=== PATIENT | female | born 1940 | race Caucasian/White ===

== ENCOUNTER 2016-11-28 17:24 | Inpatient (IN) | payer OTHER ==
[2016-11-28 17:29] VITALS: BMI 25.7
--- NOTE | 2016-11-28 20:17 | PDOC ---
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 HISTORY OF PRESENT ILLNESS: The patient denies f/c, n/v/d, back pain, hematuria , dysuria, LE edema. She states for the past 6 months she's had orthopnea and she's had fluid in her lungs in the past which had to be drained. PCP is Dr. Hunter Cardiology is Dr. Gage GI is Dr. Huerta Vital signs on arrival are within normal limits. REVIEW OF SYSTEMS: GENERAL/CONSTITUTIONAL: No fever/chills. No weakness. No weight change. HEAD, EYES, EARS, NOSE AND THROAT: No change in vision. No ear pain or discharge. No sore throat. CARDIOVASCULAR: +right sided chest pain, increased SOB. RESPIRATORY: No cough, wheezing, or hemoptysis. GASTROINTESTINAL: +right upper abdominal pain with swollen liver. No vomiting, diarrhea, constipation. GENITOURINARY: No dysuria, frequency, or change in urination. MUSCULOSKELETAL: No joint or muscle swelling or pain. No neck or back pain. SKIN: No rash or easy bruising. NEUROLOGIC: No headache, vertigo, loss of consciousness, or loss of sensation. PSYCHIATRIC: No depression or anxiety. ENDOCRINE: No increased thirst. No abnormal weight change. HEMATOLOGIC/LYMPHATIC: No anemia, easy bleeding, or history of blood clots. ALLERGIC/IMMUNOLOGIC: No hives or skin allergy. No latex allergy. PHYSICAL EXAM: GENERAL: The patient is awake, alert, and fully oriented, walking slowly secondary to SOB. THe patient speaks 3-4 words per breath. Pt's complexion is sorensen. HEAD: Normal with no signs of trauma. ENT: Pupils equal, round and reactive to light, extraocular movements intact, sclera anicteric, conjunctiva clear. Neck supple. LUNGS: Clear to auscultation bilaterally. Normal excursion. No respiratory distress or use of accessory muscles. CV: RRR, S1/S2, no MRG. Cap refill < 2 sec. ABDOMEN: Soft, right upper quadrant TTP with distention in that area. Liver 2 fingerbreaths below rib margin. Passive guarding. EXTREMITIES: Normal range of motion, no edema. NEUROLOGICAL: Normal speech, normal gait. CN II-XII grossly intact. PSYCH: Normal mood, normal affect. SKIN: Warm, dry, normal turgor, no rashes or lesions noted. No jaundice Past History - Past Medical History Allergies/Adverse Reactions: Allergies Allergy/AdvReac Type Severity Reaction Status Date / Time No Known Drug Allergies Allergy Verified 11/28/16 17:29 Home Medications: Ambulatory Orders Ca Cmb No.1/Vit D3/B-6/FA/B12 [Vitamin D3 1,000 Unit Tablet] 1 tab PO DAILY 10/15 Lisinopril [Prinivil] 20 mg PO BID 08/12/14 Metoprolol Tartrate [Lopressor -] 1 tab PO DAILY 08/12/14 Naproxen Sodium [Aleve] 220 mg PO PRN 08/13/14 Omeprazole [Prilosec (RX)] 20 mg PO DAILY 08/13/14 Anemia: No Asthma: No Cancer: No Cardiac Disorders: Yes CVA: No COPD: No CHF: No Dementia: No Diabetes: No GI Disorders: Yes (POLYPS) Disorders: No HTN: Yes Hypercholesterolemia: No HIV: Yes Liver Disease: Yes (LIVER CIRRHOSIS) Seizures: No Thyroid Disease: No Other medical history: CIRRHOSIS - Surgical History Abdominal Surgery: No Appendectomy: No Cardiac Surgery: Yes (VALVE REPLACEMENT) Cholecystectomy: No Lung Surgery: No Neurologic Surgery: No Orthopedic Surgery: No - Psycho/Social/Smoking Cessation Hx Suicidal Ideation: No Smoking History: Never smoked Hx Alcohol Use: No Drug/Substance Use Hx: No Substance Use Type: None Hx Substance Use Treatment: No Cardiac Specific PMH - Complaint Specific PMHX Pacemaker: No *Physical Exam - Vital Signs Last Vital Signs Temp Pulse Resp BP Pulse Ox 98.4 F 84 20 146/90 100 11/28/16 17:25 11/28/16 17:25 11/28/16 17:25 11/28/16 17:25 11/28/16 17:25 Heart Score/ECG Review - ECG Intrepretation Comment:: Twelve-lead EKG was performed and reviewed by Dr. Lambert. There is normal sinus rhythm with a normal rate. Left axis deviation. The intervals are normal. Inverted T waves V1 and V2. Impression: Abnormal twelve-lead EKG ED Treatment Course - LABORATORY CBC & Chemistry Diagram: 11/28/16 21:00 11/28/16 21:00 - ADDITIONAL ORDERS Additional order review: Laboratory Results 11/28/16 11/28/16 11/28/16 21:00 21:00 21:00 INR Sodium 135 L Potassium 4.2 Chloride 103 Carbon Dioxide 27 Anion Gap 5 L BUN 14 Creatinine 0.6 D Creat Clearance w eGFR > 60 Random Glucose 99 Calcium 8.3 L Total Bilirubin 2.0 H AST 59 H D ALT 34 D Alkaline Phosphatase 335 H D Ammonia 23.55 Creatine Kinase 68 Troponin I 0.10 H B-Natriuretic Peptide 266.37 H Total Protein 8.1 Albumin 2.4 L 11/28/16 21:00 INR 1.14 Sodium Potassium Chloride Carbon Dioxide Anion Gap BUN Creatinine Creat Clearance w eGFR Random Glucose Calcium Total Bilirubin AST ALT Alkaline Phosphatase Ammonia Creatine Kinase Troponin I B-Natriuretic Peptide Total Protein Albumin 11/28/16 21:00 RBC 3.78 MCV 77.9 L MCHC 31.5 L RDW 18.9 H D MPV 8.0 Neutrophils % 57.3 Lymphocytes % 30.8 Monocytes % 8.7 Eosinophils % 1.9 Basophils % 1.3 - RADIOLOGY Radiology Studies Ordered: Category Date Time Status CHEST X-RAY PORTABLE* [RAD] Stat Radiology 11/28/16 20:18 Taken ABDOMEN US -LIMITED [US] Stat Ultrasound 11/28/16 20:18 Completed Medical Decision Making - Medical Decision Making A/P: 76 y/o female with increased SOB, right sided chest pain and right upper abdominal pain with swollen liver x 2 days. Plan is as follows: 1. EKG 2. CXR 3. Ultrasound liver 4. Labs Laboratory Tests 11/28/16 11/28/16 11/28/16 21:00 21:00 21:00 Sodium 135 L Potassium 4.2 Anion Gap 5 L BUN 14 Creatinine 0.6 D Calcium 8.3 L Total Bilirubin 2.0 H AST 59 H D ALT 34 D Alkaline Phosphatase 335 H D Ammonia 23.55 Creatine Kinase 68 Troponin I 0.10 H B-Natriuretic Peptide 266.37 H Total Protein 8.1 Albumin 2.4 L abd limited ultrasound IMPRESSION: Hepatic cirrhosis is identified. No obvious hepatic mass lesion is seen. In comparison to ultrasound study of 06/08/16 there has been interval resolution of ascites within the right upper quadrant. Cholelithiasis is again noted. As on the prior study there is mild diffuse gallbladder wall thickening which is probably noninflammatory in nature. No definite biliary tract dilatation. Elevated troponin of 0.1 Elevated BNP 266 (no prior) Spoke with Dr. Nugent who would like her admitted to tele. SPoke with Dr. Victoria, neon glass blower for Dr. Gage, who agrees with plan. Informed the patient of the plan for admission and she is amenable. *DC/Admit/Observation/Transfer Diagnosis at time of Disposition: SOB (shortness of breath), Chest pain, Elevated troponin - Discharge Dispostion Admit: Yes Decision to Admit order Date/Time: Decision to Admit Order Category Date Time Status Decision to Admit to Hospital Routine Phy Order 11/28/16 22:53 Ordered - Referrals Referrals: Ector Hunter MD [Primary Care Provider] -
--- NOTE | 2016-11-28 21:08 | PDOC ---
[id number] 100 11/28/16 17:25 11/28/16 17:25 11/28/16 17:25 11/28/16 17:25 11/28/16 17:25 ED Treatment Course - LABORATORY CBC & Chemistry Diagram: 11/28/16 21:00 11/28/16 21:00 Medical Decision Making - Medical Decision Making 11/28/16 21:08 agree with care from RODGER Rice *DC/Admit/Observation/Transfer Diagnosis at time of Disposition: SOB (shortness of breath), Chest pain, Elevated troponin
[2016-11-28 21:13] LABS: BASOPHIL 1.3 % (0-2.0); EOSINOPHIL 1.9 % (0-4.5); MCH 24.5 pg (25.7-33.7); MCHC 31.5 g/dl (32.0-36.0); MEAN CELL VOLUME 77.9 fl (80-96); NEUTROPHILS 57.3 % (42.8-82.8); PLATELET COUNT 131 K/MM3 (134-434); RDW 18.9 % (11.6-15.6); WHITE BLOOD COUNT 3.7 K/mm3 (4.0-10.0)
[2016-11-28 21:23] LABS: INR 1.14 (0.82-1.09); PROTHROMBIN TIME (PATIENT) 12.6 SEC (9.98-11.88)
[2016-11-28 21:46] LABS: ALBUMIN 2.4 g/dl (3.4-5.0); ANION GAP 5 (8-16); CALCIUM 8.3 mg/dL (8.5-10.1); CO2 27 mmol/L (21-32); GLUCOSE,RANDOM 99 mg/dL (74-106)
[2016-11-28 21:52] LABS: ALK PHOS 335 U/L (45-117); CREATININE 0.6 mg/dL (0.55-1.02); SGOT/AST 59 U/L (15-37); SGPT/ALT 34 U/L (12-78); TOT PROT 8.1 g/dl (6.4-8.2)
[2016-11-29 08:02] LABS: TROPONIN I 0.1 ng/ml (0.00-0.05)
[2016-11-29 09:34] LABS: THYROID STIMULATING HORMONE 4.07 uIU/ml (0.358-3.74)
[2016-11-29] MEDS ORDERED: PANTOPRAZOLE SODIUM 100 ML IVPB ONE ×2 (11:24→12:33)
[2016-11-29] MEDS ORDERED: METOPROLOL TARTRATE 25 MG TABLET (FP) ONE (12:32)
[2016-11-29] MEDS ORDERED: SPIRONOLACTONE 25 MG TABLET (FP) ONE (12:33)
[2016-11-29] MEDS: METOPROLOL SUCCINATE 25 MG TAB.SR.24H (FP) PO SCH ×2 (12:41→21:10)
[2016-11-29] MEDS: SPIRONOLACTONE 25 MG TABLET (FP) PO SCH (12:41)
--- NOTE | 2016-11-29 15:15 | PN ---
Progress Note (short form) - Note Progress Note: consult dictated
--- NOTE | 2016-11-29 15:41 | EKG ---
Test Reason : Blood Pressure : / mmHG Vent. Rate : 080 BPM Atrial Rate : 080 BPM P-R Int : 180 ms QRS Dur : 080 ms QT Int : 402 ms P-R-T Axes : 005 -30 167 degrees QTc Int : 463 ms NORMAL SINUS RHYTHM LEFT AXIS DEVIATION LOW VOLTAGE QRS CANNOT RULE OUT ANTERIOR INFARCT , AGE UNDETERMINED ST ABNORMAL ECG WHEN COMPARED WITH ECG OF 16-NOV-2010 14:42, T WAVE INVERSION NOW EVIDENT IN ANTEROLATERAL LEADS Confirmed by XANDER MALONEY MD ([id number]) on 11/29/2016 3:40:48 PM Referred By: Overread By: XANDER MALONEY MD
--- NOTE | 2016-11-29 15:44 | CONSULT ---
Consult Consult Specialty:: cardiology Reason for Consultation:: abdominal and chest discomfort; shortness of breath - History of Present Illness Chief Complaint: Pt A&Ox3; ambulatory to bathroom; no chest pain. Pt's daughter and son are at bedside. 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 HISTORY OF PRESENT ILLNESS: The patient denies f/c, n/v/d, back pain, hematuria , dysuria, LE edema. She states for the past 6 months she's had orthopnea and fluid in her lungs in the past which had to be drained. PCP is Dr. Hunetr Cardiology is Dr. Gage GI is Dr. Huerta - History Source History Provided By: Patient, Family Member, Medical Record Limitations to Obtaining History: No Limitations - Past Medical History Cardio/Vascular: Yes: Aortic Stenosis (led to bioprosthetic AoVR), CHF, HTN Hepatobiliary: Yes: Cirrhosis Renal/: No: Renal Failure Reproductive: Yes: Postmenopausal ...: No Heme/Onc: Yes: Anemia - Past Surgical History Past Surgical History: Yes: Valve Replacement (aortic valve) - Alcohol/Substance Use Hx Alcohol Use: No - Smoking History Smoking history: Never smoked Have you smoked in the past 12 months: No Home Medications - Allergies Allergies/Adverse Reactions: Allergies Allergy/AdvReac Type Severity Reaction Status Date / Time No Known Drug Allergies Allergy Verified 11/28/16 17:29 - Home Medications Home Medications: Ambulatory Orders Aspirin [ASA -] 81 mg PO DAILY 11/29/16 Calcium Carb/Vitamin D3/Vit K1 [Viactiv Soft Chew Tablet] 1 each PO DAILY Cholecalciferol (Vitamin D3) [Vitamin D3 -] 1,000 unit PO DAILY 11/29/16 Cyanocobalamin [Vitamin B12 -] 1,000 mcg PO DAILY 11/29/16 Hydrochlorothiazide [Hctz -] 12.5 mg PO DAILY 11/29/16 Metoprolol Succinate [Toprol Xl -] 25 mg PO BID 11/29/16 Spironolactone [Aldactone] 25 mg PO DAILY 11/29/16 Ursodiol [Actigall] 300 mg PO TID 11/29/16 Family Disease History - Family Disease History Family History: Denies Review of Systems - Review of Systems Constitutional: reports: No Symptoms Eyes: reports: No Symptoms HENT: reports: No Symptoms Neck: reports: No Symptoms Cardiovascular: reports: Chest Pain Respiratory: reports: No Symptoms Gastrointestinal: reports: No Symptoms Genitourinary: reports: No Symptoms Breasts: reports: No Symptoms Reported Musculoskeletal: reports: No Symptoms Integumentary: reports: No Symptoms Neurological: reports: No Symptoms Endocrine: reports: No Symptoms Hematology/Lymphatic: reports: No Symptoms Psychiatric: reports: No Symptoms - Risk Factors Known Risk Factors: Yes: Age, Hypercholesterolemia, Hypertension, Physical Inactivity, Other (s/p bioprosthetic aortic valve) Vital Signs: Vital Signs Temperature 97.7 F 11/29/16 14:00 Pulse Rate 65 11/29/16 14:00 Respiratory Rate 18 11/29/16 14:00 Blood Pressure 105/69 11/29/16 14:00 O2 Sat by Pulse Oximetry (%) 99 11/29/16 14:00 Constitutional: Yes: Well Nourished Eyes: Yes: WNL HENT: Yes: WNL Neck: Yes: WNL Respiratory: Yes: Regular Gastrointestinal: Yes: Soft Renal/: No: Anuria Cardiovascular: Yes: Regular Rate and Rhythm, Other (chest pain is reproduced whtn stethoscope is pressed on left) JVD: No Carotid Bruit: No PMI: Non-Displaced Heart Sounds: Yes: S1, S2 Murmur: Yes: Systolic Murmur, Grade 1 Musculoskeletal: Yes: WNL Extremities: Yes: WNL Edema: No Peripheral Pulses WNL: Yes Integumentary: Yes: WNL Neurological: Yes: Alert, Oriented Psychiatric: Yes: WNL - Other Data Labs, Other Data: INR, PTT INR 1.14 (0.82-1.09) 11/28/16 21:00 Troponin, BNP 11/29/16 07:25 Troponin I 0.10 H Troponin, BNP 11/29/16 07:25 Troponin I 0.10 H Imaging - Results Chest X-ray: Image Reviewed (no acute pathology) EKG: Image Reviewed (NSR; APCs; old anterior infarct (no significant changes)) Problem List - Problems (1) Chest pain Code(s): R07.9 - CHEST PAIN, UNSPECIFIED (2) Elevated troponin Assessment/Plan: mild elevation (0.1 x 2 ), with normal and unchanging CK. Multiple reasons may explain this elevation, including myocardial ischemia ( doubt this presently: patent coronary arteries by angiogram 10/2014; no acute ST -T changes; atypical chest discomfort); liver disease, CHF; sepsis, pancytopenia. F/u ECHO for LVEF, valve status. Code(s): R79.89 - OTHER SPECIFIED ABNORMAL FINDINGS OF BLOOD CHEMISTRY (3) SOB (shortness of breath) Assessment/Plan: Pt has been doing very little exercise since cardiac surgery in 2013; the importance of starting a regular aerobic program was emphasized. Code(s): R06.02 - SHORTNESS OF BREATH (4) Liver cirrhosis Assessment/Plan: GI workup in progress; CT abdomen pending. Code(s): K74.60 - UNSPECIFIED CIRRHOSIS OF LIVER (5) Anemia Assessment/Plan: f/u pancytopenia. Code(s): D64.9 - ANEMIA, UNSPECIFIED
--- NOTE | 2016-11-29 15:45 | EKG ---
Test Reason : Blood Pressure : / mmHG Vent. Rate : 075 BPM Atrial Rate : 075 BPM P-R Int : 176 ms QRS Dur : 084 ms QT Int : 414 ms P-R-T Axes : 006 -38 031 degrees QTc Int : 462 ms SINUS RHYTHM WITH PREMATURE SUPRAVENTRICULAR COMPLEXES LEFT AXIS DEVIATION ANTERIOR INFARCT (CITED ON OR BEFORE 28-NOV-2016) WHEN COMPARED WITH ECG OF 28-NOV-2016 17:38, PREMATURE SUPRAVENTRICULAR COMPLEXES ARE NOW PRESENT T WAVE INVERSION NO LONGER EVIDENT IN LATERAL LEADS Confirmed by XANDER MALONEY MD ([id number]) on 11/29/2016 3:45:16 PM Referred By: Overread By: XANDER MALONEY MD
--- NOTE | 2016-11-29 17:35 | CONS ---
DATE OF CONSULTATION: 11/29/2016 REQUESTING PHYSICIAN: Ector Hunter MD The patient is a 76-year-old female admitted to [facility] for evaluation of chest pain. Also, she described right upper quadrant pain which she attributes to her liver. She has a history of primary sclerosing cholangitis, and she follows with Priyanka Huerta MD, for this. She was last seen July 26, 2016, by Dr. Huerta in the office. He had also mentioned that she was status post Clostridium difficile colitis. He advised continue with lactulose 1 tablespoon p.o. b.i.d., Aldactone 25 mg daily, Actigall 300 mg t.i.d. AFP tumor marker testing was performed; that was unrevealing as well. She also apparently had blood work in August 2016 revealing an AST of 64, ALT of 33, alkaline phosphatase of 302, and total bilirubin of 1.9. Her hemoglobin was 8.5 at that time with a white blood count of 3.5, MCV of 82.7, and platelet count of 131. Currently, the patient describes pain in the right upper quadrant pain has improved. She did have an abdominal ultrasound performed yesterday evening that revealed hepatic cirrhosis; no obvious hepatic masses; interval resolution of ascites; cholelithiasis; mild diffuse gallbladder wall thickening, probably noninflammatory in nature, and this was noted on previous study. 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 PAST SURGICAL HISTORY: Includes laparoscopic assisted transvaginal total abdominal hysterectomy with bilateral salpingo-oophorectomy for fibroids and endometriosis with postop kidney failure, bunionectomy, bilateral iridectomies, flap and metal prosthesis inserted in August 2015. ALLERGIES: No known drug allergies. SOCIAL HISTORY: No EtOH, tobacco, intravenous drug abuse, or illicit drugs. FAMILY HISTORY: Noncontributory. MEDICATIONS PRIOR TO ADMISSION: Include , vitamin B12, lactulose, Aldactone, aspirin, multivitamin, metoprolol, Actigall, vitamin D, Aleve, and hydrochlorothiazide. REVIEW OF SYSTEMS: She does complain still of some chest discomfort. Her right upper quadrant pain has improved. She denies any nausea or vomiting, rectal bleeding, change in bowel habits. She denies any hematemesis or melena. PHYSICAL EXAMINATION: GENERAL: Patient is found lying comfortably in her bed. She appeared to be in no apparent distress. VITAL SIGNS: She is afebrile with a pulse of 65, blood pressure 105/69. HEENT: Her sclerae are anicteric. NECK: Supple. HEART: Regular rate and rhythm. She did have a holosystolic murmur heard best at the right sternal border. LUNGS: Examination of the lungs revealed clear lung tavarez bilaterally. ABDOMEN: The abdomen was nondistended. She had normoactive bowel sounds. She did have prominent border of the liver. Abdomen was otherwise nondistended. No splenomegaly was appreciated. EXTREMITIES: Examination of the extremities revealed trace lower extremity edema. RECTAL: Digital rectal exam: No external lesions. No masses. She had very pale stool in the rectal, vault which was guaiac negative. NEUROLOGICAL: The patient was awake, alert, and oriented. There was no asterixis. LABORATORY EVALUATION: White blood count of 3.7, hemoglobin of 9.3, hematocrit 29.4, platelets of 131. Sodium 135, potassium 4.2, chloride of 103, bicarbonate of 27, BUN of 14, creatinine 0.6, AST of 59, ALT of 34, alkaline phosphatase of 335, total bilirubin 2.0 with an albumin of 2.4. Also, troponins were elevated up to 0.10 x2 sets. RADIOLOGY REPORTS: As noted in the history of present illness. IMPRESSION: A 76-year-old woman with right upper quadrant pain. She does have a history of cirrhosis. I have ordered a triple-phase CT scan of the abdomen and pelvis with and without IV contrast to evaluate the liver further, to evaluate for portal vein thrombosis, and to further assess the gallbladder given that she does have gallstones as well. Her LFTs, however, do appear to be at her baseline. I would continue to monitor them, monitor her CBC. Other recommendations will be made pending the patient's clinical course and from her CAT scan findings. She does have a followup this coming December with Priyanka Huerta MD, and I advise her and her daughter that she keep that appointment. Other recommendations pending above. I thank you for this consultative opportunity. NGUYEN ALEGRIA DO [id number]
[2016-11-29 17:36] LABS: BASOPHIL 1.1 % (0-2.0); EOSINOPHIL 1.9 % (0-4.5); MCH 24.2 pg (25.7-33.7); MCHC 31.1 g/dl (32.0-36.0); MEAN PLT VOLUME 8.3 fl (7.5-11.1); NEUTROPHILS 54.5 % (42.8-82.8); PLATELET COUNT 128 K/MM3 (134-434); WHITE BLOOD COUNT 3.3 K/mm3 (4.0-10.0)
[2016-11-29 18:08] LABS: ALBUMIN 2.2 g/dl (3.4-5.0); BILIRUBIN,DIRECT 1.4 mg/dL (0.0-0.2); BILIRUBIN,TOTAL 1.8 mg/dL (0.2-1.0); CREATININE 0.7 mg/dL (0.55-1.02); TOT PROT 7.5 g/dl (6.4-8.2)
--- NOTE | 2016-11-29 19:51 | HP ---
[id number] Chief Complaint: Abdominal pain. Chest pain with SOB History of Present Illness: She claims that over the last few days developed right sided chest pain off and on and on the day of admission became very severe and came to ED. She had aortic valve replacement 2 years ago and post op was found to have non healing of the sternum and had to undergo placement of a plate to approximate the sternal edges but continued to have sternal pain but not as severe.She has also noted generalized weakness associated with SOB over the last few weeks. Abdominal pain has been mostly right sided , without any N/V, or any fever.There is no melena. She is known to have liver cirrhosis due to sclerosing cholangitis and the liver function had improved after the aortic valve replacement and it was felt that there was no urgency for a liver transplant. History Source: Patient Limitations to Obtaining History: No Limitations - Past Medical History Cardiovascular: Yes: HTN Gastrointestinal: Yes: Ascites Hepatobiliary: Yes: Cirrhosis, Cholelithiasis ...: No - Past Surgical History Past Surgical History: Yes: Cataract Removal, Hysterectomy, Valve Replacement - Advance Directives Advance Directives: Yes: Health Care Proxy - Smoking History Smoking history: Never smoked Have you smoked in the past 12 months: No - Alcohol/Substance Use Hx Alcohol Use: No - Social History Usual Living Arrangement: Yes: Other (lives with daughter) ADL: Independent History of Recent Travel: No Home Medications - Allergies Allergies/Adverse Reactions: Allergies Allergy/AdvReac Type Severity Reaction Status Date / Time No Known Drug Allergies Allergy Verified 12/24/16 21:01 - Home Medications Home Medications: Ambulatory Orders Calcium Carb/Vitamin D3/Vit K1 [Viactiv Soft Chew] 1 each PO DAILY 11/29/16 Cholecalciferol (Vitamin D3) [Vitamin D3 -] 1,000 unit PO DAILY 11/29/16 Cyanocobalamin [Vitamin B12 -] 1,000 mcg PO DAILY 11/29/16 Ascorbic Acid [Vitamin C -] 500 mg PO DAILY #30 tablet 12/02/16 Ferrous Sulfate [Feosol] 325 mg PO DAILY@0800 ud 12/02/16 Metoprolol Succinate [Toprol XL -] 12.5 mg PO BID #0 12/02/16 Pantoprazole Sodium [Protonix -] 40 mg PO DAILY #30 tablet.ec 12/02/16 Spironolactone [Aldactone -] 25 mg PO DAILY tablet 12/02/16 Ursodiol [Actigal -] 300 mg PO BID capsule 12/02/16 Review of Systems - Review of Systems Constitutional: reports: Weakness Eyes: reports: No Symptoms HENT: reports: No Symptoms Neck: reports: No Symptoms Cardiovascular: reports: Shortness of Breath Respiratory: reports: SOB on Exertion Gastrointestinal: reports: Abdominal Pain Genitourinary: reports: No Symptoms Breasts: reports: No Symptoms Reported Musculoskeletal: reports: No Symptoms Integumentary: reports: No Symptoms Neurological: reports: No Symptoms Endocrine: reports: No Symptoms Psychiatric: reports: No Symptoms Physical Examination Vital Signs: Vital Signs Temperature 98.0 F 11/29/16 17:00 Pulse Rate 60 11/29/16 17:00 Respiratory Rate 18 11/29/16 17:00 Blood Pressure 106/62 11/29/16 17:00 O2 Sat by Pulse Oximetry (%) 99 11/29/16 14:00 Constitutional: Yes: Well Nourished, Calm Eyes: Yes: Conjunctiva Clear, Sclera Icterus HENT: Yes: Atraumatic, Normocephalic Neck: Yes: Supple Cardiovascular: Yes: Regular Rate and Rhythm, S1, S2 Respiratory: Yes: Regular, CTA Bilaterally Gastrointestinal: Yes: Distention, Tenderness, Other (right upper quadrant tenderness which extends to lower level) Renal/: Yes: WNL Breast(s): Yes: WNL Musculoskeletal: Yes: WNL Extremities: Yes: WNL Edema: No Peripheral Pulses WNL: Yes Integumentary: Yes: WNL Neurological: Yes: Alert, Oriented, Cran Nerves II-XII Intact ...Motor Strength: WNL Psychiatric: Yes: Alert, Oriented Labs: CBC, BMP 11/29/16 16:30 11/29/16 16:30 Imaging - Results EKG: Report Reviewed Problem List - Problems (1) Anemia Assessment/Plan: Micrcytic indices sugges chronic blood loss anemia. She had colonoscopy 2yrs ago and was negative.Anemia is most likely due to chronic gastritis. Code(s): D64.9 - ANEMIA, UNSPECIFIED Qualifiers: Iron deficiency anemia type: chronic blood loss (2) HTN (hypertension) Assessment/Plan: BP under good control Code(s): I10 - ESSENTIAL (PRIMARY) HYPERTENSION (3) Liver cirrhosis Code(s): K74.60 - UNSPECIFIED CIRRHOSIS OF LIVER Assessment/Plan Severe anemia to be followed closely and if any drop will have to be transfused. Abdominal pain has improved markedly with IV Protonix suggesting pain from gastritis.
[2016-11-29 20:40] LABS: CHOLESTEROL 127 mg/dL (50-200); LDL CHOLESTEROL (ONLY SJRH) 87 mg/dL (5-100)
[2016-11-30 08:29] LABS: MCH 24.8 pg (25.7-33.7); MCHC 31.9 g/dl (32.0-36.0); MEAN CELL VOLUME 77.9 fl (80-96); PLATELET COUNT 84 K/MM3 (134-434); RDW 19.2 % (11.6-15.6); WHITE BLOOD COUNT 2.6 K/mm3 (4.0-10.0)
[2016-11-30] MEDS ORDERED: PT OWN MED DRAWER 7, Y5N ONE ×3 (09:08→21:22)
[2016-11-30] MEDS: SPIRONOLACTONE 25 MG TABLET (FP) PO SCH (09:40)
[2016-11-30] MEDS: METOPROLOL SUCCINATE 25 MG TAB.SR.24H (FP) PO SCH ×2 (09:40→22:57)
[2016-11-30] MEDS ORDERED: PANTOPRAZOLE SODIUM 40 MG in SODIUM CHLORIDE 100 ML IVPB SCH (10:00)
[2016-11-30] MEDS ORDERED: URSODIOL 300 MG CAPSULE PO SCH (10:00)
[2016-11-30] MEDS ORDERED: PANTOPRAZOLE SODIUM 40 MG/100 ML PRE-DOCKED IVPB SCH (10:00)
--- NOTE | 2016-11-30 15:58 | PN ---
Progress Note, Physician Chief Complaint: Pt denies chest pain presently. History of Present Illness: 76 y/o white female (juan Lux) with PMH HTN, [id number] aortic valve replacement (10/2014 at [facility]--Dr. Adan); patent coronary arteries on coronary angiogram (10/2014 at [facility]--Dr. 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 HISTORY OF PRESENT ILLNESS: The patient denies f/c, n/v/d, back pain, hematuria , dysuria, LE edema. She states for the past 6 months she's had orthopnea and fluid in her lungs in the past which had to be drained. PCP is Dr. Hunter Cardiology is Dr. Gage GI is Dr. Huerta - Current Medication List Current Medications: Active Medications Metoprolol Succinate (Toprol Xl -) 25 mg PO BID [facility] Last Admin: 11/30/16 09:40 Dose: 25 mg Pantoprazole Sodium (Protonix 40mg Ivpb (Pre-Docked)) 40 mg IVPB DAILY [facility] Last Admin: 11/30/16 09:40 Dose: 40 mg Spironolactone (Aldactone -) 25 mg PO DAILY [facility] Last Admin: 11/30/16 09:40 Dose: 25 mg Ursodiol (Actigal -) 300 mg PO DAILY [facility] Last Admin: 11/30/16 12:06 Dose: 300 mg - Objective Vital Signs: Vital Signs Temperature 98.0 F 11/30/16 14:00 Pulse Rate 68 11/30/16 14:00 Respiratory Rate 20 11/30/16 14:00 Blood Pressure 100/65 11/30/16 14:00 O2 Sat by Pulse Oximetry (%) 98 11/30/16 09:00 Constitutional: Yes: Calm Eyes: Yes: WNL HENT: Yes: WNL Neck: Yes: WNL Cardiovascular: Yes: Regular Rate and Rhythm Respiratory: Yes: Regular Gastrointestinal: Yes: Soft ...Rectal Exam: Yes: Deferred Genitourinary: No: Anuria Musculoskeletal: Yes: Muscle Weakness Edema: No Peripheral Pulses WNL: Yes Integumentary: Yes: Incision Neurological: Yes: Alert, Oriented, Weakness Psychiatric: Yes: Alert, Oriented Labs: CBC, BMP 11/30/16 07:10 11/29/16 16:30 INR, PTT INR 1.14 (0.82-1.09) 11/28/16 21:00 Abnormal Lab Results 11/30/16 11/30/16 07:10 11:19 WBC 2.6 L RBC 3.17 L Hgb 7.9 L Hct 24.7 L MCV 77.9 L MCHC 31.9 L RDW 19.2 H Plt Count 84 L D Monocytes % 11.0 H Crossmatch See Detail - ....Imaging Ultrasound: Image Reviewed (ECHO: normal LVEF and RVEF; bioprosthetic aortic valve intact, with no significant or AR; moderate TR.) Problem List - Problems (1) Chest pain Code(s): R07.9 - CHEST PAIN, UNSPECIFIED (2) Elevated troponin Assessment/Plan: mild elevation (0.1 x 2 ), with normal and unchanging CK. Multiple reasons may explain this elevation, including myocardial ischemia ( doubt this presently: patent coronary arteries by angiogram 10/2014; no acute ST -T changes; atypical chest discomfort); liver disease, CHF; sepsis, pancytopenia. ECHO: normal LVEF and RVEF; intact AoVR; moderate TR. Receiving PRBCs and FeSO4; f/u with Gi and hematology. Code(s): R79.89 - OTHER SPECIFIED ABNORMAL FINDINGS OF BLOOD CHEMISTRY (3) SOB (shortness of breath) Assessment/Plan: Pt has been doing very little exercise since cardiac surgery in 2013; the importance of starting a regular aerobic program was emphasized. Code(s): R06.02 - SHORTNESS OF BREATH (4) Liver cirrhosis Assessment/Plan: GI workup in progress. Code(s): K74.60 - UNSPECIFIED CIRRHOSIS OF LIVER (5) Anemia Assessment/Plan: f/u pancytopenia. Code(s): D64.9 - ANEMIA, UNSPECIFIED Qualifiers: Iron deficiency anemia type: chronic blood loss (7) Pancytopenia Assessment/Plan: Receiving PRBCs and ferrous sulfate. F/u with hematology and GI. Code(s): D61.818 - OTHER PANCYTOPENIA
[2016-11-30] MEDS ORDERED: LACTULOSE 20 GM/30 ML UDC (FOR ORAL USE ONLY) PO ONE (17:41)
--- NOTE | 2016-11-30 17:50 | PN ---
GI Progress Note Subjective: GI Note: CT scan and sonogram reveal no ascites or major liver problems. Echocardiogram similarly reveals no major dysfunction. Ferritin is very low. Karie is pain free and very hungry. I believe that her pain was musculoskeletal and related to [place] meal preparation. Her liver condition is actually primary biliary cholangitis ( formerly called primary biliary cirrhosis) and not primary sclerosing cholangitis. - Objective Vital Signs: Vital Signs Temperature 98.0 F 11/30/16 14:00 Pulse Rate 68 11/30/16 14:00 Respiratory Rate 20 11/30/16 14:00 Blood Pressure 100/65 11/30/16 14:00 O2 Sat by Pulse Oximetry (%) 98 11/30/16 09:00 CBC, BMP 11/30/16 07:10 11/29/16 16:30 Constitutional: Calm Eyes: Yes: Conjunctiva Clear ...Auscultate: Yes: Normoactive Bowel Sounds ...Palpate: Yes: Soft, Other (nontender) Labs: CBC, BMP 11/30/16 07:10 11/29/16 16:30 INR, PTT INR 1.14 (0.82-1.09) 11/28/16 21:00 Assessment/Plan Resolved musculoskeletal pain. Iron deficiency anemia without overt bleeding. Agree with checking multiple stools for occult blood. Have advanced to solid diet and given iron and Vitamin C replacement therapy with Karie and her son. If diet is tolerated I have no GI objections to discharge. She will followup in my office on 12/19/15. If anemia progresses despite iron replacement a capsule endoscopy will need to be considered. Reports of 2014 EGD and colonoscopy have been placed into the chart.
--- NOTE | 2016-11-30 20:19 | PN ---
Progress Note, Physician History of Present Illness: Abdominal pain subsided as well as chest pain. Denies SOB, denies any palpitations. Appetite improving. No rectal bleeding, no melena. - Current Medication List Current Medications: Active Medications Ferrous Sulfate (Feosol -) 325 mg PO DAILY@0800 [facility] Metoprolol Succinate (Toprol Xl -) 25 mg PO BID [facility] Last Admin: 11/30/16 09:40 Dose: 25 mg Pantoprazole Sodium (Protonix -) 40 mg PO DAILY [facility] Spironolactone (Aldactone -) 25 mg PO DAILY [facility] Last Admin: 11/30/16 09:40 Dose: 25 mg Ursodiol (Actigal -) 300 mg PO BID [facility] - Objective Vital Signs: Vital Signs Temperature 98.5 F 11/30/16 16:00 Pulse Rate 67 11/30/16 16:00 Respiratory Rate 20 11/30/16 16:00 Blood Pressure 108/40 11/30/16 16:00 O2 Sat by Pulse Oximetry (%) 98 11/30/16 09:00 Constitutional: Yes: No Distress, Calm Eyes: Yes: Sclera Icterus HENT: Yes: WNL Neck: Yes: Supple Cardiovascular: Yes: Regular Rate and Rhythm, S1, S2 Respiratory: Yes: Regular, CTA Bilaterally Gastrointestinal: Yes: Normal Bowel Sounds, Soft Genitourinary: Yes: WNL Musculoskeletal: Yes: WNL Edema: No Peripheral Pulses WNL: Yes Integumentary: Yes: WNL Neurological: Yes: Alert, Oriented, Cran Nerves II-XII Intact ...Motor Strength: WNL Psychiatric: Yes: Alert, Oriented Labs: CBC, BMP 11/30/16 07:10 11/29/16 16:30 INR, PTT INR 1.14 (0.82-1.09) 11/28/16 21:00 - ....Imaging Chest X-ray: Report Reviewed Cat Scan: Report Reviewed Ultrasound: Report Reviewed Problem List - Problems (1) Anemia Assessment/Plan: Since admission Hb dropped to 7.8 and she was transfused one unit of packed cell. Will continue to monitor. Stool guaic was negative. Microcytic indices and ferritin is down to 7.5 Code(s): D64.9 - ANEMIA, UNSPECIFIED Qualifiers: Iron deficiency anemia type: chronic blood loss (2) Chest pain Assessment/Plan: chest pain is due to non fusion of the sternum with tenderness to touch Code(s): R07.9 - CHEST PAIN, UNSPECIFIED (3) Elevated troponin Code(s): R79.89 - OTHER SPECIFIED ABNORMAL FINDINGS OF BLOOD CHEMISTRY (4) Liver cirrhosis Assessment/Plan: No mass on ultrasound or by CT scan Code(s): K74.60 - UNSPECIFIED CIRRHOSIS OF LIVER (5) SOB (shortness of breath) Code(s): R06.02 - SHORTNESS OF BREATH Assessment/Plan Transfused one unit of RBC today. If HB less than 10 will give another unit in AM. CBC to be monitored over the weekend.
[2016-11-30] MEDS: URSODIOL 300 MG CAPSULE PO SCH (22:01)
[2016-12-01 08:00] LABS: BASOPHIL 1.2 % (0-2.0); EOSINOPHIL 2.5 % (0-4.5); MCH 25.3 pg (25.7-33.7); MCHC 32.2 g/dl (32.0-36.0); MEAN CELL VOLUME 78.4 fl (80-96); MEAN PLT VOLUME 8.1 fl (7.5-11.1); PLATELET COUNT 87 K/MM3 (134-434); RDW 18.1 % (11.6-15.6); WHITE BLOOD COUNT 2.7 K/mm3 (4.0-10.0)
[2016-12-01 08:13] LABS: CALCIUM 8.1 mg/dL (8.5-10.1); CREATININE 0.6 mg/dL (0.55-1.02)
[2016-12-01] MEDS ORDERED: PT OWN MED DRAWER 7, Y5N ONE (08:15)
[2016-12-01] MEDS: PANTOPRAZOLE 40 MG TABLET (FP) PO SCH (09:15)
[2016-12-01] MEDS: SPIRONOLACTONE 25 MG TABLET (FP) PO SCH (09:15)
[2016-12-01] MEDS: FERROUS SO4 325 MG TABLET (FP) PO SCH (09:15)
[2016-12-01] MEDS: URSODIOL 300 MG CAPSULE PO SCH ×2 (09:16→21:33)
[2016-12-01] MEDS: METOPROLOL SUCCINATE 25 MG TAB.SR.24H (FP) PO SCH ×2 (09:16→21:32)
[2016-12-01] MEDS ORDERED: ASCORBIC ACID 500 MG TABLET (FP) PO SCH (10:00)
--- NOTE | 2016-12-01 10:31 | PN ---
Progress Note, Physician History of Present Illness: seen and examined today in [facility]. no overnight events. no new complaints. - Current Medication List Current Medications: Active Medications Ferrous Sulfate (Feosol -) 325 mg PO DAILY@0800 [facility] Last Admin: 12/01/16 09:15 Dose: 325 mg Metoprolol Succinate (Toprol Xl -) 25 mg PO BID [facility] Last Admin: 12/01/16 09:16 Dose: Not Given Pantoprazole Sodium (Protonix -) 40 mg PO DAILY [facility] Last Admin: 12/01/16 09:15 Dose: 40 mg Spironolactone (Aldactone -) 25 mg PO DAILY [facility] Last Admin: 12/01/16 09:15 Dose: 25 mg Ursodiol (Actigal -) 300 mg PO BID [facility] Last Admin: 12/01/16 09:16 Dose: 300 mg - Objective Vital Signs: Vital Signs Temperature 98.2 F 12/01/16 07:12 Pulse Rate 69 12/01/16 07:12 Respiratory Rate 20 12/01/16 07:12 Blood Pressure 91/56 12/01/16 07:12 O2 Sat by Pulse Oximetry (%) 98 11/30/16 21:00 Constitutional: Yes: Well Nourished, No Distress, Calm Eyes: Yes: WNL, Conjunctiva Clear, EOM Intact, PERRL HENT: Yes: WNL, Atraumatic, Normocephalic Neck: Yes: WNL, Supple, Trachea Midline Cardiovascular: Yes: Regular Rate and Rhythm, Murmur, S1, S2. No: Bradycardia, Tachycardia, Pulse Irregular, Bruit, JVD, Gallop, Rub, S3, S4, Varicosities Respiratory: Yes: Regular, Diminished, Rales (bases). No: Rhonchi, SOB, Wheezes Gastrointestinal: Yes: WNL, Normal Bowel Sounds, Soft. No: Distention, Tenderness Musculoskeletal: Yes: WNL Extremities: Yes: WNL Edema: No Peripheral Pulses WNL: Yes Peripheral Pulses: Left Doralis Pedis: 2+, Right Dorsalis Pedis: 2+ Integumentary: Yes: WNL Neurological: Yes: WNL, Alert, Oriented, Cran Nerves II-XII Intact ...Motor Strength: WNL Psychiatric: Yes: WNL, Alert, Oriented Labs: CBC, BMP 12/01/16 06:00 12/01/16 06:00 INR, PTT INR 1.14 (0.82-1.09) 11/28/16 21:00 - ....Imaging Chest X-ray: Report Reviewed, Image Reviewed EKG: Report Reviewed, Image Reviewed Other: Report Reviewed, Image Reviewed (tele-nsr, 5 beats nsvt, apcs) Assessment/Plan Chest pain-atypical with very mild troponin elevation and stable CK -patent coronary arteries on cath 10/2014 -echo showed normal LV systolic function, normal functioning AVR -no additional ischemic work up planned at this time -cont toprol SOB--improved -cont aldactone and toprol Pancytopenia -receiving prbc transfusions
--- NOTE | 2016-12-01 17:58 | PN ---
[id number] BP was low - Current Medication List Current Medications: Active Medications Ferrous Sulfate (Feosol -) 325 mg PO DAILY@0800 [facility] Last Admin: 12/01/16 09:15 Dose: 325 mg Metoprolol Succinate (Toprol Xl -) 12.5 mg PO BID [facility] Pantoprazole Sodium (Protonix -) 40 mg PO DAILY [facility] Last Admin: 12/01/16 09:15 Dose: 40 mg Spironolactone (Aldactone -) 25 mg PO DAILY [facility] Last Admin: 12/01/16 09:15 Dose: 25 mg Ursodiol (Actigal -) 300 mg PO BID [facility] Last Admin: 12/01/16 09:16 Dose: 300 mg - Objective Vital Signs: Vital Signs Temperature 98.3 F 12/01/16 14:46 Pulse Rate 69 12/01/16 10:00 Respiratory Rate 20 12/01/16 14:46 Blood Pressure 113/70 12/01/16 14:46 O2 Sat by Pulse Oximetry (%) 98 12/01/16 10:00 Constitutional: Yes: No Distress, Calm Eyes: Yes: EOM Intact, Sclera Icterus HENT: Yes: WNL Neck: Yes: WNL, Supple Cardiovascular: Yes: Regular Rate and Rhythm, S1, S2 Respiratory: Yes: CTA Bilaterally Gastrointestinal: Yes: Normal Bowel Sounds, Soft Genitourinary: Yes: WNL Musculoskeletal: Yes: WNL Extremities: Yes: WNL Edema: No Peripheral Pulses WNL: Yes Integumentary: Yes: WNL Neurological: Yes: Alert, Oriented ...Motor Strength: WNL Psychiatric: Yes: Alert, Oriented Labs: CBC, BMP 12/01/16 06:00 12/01/16 06:00 INR, PTT INR 1.14 (0.82-1.09) 11/28/16 21:00 Problem List - Problems (1) Anemia Assessment/Plan: Anemia due to gi bleed from gastritis Code(s): D64.9 - ANEMIA, UNSPECIFIED Qualifiers: Iron deficiency anemia type: chronic blood loss (2) Chest pain Code(s): R07.9 - CHEST PAIN, UNSPECIFIED (3) Elevated troponin Code(s): R79.89 - OTHER SPECIFIED ABNORMAL FINDINGS OF BLOOD CHEMISTRY (4) Liver cirrhosis Code(s): K74.60 - UNSPECIFIED CIRRHOSIS OF LIVER (5) SOB (shortness of breath) Code(s): R06.02 - SHORTNESS OF BREATH Assessment/Plan Continue to observe. May need blood transfusion if Hemoglobin drops further
[2016-12-02 06:41] LABS: SERUM IRON 173 ug/dL (27-139); TOTAL IRON BINDING CAPACITY 295 ug/dL (250-450); UIBC 122 ug/dL (118-369)
[2016-12-02 08:06] LABS: BASOPHIL 1.2 % (0-2.0); MCH 25.5 pg (25.7-33.7); MCHC 32.5 g/dl (32.0-36.0); MEAN CELL VOLUME 78.4 fl (80-96); NEUTROPHILS 59.1 % (42.8-82.8); PLATELET COUNT 80 K/MM3 (134-434); RDW 18.6 % (11.6-15.6); WHITE BLOOD COUNT 3.2 K/mm3 (4.0-10.0)
[2016-12-02] MEDS ORDERED: PT OWN MED DRAWER 7, Y5N ONE (08:28)
[2016-12-02] MEDS: FERROUS SO4 325 MG TABLET (FP) PO SCH (09:09)
[2016-12-02] MEDS: PANTOPRAZOLE 40 MG TABLET (FP) PO SCH (09:09)
[2016-12-02] MEDS: SPIRONOLACTONE 25 MG TABLET (FP) PO SCH (09:09)
[2016-12-02] MEDS: METOPROLOL SUCCINATE 25 MG TAB.SR.24H (FP) PO SCH (09:10)
[2016-12-02] MEDS: URSODIOL 300 MG CAPSULE PO SCH (09:10)
--- NOTE | 2016-12-02 11:08 | PN ---
Progress Note, Physician History of Present Illness: seen and examined today in nad. feeling better. no overnight events. no new complaints. - Current Medication List Current Medications: Active Medications Ferrous Sulfate (Feosol -) 325 mg PO DAILY@0800 [facility] Last Admin: 12/02/16 09:09 Dose: 325 mg Metoprolol Succinate (Toprol Xl -) 12.5 mg PO BID [facility] Last Admin: 12/02/16 09:10 Dose: Not Given Pantoprazole Sodium (Protonix -) 40 mg PO DAILY [facility] Last Admin: 12/02/16 09:09 Dose: 40 mg Spironolactone (Aldactone -) 25 mg PO DAILY [facility] Last Admin: 12/02/16 09:09 Dose: 25 mg Ursodiol (Actigal -) 300 mg PO BID [facility] Last Admin: 12/02/16 09:10 Dose: 300 mg - Objective Vital Signs: Vital Signs Temperature 97.9 F 12/02/16 06:00 Pulse Rate 77 12/02/16 06:00 Respiratory Rate 18 12/02/16 08:51 Blood Pressure 99/67 12/02/16 06:00 O2 Sat by Pulse Oximetry (%) 98 12/02/16 08:51 Constitutional: Yes: Well Nourished, No Distress, Calm Eyes: Yes: WNL, Conjunctiva Clear, EOM Intact, PERRL HENT: Yes: WNL, Atraumatic, Normocephalic Neck: Yes: WNL, Supple, Trachea Midline Cardiovascular: Yes: Regular Rate and Rhythm, S1, S2. No: Bradycardia, Tachycardia, Pulse Irregular, Bruit, JVD, Gallop, Murmur, Rub, S3, S4, Varicosities Respiratory: Yes: WNL, Regular, CTA Bilaterally. No: Rales, Rhonchi, Wheezes Gastrointestinal: Yes: WNL, Normal Bowel Sounds, Soft. No: Distention, Tenderness Musculoskeletal: Yes: WNL Extremities: Yes: WNL Edema: No Peripheral Pulses WNL: Yes Peripheral Pulses: Left Doralis Pedis: 2+, Right Dorsalis Pedis: 2+ Integumentary: Yes: WNL Neurological: Yes: WNL, Alert, Oriented, Cran Nerves II-XII Intact ...Motor Strength: WNL Psychiatric: Yes: WNL, Alert, Oriented Labs: CBC, BMP 12/02/16 07:00 12/01/16 06:00 INR, PTT INR 1.14 (0.82-1.09) 11/28/16 21:00 - ....Imaging Chest X-ray: Report Reviewed, Image Reviewed EKG: Report Reviewed, Image Reviewed Other: Report Reviewed, Image Reviewed (tele-nsr, apcs, pcvs, no sig arrhythmia) Assessment/Plan Chest pain-atypical with very mild troponin elevation and stable CK -patent coronary arteries on cath 10/2014 -echo showed normal LV systolic function, normal functioning AVR -no additional ischemic work up planned at this time -cont toprol SOB-improved -cont aldactone and toprol
[2016-12-02 14:33] VITALS: BP 104/63; PULSE 72; TEMP 98
[2016-12-05 00:06] LABS: A/G RATIO 0.5 (0.7-1.7); ALBUMIN 2.1 g/dL (2.9-4.4); GLOBULIN, TOTAL 4.2 g/dL (2.2-3.9); M-SPIKE Not Observed g/dL (Not Observed); TOTAL PROTEIN 6.3 g/dL (6.0-8.5)
== END 2016-12-02 15:58 | disposition home or self-care (01) | DRG 313 ==
LOC: JER 17:24 → JERBED 11-29 01:16 → UNDOADMIN 11-29 01:16 → J4S 11-29 13:52 → JERBED 11-29 13:52 → J4S 11-29 15:51
PROVIDERS: ADMIT Internal Medicine Hematology & Oncology; ATTEND Internal Medicine Hematology & Oncology
PROC: 30233N1 Transfusion of Nonautologous Red Blood Cells into Peripheral Vein, Percutaneous Approach (ICD-10-PCS; principal; 2016-11-30)
DX: R07.9 Chest pain, unspecified (principal); D61.818 Other pancytopenia; K83.0 Cholangitis; Z95.2 Presence of prosthetic heart valve; I10 Essential (primary) hypertension; R06.02 Shortness of breath; R79.89 Other specified abnormal findings of blood chemistry; D50.0 Iron deficiency anemia secondary to blood loss (chronic)
CPT/HCPCS: 36415; 36430; 71010-TC; 74178-TC; 76705-TC; 80048; 80053; 80061; 80076; 82105; 82140; 82550; 82607; 82728; 83516; 83540; 83550; 83721; 83880; 84155; 84165; 84439; 84443; 84481; 84484; 85025; 85044; 85610; 86140; 86301; 86850; 86900; 86901; 86922; 93005; 93010; 93306-TC; 99285-25; P9058; Q9967

== ENCOUNTER 2016-12-24 20:50 | Inpatient (IN) | payer OTHER ==
--- NOTE | 2016-12-24 21:51 | PDOC ---
History of Present Illness <Mechelle Navarro - Last Filed: 12/25/16 00:59> - General History Source: Patient, Family Exam Limitations: No Limitations - History of Present Illness Initial Comments: 12/24/16 23:31 76 Y F HTN, HIV, LIVER CIRRHOSIS, CHF; pte c/o cough, fever, sob since 3 days. weak. feels unsafe to ambulate. staying w/ family where one member has the flu. seen at urgent care w/ flu - and cxr showing pvc but no infiltrates or effusions. in ed, in nad. actively coughing. O2 sat 95 % r/a. <Ector Joshi - Last Filed: 12/25/16 01:00> - General Chief Complaint: Respiratory Stated Complaint: CHEST CONGESTION Time Seen by Provider: 12/24/16 21:35 Past History <Mechelle Navarro - Last Filed: 12/25/16 00:59> - Past Medical History Anemia: No Asthma: No Cancer: No Cardiac Disorders: Yes CVA: No COPD: No CHF: No Dementia: No Diabetes: No GI Disorders: Yes (POLYPS) Disorders: No HTN: Yes Hypercholesterolemia: No HIV: Yes Liver Disease: Yes (LIVER CIRRHOSIS) Seizures: No Thyroid Disease: No - Surgical History Abdominal Surgery: No Appendectomy: No Cardiac Surgery: Yes (aortic valve replacement 2013) Cholecystectomy: No Lung Surgery: No Neurologic Surgery: No Orthopedic Surgery: No - Psycho/Social/Smoking Cessation Hx Anxiety: No Suicidal Ideation: No Smoking History: Never smoked Have you smoked in the past 12 months: No Number of Cigarettes Smoked Daily: 0 Cigars Per Day: 0 Information on smoking cessation initiated: No Hx Alcohol Use: No Drug/Substance Use Hx: No Substance Use Type: None Hx Substance Use Treatment: No <Ector Joshi - Last Filed: 12/25/16 01:00> - Past Medical History Allergies/Adverse Reactions: Allergies Allergy/AdvReac Type Severity Reaction Status Date / Time No Known Drug Allergies Allergy Verified 12/24/16 21:01 Home Medications: Ambulatory Orders Calcium Carb/Vitamin D3/Vit K1 [Viactiv Soft Chew] 1 each PO DAILY 11/29/16 Cholecalciferol (Vitamin D3) [Vitamin D3 -] 1,000 unit PO DAILY 11/29/16 Cyanocobalamin [Vitamin B12 -] 1,000 mcg PO DAILY 11/29/16 Spironolactone [Aldactone -] 25 mg PO DAILY 11/29/16 Ursodiol [Actigall] 300 mg PO TID 11/29/16 Ascorbic Acid [Vitamin C -] 500 mg PO DAILY #30 tablet 12/02/16 Ferrous Sulfate [Feosol] 325 mg PO DAILY@0800 ud 12/02/16 Metoprolol Succinate [Toprol XL -] 12.5 mg PO BID tab.sr.24h 12/02/16 Metoprolol Succinate [Toprol XL -] 12.5 mg PO BID #0 12/02/16 Pantoprazole Sodium [Protonix -] 40 mg PO DAILY #30 tablet.ec 12/02/16 Spironolactone [Aldactone -] 25 mg PO DAILY tablet 12/02/16 Ursodiol [Actigal -] 300 mg PO BID capsule 12/02/16 Review of Systems - Review of Systems Able to Perform ROS?: Yes Is the patient limited Kiswahili proficient: No Constitutional: Yes: Symptoms Reported, See HPI, Malaise, Weakness HEENTM: No: Symptoms Reported Respiratory: Yes: Symptoms reported, See HPI, Cough, Shortness of Breath Cardiac (ROS): No: Symptoms Reported ABD/GI: No: Symptoms Reported Integumentary: No: Symptoms Reported Neurological: No: Symptoms reported All Other Systems: Reviewed and Negative <Ector Joshi - Last Filed: 12/25/16 01:00> *Physical Exam - Vital Signs Last Vital Signs Temp Pulse Resp BP Pulse Ox 99.3 F 93 H 16 146/90 95 12/24/16 21:01 12/24/16 21:01 12/24/16 21:01 12/24/16 21:01 12/24/16 21:01 <Mechelle Navarro - Last Filed: 12/25/16 00:59> - Vital Signs Last Vital Signs Temp Pulse Resp BP Pulse Ox 99.3 F 93 H 16 146/90 95 12/24/16 21:01 12/24/16 21:01 12/24/16 21:01 12/24/16 21:01 12/24/16 21:01 - Physical Exam General Appearance: Yes: Nourished, Appropriately Dressed. No: Apparent Distress HEENT: positive: Normal ENT Inspection Neck: positive: Supple. negative: Tender Respiratory/Chest: positive: Crackles, Rhonchi. negative: Chest Tender, Respiratory Distress Cardiovascular: positive: Regular Rhythm, Regular Rate, Tachycardia Gastrointestinal/Abdominal: positive: Soft. negative: Tender Lymphatic: negative: Adenopathy Musculoskeletal: positive: Normal Inspection Extremity: positive: Normal Capillary Refill Integumentary: positive: Normal Color Neurologic: positive: Fully Oriented, Alert, Normal Mood/Affect, Normal Response , Motor Strength 5/5 <Ector Joshi - Last Filed: 12/25/16 01:00> ED Treatment Course - LABORATORY CBC & Chemistry Diagram: 12/24/16 23:33 12/24/16 23:33 <Mechelle Navarro - Last Filed: 12/25/16 00:59> - LABORATORY CBC & Chemistry Diagram: 12/24/16 23:33 12/24/16 23:33 <Ector Joshi - Last Filed: 12/25/16 01:00> Progress Note - Progress Note Progress Note: likely bronchitis (viral) CHING but no resp distress d/w pmd will keep in observation tonight and cont nebs <Ector Joshi - Last Filed: 12/25/16 01:00> Medical Decision Making - Medical Decision Making 12/24/16 23:[address] Ector Hunter (via cell phone) at 23:23 and patient's case was discussed. Dr. Hunter requested for patient to be admitted to hospitalist service. <Mechelle Navarro - Last Filed: 12/25/16 00:59> *DC/Admit/Observation/Transfer <Mechelle Navarro - Last Filed: 12/25/16 00:59> - Discharge Dispostion Admit: Yes <Ector Joshi - Last Filed: 12/25/16 01:00> Diagnosis at time of Disposition: Bronchitis, Failure to thrive in adult - Discharge Dispostion Condition at time of disposition: Stable
[2016-12-25 00:01] LABS: BASOPHIL 1.2 % (0-2.0); MCH 26.5 pg (25.7-33.7); MEAN CELL VOLUME 80.5 fl (80-96); MEAN PLT VOLUME 8.2 fl (7.5-11.1); RDW 22.4 % (11.6-15.6); WHITE BLOOD COUNT 8.2 K/mm3 (4.0-10.0)
[2016-12-25 00:21] LABS: CREATININE 0.9 mg/dL (0.55-1.02)
[2016-12-25] MEDS: SODIUM CHLORIDE 1,000 ML IV SCH ×2 (00:30→16:21)
[2016-12-25] MEDS ORDERED: POTASSIUM CHLORIDE TABS 20 MEQ TABLET.ER (FP) PO ONE ×2 (01:01→02:11)
--- NOTE | 2016-12-25 01:01 | PN ---
<Andres Ureñavivian - Last Filed: 12/25/16 01:01> Teaching Attending Note Name of Resident: Sharmin Linares ATTENDING PHYSICIAN STATEMENT I saw and evaluated the patient. I reviewed the resident's note and discussed the case with the resident. I agree with the resident's findings and plan as documented. SUBJECTIVE: OBJECTIVE: ASSESSMENT AND PLAN: <HadleyMike - Last Filed: 12/25/16 03:31> Teaching Attending Note ATTENDING PHYSICIAN STATEMENT I saw and evaluated the patient. I reviewed the resident's note and discussed the case with the resident. I agree with the resident's findings and plan as documented. SUBJECTIVE: The patient is a 76 year old female with past medical history of HTN, HIV, ANDRES cirrhosis, CHF, AV valve replacement, hysterectomy, CAD, and iron deficiency anemia presented with cough,unable to tolerate PO intake. The patient lives alone but notes sick contact with her grandson (flu). The patient notes associated chills, sweats, and SOB on exertion. The patient denies receiving the flu shot. OBJECTIVE: Vital Signs: Last Vital Signs Temp Pulse Resp BP Pulse Ox 99.3 F 93 H 16 146/90 95 12/24/16 21:01 12/24/16 21:30 12/24/16 21:01 12/24/16 21:01 12/24/16 21:30 PE: GEN: NAD HEENT:NCAT, PERRL CARD: RRR, S1 S2, 2/4 systolic ejection murmur RESP: Bilateral basilar crackles ABD: Hepatomegaly, BWS x4 EXT: CCE Labs: Last Vital Signs Temp Pulse Resp BP Pulse Ox 99.3 F 93 H 16 146/90 95 12/24/16 21:01 12/24/16 21:30 12/24/16 21:01 12/24/16 21:01 12/24/16 21:30 Imaging: ASSESSMENT AND PLAN: The patient is a 76 year old female with past medical history of HTN, HIV, ANDRES cirrhosis, CHF, AV valve replacement, hysterectomy, presented with cough, unable to tolerate PO intake. 1.Bronchitis-most likely viral etiology -Continue supportive care 2 Unable to take PO intake -Colin IVF 3. Hypokalemia -Repeat potassium and check magnesium 4. Hyperbilirubinemia -Trend bilirubin -Monitor 5. Tranzeminitis -Trend LFT 6. DVT PPX -Low risk -Ambulate Admit to observation. Documentation prepared by Mike Butcher, acting as medical office assistant instructor for Dr. Adelita MD.
[2016-12-25] MEDS ORDERED: SODIUM CHLORIDE 2,000 ML IV ONE (01:15)
[2016-12-25 01:52] LABS: ALBUMIN 2.4 g/dl (3.4-5.0); BILIRUBIN,DIRECT 2.2 mg/dL (0.0-0.2); BILIRUBIN,TOTAL 2.7 mg/dL (0.2-1.0); MAGNESIUM 1.5 mg/dL (1.8-2.4)
[2016-12-25] MEDS ORDERED: ALBUTEROL SO4 0.083% IH SOL 2.5 MG/3 ML VIAL.NEB. NEB ONE (01:54)
[2016-12-25] MEDS ORDERED: MAGNESIUM SULF 50% (8.12 MEQ/2 ML-1 GM VIAL) IVPB ONE (01:55)
--- NOTE | 2016-12-25 01:59 | HP ---
CHIEF COMPLAINT: SOB, Cough, fever x [address] Elsa Gage Cardiology Dr. Huerta GI HISTORY OF PRESENT ILLNESS: 76 year old female presented to the ED via EMS with the chief complaints of cough, fever and SOB x 3 days. A/c to the patient, she was feeling well until 3 days ago, when she developed SOB, mostly on exertion associated with dry cough. Patient reports, cough is so severe that her chest hurts every time she coughs. Cough can be described as hacking cough. Recorded temp of 102/103 at home associated with chills, rigors and sweating. Also mentions she has dizziness, feeling weak, not able to walk properly and is worried she may fall down. Patient's grandson recently was influenza positive checked at urgent care. Since then she has been feeling unwell. Patient said she was checked at the urgent care and flu was negative but doesn't have the report. Patient hasn't taken the flu shot or the pneumonia vaccine and says she would like to get both. Also reports to have headache in the frontal area, on/off. Patient is HIV positive and on medications, doesn't remember the last CD4 count. Denies loc, ringing sensation in ears, chest pain, palpitations, abdominal pain , nausea or vomiting. Bowel/Bladder habit normal. Appetite decreased. Sleep disturbed. Lives alone as per the patient. 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 MAY NEED TO CALL PHARMACY TOMORROW WHEN IT OPENS. Medication Instructions Recorded Calcium Carb/Vitamin D3/Vit K1 1 each PO DAILY 11/29/16 [Viactiv Soft Chew] Cholecalciferol (Vitamin D3) 1,000 unit PO DAILY 11/29/16 [Vitamin D3 -] Cyanocobalamin [Vitamin B12 -] 1,000 mcg PO DAILY 11/29/16 Spironolactone [Aldactone -] 25 mg PO DAILY 11/29/16 Ursodiol [Actigall] 300 mg PO TID 11/29/16 Ascorbic Acid [Vitamin C -] 500 mg PO DAILY #30 tablet 12/02/16 Ferrous Sulfate [Feosol] 325 mg PO DAILY@0800 ud 12/02/16 Metoprolol Succinate [Toprol XL -] 12.5 mg PO BID tab.sr.24h 12/02/16 Metoprolol Succinate [Toprol XL -] 12.5 mg PO BID #0 12/02/16 Pantoprazole Sodium [Protonix -] 40 mg PO DAILY #30 tablet.ec 12/02/16 Spironolactone [Aldactone -] 25 mg PO DAILY tablet 12/02/16 Ursodiol [Actigal -] 300 mg PO BID capsule 12/02/16 REVIEW OF SYSTEMS CONSTITUTIONAL: Present: fever, chills, diaphoresis, generalized weakness, malaise, loss of appetite Absent: weight change HEENT: Absent: rhinorrhea, nasal congestion, throat pain, throat swelling, difficulty swallowing, mouth swelling, ear pain, eye pain, visual changes CARDIOVASCULAR: Absent: chest pain, syncope, palpitations, irregular heart rate, lightheadedness , peripheral edema RESPIRATORY: Present: cough, shortness of breath, dyspnea with exertion Absent: orthopnea, wheezing, stridor, hemoptysis GASTROINTESTINAL: Absent: abdominal pain, abdominal distension, nausea, vomiting, diarrhea, constipation, melena, hematochezia GENITOURINARY: Absent: dysuria, frequency, urgency, hesitancy, hematuria, flank pain, genital pain MUSCULOSKELETAL: Absent: myalgia, arthralgia, joint swelling, back pain, neck pain SKIN: Absent: rash, itching, pallor HEMATOLOGIC/IMMUNOLOGIC: Absent: easy bleeding, easy bruising, lymphadenopathy, frequent infections ENDOCRINE: Absent: unexplained weight gain, unexplained weight loss, heat intolerance, cold intolerance NEUROLOGIC: Present: Headache Absent:focal weakness or paresthesias, dizziness, unsteady gait, seizure, mental status changes, bladder or bowel incontinence PSYCHIATRIC: Absent: anxiety, depression, suicidal or homicidal ideation, hallucinations. PHYSICAL EXAMINATION Vital Signs - 24 hr 12/24/16 12/24/16 21:01 21:30 Temperature 99.3 F Pulse Rate 93 H 93 H Respiratory 16 Rate Blood Pressure 146/90 O2 Sat by Pulse 95 95 Oximetry (%) GENERAL: Elderly female lying in bed in supine position, Awake, alert, and fully oriented, in no acute distress. HEAD: Normal with no signs of trauma. EYES: EOM intact, icterus +, no pallor EARS, NOSE, THROAT: Ears normal. Moist mucous membranes. NECK:Supple LUNGS: B/L equal air entry, coarse breath sounds, bibasilar crackles+, no wheeze. HEART: Regular rate and rhythm, normal S1 and S2 Systolic murmur. ABDOMEN: Soft, nontender, not distended, normoactive bowel sounds, no guarding, no rebound, no masses. Hepatomegaly appreciated. No splenomegaly. MUSCULOSKELETAL: Normal range of motion at all joints. No bony deformities or tenderness. No CVA tenderness. UPPER EXTREMITIES: 2+ pulses, warm, well-perfused. No cyanosis. No clubbing. No peripheral edema. LOWER EXTREMITIES: 2+ pulses, warm, well-perfused. No calf tenderness. No peripheral edema. NEUROLOGICAL: Cranial nerves II-XII intact. Normal speech. Gait not observed. PSYCHIATRIC: Cooperative. Good eye contact. Appropriate mood and affect. SKIN: Warm, dry, normal turgor, no rashes or lesions noted. Laboratory Results - last 24 hr 12/24/16 12/24/16 12/24/16 23:33 23:33 23:33 WBC 8.2 D RBC 4.30 Hgb 11.4 D Hct 34.6 MCV 80.5 MCHC 33.0 RDW 22.4 H MPV 8.2 Neutrophils % 81.0 D Lymphocytes % 12.5 D Monocytes % 5.3 Eosinophils % 0.0 D Basophils % 1.2 Sodium 136 Potassium 3.3 L D Chloride 98 Carbon Dioxide 28 Anion Gap 10 BUN 16 Creatinine 0.9 D Random Glucose 126 H D Calcium 8.0 L Magnesium 1.5 L Total Bilirubin 2.7 H D Direct Bilirubin 2.2 H D AST 90 H D ALT 41 D Alkaline Phosphatase 523 H D Total Protein 8.0 Albumin 2.4 L ASSESSMENT/PLAN: 76 year old female with significant past medical hx of Hypertension, Ascites, Cirrhosis, Cholelithiasis, HIV, cirrhosis of liver secondary to primary sclerosing cholangitis , CHF, Iron Deficiency anemia, Cataract Removal, Hysterectomy, Valve Replacement presented to the ED via EMS with the chief complaints of cough, fever and SOB x 3 days. # Cough most likely due to Viral Bronchitis On arrival, patient was afebrile, no leukocytosis, with persisting hacking cough + Placed on observation Nasopharyngeal swab for Influenza pending CXR report pending Albuterol neb given with symptomatic relief Not on antibiotics as it may be viral bronchitis. If temp rises with leukocytosis, consider antibiotics Consider giving her Flu vaccine and pneumonia vaccine after confirming with the primary doctor. # Hypokalemia K-3.3 repleted with K-Dur Repeat CMP ordered for tomorrow # HIV Don't know which meds she is on Patient doesn't remember last CD4 count, would consider calling the primary doctor to find more about HIV status # Hyperbilirubinemia/ Transaminitis Most likely due to Cirrhosis of liver secondary to primary scleroing cholangitis Avoid hepatotoxic drugs # Hypertension Continue home meds after the medication confirmation # FEN Not on IVF Electrolytes to be repeated tomorrow Sodium controlled diet # Prophylaxis For DVT- On SCDs, ambulatory For GI- not indicated # Code status: Full code # Dispo: Placed on observation. Illness, Investigation and plan of care explained to the patient. She verbalized understanding. Case seen and discussed with Dr. Ureña. Visit type - Emergency Visit Emergency Visit: Yes ED Registration Date: 12/25/16 Care time: The patient presented to the Emergency Department on the above date and was hospitalized for further evaluation of their emergent condition. - New Patient This patient is new to me today: No - Critical Care Critical Care patient: No
[2016-12-25 02:53] LABS: PLATELET COUNT 93 K/MM3 (134-434)
[2016-12-25 02:54] LABS: PLATELET COMMENT3 FEW LARGE PLTS
[2016-12-25 02:55] LABS: PLATELET COMMENT2 NO CLUMPING NOTED; PLATELET ESTIMATE MOD DECREASED (NORMAL)
[2016-12-25 02:56] LABS: ANISOCYTOSIS 2+
[2016-12-25 08:22] LABS: BASOPHIL 0.1 % (0-2.0); MCH 27.3 pg (25.7-33.7); MCHC 33.2 g/dl (32.0-36.0); MEAN CELL VOLUME 82.1 fl (80-96); MEAN PLT VOLUME 8.3 fl (7.5-11.1); NEUTROPHILS 76.2 % (42.8-82.8); PLATELET COUNT 72 K/MM3 (134-434); RDW 23.3 % (11.6-15.6); WHITE BLOOD COUNT 7.4 K/mm3 (4.0-10.0)
[2016-12-25 08:48] LABS: ALK PHOS 463 U/L (45-117); ANION GAP 8 (8-16); BILIRUBIN,TOTAL 2.3 mg/dL (0.2-1.0); CO2 25 mmol/L (21-32); CREATININE 0.8 mg/dL (0.55-1.02); GLUCOSE,RANDOM 115 mg/dL (74-106); MAGNESIUM 2.3 mg/dL (1.8-2.4); SGOT/AST 77 U/L (15-37); SGPT/ALT 38 U/L (12-78); TOT PROT 6.9 g/dl (6.4-8.2)
[2016-12-25 09:06] LABS: CALCIUM 6.8 mg/dL (8.5-10.1)
[2016-12-25] MEDS ORDERED: METOPROLOL SUCCINATE 25 MG TAB.SR.24H (FP) PO SCH (10:00)
[2016-12-25] MEDS ORDERED: guaiFENesin 200 MG/10 ML 10 ML UNIT-DOSE CUPS ONE (10:08)
[2016-12-25] MEDS ORDERED: ACETAMINOPHEN 325 MG TABLET (FP) ONE (10:08)
[2016-12-25] MEDS: guaiFENesin 200 MG/10 ML 10 ML UNIT-DOSE CUPS PO PRN ×2 (10:14→16:13)
[2016-12-25] MEDS: SPIRONOLACTONE 25 MG TABLET (FP) PO SCH (10:15)
[2016-12-25] MEDS: PANTOPRAZOLE 40 MG TABLET (FP) PO SCH (10:15)
[2016-12-25] MEDS: METOPROLOL SUCCINATE 25 MG TAB.SR.24H (FP) PO SCH ×2 (10:15→22:34)
[2016-12-25] MEDS: FERROUS SO4 325 MG TABLET (FP) PO SCH (10:15)
[2016-12-25] MEDS: URSODIOL 300 MG CAPSULE PO SCH ×2 (10:15→22:33)
[2016-12-25 11:01] VITALS: BMI 28.0
[2016-12-25] MEDS ORDERED: ALBUTEROL SO4 2.5/IPRATROPIUM 0.5 INH SOL 3 ML VIAL.NEB. NEB PRN (13:22)
--- NOTE | 2016-12-25 15:28 | HOSP ---
Subjective - Review of Symptoms Subjective: c/o dyspnea but states improved since admission. continues to have productive sputum with green sputum. +chills and fever. denies CP, N/V/C/D, CHAVIS or blurred vision Lungs coarse rhonchi. mild wheezing A/P 1. Acute bronchitis- afebrile. no leukocytosis. +flu exposure in the house. noted by RN to desaturate to 88% on RA and now at 96% on 3L NC. will start Solumedrol 60mg BID. nebs prn, robitussin prn. instructed pt bedrest today. supplemental oxygen to maintain spO2 >90% 2. hypokalemia- Kcl 3. Hypomagnesemia- repleted Physical Examination Vital Signs: Vital Signs Temperature 98.4 F 12/25/16 14:30 Pulse Rate 69 12/25/16 14:30 Respiratory Rate 20 12/25/16 14:30 Blood Pressure 90/57 12/25/16 14:30 O2 Sat by Pulse Oximetry (%) 92 L 12/25/16 10:54 Labs: CBC, BMP 12/25/16 08:00 12/25/16 08:00
[2016-12-25] MEDS ORDERED: ALBUTEROL SO4 2.5/IPRATROPIUM 0.5 INH SOL 3 ML VIAL.NEB. NEB ONE (15:45)
--- NOTE | 2016-12-25 15:58 | PN ---
Physical Exam: SUBJECTIVE: Patient seen and examined at bedside. Pt states she feels somewhat better now. Still has cough with thck yellow sputum. Denies CP, abd pain, N/V/F /C. Also feels light headed when she sits up. Danya has flu and pt did not get flu vaccine this year. OBJECTIVE: Vital Signs Temperature 98.4 F 12/25/16 14:30 Pulse Rate 69 12/25/16 14:30 Respiratory Rate 20 12/25/16 14:30 Blood Pressure 90/57 12/25/16 14:30 O2 Sat by Pulse Oximetry (%) 92 L 12/25/16 10:54 GENERAL: The patient is awake, alert, and fully oriented, in no acute distress. HEAD: Normal with no signs of trauma. EYES: EOM intact, scleral icterus, no pallor EARS, NOSE, THROAT: Ears normal. Moist mucous membranes. LUNGS: B/L crackles HEART: Regular rate and rhythm, normal S1 and S2 Systolic murmur. ABDOMEN: Soft, nontender, not distended, normoactive bowel sounds, no guarding, no rebound, no masses. Hepatomegaly appreciated. No splenomegaly. MUSCULOSKELETAL: Normal range of motion at all joints. No bony deformities or tenderness. No CVA tenderness. UPPER EXTREMITIES: 2+ pulses, warm, well-perfused. No cyanosis. No clubbing. No peripheral edema. LOWER EXTREMITIES: 2+ pulses, warm, well-perfused. No calf tenderness. No peripheral edema. NEUROLOGICAL: Normal speech. Gait not observed. PSYCHIATRIC: Cooperative. Good eye contact. Appropriate mood and affect. SKIN: Warm, dry, normal turgor, no rashes or lesions noted. Laboratory Results - last 24 hr 12/25/16 12/25/16 08:00 08:00 WBC 7.4 RBC 3.72 Hgb 10.2 L D Hct 30.6 L MCV 82.1 MCHC 33.2 RDW 23.3 H Plt Count 72 L D MPV 8.3 Neutrophils % 76.2 Lymphocytes % 15.9 D Monocytes % 7.8 Eosinophils % 0.0 Basophils % 0.1 Sodium 136 Potassium 3.6 Chloride 103 Carbon Dioxide 25 Anion Gap 8 BUN 16 Creatinine 0.8 Creat Clearance w eGFR > 60 Random Glucose 115 H Calcium 6.8 L* Magnesium 2.3 D Total Bilirubin 2.3 H AST 77 H ALT 38 Alkaline Phosphatase 463 H Total Protein 6.9 Albumin 2.0 L Microbiology 12/25/16 08:27 Nasopharyngeal Swab Respiratory Virus Panel - Preliminary 12/25/16 08:27 Nasopharyngeal Swab Influenza Types A,B Antigen ([facility]) - Final 12/25/16 08:27 Nasopharyngeal Swab - Final Active Medications Generic Name Dose Route Start Last Admin Trade Name Freq PRN Reason Stop Dose Admin Albuterol/Ipratropium 1 amp 12/25/16 13:22 Duoneb - NEB 12/25/16 13:23 ONCE ONE Albuterol/Ipratropium 1 amp 12/25/16 13:22 Duoneb - NEB Q6H PRN SHORTNESS OF BREATH Ascorbic Acid 500 mg 12/25/16 10:00 Vitamin C - PO DAILY [facility] Cholecalciferol 1,000 unit 12/25/16 10:00 Vitamin D3 - PO DAILY [facility] Cyanocobalamin 1,000 mcg 12/25/16 10:00 Vitamin B12 - PO DAILY [facility] Ferrous Sulfate 325 mg 12/25/16 08:00 12/25/16 10:15 Feosol - PO 325 mg DAILY@0800 [facility] Administration Guaifenesin 10 ml 12/25/16 01:54 12/25/16 10:14 Robitussin - PO 10 ml Q4H PRN Administration COUGH Sodium Chloride 1,000 mls @ 75 mls/hr 12/24/16 23:30 12/25/16 00:30 Normal Saline - IV 75 mls/hr ASDIR LINA Administration Methylprednisolone Sodium Succinate 40 mg 12/25/16 13:30 Solu-Medrol - IVPB Q12H [facility] Metoprolol Succinate 12.5 mg 12/25/16 10:00 12/25/16 10:15 Toprol Xl - PO 12.5 mg BID [facility] Administration Pantoprazole Sodium 40 mg 12/25/16 10:00 12/25/16 10:15 Protonix - PO 40 mg DAILY [facility] Administration Spironolactone 25 mg 12/25/16 10:00 12/25/16 10:15 Aldactone - PO 25 mg DAILY [facility] Administration Ursodiol 300 mg 12/25/16 10:00 12/25/16 10:15 Actigal - PO 300 mg BID [facility] Administration ASSESSMENT/PLAN: 76 y/o F with PMH of HTN, HIV, cirrhosis secondary to primary sclerosing cholangitis, cholelithiasis, CHF, iron deficiency anemia, hysterectomy, valve replacement, presented to the ER with c/o cough, fever, and SOB for 3 days. -Cough most likely secondary to Viral Bronchitis -CXR 12/25: no signs of pna or chf. no acute pathology. -Rapid flu negative -Duoneb QID PRN -solumedrol 40 IV q12h -afebrile -guaifenesin 10 ml PO q4h prn for cough -HIV -Dose not know her meds or her CD4 count. -Attempted to call Dr. Hunter, her PCP, at [phone] but call went to message and there was no answer. -Last CD4 count? Meds she is on? -Called her [facility] where I was told she only gets HCTZ 12.5 mg qd , Toprol XL 25 mg bid, and Protonix 40 mg PO qd. She has some other meds from the past that she did not fill, none of which were HIV meds. -Transaminitis and Hyperbilirubinemia -secondary to primary sclerosing cholangitis, trending down -HTN -will hold her home metoprolol &HCTZ as her BP is currently in 90s/100s -will restart if her BP rises -DVT ppx -SCDs -FEN -NS@75 ml/hr -Hypokalemia, 3.6 after repletion, monitor as it is on low end of normal -Corrected Ca: 8.4 -Sodium controlled diet -Code status: Full code - Dispo: Monitor in observation. Problem List - Problems (1) Bronchitis Code(s): J40 - BRONCHITIS, NOT SPECIFIED ACUTE OR CHRONIC (2) Anemia Code(s): D64.9 - ANEMIA, UNSPECIFIED Qualifiers: Iron deficiency anemia type: chronic blood loss (3) Liver cirrhosis Code(s): K74.60 - UNSPECIFIED CIRRHOSIS OF LIVER (4) SOB (shortness of breath) Code(s): R06.02 - SHORTNESS OF BREATH (5) HIV (human immunodeficiency virus infection) Code(s): Z21 - ASYMPTOMATIC HUMAN IMMUNODEFICIENCY VIRUS INFECTION STATUS (6) HTN (hypertension) Code(s): I10 - ESSENTIAL (PRIMARY) HYPERTENSION (7) Primary sclerosing cholangitis Code(s): K83.0 - CHOLANGITIS Visit type - Emergency Visit Emergency Visit: Yes ED Registration Date: 12/25/16 Care time: The patient presented to the Emergency Department on the above date and was hospitalized for further evaluation of their emergent condition. - New Patient This patient is new to me today: Yes Date on this admission: 12/25/16 - Critical Care Critical Care patient: No
[2016-12-25] MEDS: methylPREDNISolone NA SUCC 40 MG/1 ML VIAL IVPB SCH ×2 (16:12→23:08)
[2016-12-25] MEDS: CHOLECALCIFEROL (VITAMIN D3) 1,000 UNIT TABLET (FP) PO SCH (16:13)
[2016-12-25] MEDS: CYANOCOBALAMIN 1,000 MCG TABLET (FP) PO SCH (16:13)
[2016-12-25] MEDS: ASCORBIC ACID 500 MG TABLET (FP) PO SCH (16:13)
[2016-12-25] MEDS ORDERED: AZITHROMYCIN IVPB 500 MG in DEXTROSE 5%-WATER - 250 ML IVPB SCH (21:15)
--- NOTE | 2016-12-25 21:21 | PN ---
Progress Note, Physician History of Present Illness: 76 y/o white female whom I have followed for many years is admitted with cough productive of greenish sputum, fever 102, generalized weakness and had a O2 sat of 88. Was treated with bronchodilators and IV steroids. Chest Xray showed pulmonary congestion and normal CBC. She is a known case of cirrhosis of the liver, aortic valve replacement and borderline hypertensive. - Current Medication List Current Medications: Active Medications Albuterol/Ipratropium (Duoneb -) 1 amp NEB Q6H [facility] Ascorbic Acid (Vitamin C -) 500 mg PO DAILY [facility] Last Admin: 12/25/16 16:13 Dose: 500 mg Cholecalciferol (Vitamin D3 -) 1,000 unit PO DAILY [facility] Last Admin: 12/25/16 16:13 Dose: 1,000 unit Cyanocobalamin (Vitamin B12 -) 1,000 mcg PO DAILY [facility] Last Admin: 12/25/16 16:13 Dose: 1,000 mcg Ferrous Sulfate (Feosol -) 325 mg PO DAILY@0800 [facility] Last Admin: 12/25/16 10:15 Dose: 325 mg Guaifenesin (Robitussin -) 10 ml PO Q4H PRN PRN Reason: COUGH Last Admin: 12/25/16 16:13 Dose: 10 ml Piperacillin Sod/Tazobactam (Sod 3.375 gm/ Dextrose) 50 mls @ 100 mls/hr IVPB Q8H-IV [facility] Azithromycin 500 mg/ Dextrose 250 mls @ 250 mls/hr IVPB DAILY [facility] Dextrose/Sodium Chloride (D5-1/3ns -) 500 mls @ 75 mls/hr IV ASDIR [facility] Methylprednisolone Sodium Succinate (Solu-Medrol -) 40 mg IVPB BID [facility] Last Admin: 12/25/16 16:12 Dose: 40 mg Metoprolol Succinate (Toprol Xl -) 12.5 mg PO BID [facility] Last Admin: 12/25/16 10:15 Dose: 12.5 mg Pantoprazole Sodium (Protonix -) 40 mg PO DAILY [facility] Last Admin: 12/25/16 10:15 Dose: 40 mg Spironolactone (Aldactone -) 25 mg PO DAILY [facility] Last Admin: 12/25/16 10:15 Dose: 25 mg Ursodiol (Actigal -) 300 mg PO BID [facility] Last Admin: 12/25/16 10:15 Dose: 300 mg - Objective Vital Signs: Vital Signs Temperature 97.8 F 12/25/16 18:30 Pulse Rate 71 12/25/16 18:30 Respiratory Rate 20 12/25/16 18:30 Blood Pressure 102/62 12/25/16 18:30 O2 Sat by Pulse Oximetry (%) 96 12/25/16 12:10 Constitutional: Yes: Calm, Anxious, Moderate Distress Eyes: Yes: Conjunctiva Clear, EOM Intact HENT: Yes: WNL Neck: Yes: Supple Cardiovascular: Yes: Regular Rate and Rhythm, S1, S2 Respiratory: Yes: Wheezes, Other (bilateral wheezing all over the lung with rales at bases) Gastrointestinal: Yes: Normal Bowel Sounds, Soft Genitourinary: Yes: WNL Musculoskeletal: Yes: WNL Extremities: Yes: WNL Edema: No Peripheral Pulses WNL: Yes Integumentary: Yes: WNL Neurological: Yes: Alert, Oriented, Cran Nerves II-XII Intact ...Motor Strength: WNL Psychiatric: Yes: Alert, Oriented Labs: CBC, BMP 12/25/16 08:00 12/25/16 08:00 - ....Imaging Chest X-ray: Report Reviewed, Image Reviewed Problem List - Problems (1) Bronchitis Assessment/Plan: Bilateral wheezing and rales.Also c/o SOB Code(s): J40 - BRONCHITIS, NOT SPECIFIED ACUTE OR CHRONIC (2) HTN (hypertension) Assessment/Plan: Controlled with Toprolxl Code(s): I10 - ESSENTIAL (PRIMARY) HYPERTENSION (3) Anemia Code(s): D64.9 - ANEMIA, UNSPECIFIED Qualifiers: Iron deficiency anemia type: chronic blood loss (4) Chest pain Code(s): R07.9 - CHEST PAIN, UNSPECIFIED Assessment/Plan Acute bronchitis which could be secondary to Mycoplasma, legienella or viral in etiology. Will start patient on IV Zithromax and Zosyn pending results of tests. Continue bronchodilators and IV steroids and O2.
[2016-12-25] MEDS: ALBUTEROL SO4 2.5/IPRATROPIUM 0.5 INH SOL 3 ML VIAL.NEB. NEB SCH (21:25)
[2016-12-25] MEDS: DEXTROSE 5%-1/3 NS - 500 ML IV SCH (22:29)
[2016-12-25] MEDS: PIPERACILLIN/TAZOB 3.375 GM/50 ML PRE-DOCKED IVPB SCH (22:31)
[2016-12-25] MEDS: AZITHROMYCIN IVPB 500 MG/250 ML D5W PRE-DOCKED IVPB SCH (23:31)
[2016-12-26] MEDS: ALBUTEROL SO4 2.5/IPRATROPIUM 0.5 INH SOL 3 ML VIAL.NEB. NEB SCH ×5 (00:10→23:50)
[2016-12-26] MEDS: PIPERACILLIN/TAZOB 3.375 GM/50 ML PRE-DOCKED IVPB SCH (05:58)
[2016-12-26] MEDS: guaiFENesin 200 MG/10 ML 10 ML UNIT-DOSE CUPS PO PRN (06:05)
[2016-12-26 07:41] LABS: MCH 27.1 pg (25.7-33.7); MCHC 32.6 g/dl (32.0-36.0); MEAN CELL VOLUME 83.1 fl (80-96); MEAN PLT VOLUME 8.5 fl (7.5-11.1); PLATELET COUNT 52 K/MM3 (134-434); RDW 23.2 % (11.6-15.6); WHITE BLOOD COUNT 3.2 K/mm3 (4.0-10.0)
[2016-12-26 08:19] LABS: ALBUMIN 1.7 g/dl (3.4-5.0); ALK PHOS 394 U/L (45-117); ANION GAP 9 (8-16); BILIRUBIN,TOTAL 1.7 mg/dL (0.2-1.0); CALCIUM 7.1 mg/dL (8.5-10.1); CO2 24 mmol/L (21-32); CREATININE 0.7 mg/dL (0.55-1.02); GLUCOSE,RANDOM 162 mg/dL (74-106); SGOT/AST 56 U/L (15-37); SGPT/ALT 32 U/L (12-78); TOT PROT 6.4 g/dl (6.4-8.2)
[2016-12-26] MEDS: FERROUS SO4 325 MG TABLET (FP) PO SCH (09:59)
[2016-12-26] MEDS: methylPREDNISolone NA SUCC 40 MG/1 ML VIAL IVPB SCH ×2 (10:00→23:18)
[2016-12-26] MEDS: URSODIOL 300 MG CAPSULE PO SCH ×2 (10:00→23:19)
[2016-12-26] MEDS: PANTOPRAZOLE 40 MG TABLET (FP) PO SCH (10:00)
[2016-12-26] MEDS: CYANOCOBALAMIN 1,000 MCG TABLET (FP) PO SCH (10:01)
[2016-12-26] MEDS: METOPROLOL SUCCINATE 25 MG TAB.SR.24H (FP) PO SCH ×3 (10:01→23:25)
[2016-12-26] MEDS: ASCORBIC ACID 500 MG TABLET (FP) PO SCH (10:01)
[2016-12-26] MEDS: CHOLECALCIFEROL (VITAMIN D3) 1,000 UNIT TABLET (FP) PO SCH (10:01)
[2016-12-26] MEDS: AZITHROMYCIN IVPB 500 MG/250 ML D5W PRE-DOCKED IVPB SCH (10:02)
[2016-12-26] MEDS: SPIRONOLACTONE 25 MG TABLET (FP) PO SCH (10:05)
[2016-12-26] MEDS ORDERED: DOXYCYCLINE HYCLATE 100 MG CAPSULE PO SCH (12:45)
--- NOTE | 2016-12-26 15:52 | CONSULT ---
Consult Consult Specialty:: infectious diseases Referred by:: Reason for Consultation:: pneumonia - History of Present Illness Chief Complaint: cough,weakness History of Present Illness: 76 Y F HTN, HIV, LIVER CIRRHOSIS, CHF; pte c/o cough, fever, sob since 3 days. weak. feels unsafe to ambulate. staying w/ family where one member has the flu. seen at urgent care w/ flu - and cxr showing pvc but no infiltrates or effusions. in ed, in nad. actively coughing. O2 sat 95 % r/a. according to the patient she was in the [facility] helping her son Her grandson got flu about 1 week back and then the patient became weak and came back to [facility] where she initially felt better then worsened and started feeling weak and breathing difficulty with sputum production which was yellow in color. patient currently feels very weak She also mentions that she spiked fevers to 102 to 103 now she is still coughing and producing yellowish sputum denies nausea.vomiting - History Source History Provided By: Patient Limitations to Obtaining History: No Limitations - Past Medical History Cardio/Vascular: Yes: Aortic Stenosis (led to bioprosthetic AoVR), CHF, HTN Gastrointestinal: Yes: Ascites Hepatobiliary: Yes: Cirrhosis - Past Surgical History Past Surgical History: Yes: Valve Replacement (aortic valve) - Alcohol/Substance Use Hx Alcohol Use: No - Smoking History Smoking history: Never smoked Have you smoked in the past 12 months: No Aproximately how many cigarettes per day: 0 - Social History ADL: Independent History of Recent Travel: No Home Medications - Allergies Allergies/Adverse Reactions: Allergies Allergy/AdvReac Type Severity Reaction Status Date / Time No Known Drug Allergies Allergy Verified 12/24/16 21:01 - Home Medications Home Medications: Ambulatory Orders Calcium Carb/Vitamin D3/Vit K1 [Viactiv Soft Chew] 1 each PO DAILY 11/29/16 Cholecalciferol (Vitamin D3) [Vitamin D3 -] 1,000 unit PO DAILY 11/29/16 Cyanocobalamin [Vitamin B12 -] 1,000 mcg PO DAILY 11/29/16 Ascorbic Acid [Vitamin C -] 500 mg PO DAILY #30 tablet 12/02/16 Ferrous Sulfate [Feosol] 325 mg PO DAILY@0800 ud 12/02/16 Metoprolol Succinate [Toprol XL -] 12.5 mg PO BID #0 12/02/16 Pantoprazole Sodium [Protonix -] 40 mg PO DAILY #30 tablet.ec 12/02/16 Spironolactone [Aldactone -] 25 mg PO DAILY tablet 12/02/16 Ursodiol [Actigal -] 300 mg PO BID capsule 12/02/16 Review of Systems - Review of Systems Constitutional: reports: Fever, Weakness Eyes: reports: No Symptoms HENT: reports: No Symptoms Neck: reports: No Symptoms Cardiovascular: reports: No Symptoms Respiratory: reports: Cough, SOB on Exertion, Other (sputum production) Gastrointestinal: reports: No Symptoms Genitourinary: reports: No Symptoms Breasts: reports: No Symptoms Reported Musculoskeletal: reports: No Symptoms Integumentary: reports: No Symptoms Neurological: reports: No Symptoms Endocrine: reports: No Symptoms Hematology/Lymphatic: reports: No Symptoms Psychiatric: reports: No Symptoms Physical Exam Vital Signs: Vital Signs Temperature 98.3 F 12/26/16 13:46 Pulse Rate 73 12/26/16 13:46 Respiratory Rate 18 12/26/16 13:46 Blood Pressure 98/55 12/26/16 10:00 O2 Sat by Pulse Oximetry (%) 96 12/26/16 10:55 Constitutional: Yes: Calm, Mild Distress Eyes: Yes: Conjunctiva Clear HENT: Yes: Atraumatic Neck: Yes: Supple, Trachea Midline Cardiovascular: Yes: Regular Rate and Rhythm Respiratory: Yes: Poor Air Entry, Rales (bilaterally), Rhonchi (bilateral crackles bilaterally) Gastrointestinal: Yes: Normal Bowel Sounds, Soft Musculoskeletal: Yes: WNL Extremities: Yes: WNL Neurological: Yes: Alert, Oriented Psychiatric: Yes: Alert Labs: CBC, BMP 12/26/16 06:00 12/26/16 06:00 Imaging - Results Chest X-ray: Report Reviewed, Image Reviewed Assessment/Plan after evaluating the patient and going to history and examining the patient i ahve no doubt has pneumonia patient has been started on abx goiung to closely watch the patient if patient does not improve will order a ct scan i think we should also do an echo and see if there is any element of failure as patient has rales pneumonia fever cough resp distress plan zosyn and zithro to continue incentive eitan might need a touch of lasix rest await for all other labs
[2016-12-26] MEDS ORDERED: AMPICILLIN NA/SULBACTAM NA 3 GM in SODIUM CHLORIDE 100 ML IVPB SCH (16:00)
[2016-12-26] MEDS: DEXTROSE 5%-1/3 NS - 500 ML IV SCH ×3 (16:15→23:28)
[2016-12-26] MEDS: PIPERACILLIN/TAZOB 3.375 GM 50 ML IVPB SCH (17:49)
--- NOTE | 2016-12-26 21:32 | PN ---
Progress Note, Physician History of Present Illness: Continues to have persistent cough but the sputum now has become white. Also has some SOB. Denies chest pain. - Current Medication List Current Medications: Active Medications Albuterol/Ipratropium (Duoneb -) 1 amp NEB QIDR [facility] Last Admin: 12/26/16 17:27 Dose: 1 amp Ascorbic Acid (Vitamin C -) 500 mg PO DAILY [facility] Last Admin: 12/26/16 10:01 Dose: 500 mg Azithromycin (Zithromax 500mg Ivpb (Pre-Docked)) 500 mg IVPB DAILY [facility] Last Admin: 12/26/16 10:02 Dose: 500 mg Cholecalciferol (Vitamin D3 -) 1,000 unit PO DAILY [facility] Last Admin: 12/26/16 10:01 Dose: 1,000 unit Cyanocobalamin (Vitamin B12 -) 1,000 mcg PO DAILY [facility] Last Admin: 12/26/16 10:01 Dose: 1,000 mcg Ferrous Sulfate (Feosol -) 325 mg PO DAILY@0800 [facility] Last Admin: 12/26/16 09:59 Dose: 325 mg Guaifenesin (Robitussin -) 10 ml PO Q4H PRN PRN Reason: COUGH Last Admin: 12/26/16 06:05 Dose: 10 ml Dextrose/Sodium Chloride (D5-1/3ns -) 500 mls @ 75 mls/hr IV ASDIR [facility] Last Admin: 12/26/16 16:15 Dose: 75 mls/hr Piperacillin Sod/Tazobactam Sod (Zosyn 3.375gm Ivpb (Pre-Docked)) 50 mls @ 100 mls/hr IVPB Q8H-IV [facility] Last Admin: 12/26/16 17:49 Dose: 100 mls/hr Methylprednisolone Sodium Succinate (Solu-Medrol -) 40 mg IVPB BID [facility] Last Admin: 12/26/16 10:00 Dose: 40 mg Metoprolol Succinate (Toprol Xl -) 12.5 mg PO BID [facility] Last Admin: 12/26/16 10:01 Dose: Not Given Pantoprazole Sodium (Protonix -) 40 mg PO DAILY [facility] Last Admin: 12/26/16 10:00 Dose: 40 mg Spironolactone (Aldactone -) 25 mg PO DAILY [facility] Last Admin: 12/26/16 10:05 Dose: Not Given Ursodiol (Actigal -) 300 mg PO BID [facility] Last Admin: 12/26/16 10:00 Dose: 300 mg - Objective Vital Signs: Vital Signs Temperature 97.5 F L 12/26/16 18:30 Pulse Rate 68 12/26/16 18:30 Respiratory Rate 18 12/26/16 18:30 Blood Pressure 97/62 12/26/16 18:30 O2 Sat by Pulse Oximetry (%) 96 12/26/16 17:00 Constitutional: Yes: Calm, Mild Distress Eyes: Yes: WNL HENT: Yes: WNL Neck: Yes: Supple Cardiovascular: Yes: Regular Rate and Rhythm, S1, S2 Respiratory: Yes: Rales, Wheezes Gastrointestinal: Yes: Normal Bowel Sounds, Soft Genitourinary: Yes: WNL Musculoskeletal: Yes: WNL Extremities: Yes: WNL Edema: No Peripheral Pulses WNL: Yes Integumentary: Yes: WNL Neurological: Yes: Alert, Oriented, Cran Nerves II-XII Intact ...Motor Strength: WNL Psychiatric: Yes: Alert, Oriented Labs: CBC, BMP 12/26/16 06:00 12/26/16 06:00 Problem List - Problems (1) Bronchitis Assessment/Plan: Continues to wheeze all over both lungs Code(s): J40 - BRONCHITIS, NOT SPECIFIED ACUTE OR CHRONIC (2) HTN (hypertension) Assessment/Plan: BP has gena low around 95 syst Code(s): I10 - ESSENTIAL (PRIMARY) HYPERTENSION (3) Anemia Assessment/Plan: Hb has been stable Code(s): D64.9 - ANEMIA, UNSPECIFIED Qualifiers: Iron deficiency anemia type: chronic blood loss (4) Chest pain Code(s): R07.9 - CHEST PAIN, UNSPECIFIED Assessment/Plan White count has dropped to 3.2 and platelets are down to 52. Will continue Zosyn and Zithromax. questions possibility of pneumonia.
[2016-12-27] MEDS: PIPERACILLIN/TAZOB 3.375 GM 50 ML IVPB SCH ×3 (02:28→17:54)
[2016-12-27] MEDS: ALBUTEROL SO4 2.5/IPRATROPIUM 0.5 INH SOL 3 ML VIAL.NEB. NEB SCH ×4 (06:19→23:26)
[2016-12-27 07:14] LABS: BASOPHIL 0.1 % (0-2.0); MCH 27.5 pg (25.7-33.7); MCHC 32.7 g/dl (32.0-36.0); MEAN CELL VOLUME 84.1 fl (80-96); MEAN PLT VOLUME 8.6 fl (7.5-11.1); NEUTROPHILS 83.9 % (42.8-82.8); PLATELET COUNT 61 K/MM3 (134-434); RDW 23.3 % (11.6-15.6); WHITE BLOOD COUNT 4.2 K/mm3 (4.0-10.0)
[2016-12-27] MEDS ORDERED: INFLUENZA VACCINE 45 MCG/0.5 ML (MDV 16-17) IM ONE (09:00)
[2016-12-27] MEDS: FERROUS SO4 325 MG TABLET (FP) PO SCH (10:13)
[2016-12-27] MEDS: URSODIOL 300 MG CAPSULE PO SCH ×2 (10:14→21:20)
[2016-12-27] MEDS: CHOLECALCIFEROL (VITAMIN D3) 1,000 UNIT TABLET (FP) PO SCH (10:14)
[2016-12-27] MEDS: CYANOCOBALAMIN 1,000 MCG TABLET (FP) PO SCH (10:14)
[2016-12-27] MEDS: SPIRONOLACTONE 25 MG TABLET (FP) PO SCH (10:14)
[2016-12-27] MEDS: ASCORBIC ACID 500 MG TABLET (FP) PO SCH (10:14)
[2016-12-27] MEDS: PANTOPRAZOLE 40 MG TABLET (FP) PO SCH (10:14)
[2016-12-27] MEDS: METOPROLOL SUCCINATE 25 MG TAB.SR.24H (FP) PO SCH ×2 (10:15→21:20)
[2016-12-27] MEDS: guaiFENesin 200 MG/10 ML 10 ML UNIT-DOSE CUPS PO PRN (10:17)
[2016-12-27] MEDS: PIPERACILLIN/TAZOB 3.375 GM 3.375 GM in DEXTROSE 5%-WATER - 50 ML IVPB SCH ×2 (10:20→10:21)
[2016-12-27] MEDS: methylPREDNISolone NA SUCC 40 MG/1 ML VIAL IVPB SCH ×2 (10:59→21:20)
[2016-12-27] MEDS: AZITHROMYCIN IVPB 500 MG/250 ML D5W PRE-DOCKED IVPB SCH (11:47)
--- NOTE | 2016-12-27 13:49 | PN ---
Progress Note, Physician History of Present Illness: patient feeling better cough still present sputum much less breathing much better - Current Medication List Current Medications: Active Medications Albuterol/Ipratropium (Duoneb -) 1 amp NEB QIDR [facility] Last Admin: 12/27/16 11:10 Dose: 1 amp Ascorbic Acid (Vitamin C -) 500 mg PO DAILY [facility] Last Admin: 12/27/16 10:14 Dose: 500 mg Azithromycin (Zithromax 500mg Ivpb (Pre-Docked)) 500 mg IVPB DAILY [facility] Last Admin: 12/27/16 11:47 Dose: 500 mg Cholecalciferol (Vitamin D3 -) 1,000 unit PO DAILY [facility] Last Admin: 12/27/16 10:14 Dose: 1,000 unit Cyanocobalamin (Vitamin B12 -) 1,000 mcg PO DAILY [facility] Last Admin: 12/27/16 10:14 Dose: 1,000 mcg Ferrous Sulfate (Feosol -) 325 mg PO DAILY@0800 [facility] Last Admin: 12/27/16 10:13 Dose: 325 mg Guaifenesin (Robitussin -) 10 ml PO Q4H PRN PRN Reason: COUGH Last Admin: 12/27/16 10:17 Dose: 10 ml Dextrose/Sodium Chloride (D5-1/3ns -) 500 mls @ 75 mls/hr IV ASDIR [facility] Last Admin: 12/26/16 23:28 Dose: 75 mls/hr Piperacillin Sod/Tazobactam Sod (Zosyn 3.375gm Ivpb (Pre-Docked)) 50 mls @ 100 mls/hr IVPB Q8H-IV [facility] Last Admin: 12/27/16 10:15 Dose: 100 mls/hr Methylprednisolone Sodium Succinate (Solu-Medrol -) 40 mg IVPB BID [facility] Last Admin: 12/27/16 10:59 Dose: 40 mg Metoprolol Succinate (Toprol Xl -) 12.5 mg PO BID [facility] Last Admin: 12/27/16 10:15 Dose: Not Given Pantoprazole Sodium (Protonix -) 40 mg PO DAILY [facility] Last Admin: 12/27/16 10:14 Dose: 40 mg Spironolactone (Aldactone -) 25 mg PO DAILY [facility] Last Admin: 12/27/16 10:14 Dose: 25 mg Ursodiol (Actigal -) 300 mg PO BID [facility] Last Admin: 12/27/16 10:14 Dose: 300 mg - Objective Vital Signs: Vital Signs Temperature 97.4 F L 12/27/16 10:00 Pulse Rate 73 12/27/16 10:00 Respiratory Rate 18 12/27/16 10:00 Blood Pressure 107/62 12/27/16 10:00 O2 Sat by Pulse Oximetry (%) 100 12/27/16 09:00 Constitutional: Yes: No Distress, Calm Cardiovascular: Yes: Regular Rate and Rhythm Respiratory: Yes: Regular, Rhonchi Gastrointestinal: Yes: Normal Bowel Sounds, Soft Musculoskeletal: Yes: WNL Extremities: Yes: WNL Neurological: Yes: Alert, Oriented Psychiatric: Yes: Alert Labs: CBC, BMP 12/27/16 06:00 12/26/16 06:00 Assessment/Plan pneumonia fever cough resp distress - Problems (1) Bronchitis Assessment/Plan: Continues to wheeze all over both lungs Code(s): J40 - BRONCHITIS, NOT SPECIFIED ACUTE OR CHRONIC (2) HTN (hypertension) Assessment/Plan: BP has gena low around 95 syst Code(s): I10 - ESSENTIAL (PRIMARY) HYPERTENSION (3) Anemia Assessment/Plan: Hb has been stable Code(s): D64.9 - ANEMIA, UNSPECIFIED Qualifiers: Iron deficiency anemia type: chronic blood loss (4) Chest pain Code(s): R07.9 - CHEST PAIN, UNSPECIFIED plan continue current abx monitor closely ordered echo await for results
[2016-12-27] MEDS ORDERED: DOXYCYCLINE HYCLATE 100 MG CAPSULE PO SCH (18:00)
--- NOTE | 2016-12-27 20:44 | CON.CARD ---
Consult Consult Specialty:: cardiology - History of Present Illness Chief Complaint: Pt feels much better; sh breathes easier, though still coughs excessively History of Present Illness: The patient is a 76 year old white female(juan Lux), with past medical history of HTN, HIV, ANDRES cirrhosis, diastolic CHF, bioprosthetic AV valve replacement, hysterectomy, CAD, and iron deficiency anemia, who presents with a productive cough and severe shortness of breath. She is unable to tolerate PO intake. The patient lives alone but notes sick contact with her grandson (flu). The patient notes associated chills, sweats, and SOB on exertion. The patient denies receiving the flu shot. - History Source History Provided By: Patient, Medical Record Limitations to Obtaining History: No Limitations - Past Medical History Cardio/Vascular: Yes: Aortic Stenosis (led to bioprosthetic AoVR), CHF, HTN, Murmur Gastrointestinal: Yes: Ascites Hepatobiliary: Yes: Cirrhosis Renal/: No: Renal Failure Reproductive: Yes: Postmenopausal ...: No - Past Surgical History Past Surgical History: Yes: Valve Replacement (aortic valve) - Alcohol/Substance Use Hx Alcohol Use: No - Smoking History Smoking history: Never smoked Have you smoked in the past 12 months: No Aproximately how many cigarettes per day: 0 - Social History ADL: Independent History of Recent Travel: No Home Medications - Allergies Allergies/Adverse Reactions: Allergies Allergy/AdvReac Type Severity Reaction Status Date / Time No Known Drug Allergies Allergy Verified 12/24/16 21:01 - Home Medications Home Medications: Ambulatory Orders Calcium Carb/Vitamin D3/Vit K1 [Viactiv Soft Chew] 1 each PO DAILY 11/29/16 Cholecalciferol (Vitamin D3) [Vitamin D3 -] 1,000 unit PO DAILY 11/29/16 Cyanocobalamin [Vitamin B12 -] 1,000 mcg PO DAILY 11/29/16 Ascorbic Acid [Vitamin C -] 500 mg PO DAILY #30 tablet 12/02/16 Ferrous Sulfate [Feosol] 325 mg PO DAILY@0800 ud 12/02/16 Metoprolol Succinate [Toprol XL -] 12.5 mg PO BID #0 12/02/16 Pantoprazole Sodium [Protonix -] 40 mg PO DAILY #30 tablet.ec 12/02/16 Spironolactone [Aldactone -] 25 mg PO DAILY tablet 12/02/16 Ursodiol [Actigal -] 300 mg PO BID capsule 12/02/16 Family Disease History - Family Disease History Family History: Denies Review of Systems - Review of Systems Constitutional: reports: Chills, Fever, Loss of Appetite, Weakness Eyes: reports: No Symptoms HENT: reports: No Symptoms Neck: reports: No Symptoms Cardiovascular: reports: Shortness of Breath Respiratory: reports: SOB Gastrointestinal: reports: No Symptoms Genitourinary: reports: No Symptoms Breasts: reports: No Symptoms Reported Musculoskeletal: reports: Muscle Weakness Integumentary: reports: No Symptoms Neurological: reports: Weakness Endocrine: reports: No Symptoms Hematology/Lymphatic: reports: No Symptoms Psychiatric: reports: Anxiety - Risk Factors Known Risk Factors: Yes: Age, Hypertension, Other (diastolic CHF; bioprothetic AoVR) Vital Signs: Vital Signs Temperature 97.2 F L 12/27/16 17:31 Pulse Rate 61 12/27/16 17:31 Respiratory Rate 18 12/27/16 17:31 Blood Pressure 104/66 12/27/16 17:31 O2 Sat by Pulse Oximetry (%) 100 12/27/16 09:00 Constitutional: Yes: Calm (feels much better compared to the marked shortness of breath she had on admission) Eyes: Yes: WNL HENT: Yes: WNL Neck: Yes: WNL Respiratory: Yes: Diminished, Rhonchi, Wheezes Gastrointestinal: Yes: Soft Renal/: No: Anuria Cardiovascular: Yes: Pulse Irregular, Varicosities Carotid Bruit: No PMI: Non-Displaced Heart Sounds: Yes: S1, S2 Murmur: Yes: Systolic Murmur, Grade 1 Musculoskeletal: Yes: Muscle Weakness Extremities: Yes: Cool Edema: No Peripheral Pulses WNL: Yes Integumentary: Yes: WNL Neurological: Yes: Alert, Oriented, Weakness Psychiatric: Yes: Alert, Oriented - Other Data Labs, Other Data: CBC, BMP 12/27/16 06:00 12/26/16 06:00 Troponin, BNP 12/27/16 06:00 B-Natriuretic Peptide 1095.40 H Troponin, BNP 12/27/16 06:00 B-Natriuretic Peptide 1095.40 H Abnormal Lab Results 12/27/16 06:00 B-Natriuretic Peptide 1095.40 H Echo: Report Reviewed (11/30/2016: normal LVEF; prosthetic Aortic vavle well- seated; not well visualized; moderate TR; mild bilatefral atrial enlargement) Ejection Fraction %: LVEF > or = 40 % Imaging - Results Chest X-ray: Image Reviewed (no) EKG: Image Reviewed (11/29/16: NSR; APCs; ? old anterior DC) Problem List - Problems (1) Anemia Assessment/Plan: f/u decrease in Hb. On ferrous sulfate. Code(s): D64.9 - ANEMIA, UNSPECIFIED Qualifiers: Iron deficiency anemia type: chronic blood loss (2) Bronchitis Assessment/Plan: was on antibiotics; f/u with ID. Code(s): J40 - BRONCHITIS, NOT SPECIFIED ACUTE OR CHRONIC (3) Diastolic CHF Assessment/Plan: On spironolactone and metoprolol ER. F/u electrolytes (repleted earlier), BUN/Cr, Is and Os, daily weight. Code(s): I50.30 - UNSPECIFIED DIASTOLIC (CONGESTIVE) HEART FAILURE (4) H/O prosthetic aortic valve replacement Assessment/Plan: Pt for ECHO in am. Code(s): Z95.2 - PRESENCE OF PROSTHETIC HEART VALVE (5) HTN (hypertension) Assessment/Plan: On aldactone and metoprolol ER. Code(s): I10 - ESSENTIAL (PRIMARY) HYPERTENSION (6) Liver cirrhosis Code(s): K74.60 - UNSPECIFIED CIRRHOSIS OF LIVER (7) SOB (shortness of breath) Code(s): R06.02 - SHORTNESS OF BREATH
[2016-12-27] MEDS: DEXTROSE 5%-1/3 NS - 500 ML IV SCH (21:18)
--- NOTE | 2016-12-27 21:45 | PN ---
Progress Note, Physician History of Present Illness: Feels slightly better. Continues to have coughing spells with small amount of sputum. Continues to have SOB but not as much. - Current Medication List Current Medications: Active Medications Albuterol/Ipratropium (Duoneb -) 1 amp NEB QIDR [facility] Last Admin: 12/27/16 19:03 Dose: 1 amp Ascorbic Acid (Vitamin C -) 500 mg PO DAILY [facility] Last Admin: 12/27/16 10:14 Dose: 500 mg Cholecalciferol (Vitamin D3 -) 1,000 unit PO DAILY [facility] Last Admin: 12/27/16 10:14 Dose: 1,000 unit Cyanocobalamin (Vitamin B12 -) 1,000 mcg PO DAILY [facility] Last Admin: 12/27/16 10:14 Dose: 1,000 mcg Ferrous Sulfate (Feosol -) 325 mg PO DAILY@0800 [facility] Last Admin: 12/27/16 10:13 Dose: 325 mg Guaifenesin (Robitussin -) 10 ml PO Q4H PRN PRN Reason: COUGH Last Admin: 12/27/16 10:17 Dose: 10 ml Dextrose/Sodium Chloride (D5-1/3ns -) 500 mls @ 75 mls/hr IV ASDIR [facility] Last Admin: 12/27/16 21:18 Dose: 75 mls/hr Piperacillin Sod/Tazobactam Sod (Zosyn 3.375gm Ivpb (Pre-Docked)) 50 mls @ 100 mls/hr IVPB Q8H-IV [facility] Last Admin: 12/27/16 17:54 Dose: 100 mls/hr Methylprednisolone Sodium Succinate (Solu-Medrol -) 40 mg IVPB BID [facility] Last Admin: 12/27/16 21:20 Dose: 40 mg Metoprolol Succinate (Toprol Xl -) 12.5 mg PO BID [facility] Last Admin: 12/27/16 21:20 Dose: 12.5 mg Pantoprazole Sodium (Protonix -) 40 mg PO DAILY [facility] Last Admin: 12/27/16 10:14 Dose: 40 mg Spironolactone (Aldactone -) 25 mg PO DAILY [facility] Last Admin: 12/27/16 10:14 Dose: 25 mg Ursodiol (Actigal -) 300 mg PO BID [facility] Last Admin: 12/27/16 21:20 Dose: 300 mg - Objective Vital Signs: Vital Signs Temperature 97.2 F L 12/27/16 17:31 Pulse Rate 61 12/27/16 17:31 Respiratory Rate 18 12/27/16 17:31 Blood Pressure 104/66 12/27/16 17:31 O2 Sat by Pulse Oximetry (%) 100 12/27/16 09:00 Constitutional: Yes: No Distress, Calm Eyes: Yes: WNL HENT: Yes: WNL Neck: Yes: Supple Cardiovascular: Yes: Regular Rate and Rhythm, S1, S2 Respiratory: Yes: On Nasal O2, Rales, Wheezes Gastrointestinal: Yes: Normal Bowel Sounds, Soft Genitourinary: Yes: WNL Musculoskeletal: Yes: WNL Extremities: Yes: WNL Edema: No Peripheral Pulses WNL: Yes Integumentary: Yes: WNL Neurological: Yes: Alert, Oriented, Cran Nerves II-XII Intact ...Motor Strength: WNL Psychiatric: Yes: Alert, Oriented Labs: CBC, BMP 12/27/16 06:00 12/26/16 06:00 Problem List - Problems (1) Bronchitis Assessment/Plan: Still with severe bilateral wheezing, continuing with inhalation and IV antibiotics Code(s): J40 - BRONCHITIS, NOT SPECIFIED ACUTE OR CHRONIC (2) HTN (hypertension) Assessment/Plan: BP under good control Code(s): I10 - ESSENTIAL (PRIMARY) HYPERTENSION (3) Anemia Code(s): D64.9 - ANEMIA, UNSPECIFIED Qualifiers: Qualified Code(s): D50.0 - Iron deficiency anemia secondary to blood loss (chronic) (4) Chest pain Code(s): R07.9 - CHEST PAIN, UNSPECIFIED Assessment/Plan Continue IV antibiotic with Zosyn. Continue IV steroids. Continue inhalation treatment.
[2016-12-28] MEDS: PIPERACILLIN/TAZOB 3.375 GM 50 ML IVPB SCH ×3 (01:01→17:39)
[2016-12-28] MEDS: ALBUTEROL SO4 2.5/IPRATROPIUM 0.5 INH SOL 3 ML VIAL.NEB. NEB SCH ×3 (06:30→17:15)
[2016-12-28] MEDS: FERROUS SO4 325 MG TABLET (FP) PO SCH (07:50)
[2016-12-28 08:00] LABS: BASOPHIL 0.1 % (0-2.0); MCH 26.8 pg (25.7-33.7); MCHC 32.1 g/dl (32.0-36.0); MEAN CELL VOLUME 83.4 fl (80-96); MEAN PLT VOLUME 8.8 fl (7.5-11.1); NEUTROPHILS 86.2 % (42.8-82.8); PLATELET COUNT 69 K/MM3 (134-434); RDW 23.4 % (11.6-15.6)
[2016-12-28 09:25] LABS: ALBUMIN 1.8 g/dl (3.4-5.0); ALK PHOS 337 U/L (45-117); ANION GAP 10 (8-16); BILIRUBIN,TOTAL 1.2 mg/dL (0.2-1.0); CO2 22 mmol/L (21-32); CREATININE 0.6 mg/dL (0.55-1.02); GLUCOSE,RANDOM 146 mg/dL (74-106); SGOT/AST 56 U/L (15-37); SGPT/ALT 34 U/L (12-78); TOT PROT 6.2 g/dl (6.4-8.2)
--- NOTE | 2016-12-28 09:57 | EKG ---
Test Reason : Blood Pressure : / mmHG Vent. Rate : 074 BPM Atrial Rate : 074 BPM P-R Int : 150 ms QRS Dur : 088 ms QT Int : 422 ms P-R-T Axes : 030 -28 040 degrees QTc Int : 468 ms NORMAL SINUS RHYTHM WHEN COMPARED WITH ECG OF 29-NOV-2016 08:27, PREMATURE SUPRAVENTRICULAR COMPLEXES ARE NO LONGER PRESENT Confirmed by STEVE LOERA MD ([id number]) on 12/28/2016 9:56:55 AM Referred By: PNATERA GENAO Confirmed By:STEVE LOERA MD
[2016-12-28] MEDS: methylPREDNISolone NA SUCC 40 MG/1 ML VIAL IVPB SCH ×2 (10:12→22:06)
[2016-12-28] MEDS: URSODIOL 300 MG CAPSULE PO SCH ×2 (10:16→22:06)
[2016-12-28] MEDS: METOPROLOL SUCCINATE 25 MG TAB.SR.24H (FP) PO SCH ×2 (10:16→22:05)
[2016-12-28] MEDS: PANTOPRAZOLE 40 MG TABLET (FP) PO SCH (10:17)
[2016-12-28] MEDS: ASCORBIC ACID 500 MG TABLET (FP) PO SCH (10:17)
[2016-12-28] MEDS: CHOLECALCIFEROL (VITAMIN D3) 1,000 UNIT TABLET (FP) PO SCH (10:17)
[2016-12-28] MEDS: CYANOCOBALAMIN 1,000 MCG TABLET (FP) PO SCH (10:17)
[2016-12-28] MEDS: SPIRONOLACTONE 25 MG TABLET (FP) PO SCH (10:17)
--- NOTE | 2016-12-28 12:27 | PN ---
Progress Note, Physician History of Present Illness: The patient is a 76 year old white female(juan Maci), with past medical history of HTN, HIV, ANDRES cirrhosis, diastolic CHF, bioprosthetic AV valve replacement, hysterectomy, CAD, and iron deficiency anemia, who presents with a productive cough and severe shortness of breath. She is unable to tolerate PO intake. The patient lives alone but notes sick contact with her grandson (flu). The patient notes associated chills, sweats, and SOB on exertion. The patient denies receiving the flu shot. - Current Medication List Current Medications: Active Medications Albuterol/Ipratropium (Duoneb -) 1 amp NEB QIDR [facility] Last Admin: 12/28/16 10:45 Dose: 1 amp Ascorbic Acid (Vitamin C -) 500 mg PO DAILY [facility] Last Admin: 12/28/16 10:17 Dose: 500 mg Cholecalciferol (Vitamin D3 -) 1,000 unit PO DAILY [facility] Last Admin: 12/28/16 10:17 Dose: 1,000 unit Cyanocobalamin (Vitamin B12 -) 1,000 mcg PO DAILY [facility] Last Admin: 12/28/16 10:17 Dose: 1,000 mcg Ferrous Sulfate (Feosol -) 325 mg PO DAILY@0800 [facility] Last Admin: 12/28/16 07:50 Dose: 325 mg Guaifenesin (Robitussin -) 10 ml PO Q4H PRN PRN Reason: COUGH Last Admin: 12/27/16 10:17 Dose: 10 ml Dextrose/Sodium Chloride (D5-1/3ns -) 500 mls @ 75 mls/hr IV ASDIR [facility] Last Admin: 12/27/16 21:18 Dose: 75 mls/hr Piperacillin Sod/Tazobactam Sod (Zosyn 3.375gm Ivpb (Pre-Docked)) 50 mls @ 100 mls/hr IVPB Q8H-IV [facility] Last Admin: 12/28/16 10:15 Dose: 100 mls/hr Methylprednisolone Sodium Succinate (Solu-Medrol -) 40 mg IVPB BID [facility] Last Admin: 12/28/16 10:12 Dose: 40 mg Metoprolol Succinate (Toprol Xl -) 12.5 mg PO BID [facility] Last Admin: 12/28/16 10:16 Dose: 12.5 mg Pantoprazole Sodium (Protonix -) 40 mg PO DAILY [facility] Last Admin: 12/28/16 10:17 Dose: 40 mg Spironolactone (Aldactone -) 25 mg PO DAILY [facility] Last Admin: 12/28/16 10:17 Dose: 25 mg Ursodiol (Actigal -) 300 mg PO BID [facility] Last Admin: 12/28/16 10:16 Dose: 300 mg - Objective Vital Signs: Vital Signs Temperature 97.6 F 12/28/16 06:00 Pulse Rate 68 12/28/16 11:59 Respiratory Rate 18 12/28/16 06:00 Blood Pressure 103/61 12/28/16 06:00 O2 Sat by Pulse Oximetry (%) 96 12/28/16 11:59 Eyes: Yes: WNL, Conjunctiva Clear, EOM Intact HENT: Yes: WNL, Atraumatic, Normocephalic Neck: Yes: WNL, Supple, Trachea Midline Cardiovascular: Yes: WNL, Regular Rate and Rhythm, Murmur, S1, S2 Respiratory: Yes: WNL, Regular, CTA Bilaterally Gastrointestinal: Yes: WNL, Normal Bowel Sounds Genitourinary: Yes: WNL Musculoskeletal: Yes: WNL Extremities: Yes: WNL Edema: No Integumentary: Yes: WNL Neurological: Yes: WNL, Alert, Oriented ...Motor Strength: WNL Psychiatric: Yes: WNL Labs: CBC, BMP 12/28/16 06:00 12/28/16 06:00 Assessment/Plan 1) Anemia Assessment/Plan: f/u decrease in Hb. On ferrous sulfate. Code(s): D64.9 - ANEMIA, UNSPECIFIED Qualifiers: Iron deficiency anemia type: chronic blood loss (2) Bronchitis Assessment/Plan: was on antibiotics; f/u with ID. Code(s): J40 - BRONCHITIS, NOT SPECIFIED ACUTE OR CHRONIC (3) Diastolic CHF Assessment/Plan: On spironolactone and metoprolol ER. F/u electrolytes (repleted earlier), BUN/Cr, Is and Os, daily weight. Code(s): I50.30 - UNSPECIFIED DIASTOLIC (CONGESTIVE) HEART FAILURE (4) H/O prosthetic aortic valve replacement Assessment/Plan: echo no changes, bio AV wnl, , small mobile mass on calcified MV ?ruptured chorde vs small veg?old, no changes from prior echos. Code(s): Z95.2 - PRESENCE OF PROSTHETIC HEART VALVE (5) HTN (hypertension) Assessment/Plan: On aldactone and metoprolol ER. Code(s): I10 - ESSENTIAL (PRIMARY) HYPERTENSION (6) Liver cirrhosis Code(s): K74.60 - UNSPECIFIED CIRRHOSIS OF LIVER (7) SOB (shortness of breath) Code(s): R06.02 - SHORTNESS OF BREATH
--- NOTE | 2016-12-28 13:52 | PN ---
Progress Note, Physician History of Present Illness: [id number] much better no new events cough better still sputum production - Current Medication List Current Medications: Active Medications Albuterol/Ipratropium (Duoneb -) 1 amp NEB QIDR [facility] Last Admin: 12/28/16 10:45 Dose: 1 amp Ascorbic Acid (Vitamin C -) 500 mg PO DAILY [facility] Last Admin: 12/28/16 10:17 Dose: 500 mg Cholecalciferol (Vitamin D3 -) 1,000 unit PO DAILY [facility] Last Admin: 12/28/16 10:17 Dose: 1,000 unit Cyanocobalamin (Vitamin B12 -) 1,000 mcg PO DAILY [facility] Last Admin: 12/28/16 10:17 Dose: 1,000 mcg Ferrous Sulfate (Feosol -) 325 mg PO DAILY@0800 [facility] Last Admin: 12/28/16 07:50 Dose: 325 mg Guaifenesin (Robitussin -) 10 ml PO Q4H PRN PRN Reason: COUGH Last Admin: 12/27/16 10:17 Dose: 10 ml Dextrose/Sodium Chloride (D5-1/3ns -) 500 mls @ 75 mls/hr IV ASDIR [facility] Last Admin: 12/27/16 21:18 Dose: 75 mls/hr Piperacillin Sod/Tazobactam Sod (Zosyn 3.375gm Ivpb (Pre-Docked)) 50 mls @ 100 mls/hr IVPB Q8H-IV [facility] Last Admin: 12/28/16 10:15 Dose: 100 mls/hr Methylprednisolone Sodium Succinate (Solu-Medrol -) 40 mg IVPB BID [facility] Last Admin: 12/28/16 10:12 Dose: 40 mg Metoprolol Succinate (Toprol Xl -) 12.5 mg PO BID [facility] Last Admin: 12/28/16 10:16 Dose: 12.5 mg Pantoprazole Sodium (Protonix -) 40 mg PO DAILY [facility] Last Admin: 12/28/16 10:17 Dose: 40 mg Spironolactone (Aldactone -) 25 mg PO DAILY [facility] Last Admin: 12/28/16 10:17 Dose: 25 mg Ursodiol (Actigal -) 300 mg PO BID [facility] Last Admin: 12/28/16 10:16 Dose: 300 mg - Objective Vital Signs: Vital Signs Temperature 97.6 F 12/28/16 06:00 Pulse Rate 68 12/28/16 11:59 Respiratory Rate 18 12/28/16 06:00 Blood Pressure 103/61 12/28/16 06:00 O2 Sat by Pulse Oximetry (%) 96 12/28/16 11:59 Constitutional: Yes: No Distress, Calm Cardiovascular: Yes: Regular Rate and Rhythm Respiratory: Yes: Regular, On Nasal O2, Rhonchi, SOB, SOB on Exertion Gastrointestinal: Yes: Normal Bowel Sounds, Soft Musculoskeletal: Yes: WNL Extremities: Yes: WNL Neurological: Yes: Alert, Oriented Psychiatric: Yes: Alert Labs: CBC, BMP 12/28/16 06:00 12/28/16 06:00 Assessment/Plan p - Problems (1) Bronchitis Assessment/Plan: Continues to wheeze all over both lungs Code(s): J40 - BRONCHITIS, NOT SPECIFIED ACUTE OR CHRONIC (2) HTN (hypertension) Assessment/Plan: BP has gena low around 95 syst Code(s): I10 - ESSENTIAL (PRIMARY) HYPERTENSION (3) Anemia Assessment/Plan: Hb has been stable Code(s): D64.9 - ANEMIA, UNSPECIFIED Qualifiers: Iron deficiency anemia type: chronic blood loss (4) Chest pain Code(s): R07.9 - CHEST PAIN, UNSPECIFIED pnumococcal pneumonia patient is positive for pneumoccal antigen plan stopped all abx except zosyn incentive eitan
--- NOTE | 2016-12-28 23:55 | PN ---
Progress Note, Physician History of Present Illness: feels better with less SOB and less cough. Sputum has diminished markedly. - Current Medication List Current Medications: Active Medications Albuterol/Ipratropium (Duoneb -) 1 amp NEB QIDR [facility] Last Admin: 12/28/16 17:15 Dose: 1 amp Ascorbic Acid (Vitamin C -) 500 mg PO DAILY [facility] Last Admin: 12/28/16 10:17 Dose: 500 mg Cholecalciferol (Vitamin D3 -) 1,000 unit PO DAILY [facility] Last Admin: 12/28/16 10:17 Dose: 1,000 unit Cyanocobalamin (Vitamin B12 -) 1,000 mcg PO DAILY [facility] Last Admin: 12/28/16 10:17 Dose: 1,000 mcg Ferrous Sulfate (Feosol -) 325 mg PO DAILY@0800 [facility] Last Admin: 12/28/16 07:50 Dose: 325 mg Guaifenesin (Robitussin -) 10 ml PO Q4H PRN PRN Reason: COUGH Last Admin: 12/27/16 10:17 Dose: 10 ml Piperacillin Sod/Tazobactam Sod (Zosyn 3.375gm Ivpb (Pre-Docked)) 50 mls @ 100 mls/hr IVPB Q8H-IV [facility] Last Admin: 12/28/16 17:39 Dose: 100 mls/hr Methylprednisolone Sodium Succinate (Solu-Medrol -) 40 mg IVPB BID [facility] Last Admin: 12/28/16 22:06 Dose: 40 mg Metoprolol Succinate (Toprol Xl -) 12.5 mg PO BID [facility] Last Admin: 12/28/16 22:05 Dose: 12.5 mg Pantoprazole Sodium (Protonix -) 40 mg PO DAILY [facility] Last Admin: 12/28/16 10:17 Dose: 40 mg Spironolactone (Aldactone -) 25 mg PO DAILY [facility] Last Admin: 12/28/16 10:17 Dose: 25 mg Ursodiol (Actigal -) 300 mg PO BID [facility] Last Admin: 12/28/16 22:06 Dose: 300 mg - Objective Vital Signs: Vital Signs Temperature 97.8 F 12/28/16 22:00 Pulse Rate 69 12/28/16 22:00 Respiratory Rate 20 12/28/16 22:00 Blood Pressure 109/68 12/28/16 22:00 O2 Sat by Pulse Oximetry (%) 96 01/27/17 20:58 Constitutional: Yes: No Distress, Calm Eyes: Yes: WNL, Other Neck: Yes: WNL, Supple Cardiovascular: Yes: Regular Rate and Rhythm, S1, S2 Respiratory: Yes: On Nasal O2, Rales, Wheezes Gastrointestinal: Yes: Normal Bowel Sounds, Soft Genitourinary: Yes: Anuria Musculoskeletal: Yes: WNL Extremities: Yes: Deformity Edema: No Peripheral Pulses WNL: Yes Integumentary: Yes: WNL Neurological: Yes: Alert, Oriented, Cran Nerves II-XII Intact Psychiatric: Yes: Alert, Oriented Labs: CBC, BMP 12/28/16 06:00 12/28/16 06:00 Problem List - Problems (1) Bronchitis Assessment/Plan: continues to heve biloateral wheezing Code(s): J40 - BRONCHITIS, NOT SPECIFIED ACUTE OR CHRONIC (2) HTN (hypertension) Assessment/Plan: BP in normal range Code(s): I10 - ESSENTIAL (PRIMARY) HYPERTENSION (3) Anemia Assessment/Plan: Hb is stable at 8.9 Code(s): D64.9 - ANEMIA, UNSPECIFIED Qualifiers: Iron deficiency anemia type: chronic blood loss (4) Chest pain Code(s): R07.9 - CHEST PAIN, UNSPECIFIED Assessment/Plan Continue IV Zosyn and IV steroids and bronchodilators.
[2016-12-29] MEDS: ALBUTEROL SO4 2.5/IPRATROPIUM 0.5 INH SOL 3 ML VIAL.NEB. NEB SCH ×4 (00:05→18:30)
[2016-12-29] MEDS: PIPERACILLIN/TAZOB 3.375 GM 50 ML IVPB SCH ×3 (01:06→18:42)
[2016-12-29] MEDS: FERROUS SO4 325 MG TABLET (FP) PO SCH (12:05)
[2016-12-29] MEDS: METOPROLOL SUCCINATE 25 MG TAB.SR.24H (FP) PO SCH ×2 (12:05→21:12)
[2016-12-29] MEDS: PANTOPRAZOLE 40 MG TABLET (FP) PO SCH (12:05)
[2016-12-29] MEDS: methylPREDNISolone NA SUCC 40 MG/1 ML VIAL IVPB SCH ×2 (12:06→21:12)
[2016-12-29] MEDS: CYANOCOBALAMIN 1,000 MCG TABLET (FP) PO SCH (12:06)
[2016-12-29] MEDS: SPIRONOLACTONE 25 MG TABLET (FP) PO SCH (12:06)
[2016-12-29] MEDS: ASCORBIC ACID 500 MG TABLET (FP) PO SCH (12:06)
[2016-12-29] MEDS: CHOLECALCIFEROL (VITAMIN D3) 1,000 UNIT TABLET (FP) PO SCH (12:06)
[2016-12-29] MEDS: guaiFENesin 200 MG/10 ML 10 ML UNIT-DOSE CUPS PO PRN (14:54)
[2016-12-29] MEDS: URSODIOL 300 MG CAPSULE PO SCH ×2 (14:54→21:11)
--- NOTE | 2016-12-29 15:33 | PN ---
Progress Note, Physician History of Present Illness: feeling better no new issues patients influenza cx is reported as positive as of one report reported here was negative for influena - Current Medication List Current Medications: Active Medications Albuterol/Ipratropium (Duoneb -) 1 amp NEB QIDR [facility] Last Admin: 12/29/16 11:15 Dose: Not Given Ascorbic Acid (Vitamin C -) 500 mg PO DAILY [facility] Last Admin: 12/29/16 12:06 Dose: 500 mg Cholecalciferol (Vitamin D3 -) 1,000 unit PO DAILY [facility] Last Admin: 12/29/16 12:06 Dose: 1,000 unit Cyanocobalamin (Vitamin B12 -) 1,000 mcg PO DAILY [facility] Last Admin: 12/29/16 12:06 Dose: 1,000 mcg Ferrous Sulfate (Feosol -) 325 mg PO DAILY@0800 [facility] Last Admin: 12/29/16 12:05 Dose: 325 mg Guaifenesin (Robitussin -) 10 ml PO Q4H PRN PRN Reason: COUGH Last Admin: 12/29/16 14:54 Dose: 10 ml Piperacillin Sod/Tazobactam Sod (Zosyn 3.375gm Ivpb (Pre-Docked)) 50 mls @ 100 mls/hr IVPB Q8H-IV [facility] Last Admin: 12/29/16 12:06 Dose: 100 mls/hr Methylprednisolone Sodium Succinate (Solu-Medrol -) 40 mg IVPB BID [facility] Last Admin: 12/29/16 12:06 Dose: 40 mg Metoprolol Succinate (Toprol Xl -) 12.5 mg PO BID [facility] Last Admin: 12/29/16 12:05 Dose: 12.5 mg Pantoprazole Sodium (Protonix -) 40 mg PO DAILY [facility] Last Admin: 12/29/16 12:05 Dose: 40 mg Spironolactone (Aldactone -) 25 mg PO DAILY [facility] Last Admin: 12/29/16 12:06 Dose: 25 mg Ursodiol (Actigal -) 300 mg PO BID [facility] Last Admin: 12/29/16 14:54 Dose: 300 mg - Objective Vital Signs: Vital Signs Temperature 97.3 F L 12/29/16 14:32 Pulse Rate 60 12/29/16 14:32 Respiratory Rate 20 12/29/16 14:32 Blood Pressure 116/69 12/29/16 14:32 O2 Sat by Pulse Oximetry (%) 96 12/28/16 20:58 Constitutional: Yes: No Distress, Calm Neck: Yes: Supple Cardiovascular: Yes: Regular Rate and Rhythm Respiratory: Yes: Regular, Poor Air Entry, Rhonchi Gastrointestinal: Yes: Normal Bowel Sounds, Soft Musculoskeletal: Yes: WNL Extremities: Yes: WNL Neurological: Yes: Alert, Oriented Psychiatric: Yes: Alert Labs: CBC, BMP 12/28/16 06:00 12/28/16 06:00 Assessment/Plan p - Problems (1) Bronchitis Assessment/Plan: Continues to wheeze all over both lungs Code(s): J40 - BRONCHITIS, NOT SPECIFIED ACUTE OR CHRONIC (2) HTN (hypertension) Assessment/Plan: BP has gena low around 95 syst Code(s): I10 - ESSENTIAL (PRIMARY) HYPERTENSION (3) Anemia Assessment/Plan: Hb has been stable Code(s): D64.9 - ANEMIA, UNSPECIFIED Qualifiers: Iron deficiency anemia type: chronic blood loss (4) Chest pain Code(s): R07.9 - CHEST PAIN, UNSPECIFIED pnumococcal pneumonia patient is positive for pneumoccal antigen influenza plan continue zosyn no need for tamiflu as patient is well out since diagnosis of influenza
--- NOTE | 2016-12-29 23:57 | PN ---
Progress Note, Physician History of Present Illness: feels better,less couigh and less SOB - Current Medication List Current Medications: Active Medications Albuterol/Ipratropium (Duoneb -) 1 amp NEB QIDR [facility] Last Admin: 12/29/16 18:30 Dose: 1 amp Ascorbic Acid (Vitamin C -) 500 mg PO DAILY [facility] Last Admin: 12/29/16 12:06 Dose: 500 mg Cholecalciferol (Vitamin D3 -) 1,000 unit PO DAILY [facility] Last Admin: 12/29/16 12:06 Dose: 1,000 unit Cyanocobalamin (Vitamin B12 -) 1,000 mcg PO DAILY [facility] Last Admin: 12/29/16 12:06 Dose: 1,000 mcg Ferrous Sulfate (Feosol -) 325 mg PO DAILY@0800 [facility] Last Admin: 12/29/16 12:05 Dose: 325 mg Guaifenesin (Robitussin -) 10 ml PO Q4H PRN PRN Reason: COUGH Last Admin: 12/29/16 14:54 Dose: 10 ml Piperacillin Sod/Tazobactam Sod (Zosyn 3.375gm Ivpb (Pre-Docked)) 50 mls @ 100 mls/hr IVPB Q8H-IV [facility] Last Admin: 12/29/16 18:42 Dose: 100 mls/hr Methylprednisolone Sodium Succinate (Solu-Medrol -) 40 mg IVPB BID [facility] Last Admin: 12/29/16 21:12 Dose: 40 mg Metoprolol Succinate (Toprol Xl -) 12.5 mg PO BID [facility] Last Admin: 12/29/16 21:12 Dose: Not Given Pantoprazole Sodium (Protonix -) 40 mg PO DAILY [facility] Last Admin: 12/29/16 12:05 Dose: 40 mg Spironolactone (Aldactone -) 25 mg PO DAILY [facility] Last Admin: 12/29/16 12:06 Dose: 25 mg Ursodiol (Actigal -) 300 mg PO BID [facility] Last Admin: 12/29/16 21:11 Dose: 300 mg - Objective Vital Signs: Vital Signs Temperature 97.5 F L 12/29/16 22:00 Pulse Rate 56 L 12/29/16 22:00 Respiratory Rate 20 12/29/16 22:00 Blood Pressure 104/51 12/29/16 22:00 O2 Sat by Pulse Oximetry (%) 96 12/29/16 10:00 Labs: CBC, BMP 12/28/16 06:00 12/28/16 06:00 Problem List - Problems (1) Bronchitis Assessment/Plan: Acute bronchitis improving with bronchodilators and IV steroids. 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 Isaac
[2016-12-30] MEDS: ALBUTEROL SO4 2.5/IPRATROPIUM 0.5 INH SOL 3 ML VIAL.NEB. NEB SCH ×4 (00:07→17:52)
[2016-12-30] MEDS: PIPERACILLIN/TAZOB 3.375 GM 50 ML IVPB SCH ×3 (02:03→17:45)
[2016-12-30] MEDS: FERROUS SO4 325 MG TABLET (FP) PO SCH (09:00)
[2016-12-30] MEDS: ASCORBIC ACID 500 MG TABLET (FP) PO SCH (10:59)
[2016-12-30] MEDS: METOPROLOL SUCCINATE 25 MG TAB.SR.24H (FP) PO SCH ×2 (10:59→21:50)
[2016-12-30] MEDS: CHOLECALCIFEROL (VITAMIN D3) 1,000 UNIT TABLET (FP) PO SCH (10:59)
[2016-12-30] MEDS: URSODIOL 300 MG CAPSULE PO SCH ×2 (10:59→21:51)
[2016-12-30] MEDS: methylPREDNISolone NA SUCC 40 MG/1 ML VIAL IVPB SCH ×2 (10:59→21:50)
[2016-12-30] MEDS: SPIRONOLACTONE 25 MG TABLET (FP) PO SCH (10:59)
[2016-12-30] MEDS: PANTOPRAZOLE 40 MG TABLET (FP) PO SCH (10:59)
[2016-12-30] MEDS: CYANOCOBALAMIN 1,000 MCG TABLET (FP) PO SCH (10:59)
--- NOTE | 2016-12-30 15:16 | PN ---
Progress Note, Physician History of Present Illness: Continues to have cough and wheezing and some SOB - Current Medication List Current Medications: Active Medications Albuterol/Ipratropium (Duoneb -) 1 amp NEB QIDR [facility] Last Admin: 12/30/16 12:06 Dose: 1 amp Ascorbic Acid (Vitamin C -) 500 mg PO DAILY [facility] Last Admin: 12/30/16 10:59 Dose: 500 mg Cholecalciferol (Vitamin D3 -) 1,000 unit PO DAILY [facility] Last Admin: 12/30/16 10:59 Dose: 1,000 unit Cyanocobalamin (Vitamin B12 -) 1,000 mcg PO DAILY [facility] Last Admin: 12/30/16 10:59 Dose: 1,000 mcg Ferrous Sulfate (Feosol -) 325 mg PO DAILY@0800 [facility] Last Admin: 12/30/16 09:00 Dose: 325 mg Guaifenesin (Robitussin -) 10 ml PO Q4H PRN PRN Reason: COUGH Last Admin: 12/29/16 14:54 Dose: 10 ml Piperacillin Sod/Tazobactam Sod (Zosyn 3.375gm Ivpb (Pre-Docked)) 50 mls @ 100 mls/hr IVPB Q8H-IV [facility] Last Admin: 12/30/16 11:00 Dose: 100 mls/hr Lactobacillus Acidophilus (Bacid -) 1 tab PO DAILY [facility] Methylprednisolone Sodium Succinate (Solu-Medrol -) 40 mg IVPB BID [facility] Last Admin: 12/30/16 10:59 Dose: 40 mg Metoprolol Succinate (Toprol Xl -) 12.5 mg PO BID [facility] Last Admin: 12/30/16 10:59 Dose: 12.5 mg Pantoprazole Sodium (Protonix -) 40 mg PO DAILY [facility] Last Admin: 12/30/16 10:59 Dose: 40 mg Spironolactone (Aldactone -) 25 mg PO DAILY [facility] Last Admin: 12/30/16 10:59 Dose: 25 mg Ursodiol (Actigal -) 300 mg PO BID [facility] Last Admin: 12/30/16 10:59 Dose: 300 mg - Objective Vital Signs: Vital Signs Temperature 97.4 F L 12/30/16 14:11 Pulse Rate 74 12/30/16 14:11 Respiratory Rate 20 12/30/16 14:11 Blood Pressure 101/63 12/30/16 14:11 O2 Sat by Pulse Oximetry (%) 98 12/29/16 21:00 Constitutional: Yes: Anxious, Mild Distress Eyes: Yes: WNL HENT: Yes: WNL Neck: Yes: WNL, Supple Cardiovascular: Yes: Regular Rate and Rhythm, S1, S2 Respiratory: Yes: On Nasal O2, Wheezes Gastrointestinal: Yes: Normal Bowel Sounds, Soft Genitourinary: Yes: WNL Musculoskeletal: Yes: WNL Extremities: Yes: WNL Edema: No Peripheral Pulses WNL: Yes Integumentary: Yes: WNL Neurological: Yes: Alert, Oriented, Cran Nerves II-XII Intact ...Motor Strength: WNL Psychiatric: Yes: Alert, Oriented Labs: CBC, BMP 12/28/16 06:00 12/28/16 06:00 - ....Imaging Chest X-ray: Report Reviewed, Image Reviewed Problem List - Problems (1) Bronchitis Assessment/Plan: Continues to have bilateral wheezing Code(s): J40 - BRONCHITIS, NOT SPECIFIED ACUTE OR CHRONIC (2) HTN (hypertension) Code(s): I10 - ESSENTIAL (PRIMARY) HYPERTENSION (3) Anemia Code(s): D64.9 - ANEMIA, UNSPECIFIED Qualifiers: Iron deficiency anemia type: chronic blood loss (4) Chest pain Code(s): R07.9 - CHEST PAIN, UNSPECIFIED Assessment/Plan Continue IV steroids and IV antibiotics Influenza A antigen positive
[2016-12-30] MEDS: LACTOBACILLUS ACIDOPHILUS 1 EACH TAB (FP) PO SCH (15:26)
--- NOTE | 2016-12-30 16:51 | PN ---
Progress Note, Physician History of Present Illness: feeling better still sob but improvement happening - Current Medication List Current Medications: Active Medications Albuterol/Ipratropium (Duoneb -) 1 amp NEB QIDR [facility] Last Admin: 12/30/16 12:06 Dose: 1 amp Ascorbic Acid (Vitamin C -) 500 mg PO DAILY [facility] Last Admin: 12/30/16 10:59 Dose: 500 mg Cholecalciferol (Vitamin D3 -) 1,000 unit PO DAILY [facility] Last Admin: 12/30/16 10:59 Dose: 1,000 unit Cyanocobalamin (Vitamin B12 -) 1,000 mcg PO DAILY [facility] Last Admin: 12/30/16 10:59 Dose: 1,000 mcg Ferrous Sulfate (Feosol -) 325 mg PO DAILY@0800 [facility] Last Admin: 12/30/16 09:00 Dose: 325 mg Guaifenesin (Robitussin -) 10 ml PO Q4H PRN PRN Reason: COUGH Last Admin: 12/29/16 14:54 Dose: 10 ml Piperacillin Sod/Tazobactam Sod (Zosyn 3.375gm Ivpb (Pre-Docked)) 50 mls @ 100 mls/hr IVPB Q8H-IV [facility] Last Admin: 12/30/16 11:00 Dose: 100 mls/hr Lactobacillus Acidophilus (Bacid -) 1 tab PO DAILY [facility] Last Admin: 12/30/16 15:26 Dose: 1 tab Methylprednisolone Sodium Succinate (Solu-Medrol -) 40 mg IVPB BID [facility] Last Admin: 12/30/16 10:59 Dose: 40 mg Metoprolol Succinate (Toprol Xl -) 12.5 mg PO BID [facility] Last Admin: 12/30/16 10:59 Dose: 12.5 mg Pantoprazole Sodium (Protonix -) 40 mg PO DAILY [facility] Last Admin: 12/30/16 10:59 Dose: 40 mg Spironolactone (Aldactone -) 25 mg PO DAILY [facility] Last Admin: 12/30/16 10:59 Dose: 25 mg Ursodiol (Actigal -) 300 mg PO BID [facility] Last Admin: 12/30/16 10:59 Dose: 300 mg - Objective Vital Signs: Vital Signs Temperature 97.4 F L 12/30/16 14:11 Pulse Rate 74 12/30/16 14:11 Respiratory Rate 20 12/30/16 14:11 Blood Pressure 101/63 12/30/16 14:11 O2 Sat by Pulse Oximetry (%) 98 12/29/16 21:00 Constitutional: Yes: No Distress, Calm Cardiovascular: Yes: Regular Rate and Rhythm Respiratory: Yes: Regular, On Nasal O2, Poor Air Entry, Rhonchi, SOB Gastrointestinal: Yes: Normal Bowel Sounds, Soft Musculoskeletal: Yes: WNL Extremities: Yes: WNL Neurological: Yes: Alert, Oriented Psychiatric: Yes: Alert Labs: CBC, BMP 12/28/16 06:00 12/28/16 06:00 Assessment/Plan p - Problems (1) Bronchitis Assessment/Plan: Continues to wheeze all over both lungs Code(s): J40 - BRONCHITIS, NOT SPECIFIED ACUTE OR CHRONIC (2) HTN (hypertension) Assessment/Plan: BP has gena low around 95 syst Code(s): I10 - ESSENTIAL (PRIMARY) HYPERTENSION (3) Anemia Assessment/Plan: Hb has been stable Code(s): D64.9 - ANEMIA, UNSPECIFIED Qualifiers: Iron deficiency anemia type: chronic blood loss (4) Chest pain Code(s): R07.9 - CHEST PAIN, UNSPECIFIED pnumococcal pneumonia patient is positive for pneumoccal antigen influenza A plan continue abx supportive treatment
[2016-12-30] MEDS: guaiFENesin 200 MG/10 ML 10 ML UNIT-DOSE CUPS PO PRN (17:45)
[2016-12-31] MEDS: PIPERACILLIN/TAZOB 3.375 GM 50 ML IVPB SCH ×3 (02:04→17:23)
[2016-12-31] MEDS: METOPROLOL SUCCINATE 25 MG TAB.SR.24H (FP) PO SCH ×2 (10:10→21:37)
[2016-12-31] MEDS: SPIRONOLACTONE 25 MG TABLET (FP) PO SCH (10:11)
[2016-12-31] MEDS: PANTOPRAZOLE 40 MG TABLET (FP) PO SCH (10:11)
[2016-12-31] MEDS: FERROUS SO4 325 MG TABLET (FP) PO SCH (10:11)
[2016-12-31] MEDS: LACTOBACILLUS ACIDOPHILUS 1 EACH TAB (FP) PO SCH (10:12)
[2016-12-31] MEDS: ASCORBIC ACID 500 MG TABLET (FP) PO SCH (10:12)
[2016-12-31] MEDS: URSODIOL 300 MG CAPSULE PO SCH ×2 (10:13→21:36)
[2016-12-31] MEDS: CHOLECALCIFEROL (VITAMIN D3) 1,000 UNIT TABLET (FP) PO SCH (10:14)
[2016-12-31] MEDS: CYANOCOBALAMIN 1,000 MCG TABLET (FP) PO SCH (10:15)
[2016-12-31] MEDS ORDERED: ALBUTEROL SO4 2.5/IPRATROPIUM 0.5 INH SOL 3 ML VIAL.NEB. NEB ONE (10:26)
[2016-12-31] MEDS: methylPREDNISolone NA SUCC 40 MG/1 ML VIAL IVPB SCH ×2 (12:20→21:36)
--- NOTE | 2016-12-31 13:26 | PN ---
Progress Note, Physician History of Present Illness: The patient is a 76 year old white female(juan Maci), with past medical history of HTN, HIV, ANDRES cirrhosis, diastolic CHF, bioprosthetic AV valve replacement, hysterectomy, CAD, and iron deficiency anemia, who presents with a productive cough and severe shortness of breath. She is unable to tolerate PO intake. The patient lives alone but notes sick contact with her grandson (flu). The patient notes associated chills, sweats, and SOB on exertion. The patient denies receiving the flu shot. - Current Medication List Current Medications: Active Medications Ascorbic Acid (Vitamin C -) 500 mg PO DAILY [facility] Last Admin: 12/31/16 10:12 Dose: 500 mg Cholecalciferol (Vitamin D3 -) 1,000 unit PO DAILY [facility] Last Admin: 12/30/16 10:59 Dose: 1,000 unit Cyanocobalamin (Vitamin B12 -) 1,000 mcg PO DAILY [facility] Last Admin: 12/31/16 10:15 Dose: 1,000 mcg Ferrous Sulfate (Feosol -) 325 mg PO DAILY@0800 [facility] Last Admin: 12/31/16 10:11 Dose: 325 mg Guaifenesin (Robitussin -) 10 ml PO Q4H PRN PRN Reason: COUGH Last Admin: 12/30/16 17:45 Dose: 10 ml Piperacillin Sod/Tazobactam Sod (Zosyn 3.375gm Ivpb (Pre-Docked)) 50 mls @ 100 mls/hr IVPB Q8H-IV [facility] Last Admin: 12/31/16 10:14 Dose: 100 mls/hr Lactobacillus Acidophilus (Bacid -) 1 tab PO DAILY [facility] Last Admin: 12/31/16 10:12 Dose: 1 tab Methylprednisolone Sodium Succinate (Solu-Medrol -) 40 mg IVPB BID [facility] Last Admin: 12/31/16 12:20 Dose: 40 mg Metoprolol Succinate (Toprol Xl -) 12.5 mg PO BID [facility] Last Admin: 12/31/16 10:10 Dose: 12.5 mg Pantoprazole Sodium (Protonix -) 40 mg PO DAILY [facility] Last Admin: 12/31/16 10:11 Dose: 40 mg Spironolactone (Aldactone -) 25 mg PO DAILY [facility] Last Admin: 12/31/16 10:11 Dose: 25 mg Ursodiol (Actigal -) 300 mg PO BID [facility] Last Admin: 12/31/16 10:13 Dose: 300 mg - Objective Vital Signs: Vital Signs Temperature 97.6 F 12/31/16 09:00 Pulse Rate 87 12/31/16 11:46 Respiratory Rate 20 12/31/16 09:00 Blood Pressure 119/65 12/31/16 09:00 O2 Sat by Pulse Oximetry (%) 98 12/31/16 11:46 Eyes: Yes: WNL, Conjunctiva Clear, EOM Intact HENT: Yes: WNL, Atraumatic, Normocephalic Neck: Yes: WNL, Supple, Trachea Midline Cardiovascular: Yes: WNL, Regular Rate and Rhythm Respiratory: Yes: Poor Air Entry, Wheezes Gastrointestinal: Yes: WNL, Normal Bowel Sounds Genitourinary: Yes: WNL Musculoskeletal: Yes: WNL Extremities: Yes: WNL Edema: No Integumentary: Yes: WNL Neurological: Yes: WNL, Alert, Oriented ...Motor Strength: WNL Psychiatric: Yes: WNL Labs: CBC, BMP 12/28/16 06:00 12/28/16 06:00 Assessment/Plan 1) Anemia Assessment/Plan: f/u decrease in Hb. On ferrous sulfate. Code(s): D64.9 - ANEMIA, UNSPECIFIED Qualifiers: Iron deficiency anemia type: chronic blood loss (2) Bronchitis Assessment/Plan: was on antibiotics; f/u with ID. Code(s): J40 - BRONCHITIS, NOT SPECIFIED ACUTE OR CHRONIC (3) Diastolic CHF Assessment/Plan: On spironolactone and metoprolol ER. F/u electrolytes (repleted earlier), BUN/Cr, Is and Os, daily weight. Code(s): I50.30 - UNSPECIFIED DIASTOLIC (CONGESTIVE) HEART FAILURE (4) H/O prosthetic aortic valve replacement Assessment/Plan: echo no changes, bio AV wnl, , small mobile mass on calcified MV ?ruptured chorde vs small veg?old, no changes from prior echos. Code(s): Z95.2 - PRESENCE OF PROSTHETIC HEART VALVE (5) HTN (hypertension) Assessment/Plan: On aldactone and metoprolol ER. Code(s): I10 - ESSENTIAL (PRIMARY) HYPERTENSION (6) Liver cirrhosis Code(s): K74.60 - UNSPECIFIED CIRRHOSIS OF LIVER (7) SOB (shortness of breath) Code(s): R06.02 - SHORTNESS OF BREATH
--- NOTE | 2016-12-31 14:15 | PN ---
Progress Note, Physician History of Present Illness: feeling better coughing less minimal sputum production - Current Medication List Current Medications: Active Medications Ascorbic Acid (Vitamin C -) 500 mg PO DAILY [facility] Last Admin: 12/31/16 10:12 Dose: 500 mg Cholecalciferol (Vitamin D3 -) 1,000 unit PO DAILY [facility] Last Admin: 12/30/16 10:59 Dose: 1,000 unit Cyanocobalamin (Vitamin B12 -) 1,000 mcg PO DAILY [facility] Last Admin: 12/31/16 10:15 Dose: 1,000 mcg Ferrous Sulfate (Feosol -) 325 mg PO DAILY@0800 [facility] Last Admin: 12/31/16 10:11 Dose: 325 mg Guaifenesin (Robitussin -) 10 ml PO Q4H PRN PRN Reason: COUGH Last Admin: 12/30/16 17:45 Dose: 10 ml Piperacillin Sod/Tazobactam Sod (Zosyn 3.375gm Ivpb (Pre-Docked)) 50 mls @ 100 mls/hr IVPB Q8H-IV [facility] Last Admin: 12/31/16 10:14 Dose: 100 mls/hr Lactobacillus Acidophilus (Bacid -) 1 tab PO DAILY [facility] Last Admin: 12/31/16 10:12 Dose: 1 tab Methylprednisolone Sodium Succinate (Solu-Medrol -) 40 mg IVPB BID [facility] Last Admin: 12/31/16 12:20 Dose: 40 mg Metoprolol Succinate (Toprol Xl -) 12.5 mg PO BID [facility] Last Admin: 12/31/16 10:10 Dose: 12.5 mg Pantoprazole Sodium (Protonix -) 40 mg PO DAILY [facility] Last Admin: 12/31/16 10:11 Dose: 40 mg Spironolactone (Aldactone -) 25 mg PO DAILY [facility] Last Admin: 12/31/16 10:11 Dose: 25 mg Ursodiol (Actigal -) 300 mg PO BID [facility] Last Admin: 12/31/16 10:13 Dose: 300 mg - Objective Vital Signs: Vital Signs Temperature 97.6 F 12/31/16 09:00 Pulse Rate 87 12/31/16 11:46 Respiratory Rate 20 12/31/16 09:00 Blood Pressure 119/65 12/31/16 09:00 O2 Sat by Pulse Oximetry (%) 98 12/31/16 11:46 Constitutional: Yes: No Distress, Calm Cardiovascular: Yes: Regular Rate and Rhythm Respiratory: Yes: Regular, Rhonchi, Other (poor entry at the bases) Gastrointestinal: Yes: Normal Bowel Sounds, Soft Musculoskeletal: Yes: WNL Extremities: Yes: WNL Neurological: Yes: Alert, Oriented Psychiatric: Yes: Alert Labs: CBC, BMP 12/28/16 06:00 12/28/16 06:00 Assessment/Plan p - Problems (1) Bronchitis Assessment/Plan: Continues to wheeze all over both lungs Code(s): J40 - BRONCHITIS, NOT SPECIFIED ACUTE OR CHRONIC (2) HTN (hypertension) Assessment/Plan: BP has gena low around 95 syst Code(s): I10 - ESSENTIAL (PRIMARY) HYPERTENSION (3) Anemia Assessment/Plan: Hb has been stable Code(s): D64.9 - ANEMIA, UNSPECIFIED Qualifiers: Iron deficiency anemia type: chronic blood loss (4) Chest pain Code(s): R07.9 - CHEST PAIN, UNSPECIFIED pnumococcal pneumonia patient is positive for pneumoccal antigen influenza A plan continue abx supportive treatment incentive eitan
--- NOTE | 2016-12-31 20:19 | PN ---
Progress Note, Physician History of Present Illness: Continues to have wheezing but less.Cough is less. - Current Medication List Current Medications: Active Medications Ascorbic Acid (Vitamin C -) 500 mg PO DAILY [facility] Last Admin: 12/31/16 10:12 Dose: 500 mg Cholecalciferol (Vitamin D3 -) 1,000 unit PO DAILY [facility] Last Admin: 12/31/16 10:14 Dose: 1,000 unit Cyanocobalamin (Vitamin B12 -) 1,000 mcg PO DAILY [facility] Last Admin: 12/31/16 10:15 Dose: 1,000 mcg Ferrous Sulfate (Feosol -) 325 mg PO DAILY@0800 [facility] Last Admin: 12/31/16 10:11 Dose: 325 mg Guaifenesin (Robitussin -) 10 ml PO Q4H PRN PRN Reason: COUGH Last Admin: 12/30/16 17:45 Dose: 10 ml Piperacillin Sod/Tazobactam Sod (Zosyn 3.375gm Ivpb (Pre-Docked)) 50 mls @ 100 mls/hr IVPB Q8H-IV [facility] Last Admin: 12/31/16 17:23 Dose: 100 mls/hr Lactobacillus Acidophilus (Bacid -) 1 tab PO DAILY [facility] Last Admin: 12/31/16 10:12 Dose: 1 tab Methylprednisolone Sodium Succinate (Solu-Medrol -) 40 mg IVPB BID [facility] Last Admin: 12/31/16 12:20 Dose: 40 mg Metoprolol Succinate (Toprol Xl -) 12.5 mg PO BID [facility] Last Admin: 12/31/16 10:10 Dose: 12.5 mg Pantoprazole Sodium (Protonix -) 40 mg PO DAILY [facility] Last Admin: 12/31/16 10:11 Dose: 40 mg Spironolactone (Aldactone -) 25 mg PO DAILY [facility] Last Admin: 12/31/16 10:11 Dose: 25 mg Ursodiol (Actigal -) 300 mg PO BID [facility] Last Admin: 12/31/16 10:13 Dose: 300 mg - Objective Vital Signs: Vital Signs Temperature 97.6 F 12/31/16 17:49 Pulse Rate 66 12/31/16 17:49 Respiratory Rate 18 12/31/16 17:49 Blood Pressure 112/70 12/31/16 17:49 O2 Sat by Pulse Oximetry (%) 98 12/31/16 11:46 Constitutional: Yes: Calm, Mild Distress Eyes: Yes: WNL HENT: Yes: WNL Neck: Yes: WNL, Supple Cardiovascular: Yes: Regular Rate and Rhythm, S1, S2 Respiratory: Yes: On Nasal O2, Rales, Wheezes Gastrointestinal: Yes: Normal Bowel Sounds, Soft Genitourinary: Yes: WNL Breast(s): Yes: WNL Musculoskeletal: Yes: WNL Extremities: Yes: WNL Edema: No Peripheral Pulses WNL: Yes Integumentary: Yes: WNL Neurological: Yes: Alert, Oriented, Cran Nerves II-XII Intact ...Motor Strength: WNL Psychiatric: Yes: Alert, Oriented Labs: CBC, BMP 12/28/16 06:00 12/28/16 06:00 - ....Imaging Chest X-ray: Report Reviewed, Image Reviewed Problem List - Problems (1) Bronchitis Assessment/Plan: Continues to have bilateral wheezing but less.Continue steroids and bronchodilators Code(s): J40 - BRONCHITIS, NOT SPECIFIED ACUTE OR CHRONIC (2) HTN (hypertension) Code(s): I10 - ESSENTIAL (PRIMARY) HYPERTENSION (3) Anemia Assessment/Plan: hb is stable Code(s): D64.9 - ANEMIA, UNSPECIFIED Qualifiers: Iron deficiency anemia type: chronic blood loss (4) Chest pain Code(s): R07.9 - CHEST PAIN, UNSPECIFIED Assessment/Plan Continues to have bilateral wheezing but very small amt. of sputum. Continue bronchodilators and antibiotics.
[2017-01-01] MEDS: PIPERACILLIN/TAZOB 3.375 GM 50 ML IVPB SCH ×3 (03:02→18:25)
[2017-01-01 07:36] LABS: MCH 27.4 pg (25.7-33.7); MEAN CELL VOLUME 83.1 fl (80-96); MEAN PLT VOLUME 7.9 fl (7.5-11.1); PLATELET COUNT 92 K/MM3 (134-434); RDW 23.7 % (11.6-15.6); WHITE BLOOD COUNT 2.9 K/mm3 (4.0-10.0)
[2017-01-01 08:07] LABS: ALBUMIN 1.8 g/dl (3.4-5.0); ALK PHOS 258 U/L (45-117); ANION GAP 8 (8-16); BILIRUBIN,TOTAL 1.2 mg/dL (0.2-1.0); CO2 26 mmol/L (21-32); CREATININE 0.6 mg/dL (0.55-1.02); GLUCOSE,RANDOM 141 mg/dL (74-106); SGOT/AST 64 U/L (15-37); SGPT/ALT 68 U/L (12-78); TOT PROT 5.8 g/dl (6.4-8.2)
[2017-01-01] MEDS: FERROUS SO4 325 MG TABLET (FP) PO SCH (09:58)
[2017-01-01] MEDS: CYANOCOBALAMIN 1,000 MCG TABLET (FP) PO SCH (09:58)
[2017-01-01] MEDS: CHOLECALCIFEROL (VITAMIN D3) 1,000 UNIT TABLET (FP) PO SCH (09:58)
[2017-01-01] MEDS: ASCORBIC ACID 500 MG TABLET (FP) PO SCH (09:58)
[2017-01-01] MEDS: PANTOPRAZOLE 40 MG TABLET (FP) PO SCH (09:58)
[2017-01-01] MEDS: METOPROLOL SUCCINATE 25 MG TAB.SR.24H (FP) PO SCH ×2 (09:58→21:10)
[2017-01-01] MEDS: LACTOBACILLUS ACIDOPHILUS 1 EACH TAB (FP) PO SCH (09:58)
[2017-01-01] MEDS: URSODIOL 300 MG CAPSULE PO SCH ×2 (09:58→21:09)
[2017-01-01] MEDS: SPIRONOLACTONE 25 MG TABLET (FP) PO SCH (09:59)
[2017-01-01] MEDS: methylPREDNISolone NA SUCC 40 MG/1 ML VIAL IVPB SCH ×2 (09:59→21:08)
[2017-01-01 11:35] LABS: METAMYELOCYTE 1 % (0-2)
--- NOTE | 2017-01-01 13:07 | PN ---
Progress Note, Physician Chief Complaint: Pt A&Ox3; OOB in chair; feels better (much less shortness of breath and coughing ). History of Present Illness: The patient is a 76 year old white female(juan Lux), with past medical history of HTN, HIV, ANDRES cirrhosis, diastolic CHF, bioprosthetic AV valve replacement, hysterectomy, CAD, and iron deficiency anemia, who presents with a productive cough and severe shortness of breath. She is unable to tolerate PO intake. The patient lives alone but notes sick contact with her grandson (flu). The patient notes associated chills, sweats, and SOB on exertion. The patient denies receiving the flu shot. - Current Medication List Current Medications: Active Medications Ascorbic Acid (Vitamin C -) 500 mg PO DAILY [facility] Last Admin: 01/01/17 09:58 Dose: 500 mg Cholecalciferol (Vitamin D3 -) 1,000 unit PO DAILY [facility] Last Admin: 01/01/17 09:58 Dose: 1,000 unit Cyanocobalamin (Vitamin B12 -) 1,000 mcg PO DAILY [facility] Last Admin: 01/01/17 09:58 Dose: 1,000 mcg Ferrous Sulfate (Feosol -) 325 mg PO DAILY@0800 [facility] Last Admin: 01/01/17 09:58 Dose: 325 mg Guaifenesin (Robitussin -) 10 ml PO Q4H PRN PRN Reason: COUGH Last Admin: 12/30/16 17:45 Dose: 10 ml Piperacillin Sod/Tazobactam Sod (Zosyn 3.375gm Ivpb (Pre-Docked)) 50 mls @ 100 mls/hr IVPB Q8H-IV [facility] Last Admin: 01/01/17 09:59 Dose: 100 mls/hr Lactobacillus Acidophilus (Bacid -) 1 tab PO DAILY [facility] Last Admin: 01/01/17 09:58 Dose: 1 tab Methylprednisolone Sodium Succinate (Solu-Medrol -) 40 mg IVPB BID [facility] Last Admin: 01/01/17 09:59 Dose: 40 mg Metoprolol Succinate (Toprol Xl -) 12.5 mg PO BID [facility] Last Admin: 01/01/17 09:58 Dose: 12.5 mg Pantoprazole Sodium (Protonix -) 40 mg PO DAILY [facility] Last Admin: 01/01/17 09:58 Dose: 40 mg Spironolactone (Aldactone -) 25 mg PO DAILY [facility] Last Admin: 01/01/17 09:59 Dose: 25 mg Ursodiol (Actigal -) 300 mg PO BID [facility] Last Admin: 01/01/17 09:58 Dose: 300 mg - Objective Vital Signs: Vital Signs Temperature 97.5 F L 01/01/17 05:45 Pulse Rate 58 L 01/01/17 05:45 Respiratory Rate 18 01/01/17 05:45 Blood Pressure 130/88 01/01/17 05:45 O2 Sat by Pulse Oximetry (%) 97 12/31/16 21:00 Constitutional: Yes: Calm Eyes: Yes: WNL HENT: Yes: WNL Neck: Yes: WNL Cardiovascular: Yes: Regular Rate and Rhythm Respiratory: Yes: Cough, Diminished, Rhonchi Gastrointestinal: Yes: Soft ...Rectal Exam: Yes: Deferred Genitourinary: No: Anuria Breast(s): Yes: WNL Musculoskeletal: Yes: Muscle Weakness Extremities: Yes: Cool Edema: Yes Edema: LLE: Trace, RLE: Trace Peripheral Pulses WNL: No Peripheral Pulses: Left Doralis Pedis: 1+, Right Dorsalis Pedis: 1+ Integumentary: Yes: WNL Neurological: Yes: Alert, Oriented, Weakness Psychiatric: Yes: WNL Labs: CBC, BMP 01/01/17 06:00 01/01/17 06:00 Abnormal Lab Results 01/01/17 01/01/17 06:00 06:00 WBC 2.9 L RBC 3.57 L Hgb 9.8 L D Hct 29.7 L RDW 23.7 H Plt Count 92 L D Monocytes % 3.0 L BUN 22 H D Random Glucose 141 H Calcium 8.0 L Total Bilirubin 1.2 H AST 64 H Alkaline Phosphatase 258 H D Total Protein 5.8 L Albumin 1.8 L Problem List - Problems (1) Anemia Assessment/Plan: f/u decrease in Hb and WBCs. On ferrous sulfate. Code(s): D64.9 - ANEMIA, UNSPECIFIED Qualifiers: Iron deficiency anemia type: chronic blood loss (2) Bronchitis Assessment/Plan: On IV antibiotics; f/u with ID. Code(s): J40 - BRONCHITIS, NOT SPECIFIED ACUTE OR CHRONIC (3) Diastolic CHF Assessment/Plan: Will discontinue spironolactone (rising potassium); continue metoprolol ER, and use chlorthalidone if a diuretic is needed (though caution in view of rising BUN ). BUN/Cr, Is and Os, daily weight. Code(s): I50.30 - UNSPECIFIED DIASTOLIC (CONGESTIVE) HEART FAILURE (4) H/O prosthetic aortic valve replacement Assessment/Plan: ECHO: normal LVEF; no significant valvular changes from 2013. Code(s): Z95.2 - PRESENCE OF PROSTHETIC HEART VALVE (5) HTN (hypertension) Assessment/Plan: On aldactone and metoprolol ER. Code(s): I10 - ESSENTIAL (PRIMARY) HYPERTENSION (6) Liver cirrhosis Code(s): K74.60 - UNSPECIFIED CIRRHOSIS OF LIVER (7) SOB (shortness of breath) Assessment/Plan: Diagnosed by ID with flu and superimposed bacterial pneumonia; on IV antibiotics. Code(s): R06.02 - SHORTNESS OF BREATH (8) Pancytopenia Assessment/Plan: F/u carefully with ID, hematology as treatment for sepsis continues. Code(s): D61.818 - OTHER PANCYTOPENIA
--- NOTE | 2017-01-01 13:12 | PN ---
Progress Note, Physician History of Present Illness: feeling better coughing less still with sputum production but improving - Current Medication List Current Medications: Active Medications Ascorbic Acid (Vitamin C -) 500 mg PO DAILY [facility] Last Admin: 01/01/17 09:58 Dose: 500 mg Cholecalciferol (Vitamin D3 -) 1,000 unit PO DAILY [facility] Last Admin: 01/01/17 09:58 Dose: 1,000 unit Cyanocobalamin (Vitamin B12 -) 1,000 mcg PO DAILY [facility] Last Admin: 01/01/17 09:58 Dose: 1,000 mcg Ferrous Sulfate (Feosol -) 325 mg PO DAILY@0800 [facility] Last Admin: 01/01/17 09:58 Dose: 325 mg Guaifenesin (Robitussin -) 10 ml PO Q4H PRN PRN Reason: COUGH Last Admin: 12/30/16 17:45 Dose: 10 ml Piperacillin Sod/Tazobactam Sod (Zosyn 3.375gm Ivpb (Pre-Docked)) 50 mls @ 100 mls/hr IVPB Q8H-IV [facility] Last Admin: 01/01/17 09:59 Dose: 100 mls/hr Lactobacillus Acidophilus (Bacid -) 1 tab PO DAILY [facility] Last Admin: 01/01/17 09:58 Dose: 1 tab Methylprednisolone Sodium Succinate (Solu-Medrol -) 40 mg IVPB BID [facility] Last Admin: 01/01/17 09:59 Dose: 40 mg Metoprolol Succinate (Toprol Xl -) 12.5 mg PO BID [facility] Last Admin: 01/01/17 09:58 Dose: 12.5 mg Pantoprazole Sodium (Protonix -) 40 mg PO DAILY [facility] Last Admin: 01/01/17 09:58 Dose: 40 mg Spironolactone (Aldactone -) 25 mg PO DAILY [facility] Last Admin: 01/01/17 09:59 Dose: 25 mg Ursodiol (Actigal -) 300 mg PO BID [facility] Last Admin: 01/01/17 09:58 Dose: 300 mg - Objective Vital Signs: Vital Signs Temperature 97.5 F L 01/01/17 05:45 Pulse Rate 58 L 01/01/17 05:45 Respiratory Rate 18 01/01/17 05:45 Blood Pressure 130/88 01/01/17 05:45 O2 Sat by Pulse Oximetry (%) 97 12/31/16 21:00 Constitutional: Yes: No Distress, Calm Eyes: Yes: Conjunctiva Clear Cardiovascular: Yes: Regular Rate and Rhythm Respiratory: Yes: Regular, Rhonchi Gastrointestinal: Yes: Normal Bowel Sounds, Soft Musculoskeletal: Yes: WNL Extremities: Yes: WNL Neurological: Yes: Alert, Oriented Psychiatric: Yes: Alert Labs: CBC, BMP 01/01/17 06:00 01/01/17 06:00 Assessment/Plan p - Problems (1) Bronchitis Assessment/Plan: Continues to wheeze all over both lungs Code(s): J40 - BRONCHITIS, NOT SPECIFIED ACUTE OR CHRONIC (2) HTN (hypertension) Assessment/Plan: BP has gena low around 95 syst Code(s): I10 - ESSENTIAL (PRIMARY) HYPERTENSION (3) Anemia Assessment/Plan: Hb has been stable Code(s): D64.9 - ANEMIA, UNSPECIFIED Qualifiers: Iron deficiency anemia type: chronic blood loss (4) Chest pain Code(s): R07.9 - CHEST PAIN, UNSPECIFIED pnumococcal pneumonia patient is positive for pneumoccal antigen influenza A plan continue abx supportive treatment incentive eitan will switch to oral from will need oral abx for another couple of days
[2017-01-01] MEDS: OSELTAMIVIR PHOSPHATE 75 MG CAPSULE PO SCH ×3 (16:47→21:09)
[2017-01-01] MEDS ORDERED: PT OWN MED DRAWER 7, Y5N ONE (18:38)
--- NOTE | 2017-01-01 20:54 | PN ---
Progress Note, Physician History of Present Illness: Continues to cough but less. Wheezing persists - Current Medication List Current Medications: Active Medications Ascorbic Acid (Vitamin C -) 500 mg PO DAILY [facility] Last Admin: 01/01/17 09:58 Dose: 500 mg Budesonide/Formoterol Fumarate (Symbicort 80/4.5mcg -) 2 puff IH BID [facility] Cholecalciferol (Vitamin D3 -) 1,000 unit PO DAILY [facility] Last Admin: 01/01/17 09:58 Dose: 1,000 unit Cyanocobalamin (Vitamin B12 -) 1,000 mcg PO DAILY [facility] Last Admin: 01/01/17 09:58 Dose: 1,000 mcg Ferrous Sulfate (Feosol -) 325 mg PO DAILY@0800 [facility] Last Admin: 01/01/17 09:58 Dose: 325 mg Guaifenesin (Robitussin -) 10 ml PO Q4H PRN PRN Reason: COUGH Last Admin: 12/30/16 17:45 Dose: 10 ml Piperacillin Sod/Tazobactam Sod (Zosyn 3.375gm Ivpb (Pre-Docked)) 50 mls @ 100 mls/hr IVPB Q8H-IV [facility] Last Admin: 01/01/17 18:25 Dose: 100 mls/hr Lactobacillus Acidophilus (Bacid -) 1 tab PO DAILY [facility] Last Admin: 01/01/17 09:58 Dose: 1 tab Methylprednisolone Sodium Succinate (Solu-Medrol -) 40 mg IVPB BID [facility] Last Admin: 01/01/17 09:59 Dose: 40 mg Metoprolol Succinate (Toprol Xl -) 12.5 mg PO BID [facility] Last Admin: 01/01/17 09:58 Dose: 12.5 mg Oseltamivir Phosphate (Tamiflu -) 75 mg PO BID [facility] Stop: 01/06/17 14:59 Last Admin: 01/01/17 18:24 Dose: 75 mg Pantoprazole Sodium (Protonix -) 40 mg PO DAILY [facility] Last Admin: 01/01/17 09:58 Dose: 40 mg Ursodiol (Actigal -) 300 mg PO BID [facility] Last Admin: 01/01/17 09:58 Dose: 300 mg - Objective Vital Signs: Vital Signs Temperature 97.4 F L 01/01/17 18:14 Pulse Rate 55 L 01/01/17 18:14 Respiratory Rate 20 01/01/17 20:39 Blood Pressure 115/71 01/01/17 18:14 O2 Sat by Pulse Oximetry (%) 97 01/01/17 20:39 Constitutional: Yes: Calm, Mild Distress Eyes: Yes: WNL HENT: Yes: WNL Neck: Yes: WNL Cardiovascular: Yes: Regular Rate and Rhythm, S1, S2 Respiratory: Yes: Wheezes, Other (bilateral wheezing all over both lungs) Gastrointestinal: Yes: Normal Bowel Sounds, Soft Genitourinary: Yes: WNL Musculoskeletal: Yes: WNL Extremities: Yes: WNL Edema: No Peripheral Pulses WNL: Yes Integumentary: Yes: WNL Neurological: Yes: Alert, Oriented ...Motor Strength: WNL Psychiatric: Yes: Alert, Oriented Labs: CBC, BMP 01/01/17 06:00 01/01/17 06:00 Problem List - Problems (1) Bronchitis Assessment/Plan: Cough and sputum production is less but has bilateral wheezing Code(s): J40 - BRONCHITIS, NOT SPECIFIED ACUTE OR CHRONIC (2) HTN (hypertension) Code(s): I10 - ESSENTIAL (PRIMARY) HYPERTENSION (3) Anemia Assessment/Plan: Hb is stable Code(s): D64.9 - ANEMIA, UNSPECIFIED Qualifiers: Iron deficiency anemia type: chronic blood loss (4) Chest pain Code(s): R07.9 - CHEST PAIN, UNSPECIFIED Assessment/Plan Continue IV antibiotics, steroids and bronchodia=lators. Leucopenia of 2.9, will give Tamiflu and inhaled steroids.
[2017-01-01] MEDS: BUDESONIDE/FORMETEROL FUMARATE 80/4.5 mcg INHALER IH SCH (21:09)
[2017-01-02] MEDS: PIPERACILLIN/TAZOB 3.375 GM 50 ML IVPB SCH ×3 (02:11→18:32)
[2017-01-02] MEDS ORDERED: PT OWN MED DRAWER 7, Y5N ONE ×2 (10:56→21:20)
[2017-01-02] MEDS: CYANOCOBALAMIN 1,000 MCG TABLET (FP) PO SCH (10:59)
[2017-01-02] MEDS: BUDESONIDE/FORMETEROL FUMARATE 80/4.5 mcg INHALER IH SCH ×2 (10:59→21:59)
[2017-01-02] MEDS: FERROUS SO4 325 MG TABLET (FP) PO SCH (10:59)
[2017-01-02] MEDS: LACTOBACILLUS ACIDOPHILUS 1 EACH TAB (FP) PO SCH (10:59)
[2017-01-02] MEDS: OSELTAMIVIR PHOSPHATE 75 MG CAPSULE PO SCH ×2 (10:59→22:01)
[2017-01-02] MEDS: PANTOPRAZOLE 40 MG TABLET (FP) PO SCH (11:00)
[2017-01-02] MEDS: methylPREDNISolone NA SUCC 40 MG/1 ML VIAL IVPB SCH ×2 (11:00→22:01)
[2017-01-02] MEDS: ASCORBIC ACID 500 MG TABLET (FP) PO SCH (11:00)
[2017-01-02] MEDS: guaiFENesin 200 MG/10 ML 10 ML UNIT-DOSE CUPS PO PRN ×2 (11:00→22:02)
[2017-01-02] MEDS: METOPROLOL SUCCINATE 25 MG TAB.SR.24H (FP) PO SCH ×2 (11:00→22:01)
[2017-01-02] MEDS: CHOLECALCIFEROL (VITAMIN D3) 1,000 UNIT TABLET (FP) PO SCH (11:00)
[2017-01-02] MEDS: URSODIOL 300 MG CAPSULE PO SCH ×2 (11:01→22:01)
--- NOTE | 2017-01-02 11:57 | PN ---
Progress Note, Physician History of Present Illness: The patient is a 76 year old white female(juan Maci), with past medical history of HTN, HIV, ANDRES cirrhosis, diastolic CHF, bioprosthetic AV valve replacement, hysterectomy, CAD, and iron deficiency anemia, who presents with a productive cough and severe shortness of breath. She is unable to tolerate PO intake. The patient lives alone but notes sick contact with her grandson (flu). The patient notes associated chills, sweats, and SOB on exertion. The patient denies receiving the flu shot. - Current Medication List Current Medications: Active Medications Ascorbic Acid (Vitamin C -) 500 mg PO DAILY [facility] Last Admin: 01/02/17 11:00 Dose: 500 mg Budesonide/Formoterol Fumarate (Symbicort 80/4.5mcg -) 2 puff IH BID [facility] Last Admin: 01/02/17 10:59 Dose: 2 inh Cholecalciferol (Vitamin D3 -) 1,000 unit PO DAILY [facility] Last Admin: 01/02/17 11:00 Dose: 1,000 unit Cyanocobalamin (Vitamin B12 -) 1,000 mcg PO DAILY [facility] Last Admin: 01/02/17 10:59 Dose: 1,000 mcg Ferrous Sulfate (Feosol -) 325 mg PO DAILY@0800 [facility] Last Admin: 01/02/17 10:59 Dose: 325 mg Guaifenesin (Robitussin -) 10 ml PO Q4H PRN PRN Reason: COUGH Last Admin: 01/02/17 11:00 Dose: 10 ml Piperacillin Sod/Tazobactam Sod (Zosyn 3.375gm Ivpb (Pre-Docked)) 50 mls @ 100 mls/hr IVPB Q8H-IV [facility] Last Admin: 01/02/17 10:59 Dose: 100 mls/hr Lactobacillus Acidophilus (Bacid -) 1 tab PO DAILY [facility] Last Admin: 01/02/17 10:59 Dose: 1 tab Methylprednisolone Sodium Succinate (Solu-Medrol -) 40 mg IVPB BID [facility] Last Admin: 01/02/17 11:00 Dose: 40 mg Metoprolol Succinate (Toprol Xl -) 12.5 mg PO BID [facility] Last Admin: 01/02/17 11:00 Dose: 12.5 mg Oseltamivir Phosphate (Tamiflu -) 75 mg PO BID [facility] Stop: 01/06/17 14:59 Last Admin: 01/02/17 10:59 Dose: 75 mg Pantoprazole Sodium (Protonix -) 40 mg PO DAILY [facility] Last Admin: 01/02/17 11:00 Dose: 40 mg Ursodiol (Actigal -) 300 mg PO BID [facility] Last Admin: 01/02/17 11:01 Dose: 300 mg - Objective Vital Signs: Vital Signs Temperature 97.9 F 01/02/17 06:00 Pulse Rate 71 01/02/17 06:00 Respiratory Rate 20 01/02/17 06:00 Blood Pressure 106/68 01/02/17 06:00 O2 Sat by Pulse Oximetry (%) 97 01/01/17 20:39 Eyes: Yes: WNL, Conjunctiva Clear, EOM Intact HENT: Yes: WNL, Atraumatic, Normocephalic Neck: Yes: WNL, Supple, Trachea Midline Cardiovascular: Yes: WNL, Regular Rate and Rhythm Respiratory: Yes: WNL, Regular, Rhonchi Gastrointestinal: Yes: WNL, Normal Bowel Sounds Genitourinary: Yes: WNL Musculoskeletal: Yes: WNL Extremities: Yes: WNL Edema: No Integumentary: Yes: WNL Neurological: Yes: WNL, Alert, Oriented ...Motor Strength: WNL Psychiatric: Yes: WNL Labs: CBC, BMP 01/01/17 06:00 01/01/17 06:00 Assessment/Plan - Problems (1) Anemia Assessment/Plan: f/u decrease in Hb and WBCs. On ferrous sulfate. Code(s): D64.9 - ANEMIA, UNSPECIFIED Qualifiers: Iron deficiency anemia type: chronic blood loss (2) Bronchitis Assessment/Plan: On IV antibiotics; f/u with ID. Code(s): J40 - BRONCHITIS, NOT SPECIFIED ACUTE OR CHRONIC (3) Diastolic CHF Assessment/Plan: Will discontinue spironolactone (rising potassium); continue metoprolol ER, and use chlorthalidone if a diuretic is needed (though caution in view of rising BUN ). BUN/Cr, Is and Os, daily weight. Code(s): I50.30 - UNSPECIFIED DIASTOLIC (CONGESTIVE) HEART FAILURE (4) H/O prosthetic aortic valve replacement Assessment/Plan: ECHO: normal LVEF; no significant valvular changes from 2013. Code(s): Z95.2 - PRESENCE OF PROSTHETIC HEART VALVE (5) HTN (hypertension) Assessment/Plan: On aldactone and metoprolol ER. Code(s): I10 - ESSENTIAL (PRIMARY) HYPERTENSION (6) Liver cirrhosis Code(s): K74.60 - UNSPECIFIED CIRRHOSIS OF LIVER (7) SOB (shortness of breath) Assessment/Plan: Diagnosed by ID with flu and superimposed bacterial pneumonia; on IV antibiotics. Code(s): R06.02 - SHORTNESS OF BREATH (8) Pancytopenia Assessment/Plan: F/u carefully with ID, hematology as treatment for sepsis continues. Code(s): D61.818 - OTHER PANCYTOPENIA
--- NOTE | 2017-01-02 16:01 | PN ---
Progress Note, Physician History of Present Illness: doing well feeling much better - Current Medication List Current Medications: Active Medications Ascorbic Acid (Vitamin C -) 500 mg PO DAILY [facility] Last Admin: 01/02/17 11:00 Dose: 500 mg Budesonide/Formoterol Fumarate (Symbicort 80/4.5mcg -) 2 puff IH BID [facility] Last Admin: 01/02/17 10:59 Dose: 2 inh Cholecalciferol (Vitamin D3 -) 1,000 unit PO DAILY [facility] Last Admin: 01/02/17 11:00 Dose: 1,000 unit Cyanocobalamin (Vitamin B12 -) 1,000 mcg PO DAILY [facility] Last Admin: 01/02/17 10:59 Dose: 1,000 mcg Ferrous Sulfate (Feosol -) 325 mg PO DAILY@0800 [facility] Last Admin: 01/02/17 10:59 Dose: 325 mg Guaifenesin (Robitussin -) 10 ml PO Q4H PRN PRN Reason: COUGH Last Admin: 01/02/17 11:00 Dose: 10 ml Piperacillin Sod/Tazobactam Sod (Zosyn 3.375gm Ivpb (Pre-Docked)) 50 mls @ 100 mls/hr IVPB Q8H-IV [facility] Last Admin: 01/02/17 10:59 Dose: 100 mls/hr Lactobacillus Acidophilus (Bacid -) 1 tab PO DAILY [facility] Last Admin: 01/02/17 10:59 Dose: 1 tab Methylprednisolone Sodium Succinate (Solu-Medrol -) 40 mg IVPB BID [facility] Last Admin: 01/02/17 11:00 Dose: 40 mg Metoprolol Succinate (Toprol Xl -) 12.5 mg PO BID [facility] Last Admin: 01/02/17 11:00 Dose: 12.5 mg Oseltamivir Phosphate (Tamiflu -) 75 mg PO BID [facility] Stop: 01/06/17 14:59 Last Admin: 01/02/17 10:59 Dose: 75 mg Pantoprazole Sodium (Protonix -) 40 mg PO DAILY [facility] Last Admin: 01/02/17 11:00 Dose: 40 mg Ursodiol (Actigal -) 300 mg PO BID [facility] Last Admin: 01/02/17 11:01 Dose: 300 mg - Objective Vital Signs: Vital Signs Temperature 97.8 F 01/02/17 13:52 Pulse Rate 54 L 01/02/17 13:52 Respiratory Rate 20 01/02/17 13:52 Blood Pressure 120/66 01/02/17 13:52 O2 Sat by Pulse Oximetry (%) 97 01/02/17 09:00 Constitutional: Yes: No Distress, Calm Cardiovascular: Yes: Regular Rate and Rhythm Respiratory: Yes: Regular, Rhonchi Gastrointestinal: Yes: Normal Bowel Sounds, Soft Musculoskeletal: Yes: WNL Extremities: Yes: WNL Neurological: Yes: Alert, Oriented Psychiatric: Yes: Alert Labs: CBC, BMP 01/01/17 06:00 01/01/17 06:00 Assessment/Plan p - Problems (1) Bronchitis Assessment/Plan: Continues to wheeze all over both lungs Code(s): J40 - BRONCHITIS, NOT SPECIFIED ACUTE OR CHRONIC (2) HTN (hypertension) Assessment/Plan: BP has gena low around 95 syst Code(s): I10 - ESSENTIAL (PRIMARY) HYPERTENSION (3) Anemia Assessment/Plan: Hb has been stable Code(s): D64.9 - ANEMIA, UNSPECIFIED Qualifiers: Iron deficiency anemia type: chronic blood loss (4) Chest pain Code(s): R07.9 - CHEST PAIN, UNSPECIFIED pnumococcal pneumonia patient is positive for pneumoccal antigen influenza A plan continue abx supportive treatment incentive eitan will switch to oral from will need oral abx for another couple of days
--- NOTE | 2017-01-02 20:09 | PN ---
Progress Note, Physician History of Present Illness: Continues to have cough and wheezing - Current Medication List Current Medications: Active Medications Ascorbic Acid (Vitamin C -) 500 mg PO DAILY [facility] Last Admin: 01/02/17 11:00 Dose: 500 mg Budesonide/Formoterol Fumarate (Symbicort 80/4.5mcg -) 2 puff IH BID [facility] Last Admin: 01/02/17 10:59 Dose: 2 inh Cholecalciferol (Vitamin D3 -) 1,000 unit PO DAILY [facility] Last Admin: 01/02/17 11:00 Dose: 1,000 unit Cyanocobalamin (Vitamin B12 -) 1,000 mcg PO DAILY [facility] Last Admin: 01/02/17 10:59 Dose: 1,000 mcg Ferrous Sulfate (Feosol -) 325 mg PO DAILY@0800 [facility] Last Admin: 01/02/17 10:59 Dose: 325 mg Guaifenesin (Robitussin -) 10 ml PO Q4H PRN PRN Reason: COUGH Last Admin: 01/02/17 11:00 Dose: 10 ml Piperacillin Sod/Tazobactam Sod (Zosyn 3.375gm Ivpb (Pre-Docked)) 50 mls @ 100 mls/hr IVPB Q8H-IV [facility] Last Admin: 01/02/17 18:32 Dose: 100 mls/hr Lactobacillus Acidophilus (Bacid -) 1 tab PO DAILY [facility] Last Admin: 01/02/17 10:59 Dose: 1 tab Methylprednisolone Sodium Succinate (Solu-Medrol -) 40 mg IVPB BID [facility] Last Admin: 01/02/17 11:00 Dose: 40 mg Metoprolol Succinate (Toprol Xl -) 12.5 mg PO BID [facility] Last Admin: 01/02/17 11:00 Dose: 12.5 mg Oseltamivir Phosphate (Tamiflu -) 75 mg PO BID [facility] Stop: 01/06/17 14:59 Last Admin: 01/02/17 10:59 Dose: 75 mg Pantoprazole Sodium (Protonix -) 40 mg PO DAILY [facility] Last Admin: 01/02/17 11:00 Dose: 40 mg Ursodiol (Actigal -) 300 mg PO BID [facility] Last Admin: 01/02/17 11:01 Dose: 300 mg - Objective Vital Signs: Vital Signs Temperature 97.5 F L 01/02/17 17:15 Pulse Rate 61 01/02/17 17:15 Respiratory Rate 18 01/02/17 17:15 Blood Pressure 113/65 01/02/17 17:15 O2 Sat by Pulse Oximetry (%) 97 01/02/17 09:00 Constitutional: Yes: Calm, Mild Distress Eyes: Yes: WNL, Conjunctiva Clear, EOM Intact HENT: Yes: WNL Neck: Yes: WNL, Supple Cardiovascular: Yes: Regular Rate and Rhythm, S1, S2 Respiratory: Yes: Cough, On Nasal O2, Wheezes Gastrointestinal: Yes: Normal Bowel Sounds, Soft Genitourinary: Yes: WNL Musculoskeletal: Yes: WNL Extremities: Yes: WNL Edema: No Peripheral Pulses WNL: Yes Integumentary: Yes: WNL Neurological: Yes: Alert, Oriented ...Motor Strength: WNL Psychiatric: Yes: Alert, Oriented Labs: CBC, BMP 01/01/17 06:00 01/01/17 06:00 Problem List - Problems (1) Bronchitis Assessment/Plan: Continues to have bilateral wheezing Code(s): J40 - BRONCHITIS, NOT SPECIFIED ACUTE OR CHRONIC (2) HTN (hypertension) Code(s): I10 - ESSENTIAL (PRIMARY) HYPERTENSION (3) Anemia Assessment/Plan: anemia is stable Code(s): D64.9 - ANEMIA, UNSPECIFIED Qualifiers: Iron deficiency anemia type: chronic blood loss (4) Chest pain Code(s): R07.9 - CHEST PAIN, UNSPECIFIED Assessment/Plan Continues to have bilateral wheezing. Remains afebrile. Continue IV steroids and bronchodilators. Will consult pulmonary.
[2017-01-03] MEDS: PIPERACILLIN/TAZOB 3.375 GM 50 ML IVPB SCH ×2 (03:35→11:56)
[2017-01-03 07:09] LABS: MCH 27.3 pg (25.7-33.7); MCHC 32.8 g/dl (32.0-36.0); MEAN CELL VOLUME 83.3 fl (80-96); MEAN PLT VOLUME 7.5 fl (7.5-11.1); PLATELET COUNT 88 K/MM3 (134-434); RDW 23.7 % (11.6-15.6); WHITE BLOOD COUNT 2.9 K/mm3 (4.0-10.0)
[2017-01-03 09:27] LABS: ANISOCYTOSIS 1+; HYPOCHROMIA 2+; MICROCYTOSIS 1+; POIKILOCYTOSIS 1+; TEAR DROP CELLS 2+
--- NOTE | 2017-01-03 10:01 | CON.PULM ---
Consult Consult Specialty:: PULM/CCM Referred by:: RAYMOND Reason for Consultation:: Wheezing / SOB - History of Present Illness Chief Complaint: SOB History of Present Illness: 76 F, life long non-smoker. No previous history of bronchospastic disease. Previous history of prolonged cough after her Aortic valve surgery that lasted for almost 2 months. Listed additional medical/surgical history. Admitted via the ER due to 3 to 4 days of cough, fever and SOB. No hemoptysis. Found to have (+) Influenza A and (+) pneumococcal antigen. Has been on appropriate antiviral and ABX since admission. Has been on Medrol BID since admission. Subjectively she has made a significant improvement. Still with residual dry cough and "raspy" voice. CT chest 06/20/2015 : mild COPD changes / no nodules / minimally enlarged LN / prior surgical changes - History Source History Provided By: Patient Limitations to Obtaining History: No Limitations - Past Medical History Cardio/Vascular: Yes: Aortic Stenosis (led to bioprosthetic AoVR), CHF, HTN, Murmur Gastrointestinal: Yes: Ascites Hepatobiliary: Yes: Cirrhosis Renal/: No: Renal Failure ...: No - Past Surgical History Past Surgical History: Yes: Valve Replacement (aortic valve) - Alcohol/Substance Use Hx Alcohol Use: No - Smoking History Smoking history: Never smoked Have you smoked in the past 12 months: No Aproximately how many cigarettes per day: 0 - Social History ADL: Independent History of Recent Travel: No Home Medications - Allergies Allergies/Adverse Reactions: Allergies Allergy/AdvReac Type Severity Reaction Status Date / Time No Known Drug Allergies Allergy Verified 12/24/16 21:01 - Home Medications Home Medications: Ambulatory Orders Calcium Carb/Vitamin D3/Vit K1 [Viactiv Soft Chew] 1 each PO DAILY 11/29/16 Cholecalciferol (Vitamin D3) [Vitamin D3 -] 1,000 unit PO DAILY 11/29/16 Cyanocobalamin [Vitamin B12 -] 1,000 mcg PO DAILY 11/29/16 Ascorbic Acid [Vitamin C -] 500 mg PO DAILY #30 tablet 12/02/16 Ferrous Sulfate [Feosol] 325 mg PO DAILY@0800 ud 12/02/16 Metoprolol Succinate [Toprol XL -] 12.5 mg PO BID #0 12/02/16 Pantoprazole Sodium [Protonix -] 40 mg PO DAILY #30 tablet.ec 12/02/16 Spironolactone [Aldactone -] 25 mg PO DAILY tablet 12/02/16 Ursodiol [Actigal -] 300 mg PO BID capsule 12/02/16 Review of Systems - Review of Systems Constitutional: reports: Fever, Loss of Appetite, Malaise, Weakness. denies: Night Sweats, Unintentional Wgt. Loss Eyes: reports: No Symptoms HENT: reports: Epistaxis, Nasal Congestion. denies: Ear Pain, Gingival Bleeding , Mouth Swelling, Throat Pain, Toothache, Ringing in Ears Neck: reports: No Symptoms. denies: Other Cardiovascular: reports: Shortness of Breath. denies: Chest Pain, Edema Respiratory: reports: Cough, SOB, SOB on Exertion, Wheezing. denies: Hemoptysis Gastrointestinal: reports: No Symptoms Genitourinary: reports: No Symptoms Breasts: reports: No Symptoms Reported Musculoskeletal: reports: No Symptoms Integumentary: reports: No Symptoms Neurological: reports: No Symptoms Endocrine: reports: No Symptoms Hematology/Lymphatic: reports: No Symptoms Psychiatric: reports: No Symptoms Physical Exam Vital Sings: Vital Signs Temperature 97.6 F 01/03/17 05:37 Pulse Rate 57 L 01/03/17 05:37 Respiratory Rate 20 01/03/17 05:37 Blood Pressure 131/70 01/03/17 05:37 O2 Sat by Pulse Oximetry (%) 97 01/02/17 21:00 Constitutional: Yes: No Distress, Calm Eyes: Yes: Conjunctiva Clear, EOM Intact HENT: Yes: Atraumatic, Normocephalic Neck: Yes: Supple, Thyromegaly Cardiovascular: Yes: Regular Rate and Rhythm Respiratory: Yes: Cough, Diminished, On Nasal O2, Rhonchi, Other (Transmitted upper airway sounds ). No: Accessory Muscle Use, Rales, Stridor, Tachypnea, Wheezes ...Inspection: Yes: Other (Previous median sternotomy and revision ) ...Clubbing: No Gastrointestinal: Yes: WNL, Normal Bowel Sounds, Soft, Abdomen, Obese Renal/: Yes: WNL Musculoskeletal: Yes: WNL Extremities: Yes: WNL Edema: No Peripheral Pulses WNL: Yes Integumentary: Yes: WNL Neurological: Yes: WNL, Alert, Oriented ...Motor Strength: WNL Psychiatric: Yes: WNL, Alert, Oriented Labs: CBC, BMP 01/03/17 06:00 01/01/17 06:00 Imaging - Results Chest X-ray: Report Reviewed, Image Reviewed Problem List - Problems (1) Anemia Code(s): D64.9 - ANEMIA, UNSPECIFIED Qualifiers: Iron deficiency anemia type: chronic blood loss (2) Bronchitis Code(s): J40 - BRONCHITIS, NOT SPECIFIED ACUTE OR CHRONIC (3) H/O prosthetic aortic valve replacement Code(s): Z95.2 - PRESENCE OF PROSTHETIC HEART VALVE (4) HIV (human immunodeficiency virus infection) Code(s): Z21 - ASYMPTOMATIC HUMAN IMMUNODEFICIENCY VIRUS INFECTION STATUS (5) HTN (hypertension) Code(s): I10 - ESSENTIAL (PRIMARY) HYPERTENSION (6) Liver cirrhosis Code(s): K74.60 - UNSPECIFIED CIRRHOSIS OF LIVER (7) Primary sclerosing cholangitis Code(s): K83.0 - CHOLANGITIS (8) SOB (shortness of breath) Code(s): R06.02 - SHORTNESS OF BREATH Assessment/Plan PLAN: Overall the patient feels a significant clinical improvement. She does have some residual dry cough. I suspect that most of the auscultation chest findings are transmitted upper airway sounds and not true bronchospasm at this point. Appears that she certainly had significant acute bronchospastic disease on admission. At this point would change to a trial of Prednisone taper OK to continue Symbicort for now/on discharge (doubt she will chronically need this as there is no previous history of need) Can get PFTs once she is stable as an outpatient I encouraged the patient and her son who is at the bedside to ambulate as much as possible Supplemental O2 only as needed BD TX PRN Robitussin PRN Do not feel additional imaging is needed at this time: She had a CT 06/2015 and CXR reveals plate like atelectasis at the bases If stable -> no Pulmonary contraindication for D/C Will follow Thank you. Dr Ozuna
[2017-01-03] MEDS: BUDESONIDE/FORMETEROL FUMARATE 80/4.5 mcg INHALER IH SCH ×2 (11:54→21:35)
[2017-01-03] MEDS: OSELTAMIVIR PHOSPHATE 75 MG CAPSULE PO SCH ×2 (11:55→21:36)
[2017-01-03] MEDS: METOPROLOL SUCCINATE 25 MG TAB.SR.24H (FP) PO SCH ×2 (11:56→21:36)
[2017-01-03] MEDS: CHOLECALCIFEROL (VITAMIN D3) 1,000 UNIT TABLET (FP) PO SCH (11:57)
[2017-01-03] MEDS: ASCORBIC ACID 500 MG TABLET (FP) PO SCH (11:57)
[2017-01-03] MEDS: FERROUS SO4 325 MG TABLET (FP) PO SCH (11:57)
[2017-01-03] MEDS: predniSONE 20 MG TABLET (UD) PO SCH (11:57)
[2017-01-03] MEDS: LACTOBACILLUS ACIDOPHILUS 1 EACH TAB (FP) PO SCH (11:57)
[2017-01-03] MEDS: CYANOCOBALAMIN 1,000 MCG TABLET (FP) PO SCH (11:57)
[2017-01-03] MEDS: PANTOPRAZOLE 40 MG TABLET (FP) PO SCH (11:57)
[2017-01-03] MEDS: URSODIOL 300 MG CAPSULE PO SCH ×2 (11:58→21:35)
[2017-01-03] MEDS ORDERED: PT OWN MED DRAWER 7, Y5N ONE (15:37)
--- NOTE | 2017-01-03 16:01 | PN ---
Progress Note, Physician History of Present Illness: patient doing well no new issues breathing much better - Current Medication List Current Medications: Active Medications Amoxicillin/Clavulanate Potassium (Augmentin - 500mg Tablet) 1 tab PO BID@0800, 1730 [facility] Ascorbic Acid (Vitamin C -) 500 mg PO DAILY [facility] Last Admin: 01/03/17 11:57 Dose: 500 mg Budesonide/Formoterol Fumarate (Symbicort 80/4.5mcg -) 2 puff IH BID [facility] Last Admin: 01/03/17 11:54 Dose: 2 inh Cholecalciferol (Vitamin D3 -) 1,000 unit PO DAILY [facility] Last Admin: 01/03/17 11:57 Dose: 1,000 unit Cyanocobalamin (Vitamin B12 -) 1,000 mcg PO DAILY [facility] Last Admin: 01/03/17 11:57 Dose: 1,000 mcg Ferrous Sulfate (Feosol -) 325 mg PO DAILY@0800 [facility] Last Admin: 01/03/17 11:57 Dose: 325 mg Guaifenesin (Robitussin -) 10 ml PO Q4H PRN PRN Reason: COUGH Last Admin: 01/02/17 22:02 Dose: 10 ml Lactobacillus Acidophilus (Bacid -) 1 tab PO DAILY [facility] Last Admin: 01/03/17 11:57 Dose: 1 tab Metoprolol Succinate (Toprol Xl -) 12.5 mg PO BID [facility] Last Admin: 01/03/17 11:56 Dose: 12.5 mg Oseltamivir Phosphate (Tamiflu -) 75 mg PO BID [facility] Stop: 01/06/17 14:59 Last Admin: 01/03/17 11:55 Dose: 75 mg Pantoprazole Sodium (Protonix -) 40 mg PO DAILY [facility] Last Admin: 01/03/17 11:57 Dose: 40 mg Prednisone (Deltasone -) 40 mg PO DAILY [facility] Last Admin: 01/03/17 11:57 Dose: 40 mg Ursodiol (Actigal -) 300 mg PO BID [facility] Last Admin: 01/03/17 11:58 Dose: 300 mg - Objective Vital Signs: Vital Signs Temperature 97.9 F 01/03/17 13:39 Pulse Rate 61 01/03/17 13:39 Respiratory Rate 18 01/03/17 13:39 Blood Pressure 101/59 01/03/17 13:39 O2 Sat by Pulse Oximetry (%) 97 01/03/17 09:00 Constitutional: Yes: No Distress, Calm Eyes: Yes: Conjunctiva Clear Respiratory: Yes: Regular, Poor Air Entry, Rhonchi Gastrointestinal: Yes: Normal Bowel Sounds, Soft Musculoskeletal: Yes: WNL Extremities: Yes: WNL Neurological: Yes: Alert, Oriented Psychiatric: Yes: Alert Labs: CBC, BMP 01/03/17 06:00 01/01/17 06:00 Assessment/Plan p - Problems (1) Bronchitis Assessment/Plan: Continues to wheeze all over both lungs Code(s): J40 - BRONCHITIS, NOT SPECIFIED ACUTE OR CHRONIC (2) HTN (hypertension) Assessment/Plan: BP has gena low around 95 syst Code(s): I10 - ESSENTIAL (PRIMARY) HYPERTENSION (3) Anemia Assessment/Plan: Hb has been stable Code(s): D64.9 - ANEMIA, UNSPECIFIED Qualifiers: Iron deficiency anemia type: chronic blood loss (4) Chest pain Code(s): R07.9 - CHEST PAIN, UNSPECIFIED pnumococcal pneumonia patient is positive for pneumoccal antigen influenza A plan continue abx supportive treatment incentive eitan switched to augmentin continue it for another 5 days changes in the lung will take some time to return to baseline i ahve explaind that to the patient
[2017-01-03] MEDS: AMOX TR/POT CLAV 500MG/125MG TABLETS (FP) PO SCH (17:17)
--- NOTE | 2017-01-03 17:45 | PN ---
Progress Note, Physician History of Present Illness: cough is less, feels better and denies SOB. Was able to walk in the [place] - Current Medication List Current Medications: Active Medications Amoxicillin/Clavulanate Potassium (Augmentin - 500mg Tablet) 1 tab PO BID@0800, 1730 [facility] Last Admin: 01/03/17 17:17 Dose: 1 tab Ascorbic Acid (Vitamin C -) [address] [facility] Last Admin: 01/03/17 11:57 Dose: 500 mg Budesonide/Formoterol Fumarate (Symbicort 80/4.5mcg -) [address] [facility] Last Admin: 01/03/17 11:54 Dose: 2 inh Cholecalciferol (Vitamin D3 -) 1,[address] [facility] Last Admin: 01/03/17 11:57 Dose: 1,000 unit Cyanocobalamin (Vitamin B12 -) 1,[address] [facility] Last Admin: 01/03/17 11:57 Dose: 1,000 mcg Ferrous Sulfate (Feosol -) 325 mg PO DAILY@0800 [facility] Last Admin: 01/03/17 11:57 Dose: 325 mg Guaifenesin (Robitussin -) 10 ml PO Q4H PRN PRN Reason: COUGH Last Admin: 01/02/17 22:02 Dose: 10 ml Lactobacillus Acidophilus (Bacid -) [address] [facility] Last Admin: 01/03/17 11:57 Dose: 1 tab Metoprolol Succinate (Toprol Xl -) 12.[address] [facility] Last Admin: 01/03/17 11:56 Dose: 12.5 mg Oseltamivir Phosphate (Tamiflu -) [address] [facility] Stop: 01/06/17 14:59 Last Admin: 01/03/17 11:55 Dose: 75 mg Pantoprazole Sodium (Protonix -) [address] [facility] Last Admin: 01/03/17 11:57 Dose: 40 mg Prednisone (Deltasone -) [address] [facility] Last Admin: 01/03/17 11:57 Dose: 40 mg Ursodiol (Actigal -) [address] [facility] Last Admin: 01/03/17 11:58 Dose: 300 mg - Objective Vital Signs: Vital Signs Temperature 97.9 F 01/03/17 13:39 Pulse Rate 61 01/03/17 13:39 Respiratory Rate 18 01/03/17 13:39 Blood Pressure 101/59 01/03/17 13:39 O2 Sat by Pulse Oximetry (%) 97 01/03/17 09:00 Constitutional: Yes: Calm, Mild Distress Eyes: Yes: WNL HENT: Yes: WNL Neck: Yes: Supple Cardiovascular: Yes: Regular Rate and Rhythm, S1, S2 Respiratory: Yes: Wheezes, Other (bilateral wheezes moderate) Gastrointestinal: Yes: Normal Bowel Sounds, Soft Genitourinary: Yes: WNL Musculoskeletal: Yes: WNL Extremities: Yes: WNL Edema: No Peripheral Pulses WNL: Yes Integumentary: Yes: WNL Neurological: Yes: Alert, Oriented ...Motor Strength: WNL Psychiatric: Yes: Alert, Oriented Labs: CBC, BMP 01/03/17 06:00 01/01/17 06:00 Problem List - Problems (1) Bronchitis Code(s): J40 - BRONCHITIS, NOT SPECIFIED ACUTE OR CHRONIC (2) HTN (hypertension) Code(s): I10 - ESSENTIAL (PRIMARY) HYPERTENSION (3) Anemia Code(s): D64.9 - ANEMIA, UNSPECIFIED Qualifiers: Iron deficiency anemia type: chronic blood loss (4) Chest pain Code(s): R07.9 - CHEST PAIN, UNSPECIFIED Assessment/Plan Patient does not have HIV, investigation in medical record appears to indicate that was due to an error in documentation. Case discussed with ,to cont. Augmentin PO for 5 days. To continue inhalation treatment with PO Prednisone for about a week at home Will discharge in AM if stable
--- NOTE | 2017-01-04 01:39 | PN ---
Progress Note, Physician Chief Complaint: Pt A&Ox3; OOB in chair; still with strong cough. History of Present Illness: The patient is a 76 year old white female(juan Maci), with past medical history of HTN, HIV, ANDRES cirrhosis, diastolic CHF, bioprosthetic AV valve replacement, hysterectomy, CAD, and iron deficiency anemia, who presents with a productive cough and severe shortness of breath. She is unable to tolerate PO intake. The patient lives alone but notes sick contact with her grandson (flu). The patient notes associated chills, sweats, and SOB on exertion. The patient denies receiving the flu shot. - Current Medication List Current Medications: Active Medications Amoxicillin/Clavulanate Potassium (Augmentin - 500mg Tablet) 1 tab PO BID@0800, 1730 [facility] Last Admin: 01/03/17 17:17 Dose: 1 tab Ascorbic Acid (Vitamin C -) 500 mg PO DAILY [facility] Last Admin: 01/03/17 11:57 Dose: 500 mg Budesonide/Formoterol Fumarate (Symbicort 80/4.5mcg -) 2 puff IH BID [facility] Last Admin: 01/03/17 21:35 Dose: 2 puff Cholecalciferol (Vitamin D3 -) 1,000 unit PO DAILY [facility] Last Admin: 01/03/17 11:57 Dose: 1,000 unit Cyanocobalamin (Vitamin B12 -) 1,000 mcg PO DAILY [facility] Last Admin: 01/03/17 11:57 Dose: 1,000 mcg Ferrous Sulfate (Feosol -) 325 mg PO DAILY@0800 [facility] Last Admin: 01/03/17 11:57 Dose: 325 mg Guaifenesin (Robitussin -) 10 ml PO Q4H PRN PRN Reason: COUGH Last Admin: 01/02/17 22:02 Dose: 10 ml Lactobacillus Acidophilus (Bacid -) 1 tab PO DAILY [facility] Last Admin: 01/03/17 11:57 Dose: 1 tab Metoprolol Succinate (Toprol Xl -) 12.5 mg PO BID [facility] Last Admin: 01/03/17 21:36 Dose: 12.5 mg Oseltamivir Phosphate (Tamiflu -) 75 mg PO BID [facility] Stop: 01/06/17 14:59 Last Admin: 01/03/17 21:36 Dose: 75 mg Pantoprazole Sodium (Protonix -) 40 mg PO DAILY [facility] Last Admin: 01/03/17 11:57 Dose: 40 mg Prednisone (Deltasone -) 40 mg PO DAILY [facility] Last Admin: 01/03/17 11:57 Dose: 40 mg Ursodiol (Actigal -) 300 mg PO BID [facility] Last Admin: 01/03/17 21:35 Dose: 300 mg - Objective Vital Signs: Vital Signs Temperature 98.2 F 01/03/17 17:46 Pulse Rate 65 01/03/17 17:46 Respiratory Rate 18 01/03/17 20:34 Blood Pressure 128/93 01/03/17 17:46 O2 Sat by Pulse Oximetry (%) 97 01/03/17 20:34 Constitutional: Yes: Calm Eyes: Yes: WNL HENT: Yes: WNL Neck: Yes: WNL Cardiovascular: Yes: Regular Rate and Rhythm Respiratory: Yes: Rhonchi, SOB on Exertion Gastrointestinal: Yes: Soft ...Rectal Exam: Yes: Deferred Genitourinary: No: Anuria Breast(s): Yes: WNL Musculoskeletal: Yes: Muscle Weakness Extremities: Yes: Cool Edema: No Peripheral Pulses WNL: Yes Integumentary: Yes: WNL Neurological: Yes: Alert, Oriented, Weakness Psychiatric: Yes: WNL Labs: CBC, BMP 01/03/17 06:00 01/01/17 06:00 Abnormal Lab Results 01/03/17 06:00 WBC 2.9 L Hgb 10.4 L Hct 31.7 L RDW 23.7 H Plt Count 88 L Neutrophils % 87.0 H Problem List - Problems (1) Anemia Assessment/Plan: f/u decrease in Hb and WBCs. On ferrous sulfate. Code(s): D64.9 - ANEMIA, UNSPECIFIED Qualifiers: Iron deficiency anemia type: chronic blood loss (2) Bronchitis Assessment/Plan: On IV antibiotics; f/u with ID and pulmonology. Code(s): J40 - BRONCHITIS, NOT SPECIFIED ACUTE OR CHRONIC (3) Diastolic CHF Assessment/Plan: Will discontinue spironolactone (rising potassium); continue metoprolol ER, and use chlorthalidone if a diuretic is needed (though caution in view of rising BUN ). BUN/Cr, Is and Os, daily weight. Code(s): I50.30 - UNSPECIFIED DIASTOLIC (CONGESTIVE) HEART FAILURE (4) H/O prosthetic aortic valve replacement Assessment/Plan: ECHO: normal LVEF; no significant valvular changes from 2014. Code(s): Z95.2 - PRESENCE OF PROSTHETIC HEART VALVE (5) HTN (hypertension) Assessment/Plan: On metoprolol ER; aldactone discontinued due to rising K+. Start 2nd class of medication (eg nondihydropyridine Ca channel lyric such as amlodipine) if BP not well-controlled on metoprolol ER alone. Code(s): I10 - ESSENTIAL (PRIMARY) HYPERTENSION (6) Liver cirrhosis Code(s): K74.60 - UNSPECIFIED CIRRHOSIS OF LIVER (7) SOB (shortness of breath) Assessment/Plan: Diagnosed by ID with flu and superimposed bacterial pneumonia; on IV antibiotics. Code(s): R06.02 - SHORTNESS OF BREATH (8) Pancytopenia Assessment/Plan: F/u carefully with ID, hematology as treatment for sepsis continues. Code(s): D61.818 - OTHER PANCYTOPENIA
[2017-01-04] MEDS ORDERED: PT OWN MED DRAWER 7, Y5N ONE ×2 (07:56→16:11)
[2017-01-04] MEDS: AMOX TR/POT CLAV 500MG/125MG TABLETS (FP) PO SCH ×2 (08:02→16:39)
[2017-01-04] MEDS: FERROUS SO4 325 MG TABLET (FP) PO SCH (08:03)
[2017-01-04] MEDS: BUDESONIDE/FORMETEROL FUMARATE 80/4.5 mcg INHALER IH SCH (10:26)
[2017-01-04] MEDS: URSODIOL 300 MG CAPSULE PO SCH (10:27)
[2017-01-04] MEDS: LACTOBACILLUS ACIDOPHILUS 1 EACH TAB (FP) PO SCH (10:27)
[2017-01-04] MEDS: predniSONE 20 MG TABLET (UD) PO SCH (10:28)
[2017-01-04] MEDS: METOPROLOL SUCCINATE 25 MG TAB.SR.24H (FP) PO SCH (10:28)
[2017-01-04] MEDS: PANTOPRAZOLE 40 MG TABLET (FP) PO SCH (10:28)
[2017-01-04] MEDS: CYANOCOBALAMIN 1,000 MCG TABLET (FP) PO SCH (10:29)
[2017-01-04] MEDS: ASCORBIC ACID 500 MG TABLET (FP) PO SCH (10:29)
[2017-01-04] MEDS: CHOLECALCIFEROL (VITAMIN D3) 1,000 UNIT TABLET (FP) PO SCH (10:29)
--- NOTE | 2017-01-04 14:34 | DS ---
Physical Examination Vital Signs: Vital Signs Temperature 98.2 F 01/03/17 17:46 Pulse Rate 65 01/03/17 17:46 Respiratory Rate 18 01/03/17 20:34 Blood Pressure 128/93 01/03/17 17:46 O2 Sat by Pulse Oximetry (%) 97 01/03/17 20:34 Constitutional: Yes: Well Nourished, No Distress, Calm Eyes: Yes: Conjunctiva Clear, EOM Intact HENT: Yes: Atraumatic Neck: Yes: WNL, Supple Cardiovascular: Yes: Regular Rate and Rhythm, S1, S2 Respiratory: Yes: Regular, Wheezes Gastrointestinal: Yes: Normal Bowel Sounds, Soft Renal/: Yes: WNL Breast(s): Yes: WNL Musculoskeletal: Yes: WNL Extremities: Yes: WNL Edema: No Peripheral Pulses WNL: Yes Integumentary: Yes: WNL Neurological: Yes: Alert, Oriented, Cran Nerves II-XII Intact ...Motor Strength: WNL Psychiatric: Yes: Alert, Oriented Labs: CBC, BMP 01/03/17 06:00 01/01/17 06:00 Discharge Summary Reason For Visit: BRONCHITIS FAILURE TO THRIVE Current Active Problems Anemia (Acute) Bronchitis (Acute) Diastolic CHF (Acute) FTT (failure to thrive) in adult (Acute) H/O prosthetic aortic valve replacement (Acute) HIV (human immunodeficiency virus infection) (Acute) HTN (hypertension) (Acute) Liver cirrhosis (Acute) Primary sclerosing cholangitis (Acute) Procedures: Principal: Chest Xray. Influenza antigen, Hospital Course: Was admitted with severe acute bronchitis, nasal swab was neg in ED, was treated with IV steroids, IV Zosyn, and Azithromycin. Cold agglutinin was neg. Contimued to have severe wheezing with SOB in the begining. She was started on steroid inhalation. She was also treated with Tamiflu. She continued to have wheezing but was able to ambulate in the [place] without Oxygen and without SOB. She is being discharged on Prednisone 40mg, Augmentin 500mg, Symbicort and Albuterol inhalors. Will be followed in my office for further management. Condition: Stable - Instructions Diet, Activity, Other Instructions: probiotic daily for 5 days while taking antibiotic Referrals: Ector Hunter MD [Primary Care Provider] - - Home Medications Comprehensive Discharge Medication List: Ambulatory Orders Calcium Carb/Vitamin D3/Vit K1 [Viactiv Soft Chew] 1 each PO DAILY 11/29/16 Cholecalciferol (Vitamin D3) [Vitamin D3 -] 1,000 unit PO DAILY 11/29/16 Cyanocobalamin [Vitamin B12 -] 1,000 mcg PO DAILY 11/29/16 Ascorbic Acid [Vitamin C -] 500 mg PO DAILY #30 tablet 12/02/16 Ferrous Sulfate [Feosol] 325 mg PO DAILY@0800 ud 12/02/16 Metoprolol Succinate [Toprol XL -] 12.5 mg PO BID #0 12/02/16 Pantoprazole Sodium [Protonix -] 40 mg PO DAILY #30 tablet.ec 12/02/16 Spironolactone [Aldactone -] 25 mg PO DAILY tablet 12/02/16 Ursodiol [Actigal -] 300 mg PO BID capsule 12/02/16 Amox-Tr/K Cl [Augmentin 500-125mg Tablet -] 1 tab PO BID@0800,1730 tablet 01/04 Ascorbic Acid [Vitamin C -] 500 mg PO DAILY tablet 01/04/17 Budesonide/Formeterol Fumarate [SYMBICORT 80/4.5mcg -] 2 puff IH BID inhaler Cholecalciferol (Vitamin D3) [Vitamin D3 -] 1,000 unit PO DAILY tab 01/04/17 Cyanocobalamin [Vitamin B12 -] 1,000 mcg PO DAILY tablet 01/04/17 Ferrous Sulfate [Feosol] 325 mg PO DAILY@0800 ud 01/04/17 Lactobacillus Acidophilus [Bacid -] 1 tab PO DAILY tab 01/04/17 Metoprolol Succinate [Toprol XL -] 12.5 mg PO BID tab.sr.24h 01/04/17 Pantoprazole Sodium [Protonix -] 40 mg PO DAILY tablet.ec 01/04/17 Prednisone [Deltasone -] 20 mg PO BID #20 tablet 01/04/17 Ursodiol [Actigal -] 300 mg PO BID capsule 01/04/17
[2017-01-04 15:10] LABS: HIV 1 & 2 AB NEGATIVE; HIV 1 AGp24 NEGATIVE
--- NOTE | 2017-01-04 15:15 | PN ---
Progress Note, Physician History of Present Illness: patient doing well no new issues breathing much better patient without any complaints now - Current Medication List Current Medications: Active Medications Amoxicillin/Clavulanate Potassium (Augmentin - 500mg Tablet) 1 tab PO BID@0800, 1730 [facility] Last Admin: 01/04/17 08:02 Dose: 1 tab Ascorbic Acid (Vitamin C -) 500 mg PO DAILY [facility] Last Admin: 01/04/17 10:29 Dose: 500 mg Budesonide/Formoterol Fumarate (Symbicort 80/4.5mcg -) 2 puff IH BID [facility] Last Admin: 01/04/17 10:26 Dose: 2 puff Cholecalciferol (Vitamin D3 -) 1,000 unit PO DAILY [facility] Last Admin: 01/04/17 10:29 Dose: 1,000 unit Cyanocobalamin (Vitamin B12 -) 1,000 mcg PO DAILY [facility] Last Admin: 01/04/17 10:29 Dose: 1,000 mcg Ferrous Sulfate (Feosol -) 325 mg PO DAILY@0800 [facility] Last Admin: 01/04/17 08:03 Dose: 325 mg Guaifenesin (Robitussin -) 10 ml PO Q4H PRN PRN Reason: COUGH Last Admin: 01/02/17 22:02 Dose: 10 ml Lactobacillus Acidophilus (Bacid -) 1 tab PO DAILY [facility] Last Admin: 01/04/17 10:27 Dose: 1 tab Metoprolol Succinate (Toprol Xl -) 12.5 mg PO BID [facility] Last Admin: 01/04/17 10:28 Dose: 12.5 mg Oseltamivir Phosphate (Tamiflu -) 75 mg PO BID [facility] Stop: 01/06/17 14:59 Last Admin: 01/03/17 21:36 Dose: 75 mg Pantoprazole Sodium (Protonix -) 40 mg PO DAILY [facility] Last Admin: 01/04/17 10:28 Dose: 40 mg Pneumococcal Polyvalent Vaccine (Pneumovax -) 0.5 ml IM .ONCE ONE Stop: 01/04/17 15:31 Prednisone (Deltasone -) 40 mg PO DAILY [facility] Last Admin: 01/04/17 10:28 Dose: 40 mg Ursodiol (Actigal -) 300 mg PO BID [facility] Last Admin: 01/04/17 10:27 Dose: 300 mg - Objective Vital Signs: Vital Signs Temperature 98.2 F 01/03/17 17:46 Pulse Rate 65 01/03/17 17:46 Respiratory Rate 18 01/03/17 20:34 Blood Pressure 128/93 01/03/17 17:46 O2 Sat by Pulse Oximetry (%) 97 01/03/17 20:34 Constitutional: Yes: No Distress, Calm Cardiovascular: Yes: Regular Rate and Rhythm Respiratory: Yes: Regular, Rhonchi Gastrointestinal: Yes: Normal Bowel Sounds, Soft Musculoskeletal: Yes: WNL Extremities: Yes: WNL Neurological: Yes: Alert, Oriented Psychiatric: Yes: Alert Labs: CBC, BMP 01/03/17 06:00 01/01/17 06:00 Assessment/Plan p - Problems (1) Bronchitis Assessment/Plan: Continues to wheeze all over both lungs Code(s): J40 - BRONCHITIS, NOT SPECIFIED ACUTE OR CHRONIC (2) HTN (hypertension) Assessment/Plan: BP has gena low around 95 syst Code(s): I10 - ESSENTIAL (PRIMARY) HYPERTENSION (3) Anemia Assessment/Plan: Hb has been stable Code(s): D64.9 - ANEMIA, UNSPECIFIED Qualifiers: Iron deficiency anemia type: chronic blood loss (4) Chest pain Code(s): R07.9 - CHEST PAIN, UNSPECIFIED pnumococcal pneumonia patient is positive for pneumoccal antigen influenza A plan continue current abx patient to do incentive eitan rest as per the primary rest as per heather
[2017-01-04 15:16] VITALS: BP 126/75; PULSE 59; TEMP 97.9
[2017-01-04] MEDS ORDERED: PNEUMOCOCCAL 23 VACCINE 0.5 ML VIAL IM ONE (15:30)
[2017-01-04] MEDS: OSELTAMIVIR PHOSPHATE 75 MG CAPSULE PO SCH (15:53)
--- NOTE | 2017-01-04 15:58 | PN ---
Progress Note (short form) - Note Progress Note: Feels overall better. Less SOB. Residual cough. Intake & Output 01/01/17 01/02/17 01/03/17 01/04/17 23:59 23:59 23:59 23:59 Intake Total 700 620 800 100 Balance 700 620 800 100 Weight 162 lb 8 oz 162 lb 9.6 oz 163 lb 4.8 oz 163 lb 14.4 oz Last Vital Signs Temp Pulse Resp BP Pulse Ox 97.9 F 59 L 18 126/75 97 01/04/17 15:15 01/04/17 15:15 01/04/17 15:15 01/04/17 15:15 01/03/17 20:34 Active Medications Amoxicillin/Clavulanate Potassium (Augmentin - 500mg Tablet) 1 tab PO BID@0800, 1730 [facility] Last Admin: 01/04/17 08:02 Dose: 1 tab Ascorbic Acid (Vitamin C -) 500 mg PO DAILY [facility] Last Admin: 01/04/17 10:29 Dose: 500 mg Budesonide/Formoterol Fumarate (Symbicort 80/4.5mcg -) 2 puff IH BID [facility] Last Admin: 01/04/17 10:26 Dose: 2 puff Cholecalciferol (Vitamin D3 -) 1,000 unit PO DAILY [facility] Last Admin: 01/04/17 10:29 Dose: 1,000 unit Cyanocobalamin (Vitamin B12 -) 1,000 mcg PO DAILY [facility] Last Admin: 01/04/17 10:29 Dose: 1,000 mcg Ferrous Sulfate (Feosol -) 325 mg PO DAILY@0800 [facility] Last Admin: 01/04/17 08:03 Dose: 325 mg Guaifenesin (Robitussin -) 10 ml PO Q4H PRN PRN Reason: COUGH Last Admin: 01/02/17 22:02 Dose: 10 ml Lactobacillus Acidophilus (Bacid -) 1 tab PO DAILY [facility] Last Admin: 01/04/17 10:27 Dose: 1 tab Metoprolol Succinate (Toprol Xl -) 12.5 mg PO BID [facility] Last Admin: 01/04/17 10:28 Dose: 12.5 mg Oseltamivir Phosphate (Tamiflu -) 75 mg PO BID [facility] Stop: 01/06/17 14:59 Last Admin: 01/04/17 15:53 Dose: 75 mg Pantoprazole Sodium (Protonix -) 40 mg PO DAILY [facility] Last Admin: 01/04/17 10:28 Dose: 40 mg Prednisone (Deltasone -) 40 mg PO DAILY [facility] Last Admin: 01/04/17 10:28 Dose: 40 mg Ursodiol (Actigal -) 300 mg PO BID [facility] Last Admin: 01/04/17 10:27 Dose: 300 mg Constitutional: Yes: No Distress Eyes: Yes: Conjunctiva Clear, EOM Intact HENT: Yes: Atraumatic, Normocephalic Neck: Yes: Supple, Thyromegaly Cardiovascular: Yes: Regular Rate and Rhythm Respiratory: Yes: Cough, Diminished, RA, Other (Transmitted upper airway sounds ). ...Inspection: Yes: Other (Previous median sternotomy and revision ) ...Clubbing: No Gastrointestinal: Yes: WNL, Normal Bowel Sounds, Soft, Abdomen, Obese Renal/: Yes: WNL Musculoskeletal: Yes: WNL Extremities: Yes: WNL Edema: No Peripheral Pulses WNL: Yes Integumentary: Yes: WNL Neurological: Yes: WNL, Alert, Oriented ...Motor Strength: WNL Psychiatric: Yes: WNL, Alert, Oriented Labs: Laboratory Results - last 24 hr 01/04/17 13:45 HIV 1&2 Antibody Screen Negative HIV P24 Antigen Negative Problem List - Problems (1) Anemia Code(s): D64.9 - ANEMIA, UNSPECIFIED Qualifiers: Iron deficiency anemia type: chronic blood loss (2) Bronchitis Code(s): J40 - BRONCHITIS, NOT SPECIFIED ACUTE OR CHRONIC (3) H/O prosthetic aortic valve replacement Code(s): Z95.2 - PRESENCE OF PROSTHETIC HEART VALVE (4) HIV (human immunodeficiency virus infection) Code(s): Z21 - ASYMPTOMATIC HUMAN IMMUNODEFICIENCY VIRUS INFECTION STATUS (5) HTN (hypertension) Code(s): I10 - ESSENTIAL (PRIMARY) HYPERTENSION (6) Liver cirrhosis Code(s): K74.60 - UNSPECIFIED CIRRHOSIS OF LIVER (7) Primary sclerosing cholangitis Code(s): K83.0 - CHOLANGITIS (8) SOB (shortness of breath) Code(s): R06.02 - SHORTNESS OF BREATH Assessment/Plan Agree with discharge medications Can get PFTs once she is stable as an outpatient No need for home O2 Dr Ozuna Problem List - Problems (1) Anemia Code(s): D64.9 - ANEMIA, UNSPECIFIED Qualifiers: Iron deficiency anemia type: chronic blood loss (2) Bronchitis Code(s): J40 - BRONCHITIS, NOT SPECIFIED ACUTE OR CHRONIC (3) H/O prosthetic aortic valve replacement Code(s): Z95.2 - PRESENCE OF PROSTHETIC HEART VALVE (4) HIV (human immunodeficiency virus infection) Code(s): Z21 - ASYMPTOMATIC HUMAN IMMUNODEFICIENCY VIRUS INFECTION STATUS (5) HTN (hypertension) Code(s): I10 - ESSENTIAL (PRIMARY) HYPERTENSION (6) Liver cirrhosis Code(s): K74.60 - UNSPECIFIED CIRRHOSIS OF LIVER (7) Primary sclerosing cholangitis Code(s): K83.0 - CHOLANGITIS (8) SOB (shortness of breath) Code(s): R06.02 - SHORTNESS OF BREATH
--- NOTE | 2017-01-04 17:54 | PN ---
Progress Note, Physician Chief Complaint: Pt A&Ox3; still with occasional, forceful dry cough. History of Present Illness: The patient is a 76 year old white female(juan Maci), with past medical history of HTN, HIV, ANDRES cirrhosis, diastolic CHF, bioprosthetic AV valve replacement, hysterectomy, CAD, and iron deficiency anemia, who presents with a productive cough and severe shortness of breath. She is unable to tolerate PO intake. The patient lives alone but notes sick contact with her grandson (flu). The patient notes associated chills, sweats, and SOB on exertion. The patient denies receiving the flu shot. - Current Medication List Current Medications: Active Medications Amoxicillin/Clavulanate Potassium (Augmentin - 500mg Tablet) 1 tab PO BID@0800, 1730 [facility] Last Admin: 01/04/17 16:39 Dose: 1 tab Ascorbic Acid (Vitamin C -) 500 mg PO DAILY [facility] Last Admin: 01/04/17 10:29 Dose: 500 mg Budesonide/Formoterol Fumarate (Symbicort 80/4.5mcg -) 2 puff IH BID [facility] Last Admin: 01/04/17 10:26 Dose: 2 puff Cholecalciferol (Vitamin D3 -) 1,000 unit PO DAILY [facility] Last Admin: 01/04/17 10:29 Dose: 1,000 unit Cyanocobalamin (Vitamin B12 -) 1,000 mcg PO DAILY [facility] Last Admin: 01/04/17 10:29 Dose: 1,000 mcg Ferrous Sulfate (Feosol -) 325 mg PO DAILY@0800 [facility] Last Admin: 01/04/17 08:03 Dose: 325 mg Guaifenesin (Robitussin -) 10 ml PO Q4H PRN PRN Reason: COUGH Last Admin: 01/02/17 22:02 Dose: 10 ml Lactobacillus Acidophilus (Bacid -) 1 tab PO DAILY [facility] Last Admin: 01/04/17 10:27 Dose: 1 tab Metoprolol Succinate (Toprol Xl -) 12.5 mg PO BID [facility] Last Admin: 01/04/17 10:28 Dose: 12.5 mg Oseltamivir Phosphate (Tamiflu -) 75 mg PO BID [facility] Stop: 01/06/17 14:59 Last Admin: 01/04/17 15:53 Dose: 75 mg Pantoprazole Sodium (Protonix -) 40 mg PO DAILY [facility] Last Admin: 01/04/17 10:28 Dose: 40 mg Prednisone (Deltasone -) 40 mg PO DAILY [facility] Last Admin: 01/04/17 10:28 Dose: 40 mg Ursodiol (Actigal -) 300 mg PO BID [facility] Last Admin: 01/04/17 10:27 Dose: 300 mg - Objective Vital Signs: Vital Signs Temperature 97.9 F 01/04/17 15:15 Pulse Rate 59 L 01/04/17 15:15 Respiratory Rate 18 01/04/17 15:15 Blood Pressure 126/75 01/04/17 15:15 O2 Sat by Pulse Oximetry (%) 100 01/04/17 09:00 Constitutional: Yes: No Distress Eyes: Yes: WNL HENT: Yes: WNL Neck: Yes: WNL Cardiovascular: Yes: Regular Rate and Rhythm Respiratory: Yes: Wheezes (expiratory; diffuse; mild) Gastrointestinal: Yes: Soft ...Rectal Exam: Yes: Deferred Genitourinary: No: Anuria Breast(s): Yes: WNL Musculoskeletal: Yes: Muscle Weakness Extremities: Yes: WNL Edema: No Peripheral Pulses WNL: Yes Neurological: Yes: Alert, Oriented, Weakness Psychiatric: Yes: WNL Labs: CBC, BMP 01/03/17 06:00 01/01/17 06:00 Problem List - Problems (1) Bronchitis Assessment/Plan: On IV antibiotics; f/u with ID and pulmonology. Code(s): J40 - BRONCHITIS, NOT SPECIFIED ACUTE OR CHRONIC (2) Diastolic CHF Assessment/Plan: Will discontinue spironolactone (rising potassium); continue metoprolol ER, and use chlorthalidone if a diuretic is needed (though caution in view of rising BUN ). BUN/Cr, Is and Os, daily weight. Code(s): I50.30 - UNSPECIFIED DIASTOLIC (CONGESTIVE) HEART FAILURE (3) H/O prosthetic aortic valve replacement Assessment/Plan: ECHO: normal LVEF; no significant valvular changes from 2013. Code(s): Z95.2 - PRESENCE OF PROSTHETIC HEART VALVE (4) HTN (hypertension) Assessment/Plan: On metoprolol ER; aldactone discontinued due to rising K+. Start 2nd class of medication (eg nondihydropyridine Ca channel lyric such as amlodipine) if BP not well-controlled on metoprolol ER alone. Code(s): I10 - ESSENTIAL (PRIMARY) HYPERTENSION (5) Liver cirrhosis Code(s): K74.60 - UNSPECIFIED CIRRHOSIS OF LIVER (6) SOB (shortness of breath) Assessment/Plan: Diagnosed by ID with flu and superimposed bacterial pneumonia; on IV antibiotics. Code(s): R06.02 - SHORTNESS OF BREATH (7) Pancytopenia Assessment/Plan: F/u carefully with ID, hematology as treatment for sepsis continues. Code(s): D61.818 - OTHER PANCYTOPENIA
== END 2017-01-04 18:21 | disposition home or self-care (01) | DRG 202 ==
LOC: JER 20:50 → UNDOADMOB 12-25 02:04 → JERBED 12-25 02:04 → J7W 12-25 11:40 → JERBED 12-25 11:40 → J7W 12-25 14:20 → OBSVTOIN 12-25 21:15 → JERBED 12-25 21:15 → J7W 12-29 15:03
PROVIDERS: ADMIT Internal Medicine Hematology & Oncology; ATTEND Internal Medicine Hematology & Oncology
DX: J20.9 Acute bronchitis, unspecified (principal); J10.08 Influenza due to other identified influenza virus with other specified pneumonia; J13 Pneumonia due to Streptococcus pneumoniae; I50.30 Unspecified diastolic (congestive) heart failure; D61.818 Other pancytopenia; K74.60 Unspecified cirrhosis of liver; R62.7 Adult failure to thrive; I25.10 Atherosclerotic heart disease of native coronary artery without angina pectoris; D50.8 Other iron deficiency anemias; E87.6 Hypokalemia; R74.0 Nonspecific elevation of levels of transaminase and lactic acid dehydrogenase [LDH]; E80.6 Other disorders of bilirubin metabolism; I11.0 Hypertensive heart disease with heart failure; Z95.2 Presence of prosthetic heart valve
CPT/HCPCS: 36415; 71010-TC; 71020-TC; 80048; 80053; 80076; 83735; 83880; 85025; 86140; 86157; 86713; 87254; 87389; 87804; 87899; 90732; 93005; 93010; 93306-TC; 94010; 94640; 94761; 99284-25; G0008; G0009; Q2037

== ENCOUNTER 2017-04-21 13:46 | Inpatient (IN) | payer OTHER ==
[2017-04-21 13:57] VITALS: BMI 27.4
[2017-04-21] MEDS ORDERED: ACETAMINOPHEN 325 MG TABLET (FP) PO ONE (14:26)
[2017-04-21] MEDS ORDERED: DIPHTH,PERTUSS(ACELL),TET 0.5 ML DISP.SYRIN IM ONE (14:26)
[2017-04-21] MEDS ORDERED: ACETAMINOPHEN 325 MG TABLET (FP) ONE (14:35)
--- NOTE | 2017-04-21 14:46 | PDOC ---
History of Present Illness - General History Source: Patient Exam Limitations: No Limitations - History of Present Illness Initial Comments: 04/21/17 14:55 The patient is a 76 year old female with a significant past medical history of hypertension and liver psoriasis who presents to the ED s/p fall earlier today. The patient reports she was walking back home from the grocery store with her cart full of shopping bags and woke up on the floor on the sidewalk. Patient does not recall falling and reports a loss of consciousness. Patient is unable to report how long she was on the floor for. She reports pain to her right hand and left sided facial injury and swelling. Denies headache or neck pain. Denies focal numbness, weakness, or tingling. Denies any other symptoms. Surgical hx: Bovine valve replacement <Luis Inman - Last Filed: 04/21/17 14:55> - General History Source: Patient Exam Limitations: No Limitations <Irvin Cabrera - Last Filed: 04/21/17 18:17> - General Chief Complaint: Injury Stated Complaint: FALL Time Seen by Provider: 04/21/17 13:56 Past History <Luis Inman - Last Filed: 04/21/17 14:55> - Past Medical History Anemia: No Asthma: No Cancer: No Cardiac Disorders: Yes CVA: No COPD: No CHF: No Dementia: No Diabetes: No GI Disorders: Yes (POLYPS) Disorders: No HTN: Yes Hypercholesterolemia: No HIV: Yes Liver Disease: Yes (LIVER CIRRHOSIS) Seizures: No Thyroid Disease: No - Surgical History Abdominal Surgery: No Appendectomy: No Cardiac Surgery: Yes (aortic valve replacement 2013) Cholecystectomy: No Lung Surgery: No Neurologic Surgery: No Orthopedic Surgery: No - Immunization History Immunization Up to Date: Yes - Psycho/Social/Smoking Cessation Hx Anxiety: No Suicidal Ideation: No Smoking History: Never smoked Have you smoked in the past 12 months: No Number of Cigarettes Smoked Daily: 0 Cigars Per Day: 0 Information on smoking cessation initiated: No Hx Alcohol Use: No Drug/Substance Use Hx: No Substance Use Type: None Hx Substance Use Treatment: No <Irvin Cabrera - Last Filed: 04/21/17 18:17> - Past Medical History Allergies/Adverse Reactions: Allergies Allergy/AdvReac Type Severity Reaction Status Date / Time No Known Drug Allergies Allergy Verified 04/21/17 13:57 Home Medications: Ambulatory Orders Ascorbic Acid [Vitamin C] 100 mg PO DAILY 02/10/17 Cholecalciferol (Vitamin D3) [Vitamin D3 -] 1,000 unit PO DAILY 02/10/17 Cyanocobalamin (Vitamin B-12) [Vitamin B-12] 1,000 mcg PO DAILY 02/10/17 Iron,Carbonyl/Vit C/Vit B12/FA [Iron 100 Plus Tablet] 1 each PO DAILY 02/10/17 Metoprolol Succinate [Toprol XL -] 25 mg PO DAILY 02/10/17 Spironolactone 25 mg PO DAILY 02/10/17 Ursodiol [Actigal -] 300 mg PO TID 02/10/17 Zolpidem Tartrate [Ambien] 5 mg PO DAILY 02/10/17 Latanoprost 0.005% Eye Drops [Xalatan 0.005% Eye Drops -] 1 drop OU HS 02/11/17 Review of Systems - Review of Systems Able to Perform ROS?: Yes Comments:: 04/21/17 14:55 GENERAL/CONSTITUTIONAL: No fever or chills. No weakness. HEAD, EYES, EARS, NOSE AND THROAT: No change in vision. No ear pain or discharge. No sore throat. CARDIOVASCULAR: No chest pain or shortness of breath. RESPIRATORY: No cough, wheezing, or hemoptysis. GASTROINTESTINAL: No nausea, vomiting, diarrhea or constipation. GENITOURINARY: No dysuria, frequency, or change in urination. MUSCULOSKELETAL: + right hand pain. No joint or muscle swelling. No neck or back pain. SKIN: + left facial swelling and injury. No rash NEUROLOGIC: + loss of consciousness. No headache, vertigo, or change in strength/sensation. ENDOCRINE: No increased thirst. No abnormal weight change. HEMATOLOGIC/LYMPHATIC: No anemia, easy bleeding, or history of blood clots. ALLERGIC/IMMUNOLOGIC: No hives or skin allergy. All Other Systems: Reviewed and Negative <Luis Inman - Last Filed: 04/21/17 14:55> *Physical Exam - Vital Signs Last Vital Signs Temp Pulse Resp BP Pulse Ox 97.9 F 70 18 158/87 95 04/21/17 13:50 04/21/17 13:50 04/21/17 13:50 04/21/17 13:50 04/21/17 14:10 - Physical Exam Comments: 04/21/17 14:55 GENERAL: Awake, alert, and fully oriented, in no acute distress HEAD: No signs of trauma EYES: PERRLA, EOMI, sclera anicteric, conjunctiva clear ENT: Auricles normal inspection, hearing grossly normal, nares patent, oropharynx clear without exudates. Moist mucosa NECK: Normal ROM, supple, no lymphadenopathy, JVD, or masses LUNGS: Breath sounds equal, clear to auscultation bilaterally. No wheezes, and no crackles HEART: Regular rate and rhythm, normal S1 and S2, no murmurs, rubs or gallops ABDOMEN: Soft, nontender, normoactive bowel sounds. No guarding, no rebound. No masses EXTREMITIES: + bruise overlying distal radius of her left wrist , negative axial loading, negative snuff box. median radial ulnar nerve intact. Normal range of motion, no edema. No clubbing or cyanosis. No cords, erythema, or tenderness NEUROLOGICAL: Cranial nerves II through XII grossly intact. Normal speech, normal gait SKIN:+ Abrasions to the left side of the face, left facial edema. Warm, Dry, no rashes noted. <Luis Inman - Last Filed: 04/21/17 14:55> - Vital Signs Last Vital Signs Temp Pulse Resp BP Pulse Ox 97.9 F 70 18 158/87 95 04/21/17 13:50 04/21/17 13:50 04/21/17 13:50 04/21/17 13:50 04/21/17 14:10 <Irvin Cabrera - Last Filed: 04/21/17 18:17> Heart Score/ECG Review #1 ECG reviewed & interpreted by me at: 14:35 04/21/17 14:48 NSR 70, left axis deviation, poor R wave progression, T wave flat v2, no std/monique , QTC 464 msec. no brugada, no HOCM, no WPW <Irvin Cabrera - Last Filed: 04/21/17 18:17> ED Treatment Course - LABORATORY CBC & Chemistry Diagram: 04/21/17 15:16 04/21/17 15:15 - RADIOLOGY Radiology Studies Ordered: Category Date Time Status HEAD CT WITHOUT CONTRAST [CT] Stat CT Scan 04/21/17 14:24 Ordered CHEST X-RAY PORTABLE* [RAD] Stat Radiology 04/21/17 14:24 Ordered WRIST-LEFT [RAD] Stat Radiology 04/21/17 14:24 Ordered <Irvin Cabrera - Last Filed: 04/21/17 18:17> Medical Decision Making - Medical Decision Making 04/21/17 14:45 A portion of this note was documented by scribe services under my direction. I have reviewed the details of the note, within reason, and agree with the documentation with the following case summary and management plan written by me. Patient treated in the ED. Nursing notes are reviewed and incorporated into the medical decision-making. Vital signs reviewed. Peripheral IV access obtained by the nurse, laboratory studies are drawn and sent, reviewed and interpreted by myself. 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 The patient was walking to the grocery store. She was walking back which she suddenly fainted and then on the ground. Bystanders to call 911 and brought the patient here. Patient sustained abrasions the left side her face. No headache or nausea or vomiting at this time. Last tetanus is unknown. Patient is cleared from C-spine from my perspective. Patient will need a syncopal be workup for potential cardiac details. EKG, cardiac nurse practitioner, labs. We'll also need a head CT to rule out intracranial hemorrhage. Patient also claimed bouts of left wrist pain from the syncope. X- ray to rule out fractures. Patient neurovascular intact. Ultimately, the patient should be admitted for further observation. 04/21/17 16:[address] reviewed with radiologist DR. Nolan on the phone. No intracranial hemorrhage. Wrist xray reviewed, pending official read. No acute fractures. CBC, BMP 04/21/17 15:16 04/21/17 15:15 CMP Sodium 141 mmol/L (136-145) 04/21/17 15:15 Potassium 4.3 mmol/L (3.5-5.1) 04/21/17 15:15 Chloride 105 mmol/L (98-107) 04/21/17 15:15 Carbon Dioxide 25 mmol/L (21-32) 04/21/17 15:15 Anion Gap 11 (8-16) 04/21/17 15:15 BUN 14 mg/dL (7-18) 04/21/17 15:15 Creatinine 0.7 mg/dL (0.55-1.02) D 04/21/17 15:15 Creat Clearance w eGFR > 60 (>60) 04/21/17 15:15 Random Glucose 118 mg/dL (74-106) H 04/21/17 15:15 Calcium 8.1 mg/dL (8.5-10.1) L 04/21/17 15:15 Total Bilirubin 3.3 mg/dL (0.2-1.0) H D 04/21/17 15:15 AST 91 U/L (15-37) H 04/21/17 15:15 ALT 45 U/L (12-78) 04/21/17 15:15 Alkaline Phosphatase 366 U/L (45-117) H 04/21/17 15:15 Creatine Kinase 125 IU/L (26-192) 04/21/17 15:15 Troponin I 0.10 ng/ml (0.00-0.05) H 04/21/17 15:15 Total Protein 7.4 g/dl (6.4-8.2) 04/21/17 15:15 Albumin 2.4 g/dl (3.4-5.0) L 04/21/17 15:15 Urine Test Results Urine Color Mary 04/21/17 15:16 Urine Appearance Clear 04/21/17 15:16 Urine pH 5.0 (5.0-8.0) 04/21/17 15:16 Urine Protein Negative (NEGATIVE) 04/21/17 15:16 Urine Glucose (UA) Negative (NEGATIVE) 04/21/17 15:16 Urine Ketones Negative (NEGATIVE) 04/21/17 15:16 Urine Blood Negative (NEGATIVE) 04/21/17 15:16 Urine Nitrite Positive (NEGATIVE) 04/21/17 15:16 Urine Bilirubin Negative (NEGATIVE) 04/21/17 15:16 Ur Leukocyte Esterase 1+ (NEGATIVE) H 04/21/17 15:16 Urine RBC 1 /hpf (0-3) 04/21/17 15:16 Urine WBC 5 /hpf (3-5) 04/21/17 15:16 Ur Epithelial Cells Rare /hpf (FEW) 04/21/17 15:16 Urine Bacteria Few /hpf (NONE SEEN) 04/21/17 15:16 The patient was noted to have a UTI. Has hx of gotti sensitive UTI from prior microbiology. Ceftriaxone ordered. Troponin is 0.10 (which appears chronic). Follows up with Dr. Chaudhary. LFTs elevated, though has hx of cirrhosis. Pt is also somewhat confused and has an elevated bilirubins with elevated ammonia level ~60 concerning for hepatic encephalopathy. Will give lactulose. Given these findings, patient will be admitted for telemetry admission. Case discussed with DR. David who accepts the patient to his service. Case discussed in detail with admitting physician including history, physical exam and ancillary studies. Admitting physician has assumed care for the patient, will follow all pending diagnostics and will complete the evaluation and treatment. <Irvin Cabrera - Last Filed: 04/21/17 18:17> *DC/Admit/Observation/Transfer - Attestations Scribe Attestion: 04/21/17 14:55 Documentation prepared by Luis Inman, acting as medical imaging tech for Irvin Cabrera MD <Luis Inman - Last Filed: 04/21/17 14:55> - Discharge Dispostion Admit: Yes <Irvin Cabrera - Last Filed: 04/21/17 18:17> Diagnosis at time of Disposition: Syncope Qualifiers: Syncope type: unspecified Qualified Code(s): R55 - Syncope and collapse UTI (urinary tract infection) Qualifiers: Urinary tract infection type: acute cystitis Hematuria presence: without hematuria Qualified Code(s): N30.00 - Acute cystitis without hematuria - Discharge Dispostion Condition at time of disposition: Stable - Referrals
[2017-04-21 15:21] LABS: BASOPHIL 0.9 % (0-2.0); EOSINOPHIL 2.2 % (0-4.5); MCH 32.1 pg (25.7-33.7); MEAN CELL VOLUME 94.2 fl (80-96); MEAN PLT VOLUME 8.5 fl (7.5-11.1); NEUTROPHILS 69.4 % (42.8-82.8); PLATELET COUNT 85 K/MM3 (134-434); RDW 15.9 % (11.6-15.6); WHITE BLOOD COUNT 3.5 K/mm3 (4.0-10.0)
[2017-04-21 15:28] LABS: URINE APPEARANCE CLEAR; URINE BILIRUBIN NEGATIVE (NEGATIVE); URINE BLOOD NEGATIVE (NEGATIVE); URINE COLOR AMBER; URINE GLUCOSE (UA) NEGATIVE (NEGATIVE); URINE KETONE NEGATIVE (NEGATIVE); URINE NITRITE POSITIVE (NEGATIVE); URINE PROTEIN NEGATIVE (NEGATIVE); URINE UROBILINOGEN 4.0 E.U/dl E.U./dl (0.2-1.0)
[2017-04-21 15:34] LABS: URINE LEUK ESTERASE 1+ (NEGATIVE)
[2017-04-21 15:35] LABS: URINE BACTERIA FEW /hpf (NONE SEEN); URINE RBC 1 /hpf (0-3); URINE WBC 5 /hpf (3-5)
[2017-04-21 15:47] LABS: ALBUMIN 2.4 g/dl (3.4-5.0); ANION GAP 11 (8-16); BILIRUBIN,TOTAL 3.3 mg/dL (0.2-1.0); CALCIUM 8.1 mg/dL (8.5-10.1); CO2 25 mmol/L (21-32); COCKROFT - GAULT 75.7265; CREATININE 0.7 mg/dL (0.55-1.02); GLUCOSE,RANDOM 118 mg/dL (74-106); SGPT/ALT 45 U/L (12-78); TOT PROT 7.4 g/dl (6.4-8.2)
[2017-04-21 15:50] LABS: ALK PHOS 366 U/L (45-117); SGOT/AST 91 U/L (15-37)
[2017-04-21 16:01] LABS: INR 1.24 (0.82-1.09); PROTHROMBIN TIME (PATIENT) 13.7 SEC (9.98-11.88)
[2017-04-21 16:04] LABS: ACTIVATED PTT 36.6 SECONDS (26.9-34.4)
[2017-04-21] MEDS ORDERED: CEFTRIAXONE 1 GM in DEXTROSE 5%-WATER - 50 ML IVPB ONE (16:19)
[2017-04-21] MEDS ORDERED: CEFTRIAXONE 50 ML ONE (16:53)
[2017-04-21] MEDS ORDERED: LACTULOSE 20 GM/30 ML UDC (FOR ORAL USE ONLY) PO ONE (18:16)
--- NOTE | 2017-04-21 22:20 | HP ---
Admitting History and Physical - Primary Care Physician PCP: Ector Hunter - Admission Chief Complaint: Syncope History of Present Illness: 76 y/o known case liver cirrhosis who on her way back from shopping this afternoon passed out and neighbours called ambulance and was brought to ED. Does not know how long she was unconscious. Has injury to left side of face, left wrist and left knee.Xrays did not show any fracture. Is admitted for further management History Source: Patient Limitations to Obtaining History: No Limitations - Past Medical History Cardiovascular: Yes: Aortic Stenosis (led to bioprosthetic AoVR), CHF, HTN, Murmur Gastrointestinal: Yes: Gastritis, GI Bleed Hepatobiliary: Yes: Cirrhosis, Cholelithiasis Heme/Onc: Yes: Thrombocytopenia - Past Surgical History Past Surgical History: Yes: Colonoscopy, Hysterectomy, Valve Replacement ( aortic valve) - Smoking History Smoking history: Never smoked Have you smoked in the past 12 months: No Aproximately how many cigarettes per day: 0 - Alcohol/Substance Use Hx Alcohol Use: No - Social History Usual Living Arrangement: Yes: Alone ADL: Independent History of Recent Travel: No Home Medications - Allergies Allergies/Adverse Reactions: Allergies Allergy/AdvReac Type Severity Reaction Status Date / Time No Known Drug Allergies Allergy Verified 04/21/17 13:57 - Home Medications Home Medications: Ambulatory Orders Ascorbic Acid [Vitamin C] 100 mg PO DAILY 02/10/17 Cholecalciferol (Vitamin D3) [Vitamin D3 -] 1,000 unit PO DAILY 02/10/17 Cyanocobalamin (Vitamin B-12) [Vitamin B-12] 1,000 mcg PO DAILY 02/10/17 Iron,Carbonyl/Vit C/Vit B12/FA [Iron 100 Plus Tablet] 1 each PO DAILY 02/10/17 Metoprolol Succinate [Toprol XL -] 25 mg PO DAILY 02/10/17 Spironolactone 25 mg PO DAILY 02/10/17 Ursodiol [Actigal -] 300 mg PO TID 02/10/17 Zolpidem Tartrate [Ambien] 5 mg PO DAILY 02/10/17 Latanoprost 0.005% Eye Drops [Xalatan 0.005% Eye Drops -] 1 drop OU HS 02/11/17 Review of Systems - Review of Systems Constitutional: reports: No Symptoms Eyes: reports: No Symptoms HENT: reports: No Symptoms Neck: reports: No Symptoms Cardiovascular: reports: Chest Pain Respiratory: reports: No Symptoms Gastrointestinal: reports: No Symptoms Genitourinary: reports: No Symptoms Breasts: reports: No Symptoms Reported Musculoskeletal: reports: Joint Swelling Integumentary: reports: No Symptoms Neurological: reports: No Symptoms Endocrine: reports: No Symptoms Hematology/Lymphatic: reports: No Symptoms Physical Examination Vital Signs: Vital Signs Temperature 98.2 F 04/21/17 17:17 Pulse Rate 79 04/21/17 17:17 Respiratory Rate 18 04/21/17 17:17 Blood Pressure 132/82 04/21/17 17:17 O2 Sat by Pulse Oximetry (%) 95 04/21/17 17:17 Constitutional: Yes: Well Nourished, No Distress, Calm Eyes: Yes: Conjunctiva Clear, EOM Intact HENT: Yes: WNL Neck: Yes: Supple Cardiovascular: Yes: Regular Rate and Rhythm, S1, S2 Respiratory: Yes: Regular, CTA Bilaterally Gastrointestinal: Yes: Normal Bowel Sounds, Soft Renal/: Yes: WNL Breast(s): Yes: WNL Musculoskeletal: Yes: WNL Extremities: Yes: Other (left knee is swollen but without restriction of movement) Edema: No Peripheral Pulses WNL: Yes Integumentary: Yes: Bruising, Other (Left side of face shows hematoma and ecchymosis around the zygomatic area) Neurological: Yes: Alert, Oriented, Cran Nerves II-XII Intact ...Motor Strength: WNL Imaging - Results Chest X-ray: Report Reviewed Cat Scan: Report Reviewed EKG: Report Reviewed, Image Reviewed Problem List - Problems (1) Syncope Assessment/Plan: Elevated Ammonia level due to her cirrhosis may have contributed to her syncope Code(s): R55 - SYNCOPE AND COLLAPSE Qualifiers: Syncope type: unspecified Qualified Code(s): R55 - Syncope and collapse (2) Chest pain Assessment/Plan: Sternal area pain is due to non healing of sternotomy and had a plate inserted . Code(s): R07.9 - CHEST PAIN, UNSPECIFIED (3) HTN (hypertension) Code(s): I10 - ESSENTIAL (PRIMARY) HYPERTENSION (4) Head injury Assessment/Plan: CT scan of head is negative Code(s): S09.90XA - UNSPECIFIED INJURY OF HEAD, INITIAL ENCOUNTER (5) Liver cirrhosis Code(s): K74.60 - UNSPECIFIED CIRRHOSIS OF LIVER (6) Pancytopenia Code(s): D61.818 - OTHER PANCYTOPENIA (7) Primary sclerosing cholangitis Code(s): K83.0 - CHOLANGITIS Assessment/Plan Patient"s ammonia level is elevated and could have contributed to the syncope. Will get CT of Brain, cardiology consult and neuro evaluation.
[2017-04-21] MEDS ORDERED: LACTULOSE 20 GM/30 ML UDC (FOR ORAL USE ONLY) PO PRN (22:40)
[2017-04-22 07:50] LABS: BASOPHIL 0.7 % (0-2.0); EOSINOPHIL 2.4 % (0-4.5); MCHC 34.1 g/dl (32.0-36.0); MEAN CELL VOLUME 93.7 fl (80-96); MEAN PLT VOLUME 8.8 fl (7.5-11.1); NEUTROPHILS 61.8 % (42.8-82.8); PLATELET COUNT 76 K/MM3 (134-434); RDW 15.6 % (11.6-15.6); WHITE BLOOD COUNT 3.1 K/mm3 (4.0-10.0)
[2017-04-22] MEDS: URSODIOL 300 MG CAPSULE PO SCH ×2 (09:40→22:28)
[2017-04-22] MEDS: SPIRONOLACTONE 25 MG TABLET (FP) PO SCH (09:40)
--- NOTE | 2017-04-22 10:37 | CON.GI ---
Consult Consult Specialty:: Gastroenterology Referred by:: Dr. Hunter Reason for Consultation:: Syncope, h/o PBC - History of Present Illness Chief Complaint: Syncope without warning while pushing a shopping cart home. History of Present Illness: 76W with PBC and hepatic encephalopathy fell on a sidewalk walking home from shopping despite using a shopping cart. Has no recollection aside from awakening to neighbors coming to her aid. Encephalopathy and ascites have been under control but she has grown increasingly feeble. Denies headache, abdominal pain, melena or fevers. Currenty oriented x 3. Seen in office on 04/18 where we discussed need to consider moving in with one of her children. Last had EGD on that revealed no esophageal varices. Antral hyperplastic polyps were removed. Colonoscopy on 08/13/14 led to removal of 2 ileocecal valve, hepatic flexure and rectal adenomas and 3 mid-transverse colon hyperplastic polyps. Angiodysplasias were found in the cecum and mild diverticulosis was found in the left colon. She moves her bowel regularly with lactulose. She is s/p a bovine AVR. 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), Cholelithiasis Reproductive: Yes: Endometriosis - Past Surgical History Past Surgical History: Yes: Cataract Removal, Hysterectomy (TAHBSO - fibroids and endometriosis surgery woth postop renal failre), Valve Replacement (bovine aortic valve followed by a sternotomy metal plate and flap reconstruction) Additional Surgical History: Bunionectomy - Alcohol/Substance Use Hx Alcohol Use: No History of Substance Use: reports: None - Smoking History Smoking history: Never smoked Have you smoked in the past 12 months: No Aproximately how many cigarettes per day: 0 - Social History Usual Living Arrangement: Alone ADL: Independent Place of : Other ([place]) Came to [place]year[place] age 28 History of Recent Travel: No Home Medications - Allergies Allergies/Adverse Reactions: Allergies Allergy/AdvReac Type Severity Reaction Status Date / Time No Known Drug Allergies Allergy Verified 04/21/17 13:57 - Home Medications Home Medications: Ambulatory Orders Ascorbic Acid [Vitamin C] 100 mg PO DAILY 02/10/17 Cholecalciferol (Vitamin D3) [Vitamin D3 -] 1,000 unit PO DAILY 02/10/17 Cyanocobalamin (Vitamin B-12) [Vitamin B-12] 1,000 mcg PO DAILY 02/10/17 Iron,Carbonyl/Vit C/Vit B12/FA [Iron 100 Plus Tablet] 1 each PO DAILY 02/10/17 Metoprolol Succinate [Toprol XL -] 25 mg PO DAILY 02/10/17 Spironolactone 25 mg PO DAILY 02/10/17 Ursodiol [Actigal -] 300 mg PO TID 02/10/17 Zolpidem Tartrate [Ambien] 5 mg PO DAILY 02/10/17 Latanoprost 0.005% Eye Drops [Xalatan 0.005% Eye Drops -] 1 drop OU HS 02/11/17 Family Disease History - Family Disease History Family Disease History: Heart Disease: Father ( 87 of [place]), Brother ( [place]) , Other: Mother ( 22 unknown reasons) Other Family History: cousins with breast and GI cancers Review of Systems - Review of Systems Constitutional: reports: Weakness Eyes: reports: No Symptoms HENT: reports: No Symptoms Neck: reports: No Symptoms Cardiovascular: reports: No Symptoms Respiratory: reports: No Symptoms Gastrointestinal: reports: Bloating Genitourinary: reports: No Symptoms Neurological: reports: Syncope, Weakness Hematology/Lymphatic: reports: No Symptoms Physical Exam-GI Vital Signs: Vital Signs Temperature 98.8 F 04/22/17 05:55 Pulse Rate 77 04/22/17 05:55 Respiratory Rate 16 04/22/17 05:55 Blood Pressure 113/78 04/22/17 05:55 O2 Sat by Pulse Oximetry (%) 98 04/21/17 21:00 Current Medications Generic Name Dose Route Start Last Admin Trade Name Freq PRN Reason Stop Dose Admin Lactulose 20 gm 04/21/17 22:40 Cephulac (Oral Use) PO TID PRN CONSTIPATION Spironolactone 25 mg 04/22/17 10:00 04/22/17 09:40 Aldactone - PO 25 mg DAILY LINA Administration Ursodiol 300 mg 04/22/17 10:00 04/22/17 09:40 Actigal - PO 300 mg BID LINA Administration CBC,CMP WBC 3.1 K/mm3 (4.0-10.0) L 04/22/17 05:35 RBC 3.64 M/mm3 (3.60-5.2) 04/22/17 05:35 Hgb 11.6 GM/dL (10.7-15.3) 04/22/17 05:35 Hct 34.1 % (32.4-45.2) 04/22/17 05:35 MCV 93.7 fl (80-96) 04/22/17 05:35 MCHC 34.1 g/dl (32.0-36.0) 04/22/17 05:35 RDW 15.6 % (11.6-15.6) 04/22/17 05:35 Plt Count 76 K/MM3 (134-434) L 04/22/17 05:35 MPV 8.8 fl (7.5-11.1) 04/22/17 05:35 Neutrophils % 61.8 % (42.8-82.8) 04/22/17 05:35 Lymphocytes % 26.2 % (8-40) D 04/22/17 05:35 Monocytes % 8.9 % (3.8-10.2) 04/22/17 05:35 Eosinophils % 2.4 % (0-4.5) 04/22/17 05:35 Basophils % 0.7 % (0-2.0) 04/22/17 05:35 Sodium 141 mmol/L (136-145) 04/21/17 15:15 Potassium 4.3 mmol/L (3.5-5.1) 04/21/17 15:15 Chloride 105 mmol/L (98-107) 04/21/17 15:15 Carbon Dioxide 25 mmol/L (21-32) 04/21/17 15:15 Anion Gap 11 (8-16) 04/21/17 15:15 BUN 14 mg/dL (7-18) 04/21/17 15:15 Creatinine 0.7 mg/dL (0.55-1.02) D 04/21/17 15:15 Creat Clearance w eGFR > 60 (>60) 04/21/17 15:15 Random Glucose 118 mg/dL (74-106) H 04/21/17 15:15 Calcium 8.1 mg/dL (8.5-10.1) L 04/21/17 15:15 Total Bilirubin 3.3 mg/dL (0.2-1.0) H D 04/21/17 15:15 AST 91 U/L (15-37) H 04/21/17 15:15 ALT 45 U/L (12-78) 04/21/17 15:15 Alkaline Phosphatase 366 U/L (45-117) H 04/21/17 15:15 Ammonia 58.09 umol/L (11-32) H 04/21/17 16:36 Creatine Kinase 125 IU/L (26-192) 04/21/17 15:15 Troponin I 0.10 ng/ml (0.00-0.05) H 04/21/17 15:15 Total Protein 7.4 g/dl (6.4-8.2) 04/21/17 15:15 Albumin 2.4 g/dl (3.4-5.0) L 04/21/17 15:15 Constitutional: Yes: Calm Eyes: Yes: Conjunctiva Clear, EOM Intact HENT: Yes: Normocephalic, Other (left facial and periorbital ecchymoses) Neck: Yes: Trachea Midline Cardiovascular: Yes: Regular Rate and Rhythm, Other (palpable nonunion of median sternotomy inicsion) Respiratory: Yes: CTA Bilaterally Gastrointestinal Inspection: Yes: Distention (softky), Other (prominent venous pattern) ...Auscultate: Yes: Normoactive Bowel Sounds ...Palpate: Yes: Soft, Other ...Rectal Exam: Yes: Deferred Extremities: Yes: Other (LUE ecchymoses) Neurological: Yes: Alert, Oriented, Other (slight delay in responses) Labs: CBC, BMP 04/22/17 05:35 INR, PTT INR 1.24 (0.82-1.09) H 04/21/17 15:16 Laboratory Tests 05/21/17 05/21/17 05/21/17 15:15 15:16 16:36 WBC Hgb Plt Count INR 1.24 H BUN 14 Creatinine 0.7 D Total Bilirubin 3.3 H D Alkaline Phosphatase 366 H Ammonia 58.09 H Albumin 2.4 L 04/22/17 05:35 WBC 3.1 L Hgb 11.6 Plt Count 76 L INR BUN Creatinine Total Bilirubin Alkaline Phosphatase Ammonia Albumin Problem List - Problems (1) Primary sclerosing cholangitis Code(s): 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 - CHOLANGITIS (2) Primary biliary cirrhosis Code(s): K74.3 - PRIMARY BILIARY CIRRHOSIS (3) Ascites Code(s): R18.8 - OTHER ASCITES (4) Thrombocytopenia Code(s): D69.6 - THROMBOCYTOPENIA, UNSPECIFIED (5) H/O aortic valve replacement with tissue graft Code(s): Z95.4 - PRESENCE OF OTHER HEART-VALVE REPLACEMENT (6) Hepatic encephalopathy Code(s): K72.90 - HEPATIC FAILURE, UNSPECIFIED WITHOUT COMA (7) Colon adenomas Code(s): D12.6 - BENIGN NEOPLASM OF COLON, UNSPECIFIED (8) Angiodysplasia of cecum Code(s): K55.20 - ANGIODYSPLASIA OF COLON WITHOUT HEMORRHAGE (9) Diverticulosis Code(s): K57.90 - DVRTCLOS OF INTEST, PART UNSP, W/O PERF OR ABSCESS W/O BLEED (10) Hiatal hernia with GERD Code(s): K21.9 - GASTRO-ESOPHAGEAL REFLUX DISEASE WITHOUT ESOPHAGITIS K44.9 - DIAPHRAGMATIC HERNIA WITHOUT OBSTRUCTION OR GANGRENE (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 Her lack of recall of the event however requires investigation of other possibilities. I have previously advised that she consider living with one of her children. A Ca 19.9 and AFP are pending from a recent outpatient draw but I will get an MRI to screen for cholangiocarcinoma and hepatoma. Will continue Lactulose and diuretics. Will get stools for occult blood.
--- NOTE | 2017-04-22 14:07 | EKG ---
Test Reason : Blood Pressure : / mmHG Vent. Rate : 070 BPM Atrial Rate : 070 BPM P-R Int : 182 ms QRS Dur : 084 ms QT Int : 430 ms P-R-T Axes : 030 -44 052 degrees QTc Int : 464 ms NORMAL SINUS RHYTHM LEFT AXIS DEVIATION ANTERIOR INFARCT (CITED ON OR BEFORE 10-FEB-2017) POOR R WAVE PROGRESSION ABNORMAL ECG WHEN COMPARED WITH ECG OF 10-FEB-2017 19:48, PREMATURE ATRIAL COMPLEXES ARE NO LONGER PRESENT Confirmed by WALDEMAR FITZGERALD MD ([id number]) on 04/22/2017 2:06:38 PM Referred By: Confirmed By:WALDEMAR FITZGERALD MD
--- NOTE | 2017-04-22 14:25 | PDOC ---
*Physical Exam - Vital Signs Last Vital Signs Temp Pulse Resp BP Pulse Ox 97.4 F L 78 22 121/75 97 04/22/17 10:00 04/22/17 10:00 04/22/17 10:00 04/22/17 10:00 04/22/17 09:00 ED Treatment Course - LABORATORY CBC & Chemistry Diagram: 04/22/17 05:35 04/21/17 15:15 - ADDITIONAL ORDERS Additional order review: 04/21/17 15:16 RBC 3.94 MCV 94.2 MCHC 34.0 RDW 15.9 H D MPV 8.5 Neutrophils % 69.4 Lymphocytes % 20.6 D Monocytes % 6.9 Eosinophils % 2.2 D Basophils % 0.9 - RADIOLOGY Radiology Studies Ordered: Category Date Time Status HEAD CT WITHOUT CONTRAST [CT] Stat CT Scan 04/21/17 14:24 Completed CHEST X-RAY PORTABLE* [RAD] Stat Radiology 04/21/17 14:24 Completed WRIST-LEFT [RAD] Stat Radiology 04/21/17 14:24 Taken - Medications Given in the ED: ED Medications Discontinued Medications Generic Name Dose Route Start Last Admin Trade Name Freq PRN Reason Stop Dose Admin Acetaminophen 650 mg 04/21/17 14:26 04/21/17 15:00 Tylenol - PO 04/21/17 14:27 650 mg ONCE ONE Administration Diphtheria/Tetanus/Acell Pertussis 0.5 ml 04/21/17 14:26 04/21/17 15:00 Boostrix - IM 04/21/17 14:27 0.5 ml .ONCE ONE Administration Ceftriaxone Sodium 1 gm/ 50 mls @ 100 mls/hr 04/21/17 16:19 04/21/17 17:00 Dextrose IVPB 04/21/17 16:48 100 mls/hr ONCE ONE Administration Lactulose 20 gm 04/21/17 18:16 04/21/17 18:45 Cephulac (Oral Use) PO 04/21/17 18:17 20 gm ONCE ONE Administration Medical Decision Making - Medical Decision Making 04/22/17 14:25 Received phone call from radiology about likely fx on wrist xray. This was discussed with DR. Bauman who is aware of the findings. *DC/Admit/Observation/Transfer Diagnosis at time of Disposition: Syncope Qualifiers: Syncope type: unspecified Qualified Code(s): R55 - Syncope and collapse UTI (urinary tract infection) Qualifiers: Urinary tract infection type: acute cystitis Hematuria presence: without hematuria Qualified Code(s): N30.00 - Acute cystitis without hematuria - Discharge Dispostion Condition at time of disposition: Stable
--- NOTE | 2017-04-22 14:34 | CON.CARD ---
Consult Reason for Consultation:: syncope - History of Present Illness History of Present Illness: The patient is a 76 year old female with a significant past medical history of hypertension and liver psoriasis who presents to the ED s/p fall earlier today. The patient reports she was walking back home from the grocery store with her cart full of shopping bags and woke up on the floor on the sidewalk. Patient does not recall falling and reports a loss of consciousness. Patient is unable to report how long she was on the floor for. She reports pain to her right hand and left sided facial injury and swelling. Denies headache or neck pain. Denies focal numbness, weakness, or tingling. Denies any other symptoms. Surgical hx: Bovine valve replacement PMH AVR Magna Ease # [address] 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 and hepatic encephalopathy) Cardio/Vascular: Yes: Aortic Stenosis (led to bioprosthetic AoVR), CHF, HTN, Murmur Pulmonary: Yes: Previously Intubated Gastrointestinal: Yes: Diverticulosis, GERD (with hiatal hernia), GI Bleed, Other (colon serrated and tubular adenomas 2013, gastric hyperplastic polyps removed 2013, cecal angiodysplasias) Hepatobiliary: Yes: Cirrhosis (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), Cholelithiasis - Past Surgical History Past Surgical History: Yes: Cataract Removal, Hysterectomy (TAHBSO - fibroids and endometriosis surgery woth postop renal failre), Valve Replacement (bovine aortic valve followed by a sternotomy metal plate and flap reconstruction) Additional Surgical History: Bunionectomy - Alcohol/Substance Use Hx Alcohol Use: No History of Substance Use: reports: None - Smoking History Smoking history: Never smoked Have you smoked in the past 12 months: No Aproximately how many cigarettes per day: 0 - Social History Usual Living Arrangement: Alone ADL: Independent History of Recent Travel: No Home Medications - Allergies Allergies/Adverse Reactions: Allergies Allergy/AdvReac Type Severity Reaction Status Date / Time No Known Drug Allergies Allergy Verified 04/21/17 13:57 - Home Medications Home Medications: Ambulatory Orders Ascorbic Acid [Vitamin C] 100 mg PO DAILY 02/10/17 Cholecalciferol (Vitamin D3) [Vitamin D3 -] 1,000 unit PO DAILY 02/10/17 Cyanocobalamin (Vitamin B-12) [Vitamin B-12] 1,000 mcg PO DAILY 02/10/17 Iron,Carbonyl/Vit C/Vit B12/FA [Iron 100 Plus Tablet] 1 each PO DAILY 02/10/17 Metoprolol Succinate [Toprol XL -] 25 mg PO DAILY 02/10/17 Spironolactone 25 mg PO DAILY 02/10/17 Ursodiol [Actigal -] 300 mg PO TID 02/10/17 Zolpidem Tartrate [Ambien] 5 mg PO DAILY 02/10/17 Latanoprost 0.005% Eye Drops [Xalatan 0.005% Eye Drops -] 1 drop OU HS 02/11/17 Family Disease History - Family Disease History Family Disease History: Heart Disease: Father ( 87 of [place]), Brother ( [place]) , Other: Mother ( 22 unknown reasons) Other Family History: cousins with breast and GI cancers Review of Systems - Review of Systems Constitutional: reports: No Symptoms Eyes: reports: No Symptoms HENT: reports: No Symptoms Neck: reports: No Symptoms Cardiovascular: reports: No Symptoms Gastrointestinal: reports: No Symptoms Genitourinary: reports: No Symptoms Breasts: reports: No Symptoms Reported Musculoskeletal: reports: No Symptoms Integumentary: reports: No Symptoms Neurological: reports: Syncope Endocrine: reports: No Symptoms Hematology/Lymphatic: reports: No Symptoms Psychiatric: reports: No Symptoms Vital Signs: Vital Signs Temperature 97.4 F L 04/22/17 10:00 Pulse Rate 78 04/22/17 10:00 Respiratory Rate 22 04/22/17 10:00 Blood Pressure 121/75 04/22/17 10:00 O2 Sat by Pulse Oximetry (%) 97 04/22/17 09:00 Constitutional: Yes: Well Nourished, No Distress, Calm Eyes: Yes: WNL, Conjunctiva Clear, EOM Intact HENT: Yes: WNL, Atraumatic, Normocephalic Neck: Yes: WNL, Supple, Trachea Midline Respiratory: Yes: WNL, Regular, CTA Bilaterally Gastrointestinal: Yes: WNL, Normal Bowel Sounds Renal/: Yes: WNL Cardiovascular: Yes: WNL, Regular Rate and Rhythm Musculoskeletal: Yes: WNL Extremities: Yes: WNL Integumentary: Yes: WNL Neurological: Yes: WNL, Alert, Oriented ...Motor Strength: WNL Psychiatric: Yes: WNL, Alert, Oriented - Other Data Labs, Other Data: CBC, BMP 04/22/17 05:35 INR, PTT INR 1.24 (0.82-1.09) H 04/21/17 15:16 Imaging - Results Chest X-ray: Image Reviewed (no i/e) EKG: Image Reviewed (nsr ant wall mi) Problem List - Problems (1) Angiodysplasia of cecum Code(s): K55.20 - ANGIODYSPLASIA OF COLON WITHOUT HEMORRHAGE (2) Ascites Code(s): R18.8 - OTHER ASCITES (3) 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 (4) Colon adenomas Code(s): D12.6 - BENIGN NEOPLASM OF COLON, UNSPECIFIED (5) Diverticulosis Code(s): K57.90 - DVRTCLOS OF INTEST, PART UNSP, W/O PERF OR ABSCESS W/O BLEED (6) H/O aortic valve replacement with tissue graft Code(s): Z95.4 - PRESENCE OF OTHER HEART-VALVE REPLACEMENT (7) Hepatic encephalopathy Code(s): K72.90 - HEPATIC FAILURE, UNSPECIFIED WITHOUT COMA (8) Hiatal hernia with GERD Code(s): K21.9 - GASTRO-ESOPHAGEAL REFLUX DISEASE WITHOUT ESOPHAGITIS K44.9 - DIAPHRAGMATIC HERNIA WITHOUT OBSTRUCTION OR GANGRENE (9) Primary biliary cirrhosis Code(s): K74.3 - PRIMARY BILIARY CIRRHOSIS (10) Syncope Code(s): R55 - SYNCOPE AND COLLAPSE Qualifiers: Syncope type: unspecified Qualified Code(s): R55 - Syncope and collapse (11) Thrombocytopenia Code(s): D69.6 - THROMBOCYTOPENIA, UNSPECIFIED (12) UTI (urinary tract infection) Code(s): N39.0 - URINARY TRACT INFECTION, SITE NOT SPECIFIED Qualifiers: Urinary tract infection type: acute cystitis Hematuria presence: without hematuria Qualified Code(s): N30.00 - Acute cystitis without hematuria (13) Bronchitis Code(s): J40 - BRONCHITIS, NOT SPECIFIED ACUTE OR CHRONIC (14) Chest pain Code(s): R07.9 - CHEST PAIN, UNSPECIFIED (15) Depression Code(s): F32.9 - MAJOR DEPRESSIVE DISORDER, SINGLE EPISODE, UNSPECIFIED Qualifiers: Depression Type: other depression Qualified Code(s): F32.89 - Other specified depressive episodes (16) Diastolic CHF Code(s): I50.30 - UNSPECIFIED DIASTOLIC (CONGESTIVE) HEART FAILURE (17) Elevated troponin Code(s): R79.89 - OTHER SPECIFIED ABNORMAL FINDINGS OF BLOOD CHEMISTRY (18) FTT (failure to thrive) in adult Code(s): R62.7 - ADULT FAILURE TO THRIVE (19) H/O prosthetic aortic valve replacement Code(s): Z95.2 - PRESENCE OF PROSTHETIC HEART VALVE (20) HIV (human immunodeficiency virus infection) Code(s): Z21 - ASYMPTOMATIC HUMAN IMMUNODEFICIENCY VIRUS INFECTION STATUS (21) HTN (hypertension) Code(s): I10 - ESSENTIAL (PRIMARY) HYPERTENSION (22) Head injury Code(s): S09.90XA - UNSPECIFIED INJURY OF HEAD, INITIAL ENCOUNTER (23) Head trauma Code(s): S09.90XA - UNSPECIFIED INJURY OF HEAD, INITIAL ENCOUNTER Qualifiers: Encounter type: initial encounter Qualified Code(s): S09.90XA - Unspecified injury of head, initial encounter (24) Laceration Code(s): T14.8 - OTHER INJURY OF UNSPECIFIED BODY REGION (25) Liver cirrhosis Code(s): K74.60 - UNSPECIFIED CIRRHOSIS OF LIVER (26) Pancytopenia Code(s): D61.818 - OTHER PANCYTOPENIA (27) Primary sclerosing cholangitis Code(s): K83.0 - CHOLANGITIS (28) SOB (shortness of breath) Code(s): R06.02 - SHORTNESS OF BREATH (30) Traumatic ecchymosis of face Code(s): S00.83XA - CONTUSION OF OTHER PART OF HEAD, INITIAL ENCOUNTER Qualifiers: Encounter type: initial encounter Qualified Code(s): S00.83XA - Contusion of other part of head, initial encounter Assessment/Plan s/p avr primary bilary cirrhosis elevated [place] levels syncope Plan gi w/u cardiac evaluation telemetry c.duplex monitor BP
--- NOTE | 2017-04-22 20:37 | PN ---
Progress Note, Physician History of Present Illness: Post head injury and syncope. Denies any headache, Was found to have fracture of left wrist, wrist has been immobilized and will be seen by . - Current Medication List Current Medications: Active Medications Lactulose (Cephulac (Oral Use)) 20 gm PO TID PRN PRN Reason: CONSTIPATION Spironolactone (Aldactone -) 25 mg PO DAILY ON LICENSE OF [facility] Last Admin: 04/22/17 09:40 Dose: 25 mg Ursodiol (Actigal -) 300 mg PO BID ON LICENSE OF [facility] Last Admin: 04/22/17 09:40 Dose: 300 mg - Objective Vital Signs: Vital Signs Temperature 98.0 F 04/22/17 17:00 Pulse Rate 85 04/22/17 17:00 Respiratory Rate 18 04/22/17 17:00 Blood Pressure 130/70 04/22/17 17:00 O2 Sat by Pulse Oximetry (%) 97 04/22/17 09:00 Constitutional: Yes: No Distress, Calm Eyes: Yes: Conjunctiva Clear, EOM Intact HENT: Yes: WNL Neck: Yes: Supple Cardiovascular: Yes: Regular Rate and Rhythm, S1, S2 Respiratory: Yes: Regular, CTA Bilaterally Gastrointestinal: Yes: Normal Bowel Sounds, Soft Genitourinary: Yes: WNL Musculoskeletal: Yes: WNL Extremities: Yes: Other (left wrist fracture which has to be evluated by ortho ) Peripheral Pulses WNL: Yes Integumentary: Yes: Bruising Neurological: Yes: Alert, Oriented, Cran Nerves II-XII Intact ...Motor Strength: WNL Psychiatric: Yes: Alert, Oriented Labs: CBC, BMP 04/22/17 05:35 INR, PTT INR 1.24 (0.82-1.09) H 04/21/17 15:16 Problem List - Problems (1) Syncope Code(s): R55 - SYNCOPE AND COLLAPSE Qualifiers: Syncope type: unspecified Qualified Code(s): R55 - Syncope and collapse (2) Chest pain Code(s): R07.9 - CHEST PAIN, UNSPECIFIED (3) HTN (hypertension) Code(s): I10 - ESSENTIAL (PRIMARY) HYPERTENSION (4) Head injury Code(s): S09.90XA - UNSPECIFIED INJURY OF HEAD, INITIAL ENCOUNTER (5) Liver cirrhosis Code(s): K74.60 - UNSPECIFIED CIRRHOSIS OF LIVER (6) Pancytopenia Code(s): D61.818 - OTHER PANCYTOPENIA (7) Primary sclerosing cholangitis Code(s): K83.0 - CHOLANGITIS (8) Fracture of wrist Assessment/Plan: Appears to be nondisplaced Code(s): S62.109A - FRACTURE OF UNSP CARPAL BONE, UNSP WRIST, INIT FOR CLOS FX (9) Hepatic encephalopathy Assessment/Plan: Since admission she has been alert and has been on Lactulose Code(s): K72.90 - HEPATIC FAILURE, UNSPECIFIED WITHOUT COMA Assessment/Plan Will require help at home and will get VNS. Will discharge in AM if ok with
[2017-04-23 07:46] LABS: BASOPHIL 0.7 % (0-2.0); EOSINOPHIL 3.3 % (0-4.5); MCH 32.1 pg (25.7-33.7); MCHC 34.2 g/dl (32.0-36.0); NEUTROPHILS 58.4 % (42.8-82.8); PLATELET COUNT 75 K/MM3 (134-434); RDW 16.1 % (11.6-15.6); WHITE BLOOD COUNT 2.9 K/mm3 (4.0-10.0)
[2017-04-23 08:31] LABS: ALBUMIN 2.2 g/dl (3.4-5.0); ALK PHOS 347 U/L (45-117); ANION GAP 9 (8-16); BILIRUBIN,DIRECT 2.6 mg/dL (0.0-0.2); BILIRUBIN,TOTAL 3.2 mg/dL (0.2-1.0); CALCIUM 8.3 mg/dL (8.5-10.1); CO2 25 mmol/L (21-32); CREATININE 0.4 mg/dL (0.55-1.02); GLUCOSE,RANDOM 107 mg/dL (74-106); LDH 188 U/L (84-246); SGOT/AST 79 U/L (15-37); SGPT/ALT 40 U/L (12-78); TOT PROT 6.7 g/dl (6.4-8.2)
[2017-04-23] MEDS: LACTULOSE 20 GM/30 ML UDC (FOR ORAL USE ONLY) PO SCH ×2 (10:39→15:06)
[2017-04-23] MEDS: URSODIOL 300 MG CAPSULE PO SCH (10:39)
[2017-04-23] MEDS: SPIRONOLACTONE 25 MG TABLET (FP) PO SCH (10:39)
--- NOTE | 2017-04-23 13:33 | PN ---
Progress Note, Physician History of Present Illness: The patient is a 76 year old female with a significant past medical history of hypertension and liver cirrhosis who presents to the ED s/p fall earlier today. The patient reports she was walking back home from the grocery store with her cart full of shopping bags and woke up on the floor on the sidewalk. Patient does not recall falling and reports a loss of consciousness. Patient is unable to report how long she was on the floor for. She reports pain to her right hand and left sided facial injury and swelling. Denies headache or neck pain. Denies focal numbness, weakness, or tingling. Denies any other symptoms. Surgical hx: Bovine valve replacement - Current Medication List Current Medications: Active Medications Lactulose (Cephulac (Oral Use)) 20 gm PO TID [facility] Last Admin: 04/23/17 10:39 Dose: 20 gm Spironolactone (Aldactone -) 25 mg PO DAILY [facility] Last Admin: 04/23/17 10:39 Dose: 25 mg Ursodiol (Actigal -) 300 mg PO BID [facility] Last Admin: 04/23/17 10:39 Dose: 300 mg - Objective Vital Signs: Vital Signs Temperature 98 F 04/23/17 10:13 Pulse Rate 84 04/23/17 10:13 Respiratory Rate 18 04/23/17 10:13 Blood Pressure 120/70 04/23/17 10:13 O2 Sat by Pulse Oximetry (%) 97 04/23/17 09:00 Labs: CBC, BMP 04/23/17 05:40 04/23/17 05:40 INR, PTT INR 1.24 (0.82-1.09) H 04/21/17 15:16 Problem List - Problems (1) Ascites Code(s): R18.8 - OTHER ASCITES (2) Diverticulosis Code(s): K57.90 - DVRTCLOS OF INTEST, PART UNSP, W/O PERF OR ABSCESS W/O BLEED (3) H/O aortic valve replacement with tissue graft Code(s): Z95.4 - PRESENCE OF OTHER HEART-VALVE REPLACEMENT (4) Hepatic encephalopathy Code(s): K72.90 - HEPATIC FAILURE, UNSPECIFIED WITHOUT COMA (5) Primary biliary cirrhosis Code(s): K74.3 - PRIMARY BILIARY CIRRHOSIS (6) Syncope Code(s): R55 - SYNCOPE AND COLLAPSE Qualifiers: Syncope type: unspecified Qualified Code(s): R55 - Syncope and collapse (7) Thrombocytopenia Code(s): D69.6 - THROMBOCYTOPENIA, UNSPECIFIED (8) Diastolic CHF Code(s): I50.30 - UNSPECIFIED DIASTOLIC (CONGESTIVE) HEART FAILURE (9) HTN (hypertension) Code(s): I10 - ESSENTIAL (PRIMARY) HYPERTENSION (10) SOB (shortness of breath) Code(s): R06.02 - SHORTNESS OF BREATH (11) Traumatic ecchymosis of face Code(s): S00.83XA - CONTUSION OF OTHER PART OF HEAD, INITIAL ENCOUNTER Qualifiers: Encounter type: initial encounter Qualified Code(s): S00.83XA - Contusion of other part of head, initial encounter
[2017-04-23 15:32] VITALS: BP 112/70; PULSE 71; TEMP 98.2
[2017-04-23 16:12] LABS: CHOLESTEROL 142 mg/dL (50-200); LDL CHOLESTEROL (ONLY SJRH) 102 mg/dL (5-100)
--- NOTE | 2017-04-23 16:39 | PN ---
Progress Note (short form) - Note Progress Note: Pt is a 76 year old F who fell 2 days ago, injuring her left hand and wrist. She came through the ER, she is in a wrist splint, her pain is tolerable. JOSHUA RODARTE is NVI + bruised over dorsum of the left hand + tender over the hand and wrist, nonspecific Intact ROM, somewhat limited because of pain Xrays Show a non displaced left 5th midshaft Metacarpal fracture Imp As above Rec Wrist splint is already in place. No cast, surgery or closed reduction needed Can DC from an ortho POV, f/u in 1 week as an out patient
== END 2017-04-23 19:14 | disposition home or self-care (01) | DRG 442 ==
LOC: JER 13:46 → JERBED 16:30 → J4W 18:33
PROVIDERS: ADMIT Internal Medicine Hematology & Oncology; ATTEND Internal Medicine Hematology & Oncology
DX: K72.90 Hepatic failure, unspecified without coma (principal); K83.0 Cholangitis; R18.8 Other ascites; N39.0 Urinary tract infection, site not specified; D61.818 Other pancytopenia; R55 Syncope and collapse; I10 Essential (primary) hypertension; R07.9 Chest pain, unspecified; K21.9 Gastro-esophageal reflux disease without esophagitis
CPT/HCPCS: 36415; 70450-TC; 71010-TC; 73110-TC-LT; 74182-TC; 80053; 80061; 81003; 81015; 82105; 82140; 82248; 82550; 82977; 83615; 83721; 84484; 85025; 85044; 85610; 85730; 86301; 90715; 93005; 93010; 93880-TC; 97116-GP; 97161-GP; 99285-25; A9576

== ENCOUNTER 2017-05-21 14:06 | Emergency (ER) | payer OTHER ==
[2017-05-21 14:22] VITALS: TEMP 98.7; BMI 26.7
[2017-05-21] MEDS ORDERED: ACETAMINOPHEN INJECTION 100 ML IVPB ONE (15:38)
[2017-05-21] MEDS ORDERED: ACETAMINOPHEN 1000 MG/100 ML VIAL (NON FORMULARY) IVPB ONE (16:09)
[2017-05-21 16:26] LABS: BASOPHIL 0.6 % (0-2.0); EOSINOPHIL 1.2 % (0-4.5); MCH 32.4 pg (25.7-33.7); MCHC 33.8 g/dl (32.0-36.0); MEAN CELL VOLUME 95.7 fl (80-96); MEAN PLT VOLUME 9.4 fl (7.5-11.1); NEUTROPHILS 71.3 % (42.8-82.8); PLATELET COUNT 84 K/MM3 (134-434); RDW 15.6 % (11.6-15.6); WHITE BLOOD COUNT 4.1 K/mm3 (4.0-10.0)
[2017-05-21 16:30] LABS: INR 1.29 (0.82-1.09); PROTHROMBIN TIME (PATIENT) 14.3 SEC (9.98-11.88)
[2017-05-21 16:33] LABS: ALBUMIN 2.5 g/dl (3.4-5.0); ALK PHOS 298 U/L (45-117); ANION GAP 9 (8-16); BILIRUBIN,TOTAL 3.4 mg/dL (0.2-1.0); CALCIUM 8.5 mg/dL (8.5-10.1); CO2 26 mmol/L (21-32); CREATININE 0.5 mg/dL (0.55-1.02); GLUCOSE,RANDOM 123 mg/dL (74-106); MAGNESIUM 1.6 mg/dL (1.8-2.4); SGOT/AST 78 U/L (15-37); SGPT/ALT 39 U/L (12-78); TOT PROT 7.7 g/dl (6.4-8.2)
[2017-05-21 16:35] LABS: TROPONIN I 0.08 ng/ml (0.00-0.05)
[2017-05-21] MEDS ORDERED: MAGNESIUM SULF 50% (8.12 MEQ/2 ML-1 GM VIAL) IVPB ONE (17:02)
--- NOTE | 2017-05-21 17:07 | PDOC ---
History of Present Illness - General Chief Complaint: Injury Stated Complaint: FALL Time Seen by Provider: 05/21/17 14:09 History Source: Patient Exam Limitations: No Limitations - History of Present Illness Initial Comments: 05/21/17 17:02 76-year-old female presents to the emergency room for evaluation of status post fall. Patient states was walking up the steps when she missed a step causing her to fall down 6 steps that were carpeted. Patient states no LOC but had to crawl her knees until a neighbor heard her by the front door. Patient states didn't strike her head but denies any anticoagulation therapy. Patient states is currently on lactulose which causes her to be dehydrated due to diarrhea. Patient states has had no fever, chills, cough, chest pain, shortness of breath or increased lower extremity edema. Patient states normal bowel movement including normal urine pattern. Occurred: reports: just prior to arrival Severity: reports: moderate Pain Location: reports: head Method of Injury: Yes: direct blow Modifying Factors: improves with: None Loss of Consciousness: no loss of consciousness Associated Symptoms (Fall): headache (rt posterior) Past History - Travel Traveled outside of the country in the last 30 days: No Close contact w/someone who was outside of country & ill: No - Past Medical History Allergies/Adverse Reactions: Allergies Allergy/AdvReac Type Severity Reaction Status Date / Time No Known Drug Allergies Allergy Verified 05/21/17 14:19 Home Medications: Ambulatory Orders Ascorbic Acid [Vitamin C] 100 mg PO DAILY 02/10/17 Cholecalciferol (Vitamin D3) [Vitamin D3 -] 1,000 unit PO DAILY 02/10/17 Cyanocobalamin (Vitamin B-12) [Vitamin B-12] 1,000 mcg PO DAILY 02/10/17 Iron,Carbonyl/Vit C/Vit B12/FA [Iron 100 Plus Tablet] 1 each PO DAILY 02/10/17 Metoprolol Succinate [Toprol XL -] 25 mg PO DAILY 02/10/17 Spironolactone 25 mg PO DAILY 02/10/17 Ursodiol [Actigal -] 300 mg PO TID 02/10/17 Zolpidem Tartrate [Ambien] 5 mg PO DAILY 02/10/17 Latanoprost 0.005% Eye Drops [Xalatan 0.005% Eye Drops -] 1 drop OU HS 02/11/17 Lactulose (Oral Use) [Cephulac -] 20 gm PO TID #1 bottle 04/23/17 Unobtainable 05/21/17 Anemia: No Asthma: No Cancer: No Cardiac Disorders: Yes CVA: No COPD: No CHF: No Dementia: No Diabetes: No GI Disorders: Yes (POLYPS) Disorders: No HTN: Yes Hypercholesterolemia: No HIV: Yes Liver Disease: Yes (LIVER CIRRHOSIS) Seizures: No Thyroid Disease: No - Surgical History Abdominal Surgery: No Appendectomy: No Cardiac Surgery: Yes (aortic valve replacement 2013) Cholecystectomy: No Lung Surgery: No Neurologic Surgery: No Orthopedic Surgery: No - Immunization History Immunization Up to Date: Yes - Psycho/Social/Smoking Cessation Hx Anxiety: No Suicidal Ideation: No Smoking History: Never smoked Have you smoked in the past 12 months: No Number of Cigarettes Smoked Daily: 0 Cigars Per Day: 0 Hx Alcohol Use: No Drug/Substance Use Hx: No Substance Use Type: None Hx Substance Use Treatment: No Patient Lives Alone: Yes Lives with/in: lives alone Review of Systems - Review of Systems Able to Perform ROS?: Yes Constitutional: No: Symptoms Reported HEENTM: No: Symptoms Reported Respiratory: No: Symptoms reported Cardiac (ROS): No: Symptoms Reported ABD/GI: No: Symptoms Reported : No: Symptoms Reported Musculoskeletal: No: Back Pain, Neck Pain Integumentary: Yes: Lumps Neurological: Yes: Headache. No: Weakness, Dizziness Hematologic/Lymphatic: Yes: See HPI *Physical Exam - Vital Signs Last Vital Signs Temp Pulse Resp BP Pulse Ox 98.7 F 74 16 129/76 95 05/21/17 14:05/21/17 14:05/21/17 14:05/21/17 14:05/21/17 14:30 - Physical Exam General Appearance: Yes: Nourished, Appropriately Dressed. No: Apparent Distress HEENT: positive: EOMI, LE, TMs Normal, Pharynx Normal (dry). negative: Pale Conjunctivae Neck: positive: Supple. negative: Tender, Decreased range of motion (unable to assess due to c-collar), Tender midline Respiratory/Chest: positive: Chest Tender (right seventh and eighth ribs lateral of the midclavicular line.No crepitus no ecchymosis), Lungs Clear, Normal Breath Sounds. negative: Respiratory Distress, Accessory Muscle Use Cardiovascular: positive: Regular Rhythm, Regular Rate. negative: Murmur Vascular Pulses: Dorsalis-Pedis (R): 2+, Doralis-Pedis (L): 2+ Gastrointestinal/Abdominal: positive: Soft. negative: Tenderness Musculoskeletal: negative: CVA Tenderness, Vertebral Tenderness Extremity: positive: Normal Capillary Refill. negative: Pedal Edema Integumentary: positive: Other (hematoma noted to the right occipital region with 2 cm laceration) Neurologic: positive: Normal Mood/Affect, Motor Strength 5/5 (moves all extremeties actively) Procedures - Laceration/Wound Repair Right Occipital Wound Length: to 2.5 cm Wound Explored: clean Wound's Depth, Shape: superficial, linear Irrigated w/ Saline: Yes Betadine Prep: Yes Wound Repaired With: Jermaine (3) Sterile Dressing Applied: Yes ED Treatment Course - LABORATORY CBC & Chemistry Diagram: 05/21/17 15:30 05/21/17 15:30 - ADDITIONAL ORDERS Additional order review: Laboratory Results 05/21/17 15:30 Sodium 139 Potassium 4.4 Chloride 104 Carbon Dioxide 26 Anion Gap 9 BUN 14 Creatinine 0.5 L D Creat Clearance w eGFR > 60 Random Glucose 123 H Calcium 8.5 Magnesium 1.6 L D Total Bilirubin 3.4 H AST 78 H ALT 39 Alkaline Phosphatase 298 H Creatine Kinase 97 Troponin I 0.08 H Total Protein 7.7 Albumin 2.5 L 05/21/17 15:30 RBC 3.99 MCV 95.7 MCHC 33.8 RDW 15.6 MPV 9.4 Neutrophils % 71.3 D Lymphocytes % 20.9 D Monocytes % 6.0 Eosinophils % 1.2 Basophils % 0.6 - RADIOLOGY Radiology Studies Ordered: Category Date Time Status CERVICAL SPINE CT W/O CONTR [CT] Stat CT Scan 05/21/17 15:[address] WITHOUT CONTRAST [CT] Stat CT Scan 05/21/17 15:[address] WITHOUT CONTRAST [CT] Stat CT Scan 05/21/17 15:18 Ordered - Medications Given in the ED: ED Medications Discontinued Medications Generic Name Dose Route Start Last Admin Trade Name Freq PRN Reason Stop Dose Admin Acetaminophen 1,000 mg 05/21/17 16:09 05/21/17 15:50 Ofirmev Injection - IVPB 05/21/17 16:10 1,000 mg ONCE ONE Administration Medical Decision Making - Medical Decision Making 05/21/17 16:00 Patient status post mechanical fall from approximately 6 steps falling backwards landing on her head and back. Patient had no LOC. Patient currently no anticoagulation therapy. Patient arrives anal 3 in c-collar and a noted laceration to the right occipital region. Patient was log rolled with 2 other health workers with negative spinal tenderness. Patient will be ordered for head CT, cervical CT, EKG, cardiac workup, labs, IV Tylenol, and chest CT secondary to right chest wall tenderness. Patient also be ordered for tetanus . 05/21/17 17:18 Laboratory Tests 11/29/16 04/21/17 05/21/17 07:25 15:15 15:30 WBC 4.1 D Hgb 12.9 D Hct 38.2 Plt Count 84 L Neutrophils % 71.3 D INR Sodium Potassium Chloride Carbon Dioxide Anion Gap BUN Creatinine Creat Clearance w eGFR Random Glucose Calcium Magnesium Total Bilirubin AST ALT Alkaline Phosphatase Troponin I 0.10 H 0.10 H Albumin 05/21/17 05/21/17 15:30 15:30 WBC Hgb Hct Plt Count Neutrophils % INR Pending Sodium 139 Potassium 4.4 Chloride 104 Carbon Dioxide 26 Anion Gap 9 BUN 14 Creatinine 0.5 L D Creat Clearance w eGFR > 60 Random Glucose 123 H Calcium 8.5 Magnesium 1.6 L D Total Bilirubin 3.4 H AST 78 H ALT 39 Alkaline Phosphatase 298 H Troponin I 0.08 H Albumin 2.5 L Laboratory Tests 04/21/17 04/22/17 04/23/17 15:15 05:35 05:40 Plt Count 76 L 75 L INR AST 91 H Alkaline Phosphatase 366 H Ammonia Troponin I 0.10 H 04/23/17 05/21/17 05/21/17 05:40 15:30 15:30 Plt Count 84 L INR 1.29 H AST 79 H Alkaline Phosphatase 347 H Ammonia Troponin I 05/21/17 05/21/17 15:30 15:55 Plt Count INR AST 78 H Alkaline Phosphatase 298 H Ammonia 48.70 H Troponin I 0.08 H 05/21/17 18:[address] negative for acute findings. Cervical CT negative for acute findings. Patient's chest CT shows a slightly displaced fracture in the posterior lateral arch of the right sixth rib. Otherwise there is no acute changes from previous CAT scan. 05/21/17 18:34 Patient will be discharged with daughter. Laceration repair done with jermaine. Daughter given instructions on proper diet and continuation of taking lactulose. Patient to follow-up with her PCP next week for repeat labs 05/21/17 18:36 *DC/Admit/Observation/Transfer Diagnosis at time of Disposition: Hypomagnesemia Closed head injury Qualifiers: Encounter type: initial encounter Qualified Code(s): S09.90XA - Unspecified injury of head, initial encounter - Discharge Dispostion Disposition: HOME Condition at time of disposition: Improved - Referrals Referrals: Ector Hunter MD [Primary Care Provider] - - Patient Instructions Printed Discharge Instructions: DI for Closed Head Injury Additional Instructions: Please offer small frequent nutritious meals and have her continue her lactulose as prescribed. Please return here in 10-14 days for staple removal. Please also have patient follow-up with her PCP next week for repeat labs. If the patient appears weak has poor appetite or has decreased urine output please return to the ED.
[2017-05-21] MEDS ORDERED: DIPHTH,PERTUSS(ACELL),TET 0.5 ML DISP.SYRIN IM ONE (17:17)
[2017-05-21] MEDS ORDERED: MAGNESIUM SULF 50% (8.12 MEQ/2 ML-1 GM VIAL) ONE (18:31)
[2017-05-21 19:15] VITALS: BP 122/74; PULSE 70
--- NOTE | 2017-05-22 13:38 | EKG ---
Test Reason : Blood Pressure : / mmHG Vent. Rate : 074 BPM Atrial Rate : 074 BPM P-R Int : 160 ms QRS Dur : 084 ms QT Int : 416 ms P-R-T Axes : 024 -49 053 degrees QTc Int : 461 ms NORMAL SINUS RHYTHM LEFT ANTERIOR FASCICULAR BLOCK CANNOT RULE OUT INFERIOR INFARCT (MASKED BY FASCICULAR BLOCK?) , AGE UNDETERMINED POSSIBLE ANTERIOR INFARCT (CITED ON OR BEFORE 10-FEB-2017) ABNORMAL ECG WHEN COMPARED WITH ECG OF 21-APR-2017 14:31, NO SIGNIFICANT CHANGE WAS FOUND Confirmed by KARISSA BAUTISTA MD ([id number]) on 05/22/2017 1:38:30 PM Referred By: Confirmed By:KARISSA BAUTISTA MD
== END 2017-05-21 19:28 | disposition home or self-care (01) ==
LOC: JER 14:06
PROC: 0HQ0XZZ Repair Scalp Skin, External Approach (ICD-10-PCS; principal; 2017-05-21)
DX: S01.01XA Laceration without foreign body of scalp, initial encounter (principal); E83.42 Hypomagnesemia; W10.9XXA Fall (on) (from) unspecified stairs and steps, initial encounter; Y93.9 Activity, unspecified; Y92.9 Unspecified place or not applicable; I10 Essential (primary) hypertension; K74.60 Unspecified cirrhosis of liver; Z95.2 Presence of prosthetic heart valve
CPT/HCPCS: 12001-25; 36415; 70450-TC; 71250-TC; 72125-TC; 80053; 82140; 82550; 83735; 84484; 85025; 85610; 93005; 93010; 99283-25

== ENCOUNTER 2017-06-28 19:10 | Inpatient (IN) | payer OTHER ==
[2017-06-28 20:12] LABS: BASOPHIL 0.8 % (0-2.0); EOSINOPHIL 1.6 % (0-4.5); MCH 32.6 pg (25.7-33.7); MCHC 33.8 g/dl (32.0-36.0); MEAN CELL VOLUME 96.4 fl (80-96); MEAN PLT VOLUME 9.7 fl (7.5-11.1); NEUTROPHILS 66.1 % (42.8-82.8); PLATELET COUNT 96 K/MM3 (134-434); RDW 15.1 % (11.6-15.6); WHITE BLOOD COUNT 4.1 K/mm3 (4.0-10.0)
--- NOTE | 2017-06-28 20:18 | PDOC ---
Attending Attestation - Resident Resident Name: AustinShubham - HPI HPI: 06/28/17 20:27 As above; according to patient's daughter she has decompensation and increased confusion since her fall last week. - Physicial Exam PE: 06/28/17 20:28 Agree with resident's assessment - Medical Decision Making 06/28/17 20:28 Plan: Labs, ammonia, hydrate. CT head and CT abd/pelvis. Admit to [facility] for altered mental status. 06/29/17 01:44 Patient Name: Karie Obrien This is a preliminary report by imaging implementation manager Exam : Noncontrast CT abdomen and pelvis Images: 481 Clinical indication: Rule out ileus or obstruction. Evaluate for ascites. Findings: Patient is status post median sternotomy and status post aortic valve replacement. Dependent atelectatic changes are noted in both lung bases. A small amount of ascites is noted in the upper abdomen. The liver has a nodular contour with a prominent lateral segment of the left lobe and a prominent caudate. This appearance is consistent with parenchymal disease. Cholelithiasis is noted. The gallbladder is suboptimally distended. Mild hazy infiltration of pericholecystic fat is noted. The spleen is enlarged. Fatty infiltration of the pancreas is noted. There are numerous peripancreatic lymph nodes measuring up to 12 mm in short axis which are nonspecific but can be seen in the setting of viral hepatitis. The adrenal glands are unremarkable. The kidneys have a normal unenhanced appearance. No calculi are seen. There is no hydronephrosis or hydroureter. The gastrointestinal tract does not appear obstructed. Stranding and infiltration is seen around the proximal duodenum which may represent duodenitis or could be related to be adjacent ascending colon. No other thickened or dilated small bowel is seen. There is mild apparent thickening of the cecum and proximal ascending colon with a masslike appearance of the cecum that could be due to inflammation, mural hematoma or possibly an annular constricting lesion. The patient is status post hysterectomy. No adnexal masses are seen. The urinary bladder is unremarkable. No abdominal or pelvic adenopathy is seen. No lytic or blastic destructive osseous lesions are seen. Impression: Cirrhosis and portal hypertension with small amount of ascites. Question of viral hepatitis as above. Thickening of the cecum and proximal ascending colon are present inflammation, mural hematoma or possibly an annular constricting lesion. Consider further evaluation of this process. THIS DOCUMENT HAS BEEN ELECTRONICALLY SIGNED Patient Name: Karie Obrien This is a preliminary report by imaging implementation manager Exam : Noncontrast CT head Images: 76 Clinical indication: Light headed confusion. Findings: Multiple axial images were obtained of the brain without contrast. There is no mass-effect, midline shift or hemorrhage. There is no intra-axial or extra-axial fluid collection. Atrophic involutional changes and chronic ischemic periventricular white matter changes are noted. The visualized portions of the paranasal sinuses are clear. The middle ear cavities and mastoids are clear. Impression: No mass effect or intracranial hemorrhage. THIS DOCUMENT HAS BEEN ELECTRONICALLY SIGNED
[2017-06-28] MEDS ORDERED: LACTULOSE 20 GM/30 ML UDC (FOR ORAL USE ONLY) PO ONE (20:27)
[2017-06-28 20:38] LABS: INR 1.33 (0.82-1.09); PROTHROMBIN TIME (PATIENT) 14.7 SEC (9.98-11.88)
--- NOTE | 2017-06-28 20:46 | PDOC ---
History of Present Illness - General Chief Complaint: Weakness Stated Complaint: WEAKNESS/ABDOMINAL PAIN Time Seen by Provider: 06/28/17 19:39 - History of Present Illness Initial Comments: 06/28/17 20:35 76 yo F with h/o diastolic HF. 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 Daughter at bedside reports that mother has been slowly deteriorating since recent fall ( 05/23) despite negative head CT, and evaluation. Reports mother experiencing frequent Way and increased confusion over the past week. Does not have home oxygen requirements and daughter states that she was 92 % O2 RA in triage. Denies hemoptysis or pleuritic chest pain. Also endorses increased abdominal discomfort/dull pressure and distension over past week, and mild difficult swallowing solid fluids and liquids. Has been compliant with Rifampin and Lactulose as instructed. Denies fevers/chills, N/V , chest pain, constipation cough, blood in stool, urinary complaints, flank pain , or back pain. Denies new falls. Follows with Dr. Bauman PCP and Dr. Huerta GI. Pt. instructed by GI doctor to take Tylenol PRN for arthritic pain. Past History - Past Medical History Allergies/Adverse Reactions: Allergies Allergy/AdvReac Type Severity Reaction Status Date / Time No Known Drug Allergies Allergy Verified 06/28/17 20:56 Home Medications: Ambulatory Orders Ascorbic Acid [Vitamin C] 100 mg PO DAILY 02/10/17 Iron,Carbonyl/Vit C/Vit B12/FA [Iron 100 Plus Tablet] 1 each PO DAILY 02/10/17 Metoprolol Succinate [Toprol XL -] 25 mg PO DAILY 02/10/17 Spironolactone 25 mg PO DAILY 02/10/17 Ursodiol [Actigal -] 300 mg PO TID 02/10/17 Lactulose (Oral Use) [Cephulac -] 20 gm PO TID #1 bottle 04/23/17 Anemia: No Asthma: No Cancer: No Cardiac Disorders: Yes CVA: No COPD: No CHF: No Dementia: No Diabetes: No GI Disorders: Yes (POLYPS) Disorders: No HTN: Yes Hypercholesterolemia: No HIV: Yes Liver Disease: Yes (LIVER CIRRHOSIS) Seizures: No Thyroid Disease: No - Surgical History Abdominal Surgery: No Appendectomy: No Cardiac Surgery: Yes (aortic valve replacement 2013) Cholecystectomy: No Lung Surgery: No Neurologic Surgery: No Orthopedic Surgery: No - Immunization History Immunization Up to Date: Yes - Psycho/Social/Smoking Cessation Hx Anxiety: No Suicidal Ideation: No Smoking History: Never smoked Have you smoked in the past 12 months: No Number of Cigarettes Smoked Daily: 0 Cigars Per Day: 0 Hx Alcohol Use: No Drug/Substance Use Hx: No Substance Use Type: None Hx Substance Use Treatment: No Review of Systems - Review of Systems Comments:: 06/28/17 20:47 GENERAL/CONSTITUTIONAL: No fever or chills. No weakness. HEAD, EYES, EARS, NOSE AND THROAT: + dysphagia. No change in vision. No ear pain or discharge. No sore throat. CARDIOVASCULAR: + SOB. No chest pain. RESPIRATORY: No cough, wheezing, or hemoptysis. GASTROINTESTINAL: + Abdominal pain. No nausea, vomiting, diarrhea or constipation. GENITOURINARY: No dysuria, frequency, or change in urination. MUSCULOSKELETAL: No joint or muscle swelling or pain. No neck or back pain. SKIN: No rash NEUROLOGIC: No headache, vertigo, loss of consciousness, or change in strength/ sensation. ENDOCRINE: No increased thirst. No abnormal weight change HEMATOLOGIC/LYMPHATIC: No anemia, easy bleeding, or history of blood clots. ALLERGIC/IMMUNOLOGIC: No hives or skin allergy. *Physical Exam - Vital Signs Last Vital Signs Temp Pulse Resp BP Pulse Ox 97.4 F L 71 18 131/91 97 06/28/17 19:18 06/28/17 19:18 06/28/17 19:18 06/28/17 19:18 06/28/17 19:18 - Physical Exam Comments: GENERAL: Awake, alert, and fully oriented, in no acute distress HEAD: No signs of trauma, normocephalic, atraumatic EYES: PERRLA, EOMI, sclera anicteric, conjunctiva clear ENT: Auricles normal inspection, hearing grossly normal, nares patent, oropharynx clear without exudates. Moist mucosa NECK: Normal ROM, supple, no lymphadenopathy, JVD, or masses LUNGS: No distress, speaks full sentences, clear to auscultation bilaterally HEART: Regular rate and rhythm, normal S1 and S2, no murmurs, rubs or gallops, peripheral pulses normal and equal bilaterally. ABDOMEN: TTP in RLQ and RUQ. Soft, normoactive bowel sounds. No guarding, no rebound. No masses. Absent EXTREMITIES: Normal inspection, Normal range of motion, no edema. No clubbing or cyanosis. NEUROLOGICAL: Cranial nerves II through XII grossly intact. Normal speech, normal gait, no focal sensorimotor deficits SKIN: Warm, Dry, normal turgor, no rashes or lesions noted. ED Treatment Course - LABORATORY CBC & Chemistry Diagram: 06/28/17 20:04 06/28/17 20:04 - RADIOLOGY Radiology Studies Ordered: Category Date Time Status CXRPORT [CHEST X-RAY PORTABLE*] [RAD] Stat Radiology 06/28/17 19:58 Ordered Medical Decision Making - Medical Decision Making 06/28/17 22:35 76 yo F with h/o diastolic HF, HTN, and liver cirrohsis 2/2 PBC who presents with SOB. Worsening dyspnea, altered mental status, and abdominal distension for past week.Pt. slightly hypoxic on arrival ( 92 % RA) and abdomen tender and distended on physical exam. Moderate suspicion for worsening ascites exacerbating symptoms. Also consider SBP. DDx: hepatic encephalopathy, ascites, esophageal varicies, SBP, pneumonia ED course: CBC, CMP, UA Lactulose 20 mg PO Per phone call with Dr. Bauman admit pt. to Med/surg observation. 06/28/17 23:19 06/28/17 23:20 *DC/Admit/Observation/Transfer Diagnosis at time of Disposition: Hepatic encephalopathy - Discharge Dispostion Admit: Yes - Referrals Referrals: Ector Hunter MD [Primary Care Provider] - - Attestations Physician Attestion: 06/28/17 22:33 I, Dr. Shubham Avila, attest that this document has been prepared under my direction and personally reviewed by me in its entirety. I further attest, that it accurately reflects all work, treatment, procedures and medical decision -making performed by me.
[2017-06-28] MEDS ORDERED: LACTULOSE 20 GM/30 ML UDC (FOR ORAL USE ONLY) ONE (21:00)
[2017-06-28] MEDS ORDERED: LACTULOSE 20 GM/30 ML UDC (FOR ORAL USE ONLY) PO PRN (23:20)
[2017-06-29 01:23] VITALS: BMI 24.5
[2017-06-29] MEDS: URSODIOL 300 MG CAPSULE PO SCH ×3 (05:49→22:52)
--- NOTE | 2017-06-29 12:53 | HP ---
Admitting History and Physical - Primary Care Physician PCP: Ector Huntre (Dr Shun ibarra) - Admission Chief Complaint: SOB/weakness History of Present Illness: 76 yo F with h/o ASHD. 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 Daughter reports that mother has been slowly deteriorating since recent fall ( 05/23) despite negative head CT , and evaluation. Reports mother experiencing frequent Way and increased confusion over the past week. Denies hemoptysis or pleuritic chest pain but c/o increased abdominal discomfort in the RUQ area, and daughter also noted mild difficult swallowing solid fluids and liquids. Has been compliant with meds & diet. Denies fevers/chills, N/V, chest pain, constipation, cough, blood in stool, urinary complaints, flank pain, or back pain. She has fallen in the past ; she lives on her own and was getting PT under [facility], however, she has been weak to the extent that she can no longer get up and ambulate alone. 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 and hepatic encephalopathy) Cardiovascular: Yes: Aortic Stenosis (led to bioprosthetic AoVR), CHF, HTN, Murmur Pulmonary: Yes: Previously Intubated Gastrointestinal: Yes: Gastritis, GI Bleed Hepatobiliary: Yes: Cirrhosis, Cholelithiasis ...: No Heme/Onc: Yes: Thrombocytopenia ENT: Yes: Other (diff swallowing) - Past Surgical History Past Surgical History: Yes: Colonoscopy, Hysterectomy, Valve Replacement ( aortic valve) - Smoking History Smoking history: Never smoked Have you smoked in the past 12 months: No Aproximately how many cigarettes per day: 0 - Alcohol/Substance Use Hx Alcohol Use: No History of Substance Use: reports: None - Social History ADL: Support Services History of Recent Travel: No Home Medications - Allergies Allergies/Adverse Reactions: Allergies Allergy/AdvReac Type Severity Reaction Status Date / Time No Known Drug Allergies Allergy Verified 06/28/17 20:56 - Home Medications Home Medications: Ambulatory Orders Ascorbic Acid [Vitamin C] 100 mg PO DAILY 02/10/17 Iron,Carbonyl/Vit C/Vit B12/FA [Iron 100 Plus Tablet] 1 each PO DAILY 02/10/17 Metoprolol Succinate [Toprol XL -] 25 mg PO DAILY 02/10/17 Spironolactone 25 mg PO DAILY 02/10/17 Ursodiol [Actigal -] 300 mg PO TID 02/10/17 Lactulose (Oral Use) [Cephulac -] 20 gm PO TID #1 bottle 04/23/17 Family Disease History - Family Disease History Family Disease History: Heart Disease: Father ( 87 of [place]), Brother ( [place]) , Other: Mother ( 22 unknown reasons) Review of Systems - Review of Systems Constitutional: reports: Weakness Cardiovascular: reports: Shortness of Breath Respiratory: reports: SOB on Exertion Gastrointestinal: reports: Abdominal Pain Musculoskeletal: reports: Muscle Weakness Neurological: reports: Weakness Physical Examination Vital Signs: Vital Signs Temperature 97.9 F 06/29/17 06:00 Pulse Rate 66 06/29/17 06:00 Respiratory Rate 20 06/29/17 06:00 Blood Pressure 121/72 06/29/17 06:00 O2 Sat by Pulse Oximetry (%) 96 06/29/17 00:53 Findings/Remarks: skin--no acute discolorations/lesions head--NC eyes--mildly jaundiced; eomi neck--no masses, nodes or bruits lungs--bilat basilar dry crackles; unlabored heart--RR chest--old raya scar breasts--(def to PCP) abd--soft, not grossly distended; BS quiet, non camila tenderness of upper abd ext--dimnished pedal pulses; no ischemic changes; ROM painless, no clubbing, or cyanosis, edema neuro--psychomotor slowing; but seems coherent; able to recount her medical history and situation; follows commands; moves all extrem; speech slow but clear ; no rigidity or tremors Labs: CBC, BMP 06/28/17 22:48 Imaging - Results Chest X-ray: Report Reviewed Cat Scan: Pending Problem List - Problems (1) Hepatic encephalopathy Assessment/Plan: likely cause of her cognitive & physical decline over the past week; as shown by high NH4 levels (2nd PBC) despite using the prescribed meds. 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 Qualified Code(s): K74.3 - Primary biliary cirrhosis (3) H/O prosthetic aortic valve replacement Assessment/Plan: seems to be functioning well Code(s): Z95.2 - PRESENCE OF PROSTHETIC HEART VALVE (4) Dysphagia Assessment/Plan: recent development; check head CT; get CONTACT MANAGER eval Code(s): R13.10 - DYSPHAGIA, UNSPECIFIED Qualifiers: Dysphagia type: unspecified Qualified Code(s): R13.10 - Dysphagia, unspecified (5) Thrombocytopenia Assessment/Plan: likely 2nd hepatic dz Code(s): D69.6 - THROMBOCYTOPENIA, UNSPECIFIED (6) SOB (shortness of breath) Assessment/Plan: not new; which could be 2nd fluid build up; Vs other; PLAN: check EKG Code(s): R06.02 - SHORTNESS OF BREATH (7) FTT (failure to thrive) in adult Assessment/Plan: 2nd chronic hepatic dz; unable to thrive in her own setting; as she can no longer carry out her daily living activities; discussed with daughter will is making alternate plans post d/c. Code(s): R62.7 - ADULT FAILURE TO THRIVE Assessment/Plan very debilitated F, with advanced decomp liver disease who is encephalopathic, and cannot undertake her own care. ~~~~~~~~~~~~~~~ Dr Hoffmann..................1 hr.
[2017-06-29 15:08] LABS: URINE APPEARANCE SLCLOUDY; URINE BLOOD NEGATIVE (NEGATIVE); URINE COLOR AMBER; URINE GLUCOSE (UA) NEGATIVE (NEGATIVE); URINE KETONE NEGATIVE (NEGATIVE); URINE NITRITE POSITIVE (NEGATIVE); URINE PROTEIN NEGATIVE (NEGATIVE); URINE UROBILINOGEN 4.0 E.U/dl mg/dL (0.2-1.0)
[2017-06-29 15:11] LABS: URINE LEUK ESTERASE 1+ (NEGATIVE)
[2017-06-29 15:13] LABS: URINE BACTERIA MANY /hpf (NONE SEEN); URINE MUCUS MANY; URINE RBC 5 /hpf (0-3); URINE WBC 25 /hpf (3-5)
[2017-06-30] MEDS: URSODIOL 300 MG CAPSULE PO SCH ×3 (07:05→22:30)
[2017-06-30 08:38] LABS: ANION GAP 5 (8-16); CALCIUM 7.9 mg/dL (8.5-10.1); CO2 28 mmol/L (21-32); GLUCOSE,RANDOM 95 mg/dL (74-106)
[2017-06-30 08:51] LABS: ALK PHOS 323 U/L (45-117); BILIRUBIN,TOTAL 3.1 mg/dL (0.2-1.0); CREATININE 0.4 mg/dL (0.55-1.02); SGOT/AST 78 U/L (15-37); SGPT/ALT 37 U/L (12-78); THYROID STIMULATING HORMONE 5.29 uIU/ml (0.358-3.74); TOT PROT 6.6 g/dl (6.4-8.2)
[2017-06-30] MEDS: METOPROLOL SUCCINATE 25 MG TAB.SR.24H (FP) PO SCH (10:36)
--- NOTE | 2017-06-30 14:06 | PN ---
Progress Note (short form) - Note Progress Note: GI CONSULT: PLEASE SEE COMPLETE DICTATION PT WELL KNOWN TO DR ELIZALDE 76F HTN/CHF/AO VALVE PBC CIRRHOSIS----DECOMPENSATED DISEASE WITH ASCITES AND HSE NOW WITH WORSENING HSE DESPITE LACTULOSE BID NO OTHER FOCAL C/O WEAKNESS AND FTT LIVING AT HOME NO EVIDENCE OF TOXICITY AT THIS TIME RECC: 2GM NA DIET LACTULOSE TID ---> QID TILL DIARRHEA XIFAXAN 550 PO BID F/U AFP LEVELS CARO COUNTS F/U INR AND T. BILIRUBIN SUPP CARE THANKS, MD DANTE
[2017-06-30] MEDS ORDERED: ACETAMINOPHEN 325 MG TABLET (FP) PO PRN (16:13)
--- NOTE | 2017-06-30 16:25 | EKG ---
Test Reason : Blood Pressure : / mmHG Vent. Rate : 084 BPM Atrial Rate : 084 BPM P-R Int : 182 ms QRS Dur : 084 ms QT Int : 392 ms P-R-T Axes : 019 -53 073 degrees QTc Int : 463 ms SINUS RHYTHM WITH PREMATURE ATRIAL COMPLEXES LEFT ANTERIOR FASCICULAR BLOCK INTRA ATRIAL CONDUCTION ABNORMALITY POSSIBLE ANTERIOR INFARCT (CITED ON OR BEFORE 10-FEB-2017) ABNORMAL ECG WHEN COMPARED WITH ECG OF 21-MAY-2017 14:53, PREMATURE ATRIAL COMPLEXES ARE NOW PRESENT CLINICAL CORRELATION IS RECOMMENDED Confirmed by FLORI RASCON MD ([id number]) on 06/30/2017 4:25:26 PM Referred By: Kehinde OLVERA Confirmed By:FLORI RASCON MD
--- NOTE | 2017-06-30 19:57 | PN ---
Progress Note, Physician History of Present Illness: Known case of cirrhosis of the liver who has been living alone and over the last couple of weeks has become progressively weaker and has not been able to do much at home. Daughter visited her Graeme and found her confused and brought her to ED and was found to be encephalopathic with Ammonia level of 69. Sumit feels that she may not have been taking her Lactulose as prescribed. Today pt. claims that she needs help to get up and needs help of two persons to walk to bathroom. Also has difficulty swallowing and has to eat very slowly. - Current Medication List Current Medications: Active Medications Acetaminophen (Tylenol -) 325 mg PO Q4H PRN PRN Reason: FEVER OR PAIN Lactulose (Cephulac (Oral Use)) 20 gm PO TID [facility] Metoprolol Succinate (Toprol Xl -) 12.5 mg PO DAILY [facility] Last Admin: 06/30/17 10:36 Dose: 12.5 mg Rifaximin (Xifaxan -) 550 mg PO BID [facility] Ursodiol (Actigal -) 300 mg PO TID [facility] Last Admin: 06/30/17 13:28 Dose: 300 mg - Objective Vital Signs: Vital Signs Temperature 98.4 F 06/30/17 16:15 Pulse Rate 76 06/30/17 16:15 Respiratory Rate 18 06/30/17 16:15 Blood Pressure 114/69 06/30/17 16:15 O2 Sat by Pulse Oximetry (%) 96 06/30/17 10:00 Constitutional: Yes: Anxious Eyes: Yes: Other (slightly icteric) HENT: Yes: WNL Neck: Yes: Supple Cardiovascular: Yes: Regular Rate and Rhythm, S1, S2 Respiratory: Yes: CTA Bilaterally Gastrointestinal: Yes: Normal Bowel Sounds, Soft Genitourinary: Yes: WNL Musculoskeletal: Yes: WNL Extremities: Yes: WNL Edema: No Peripheral Pulses WNL: Yes Integumentary: Yes: WNL Neurological: Yes: Alert, Oriented, Cran Nerves II-XII Intact ...Motor Strength: LUE (3/5), LLE (2/5), RUE (3/5), RLE (4/5) Psychiatric: Yes: Alert, Oriented Labs: CBC, BMP 06/30/17 06:20 INR, PTT INR 1.33 (0.82-1.09) H 06/28/17 20:04 Problem List - Problems (1) Dysphagia Code(s): R13.10 - DYSPHAGIA, UNSPECIFIED Qualifiers: Dysphagia type: unspecified Qualified Code(s): R13.10 - Dysphagia, unspecified (2) Hepatic encephalopathy Code(s): K72.90 - HEPATIC FAILURE, UNSPECIFIED WITHOUT COMA (3) Depression Code(s): F32.9 - MAJOR DEPRESSIVE DISORDER, SINGLE EPISODE, UNSPECIFIED Qualifiers: Depression Type: other depression Qualified Code(s): F32.89 - Other specified depressive episodes (4) Hiatal hernia with GERD Code(s): K21.9 - GASTRO-ESOPHAGEAL REFLUX DISEASE WITHOUT ESOPHAGITIS K44.9 - DIAPHRAGMATIC HERNIA WITHOUT OBSTRUCTION OR GANGRENE (5) Primary biliary cirrhosis Code(s): K74.3 - PRIMARY BILIARY CIRRHOSIS
[2017-06-30] MEDS: LACTULOSE 20 GM/30 ML UDC (FOR ORAL USE ONLY) PO SCH (22:30)
[2017-06-30] MEDS: RIFAXIMIN 550 MG TABLET (UD) PO SCH (22:30)
[2017-07-01] MEDS: URSODIOL 300 MG CAPSULE PO SCH ×3 (06:24→21:38)
[2017-07-01] MEDS: LACTULOSE 20 GM/30 ML UDC (FOR ORAL USE ONLY) PO SCH ×3 (06:25→21:38)
[2017-07-01] MEDS ORDERED: PT OWN MED DRAWER 7, Y5N ONE (10:49)
[2017-07-01] MEDS: METOPROLOL SUCCINATE 25 MG TAB.SR.24H (FP) PO SCH (10:58)
[2017-07-01] MEDS: RIFAXIMIN 550 MG TABLET (UD) PO SCH ×2 (10:58→21:38)
--- NOTE | 2017-07-01 14:19 | CONSULT ---
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 hepatic encephalopathy) Cardiovascular: Yes: Aortic Stenosis (led to bioprosthetic AoVR), CHF, HTN, Murmur Pulmonary: Yes: Previously Intubated Gastrointestinal: Yes: Ascites, Gastritis, GI Bleed Hepatobiliary: Yes: Cirrhosis, Cholelithiasis ...: No Heme/Onc: Yes: Thrombocytopenia ENT: Yes: Other (diff swallowing) - Past Surgical History Past Surgical History: Yes: CABG, Colonoscopy, Hysterectomy, Valve Replacement ( aortic valve) - Smoking History Smoking history: Never smoked Have you smoked in the past 12 months: No Aproximately how many cigarettes per day: 0 - Alcohol/Substance Use Hx Alcohol Use: No History of Substance Use: reports: None - Social History ADL: Support Services History of Recent Travel: No History - Admission Reason For Visit: HEPATIC ENCEPHALOPATHY - Diagnostics X-ray: Report Reviewed - General Mental Status: Alert and Oriented, Able to Follow Commands Attention: Intact Ability to Follow Directions: Good Head/Neck Control: WFL - Hearing Hearing: Normal Speech Evaluation - Communication Primary Language: IRISH - Swallow Evaluation/Bedside Assessment Current Nutritional Intake: Soft Oral Secretions: Yes: WFL Tracheostomy Present: No Patient on Ventilator: No Dentition: Yes: Adequate Facial Symmetry at Rest: Symmetrical Facial Symmetry on Retraction: Symmetrical Facial Movement: Controlled Sensation: Normal Jaw Position: Closed at Rest Against Resistance Opening: Normal Against Resistance Closing: Normal Pucker Lips: Normal Lingual Movement: Normal Lingual Speed of Movement: Reduced Lingual Movement Strgth Against Opposition: Normal Soft Palate Description: Normal Color Hard Palate Description: Normal Color Gag Reflex: Strong Bite Reflex: Absent Velopharyngeal Movement: Hypernasality Laryngeal Movement: Able to Palpate Needs Assistance: No Rate of Intake: Slow/Holding Bolus Size: WFL Labial Seal: WFL Oral Prep Time: WFL A-P Transit: WFL Pocketing: None Timing of Swallow: Delayed Coughing/Throat Clear: No Change in Voice: No Recommendations - Dysphagia Impressions/Plan Dysphagia Evaluation Summary: This 76 year old female is able to tolerate thin liquids and purees without any signs of aspiration. Patient declines solids due to report of discomfort. Patient constantly refers discomfort in the sternal area during and after the swallow [ ? ascites is creating pressure on the esophagus ?]. Patient also reports nose bleed this am. CXR reports cardiomegaly. Patient reports chest pain/discomfort since her valve replacement surgery. Recommendations: GI Consult - Recommendations Diet Consistency: Dysphagia Pureed Medication Administration: Crushed with applesauce Liquids: Thin Liquids
--- NOTE | 2017-07-01 18:20 | PN ---
Progress Note (short form) - Note Progress Note: GI Note: Situation discussed with daughter. CT does not reveal large ascites but does reveal right colon concentric rings that may reflect an ischemic or other form of colitis or diverticulitis. A UTI as a factor aggravating the encephalopathy cannot be excluded. Will obtain stat blood and urine cultures and start antibiotics for possible bacteremia induced hepatic encephalopathy that is not responding as there is no obvious GI bleeding precipitant. I did inform the daughter the serious nature of Karie's condition and potential to progress to renal and other organs failures and to hepatic coma.
[2017-07-01] MEDS ORDERED: LEVOFLOXACIN 500 MG IVPB 100 ML IVPB ONE (18:33)
[2017-07-01] MEDS: METRONIDAZOLE 500 MG PREMIXED 100 ML IVPB SCH (19:10)
[2017-07-01 19:20] LABS: BASOPHIL 0.8 % (0-2.0); EOSINOPHIL 2.4 % (0-4.5); MCH 32.7 pg (25.7-33.7); MCHC 33.7 g/dl (32.0-36.0); MEAN CELL VOLUME 96.8 fl (80-96); PLATELET COUNT 102 K/MM3 (134-434); RDW 14.6 % (11.6-15.6); WHITE BLOOD COUNT 4.9 K/mm3 (4.0-10.0)
[2017-07-01 20:13] LABS: URINE APPEARANCE CLEAR; URINE BLOOD NEGATIVE (NEGATIVE); URINE COLOR AMBER; URINE GLUCOSE (UA) NEGATIVE (NEGATIVE); URINE KETONE NEGATIVE (NEGATIVE); URINE LEUK ESTERASE NEGATIVE (NEGATIVE); URINE NITRITE POSITIVE (NEGATIVE); URINE PROTEIN NEGATIVE (NEGATIVE); URINE UROBILINOGEN 4.0 E.U/dl mg/dL (0.2-1.0)
[2017-07-01 20:15] LABS: URINE BACTERIA MANY /hpf (NONE SEEN); URINE MUCUS MANY; URINE RBC 1 /hpf (0-3); URINE WBC 11 /hpf (3-5)
--- NOTE | 2017-07-01 20:59 | PN ---
GI Progress Note Subjective: GI Note: Karie denies odynophagia but is complaining of difficulty swallowing. She denies choking and was cleared by the swallowing therapist earlier today. She tells me that certain food like chicken breast are too difficult to eat while mashed potato gives her no problem. She has a dull aching right abdominal bloating discomfort. The pain is not sharp or crampy. Her CT was alluded to above and the small amount of ascites argues against SBE. There is no evidence of GI bleeding. Her head CT is unrevealing. She is responding appropriately but in a slowed down deliberate mode. - Objective Vital Signs: Vital Signs Temperature 98.5 F 07/01/17 18:00 Pulse Rate 74 07/01/17 18:00 Respiratory Rate 18 07/01/17 18:00 Blood Pressure 114/61 07/01/17 18:00 O2 Sat by Pulse Oximetry (%) 96 07/01/17 16:54 Laboratory Tests 06/28/17 06/28/17 06/30/17 15:01 20:44 06:20 Total Bilirubin 3.1 H AST 78 H D ALT 37 D Alkaline Phosphatase 323 H Ammonia 69.34 H Ur Leukocyte Esterase 1+ H Urine WBC 25 06/30/17 07/01/17 06:20 19:45 Total Bilirubin AST ALT Alkaline Phosphatase Ammonia 106.2 H Ur Leukocyte Esterase Negative Urine WBC 11 Constitutional: Calm Eyes: Yes: Sclera Icterus Neck: Yes: Supple Cardiovascular: Yes: Regular Rate and Rhythm Respiratory: Yes: CTA Bilaterally Gastrointestinal Inspection: Yes: Distention ...Auscultate: Yes: Hypoactive Bowel Sounds ...Palpate: Yes: Soft, Other (nontender) ...Percussion: Yes: Tympanitic Labs: CBC, BMP 07/01/17 Unknown 06/30/17 06:20 INR, PTT INR 1.33 (0.82-1.09) H 06/28/17 20:04 Assessment/Plan Worsening of hepatic encephalopathy due to infection ? colitis or UTI vs due to missed doses of lactulose at home. Cultures are drawn and antibiotics have been started. Will get esophagram to exclude an esophageal stricture, Schatzki ring , Zenker's diverticulum and look for evidence of esophagitis as she could not tolerate an endoscopy at his time. I discussed her situation with her son who is visiting and with Dr. Hunter.
--- NOTE | 2017-07-01 22:31 | PN ---
Progress Note, Physician History of Present Illness: c,c/o generalized weakness. Unable to lift arms or get out of bed by herself. Has some pain in the right side of abdomen. Had three BMs today. No cough, shaking chills. - Current Medication List Current Medications: Active Medications Acetaminophen (Tylenol -) 325 mg PO Q4H PRN PRN Reason: FEVER OR PAIN Last Admin: 07/01/17 21:41 Dose: 325 mg Metronidazole (Flagyl 500mg Premixed Ivpb -) 100 mls @ 100 mls/hr IVPB Q8H-IV [facility] Last Admin: 07/01/17 19:10 Dose: 100 mls/hr Lactulose (Cephulac (Oral Use)) 20 gm PO TID [facility] Last Admin: 07/01/17 21:38 Dose: 20 gm Metoprolol Succinate (Toprol Xl -) 12.5 mg PO DAILY [facility] Last Admin: 07/01/17 10:58 Dose: 12.5 mg Rifaximin (Xifaxan -) 550 mg PO BID [facility] Last Admin: 07/01/17 21:38 Dose: 550 mg Ursodiol (Actigal -) 300 mg PO TID [facility] Last Admin: 07/01/17 21:38 Dose: 300 mg - Objective Vital Signs: Vital Signs Temperature 97.7 F 07/01/17 20:57 Pulse Rate 74 07/01/17 20:57 Respiratory Rate 20 07/01/17 20:57 Blood Pressure 141/80 07/01/17 20:57 O2 Sat by Pulse Oximetry (%) 96 07/01/17 16:54 Constitutional: Yes: No Distress, Calm Eyes: Yes: Conjunctiva Clear, EOM Intact, Other (mild icterus) HENT: Yes: Atraumatic, Normocephalic Neck: Yes: Supple, Trachea Midline Cardiovascular: Yes: Regular Rate and Rhythm, S1, S2 Respiratory: Yes: Regular, CTA Bilaterally Gastrointestinal: Yes: Normal Bowel Sounds, Soft, Distention, Rectal Bleeding Genitourinary: Yes: WNL Extremities: Yes: WNL Edema: No Peripheral Pulses WNL: Yes Integumentary: Yes: WNL Neurological: Yes: Alert, Oriented ...Motor Strength: WNL Psychiatric: Yes: Alert, Oriented Labs: CBC, BMP 07/01/17 Unknown 06/30/17 06:20 INR, PTT INR 1.33 (0.82-1.09) H 06/28/17 20:04 - ....Imaging Chest X-ray: Report Reviewed, Image Reviewed Cat Scan: Report Reviewed EKG: Report Reviewed, Image Reviewed Problem List - Problems (1) Dysphagia Code(s): R13.10 - DYSPHAGIA, UNSPECIFIED Qualifiers: Dysphagia type: unspecified Qualified Code(s): R13.10 - Dysphagia, unspecified (2) Hepatic encephalopathy Assessment/Plan: continues to have high Ammonia level with very slow speech and mostly bedridden Code(s): K72.90 - HEPATIC FAILURE, UNSPECIFIED WITHOUT COMA (3) Depression Code(s): F32.9 - MAJOR DEPRESSIVE DISORDER, SINGLE EPISODE, UNSPECIFIED Qualifiers: Depression Type: other depression Qualified Code(s): F32.89 - Other specified depressive episodes (4) Hiatal hernia with GERD Assessment/Plan: known case of GERD in the past Code(s): K21.9 - GASTRO-ESOPHAGEAL REFLUX DISEASE WITHOUT ESOPHAGITIS K44.9 - DIAPHRAGMATIC HERNIA WITHOUT OBSTRUCTION OR GANGRENE (5) Primary biliary cirrhosis Code(s): K74.3 - PRIMARY BILIARY CIRRHOSIS Assessment/Plan IMP: Hepatic encephalopathy R/O Infectious process Liver cirrhosis. After appropriate cultures were obtained she was started on IV Levaquin and Metrinidazole. Case discused at length with son . Case discussed with Dr. Huerta, editor greeting card.
[2017-07-02] MEDS: METRONIDAZOLE 500 MG PREMIXED 100 ML IVPB SCH ×3 (02:29→18:10)
[2017-07-02] MEDS: URSODIOL 300 MG CAPSULE PO SCH ×3 (05:51→23:27)
[2017-07-02] MEDS: LACTULOSE 20 GM/30 ML UDC (FOR ORAL USE ONLY) PO SCH ×3 (05:51→23:27)
[2017-07-02 08:06] LABS: BASOPHIL 0.9 % (0-2.0); EOSINOPHIL 2.5 % (0-4.5); MCHC 34.1 g/dl (32.0-36.0); MEAN CELL VOLUME 96.7 fl (80-96); NEUTROPHILS 58.6 % (42.8-82.8); PLATELET COUNT 73 K/MM3 (134-434); RDW 14.7 % (11.6-15.6); WHITE BLOOD COUNT 3.3 K/mm3 (4.0-10.0)
[2017-07-02 08:49] LABS: ALK PHOS 330 U/L (45-117); ANION GAP 8 (8-16); BILIRUBIN,TOTAL 3.1 mg/dL (0.2-1.0); CALCIUM 8.3 mg/dL (8.5-10.1); CO2 26 mmol/L (21-32); CREATININE 0.4 mg/dL (0.55-1.02); GLUCOSE,RANDOM 107 mg/dL (74-106); SGOT/AST 74 U/L (15-37); SGPT/ALT 40 U/L (12-78); TOT PROT 6.6 g/dl (6.4-8.2)
[2017-07-02 09:31] LABS: C-REACTIVE PROTEIN 1.4 MG/DL (0.00-0.3)
[2017-07-02] MEDS: RIFAXIMIN 550 MG TABLET (UD) PO SCH ×2 (09:57→23:27)
[2017-07-02] MEDS: METOPROLOL SUCCINATE 25 MG TAB.SR.24H (FP) PO SCH (09:58)
--- NOTE | 2017-07-02 12:11 | PN ---
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 Daughter reports that mother has been slowly deteriorating since recent fall ( 05/23) despite negative head CT , and evaluation. Reports mother experiencing frequent Way and increased confusion over the past week. Denies hemoptysis or pleuritic chest pain but c/o increased abdominal discomfort in the RUQ area, and daughter also noted mild difficult swallowing solid fluids and liquids. Has been compliant with meds & diet. Denies fevers/chills, N/V, chest pain, constipation, cough, blood in stool, urinary complaints, flank pain, or back pain. She has fallen in the past ; she lives on her own and was getting PT under [facility], however, she has been weak to the extent that she can no longer get up and ambulate alone." Per sp path evaluation yesterday, pt c/o stasis in sternum while eating. Placed on puree/thin liquid/GI consult appreciated. Pending UGI. CT head no change. Pt reassessed.Speech is Ataxic, with strain strangled vocal quality. Pt's sister in law reported pt coughed on thin liquid today. My concern is risk of aspiration, while reclining, during UGI. Suggest MBS to assess po tolerance of solids, r/o stasis in pharyngeal/ esophageal regions and r/o silent aspiration.
--- NOTE | 2017-07-02 19:42 | PN ---
GI Progress Note Subjective: GI NOte: Marti Soto's note is appreciated. The MBS does reveal aspiration risk so will use Thick It and puree dysphagia diet. I have therefore canceled her esophagram. She does complain of diarrhea but her ammonia has begin to decline. - Objective Vital Signs: Vital Signs Temperature 98.4 F 07/02/17 09:08 Pulse Rate 77 07/02/17 14:43 Respiratory Rate 20 07/02/17 09:08 Blood Pressure 105/73 07/02/17 09:08 O2 Sat by Pulse Oximetry (%) 98 07/02/17 14:43 Laboratory Tests 06/30/17 07/02/17 07/02/17 06:20 07:00 07:00 WBC Hgb Plt Count Total Bilirubin 3.1 H Direct Bilirubin AST 74 H ALT 40 Alkaline Phosphatase 323 H 330 H Ammonia 57.0 H C-Reactive Protein 1.4 H D 07/02/17 07/02/17 07:00 07:30 WBC 3.3 L D Hgb 12.3 Plt Count 73 L D Total Bilirubin Direct Bilirubin 2.5 H AST ALT Alkaline Phosphatase Ammonia C-Reactive Protein Constitutional: Calm, Other (speech remains sluggish but is more interactive) Cardiovascular: Yes: Regular Rate and Rhythm Respiratory: Yes: CTA Bilaterally Gastrointestinal Inspection: Yes: Distention (nontender) ...Auscultate: Yes: Normoactive Bowel Sounds ...Palpate: Yes: Soft, Other Labs: INR, PTT INR 1.33 (0.82-1.09) H 06/28/17 20:04 Assessment/Plan Improving hepatic encephalopathy. Await cultures. Continue antibiotics. Will order physical therapy. I discussed her situation with her son and daughter who are visiting [facility].
--- NOTE | 2017-07-02 21:52 | PN ---
Progress Note, Physician History of Present Illness: C/O generalized weakness.No vomiting. Diarrhoea couple of times. Denies any pain. - Current Medication List Current Medications: Active Medications Acetaminophen (Tylenol -) 325 mg PO Q4H PRN PRN Reason: FEVER OR PAIN Last Admin: 07/01/17 21:41 Dose: 325 mg Metronidazole (Flagyl 500mg Premixed Ivpb -) 100 mls @ 100 mls/hr IVPB Q8H-IV [facility] Last Admin: 07/02/17 18:10 Dose: 100 mls/hr Lactulose (Cephulac (Oral Use)) 20 gm PO TID [facility] Last Admin: 07/02/17 14:43 Dose: 20 gm Metoprolol Succinate (Toprol Xl -) 12.5 mg PO DAILY [facility] Last Admin: 07/02/17 09:58 Dose: 12.5 mg Rifaximin (Xifaxan -) 550 mg PO BID [facility] Last Admin: 07/02/17 09:57 Dose: 550 mg Ursodiol (Actigal -) 300 mg PO TID [facility] Last Admin: 07/02/17 14:43 Dose: 300 mg - Objective Vital Signs: Vital Signs Temperature 98.4 F 07/02/17 09:08 Pulse Rate 77 07/02/17 14:43 Respiratory Rate 20 07/02/17 09:08 Blood Pressure 105/73 07/02/17 09:08 O2 Sat by Pulse Oximetry (%) 98 07/02/17 14:43 Constitutional: Yes: Well Nourished, No Distress, Calm Eyes: Yes: Conjunctiva Clear, EOM Intact HENT: Yes: WNL Neck: Yes: Supple Cardiovascular: Yes: Regular Rate and Rhythm, S1, S2 Respiratory: Yes: Regular, CTA Bilaterally Gastrointestinal: Yes: Normal Bowel Sounds, Soft Genitourinary: Yes: WNL Musculoskeletal: Yes: WNL Extremities: Yes: WNL Edema: No Peripheral Pulses WNL: Yes Integumentary: Yes: WNL Neurological: Yes: Alert, Oriented Psychiatric: Yes: Alert, Other Labs: INR, PTT INR 1.33 (0.82-1.09) H 06/28/17 20:04 Problem List - Problems (1) Dysphagia Code(s): R13.10 - DYSPHAGIA, UNSPECIFIED Qualifiers: Dysphagia type: unspecified Qualified Code(s): R13.10 - Dysphagia, unspecified (2) Hepatic encephalopathy Assessment/Plan: Ammonia level is going down Code(s): K72.90 - HEPATIC FAILURE, UNSPECIFIED WITHOUT COMA (3) Depression Code(s): F32.9 - MAJOR DEPRESSIVE DISORDER, SINGLE EPISODE, UNSPECIFIED Qualifiers: Depression Type: other depression Qualified Code(s): F32.89 - Other specified depressive episodes (4) Hiatal hernia with GERD Code(s): K21.9 - GASTRO-ESOPHAGEAL REFLUX DISEASE WITHOUT ESOPHAGITIS K44.9 - DIAPHRAGMATIC HERNIA WITHOUT OBSTRUCTION OR GANGRENE (5) Primary biliary cirrhosis Code(s): K74.3 - PRIMARY BILIARY CIRRHOSIS Assessment/Plan IMP: Hepatic encephalopathy Cirrhosis of the liver Plan.Cont. present antibiotics pending cultures
[2017-07-03] MEDS: METRONIDAZOLE 500 MG PREMIXED 100 ML IVPB SCH ×3 (02:19→17:23)
[2017-07-03] MEDS: LACTULOSE 20 GM/30 ML UDC (FOR ORAL USE ONLY) PO SCH ×3 (07:02→23:06)
[2017-07-03] MEDS: URSODIOL 300 MG CAPSULE PO SCH ×3 (07:02→23:06)
[2017-07-03 08:27] LABS: EOSINOPHIL 2.7 % (0-4.5); MCH 32.7 pg (25.7-33.7); MCHC 33.8 g/dl (32.0-36.0); MEAN CELL VOLUME 96.7 fl (80-96); MEAN PLT VOLUME 8.7 fl (7.5-11.1); NEUTROPHILS 61.9 % (42.8-82.8); PLATELET COUNT 86 K/MM3 (134-434); RDW 14.8 % (11.6-15.6); WHITE BLOOD COUNT 3.5 K/mm3 (4.0-10.0)
[2017-07-03 09:08] LABS: ALBUMIN 2.2 g/dl (3.4-5.0); ALK PHOS 358 U/L (45-117); ANION GAP 7 (8-16); BILIRUBIN,DIRECT 2.4 mg/dL (0.0-0.2); BILIRUBIN,TOTAL 3.3 mg/dL (0.2-1.0); CALCIUM 8.5 mg/dL (8.5-10.1); CO2 28 mmol/L (21-32); CREATININE 0.4 mg/dL (0.55-1.02); GLUCOSE,RANDOM 119 mg/dL (74-106); SGOT/AST 77 U/L (15-37); SGPT/ALT 43 U/L (12-78); TOT PROT 7.1 g/dl (6.4-8.2)
[2017-07-03] MEDS: METOPROLOL SUCCINATE 25 MG TAB.SR.24H (FP) PO SCH (09:53)
[2017-07-03] MEDS: RIFAXIMIN 550 MG TABLET (UD) PO SCH ×2 (09:53→23:05)
--- NOTE | 2017-07-03 12:11 | PN ---
GI Progress Note Subjective: No acute events Sitting up in chair. The patient herself states that her "brain is less cloudy ". Describes focal weakness of the right upper and lower extremity over the last 2 weeks. - Objective Vital Signs: Vital Signs Temperature 97.8 F 07/03/17 09:00 Pulse Rate 72 07/03/17 09:00 Respiratory Rate 20 07/03/17 09:00 Blood Pressure 107/68 07/03/17 09:00 O2 Sat by Pulse Oximetry (%) 98 07/03/17 09:00 Constitutional: Calm Eyes: No: Sclera Icterus Cardiovascular: Yes: Regular Rate and Rhythm Respiratory: Yes: CTA Bilaterally Gastrointestinal Inspection: No: Distention ...Auscultate: Yes: Normoactive Bowel Sounds ...Palpate: No: Tenderness Edema: No (No LE edema) Neurological: Yes: Alert, Oriented (x person, place, time). No: Asterixis Labs: CBC, BMP 07/03/17 06:30 07/03/17 06:30 INR, PTT INR 1.33 (0.82-1.09) H 06/28/17 20:04 Problem List - Problems (1) Hepatic encephalopathy Assessment/Plan: Improved mentation On Lactulose 20g TID On Rifaximin 550mg PO BID Given complaints of right sided focal weakness, consider neurology evaluation as focal neurological complaints/defecits not common with hepatic encephalopathy Q 6 month AFP tumor marker and hepatic us for HCC screening Code(s): K72.90 - HEPATIC FAILURE, UNSPECIFIED WITHOUT COMA
--- NOTE | 2017-07-03 13:13 | PN ---
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 Dys puree and thin liquid rec, based on MBS. However, GI felt thickened liquids were indicated due to risk of aspiration. Swallow delayed and weak. No overt coughing on thin liquid, however multiple swallows generated.Appreciate GI input. I concur with nectar thick liquid for now. Additionally, tongue is still coated- sec weak elevation/reduced palatal contact vs r/o thrush. MUNICIPAL COURT JUDGE to provide mouth care. Monitor for persistant white coating/indication for medical mgmt. Pt is reporting reduced right side function, over last 2 weeks, with greater difficulty with ADL. She is cognitively good and a good historian. Dysarthria/ dysphonia/dysphagia. Premorbid visual impairment. Concur with neurology consult. Assist with meals. Please add ensure compact tid. Will benefit from intensive swallowing tx upon d/c.
--- NOTE | 2017-07-03 17:11 | PN ---
Progress Note (short form) - Note Progress Note: >>>>>>>>>>>cover for Dr Hunter Current Medications Acetaminophen (Tylenol -) 325 mg PO Q4H PRN PRN Reason: FEVER OR PAIN Last Admin: 07/01/17 21:41 Dose: 325 mg Metronidazole (Flagyl 500mg Premixed Ivpb -) 100 mls @ 100 mls/hr IVPB Q8H-IV [facility] Last Admin: 07/03/17 09:53 Dose: 100 mls/hr Lactulose (Cephulac (Oral Use)) 20 gm PO TID [facility] Last Admin: 07/03/17 15:12 Dose: 20 gm Metoprolol Succinate (Toprol Xl -) 12.5 mg PO DAILY [facility] Last Admin: 07/03/17 09:53 Dose: 12.5 mg Rifaximin (Xifaxan -) 550 mg PO BID [facility] Last Admin: 07/03/17 09:53 Dose: 550 mg Ursodiol (Actigal -) 300 mg PO TID [facility] Last Admin: 07/03/17 15:12 Dose: 300 mg Laboratory Results - last 24 hr 07/03/17 07/03/17 07/03/17 06:30 06:30 06:30 WBC 3.5 L RBC 3.85 Hgb 12.6 Hct 37.2 MCV 96.7 H MCH 32.7 MCHC 33.8 RDW 14.8 Plt Count 86 L MPV 8.7 Neutrophils % 61.9 Lymphocytes % 27.9 Monocytes % 6.5 Eosinophils % 2.7 Basophils % 1.0 Sodium 144 Potassium 3.8 Chloride 109 H Carbon Dioxide 28 Anion Gap 7 L BUN 14 Creatinine 0.4 L Random Glucose 119 H Calcium 8.5 Total Bilirubin 3.3 H Direct Bilirubin 2.4 H AST 77 H ALT 43 Alkaline Phosphatase 358 H Ammonia 38.00 H Total Protein 7.1 Albumin 2.2 L Vital Signs Temperature 98.0 F 07/03/17 15:21 Pulse Rate 74 07/03/17 15:21 Respiratory Rate 20 07/03/17 15:21 Blood Pressure 107/68 07/03/17 09:00 O2 Sat by Pulse Oximetry (%) 98 07/03/17 09:00 CC; rt sided weakness ```````````````````` skin--slight jaundice eyes--midline; eomi face--no droop heart--RR lungs--distant abd--soft ext--no gross edema neuro--Rt sided weakness (arm & legs) speech slow but clear & coherent; follows commands `````````````````````````````` Summ > hep enceph--2nd PBC; see GI notes; follow NH4 levels > Dysphagia--possibly 2nd CVA; on dysph diet > Mild Rt HP--clinically suggestive of CVA /TIA; head CT done on admission was read as no acute changes/finding; will repeat; but may need MRI for better definition; Neuro consult pending ~~~~~~~~~~~~ Dr Hoffmann Problem List - Problems (1) Hepatic encephalopathy Code(s): K72.90 - HEPATIC FAILURE, UNSPECIFIED WITHOUT COMA (2) Liver cirrhosis Code(s): K74.60 - UNSPECIFIED CIRRHOSIS OF LIVER Qualifiers: 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
--- NOTE | 2017-07-03 20:09 | HOSP ---
Subjective - Review of Symptoms Subjective: CC: Fall while transferring from bed to stretcher Pt originally here for R sided weakness and right facial droop and slurring work -up. On 07/03/17 at approximately 19:15h pt was transferring to stretcher from bed to received follow-up head CT w/o contrast, lost her footing, and hit R posterior aspect of her head. Pt did not lose consciousness and no bleeding occurred. Pt is not on any blood thinners currently. Pt's only complaint was pain on the area of impact. Pt denies visual disturbances, dizziness, hearing changes. Pt was stable at this point and allowed to go to radiology for her CT head without contrast. HEENT: No: Visual Changes Neurological: Yes: Weakness (Right sided consistent with initial presentation), Change in speech (Slurring consistent with initial presentation). No: Confusion Physical Examination Vital Signs: Vital Signs Temperature 98.0 F 07/03/17 15:21 Pulse Rate 74 07/03/17 15:21 Respiratory Rate 20 07/03/17 15:21 Blood Pressure 107/68 07/03/17 09:00 O2 Sat by Pulse Oximetry (%) 98 07/03/17 09:00 Eyes: Yes: Conjunctiva Clear, EOM Intact, PERRL (No garcia signs. No nystagmus noted. Peripheral vision intact throughout), Other HENT: Yes: Normocephalic, Other (No hematoma noted.) Neck: Yes: Supple, Trachea Midline Cardiovascular: Yes: Regular Rate and Rhythm. No: JVD, Gallop, Murmur, Rub Respiratory: Yes: Regular, CTA Bilaterally Gastrointestinal: Yes: Normal Bowel Sounds, Soft Extremities: Yes: Other (Right-sided weakness.) Edema: No Peripheral Pulses WNL: Yes Integumentary: Yes: WNL Neurological: Yes: Alert, Oriented, Other (No focal deficits) ...Motor Strength: RUE (3/5) Psychiatric: Yes: Alert, Oriented Labs: CBC, BMP 07/03/17 06:30 07/03/17 06:30 Hospitalist Encounter Assessment: Head CT w/o contrast done --In comparison to previous study no acute intracranial pathology Pt is stable and without any new neurological deficits. No other w/u or treatment for acute incident necessary at this time.
[2017-07-04] MEDS: METRONIDAZOLE 500 MG PREMIXED 100 ML IVPB SCH ×3 (01:26→17:28)
[2017-07-04] MEDS: LACTULOSE 20 GM/30 ML UDC (FOR ORAL USE ONLY) PO SCH ×3 (06:48→22:02)
[2017-07-04] MEDS: URSODIOL 300 MG CAPSULE PO SCH ×3 (06:48→22:06)
[2017-07-04 08:48] LABS: ALBUMIN 2.1 g/dl (3.4-5.0); BILIRUBIN,DIRECT 2.1 mg/dL (0.0-0.2); BILIRUBIN,TOTAL 2.8 mg/dL (0.2-1.0); TOT PROT 6.7 g/dl (6.4-8.2)
[2017-07-04] MEDS: RIFAXIMIN 550 MG TABLET (UD) PO SCH ×2 (10:50→22:06)
[2017-07-04] MEDS: METOPROLOL SUCCINATE 25 MG TAB.SR.24H (FP) PO SCH (10:50)
--- NOTE | 2017-07-04 12:23 | CON.NEURO ---
Consult - History of Present Illness History of Present Illness: 76 yo F with h/o ASHD. 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 Daughter reports that mother has been slowly deteriorating since recent fall ( 05/23) despite negative head CT , and evaluation. Reports mother experiencing frequent Way and increased confusion over the past week. called for right sided weakness -- ?onset, few weeks. spoke to daughter ,DIMITRY, issues with her speech x 3months, but worse over last few weeks. she admits swallowing issue. feels right sided weaker, denies sensory c/o. 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 (Stevinson palsy and hepatic encephalopathy) Cardio/Vascular: Yes: Aortic Stenosis (led to bioprosthetic AoVR), CHF, HTN, Murmur Pulmonary: Yes: Previously Intubated Gastrointestinal: Yes: Ascites, Gastritis, GI Bleed Hepatobiliary: Yes: Cirrhosis, Cholelithiasis ...: No ENT: Yes: Other (diff swallowing) - Past Surgical History Past Surgical History: Yes: CABG, Colonoscopy, Hysterectomy, Valve Replacement ( aortic valve) - Alcohol/Substance Use Hx Alcohol Use: No History of Substance Use: reports: None - Smoking History Smoking history: Never smoked Have you smoked in the past 12 months: No Aproximately how many cigarettes per day: 0 - Social History Usual Living Arrangement: Alone ADL: Support Services History of Recent Travel: No Home Medications - Allergies Allergies/Adverse Reactions: Allergies Allergy/AdvReac Type Severity Reaction Status Date / Time No Known Drug Allergies Allergy Verified 06/28/17 20:56 - Home Medications Home Medications: Ambulatory Orders Ascorbic Acid [Vitamin C] 100 mg PO DAILY 02/10/17 Iron,Carbonyl/Vit C/Vit B12/FA [Iron 100 Plus Tablet] 1 each PO DAILY 02/10/17 Metoprolol Succinate [Toprol XL -] 25 mg PO DAILY 02/10/17 Spironolactone 25 mg PO DAILY 02/10/17 Ursodiol [Actigal -] 300 mg PO TID 02/10/17 Lactulose (Oral Use) [Cephulac -] 20 gm PO TID #1 bottle 04/23/17 Family Disease History - Family Disease History Family Disease History: Heart Disease: Father ( 87 of [place]), Brother ( [place]) , Other: Mother ( 22 unknown reasons) Physical Exam-Neuro Vital Signs: Vital Signs Temperature 97.4 F L 07/04/17 06:40 Pulse Rate 80 07/04/17 06:40 Respiratory Rate 20 07/04/17 06:40 Blood Pressure 117/70 07/04/17 06:40 O2 Sat by Pulse Oximetry (%) 98 07/03/17 21:00 Constitutional: Yes: No Distress Neck: Yes: Supple Labs: CBC, BMP 07/03/17 06:30 07/03/17 06:30 INR, PTT INR 1.33 (0.82-1.09) H 06/28/17 20:04 - Neuro Exam Level Of Consciousness: Yes: Alert, Oriented to Person (hypomimic fascies, slow to respond , bradykinetic, slow saccades, EOMI, slow tongue movementsm and occ fasciculation in tongue noted, motor 4./5 weakness R hemiplegia, long tract, no tremor or cogwheeling, no exe fasiculations noted, TR 3+, Patellar 1+, achilles (-), R plantar up ) NIH Stroke Scale - Total Score NIH Stroke Scale Score: 0 Imaging - Results Cat Scan: Report Reviewed, Image Reviewed Problem List - Problems (1) Dysphagia Code(s): R13.10 - DYSPHAGIA, UNSPECIFIED Qualifiers: Dysphagia type: unspecified Qualified Code(s): R13.10 - Dysphagia, unspecified (2) Hemiplegia affecting dominant side Code(s): G81.90 - HEMIPLEGIA, UNSPECIFIED AFFECTING UNSPECIFIED SIDE Assessment/Plan progressive dysphagia and r sided hemiplegia , ? onset , though appears to be subacute over weeks to months-- possibility of cerebellar/brainstem stroke, though concern for bulbar motor neuron disease as well will get MRI BRAIN, EMG ( please EMG tongue muscles, trap, sample msuculature) , CPK, ESR, ALEJANDRO, lyme, TAYLOR, Achetylcholine receptor AB (Myasthenia less likely) will FU Dr Montalvo
--- NOTE | 2017-07-04 12:25 | PN ---
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 Overtly tolerating sips of water. Dislikes puree/and thick liquid. c/o poor appetite Assist with meals. Pt reports diarrhea- Is she getting Ensure? related? RD f/u. Trial magic cup? tongue is still coated- WAREHOUSE HANDLER to provide mouth care. Monitor for persistent white coating/indication for medical mgmt.r/o thrush Pt is reporting reduced right side function, over last 2 weeks, with greater difficulty with ADL. She is cognitively good and a good historian. Dysarthria/ dysphonia/dysphagia. Premorbid visual impairment. Repeat CT head (-). Case reviewed with neurology, with possible fasciculations observed. Bulbar speech.Concur with neurology consult. r/o Motor Neuron disease. EMG recommended. REC: r/o thrush trial dys chopped,- eg tunafish,eggsalad, cottage cheese.trial thin liquid. Monitor tolerance. Diarrhea- supplement related?
--- NOTE | 2017-07-04 22:17 | PN ---
Progress Note, Physician History of Present Illness: C/o weakness of right upper extremity and right lower extremity with speech difficulty. No cough or SOB - Current Medication List Current Medications: Active Medications Acetaminophen (Tylenol -) 325 mg PO Q4H PRN PRN Reason: FEVER OR PAIN Last Admin: 07/01/17 21:41 Dose: 325 mg Metronidazole (Flagyl 500mg Premixed Ivpb -) 100 mls @ 100 mls/hr IVPB Q8H-IV [facility] Last Admin: 07/04/17 17:28 Dose: 100 mls/hr Lactulose (Cephulac (Oral Use)) 20 gm PO TID [facility] Last Admin: 07/04/17 22:02 Dose: Not Given Metoprolol Succinate (Toprol Xl -) 12.5 mg PO DAILY [facility] Last Admin: 07/04/17 10:50 Dose: 12.5 mg Rifaximin (Xifaxan -) 550 mg PO BID [facility] Last Admin: 07/04/17 22:06 Dose: 550 mg Ursodiol (Actigal -) 300 mg PO TID [facility] Last Admin: 07/04/17 22:06 Dose: 300 mg - Objective Vital Signs: Vital Signs Temperature 98.5 F 07/04/17 17:14 Pulse Rate 68 07/04/17 17:14 Respiratory Rate 18 07/04/17 17:14 Blood Pressure 124/80 07/04/17 17:14 O2 Sat by Pulse Oximetry (%) 98 07/04/17 17:13 Constitutional: Yes: No Distress, Calm Eyes: Yes: Conjunctiva Clear, EOM Intact HENT: Yes: WNL Neck: Yes: Supple Cardiovascular: Yes: Regular Rate and Rhythm, S1, S2 Respiratory: Yes: CTA Bilaterally Gastrointestinal: Yes: Normal Bowel Sounds, Soft Genitourinary: Yes: WNL Musculoskeletal: Yes: WNL Extremities: Yes: WNL Edema: No Peripheral Pulses WNL: Yes Integumentary: Yes: WNL Neurological: Yes: Alert, Oriented, Dysarthria, Lethargy, Weakness (of right upper and lower extremity flexors) ...Motor Strength: RUE (weakness of flexors of right shoulder and right hip), RLE (power in the RLE is 4/5) Psychiatric: Yes: Alert, Oriented Labs: CBC, BMP 07/03/17 06:30 07/03/17 06:30 INR, PTT INR 1.33 (0.82-1.09) H 06/28/17 20:04 - ....Imaging MRI: Report Reviewed Problem List - Problems (1) Dysphagia Assessment/Plan: Continue to have dysphagia for solids but no episodes of aspiration Code(s): R13.10 - DYSPHAGIA, UNSPECIFIED Qualifiers: Dysphagia type: unspecified Qualified Code(s): R13.10 - Dysphagia, unspecified (2) Hepatic encephalopathy Assessment/Plan: Alert and oriented and ammonia level is coming down Code(s): K72.90 - HEPATIC FAILURE, UNSPECIFIED WITHOUT COMA (3) Depression Code(s): F32.9 - MAJOR DEPRESSIVE DISORDER, SINGLE EPISODE, UNSPECIFIED Qualifiers: Depression Type: other depression Qualified Code(s): F32.89 - Other specified depressive episodes (4) Hiatal hernia with GERD Code(s): K21.9 - GASTRO-ESOPHAGEAL REFLUX DISEASE WITHOUT ESOPHAGITIS K44.9 - DIAPHRAGMATIC HERNIA WITHOUT OBSTRUCTION OR GANGRENE (5) Primary biliary cirrhosis Code(s): K74.3 - PRIMARY BILIARY CIRRHOSIS (6) Hemiplegia affecting dominant side Assessment/Plan: As noted by neurologist there is definite right sided hemiparesis with speech difficulties. MRI is negative for infarct. Code(s): G81.90 - HEMIPLEGIA, UNSPECIFIED AFFECTING UNSPECIFIED SIDE Assessment/Plan Imp: Right hemiplegia cirrhosis of liver with hepatic encephalopathy Plan: Continue PT. Cont Rifaxamin Further evaluation by neurology.
[2017-07-05] MEDS: METRONIDAZOLE 500 MG PREMIXED 100 ML IVPB SCH ×2 (01:50→10:42)
[2017-07-05] MEDS: LACTULOSE 20 GM/30 ML UDC (FOR ORAL USE ONLY) PO SCH ×3 (06:47→23:15)
[2017-07-05] MEDS: URSODIOL 300 MG CAPSULE PO SCH ×3 (06:47→22:03)
--- NOTE | 2017-07-05 09:21 | PN ---
Progress Note (short form) - Note Progress Note: 76 yo F with h/o ASHD. 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 Daughter reports that mother has been slowly deteriorating since recent fall ( 05/23) despite negative head CT , and evaluation. Reports mother experiencing frequent Way and increased confusion over the past week. called for right sided weakness -- ?onset, few weeks. spoke to daughter ,DIMITRY, issues with her speech x 3months, but worse over last few weeks. she admits swallowing issue. feels right sided weaker, denies sensory c/o. 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 hepatic encephalopathy) Cardio/Vascular: Yes: Aortic Stenosis (led to bioprosthetic AoVR), CHF, HTN, Murmur Pulmonary: Yes: Previously Intubated Gastrointestinal: Yes: Ascites, Gastritis, GI Bleed Hepatobiliary: Yes: Cirrhosis, Cholelithiasis ...: No ENT: Yes: Other (diff swallowing) - Past Surgical History Past Surgical History: Yes: CABG, Colonoscopy, Hysterectomy, Valve Replacement ( aortic valve) - Alcohol/Substance Use Hx Alcohol Use: No History of Substance Use: reports: None - Smoking History Smoking history: Never smoked Have you smoked in the past 12 months: No Aproximately how many cigarettes per day: 0 - Social History Usual Living Arrangement: Alone ADL: Support Services History of Recent Travel: No Home Medications - Allergies Allergies/Adverse Reactions: Allergies Allergy/AdvReac Type Severity Reaction Status Date / Time No Known Drug Allergies Allergy Verified 06/28/17 20:56 - Home Medications Home Medications: Ambulatory Orders Ascorbic Acid [Vitamin C] 100 mg PO DAILY 02/10/17 Iron,Carbonyl/Vit C/Vit B12/FA [Iron 100 Plus Tablet] 1 each PO DAILY 02/10/17 Metoprolol Succinate [Toprol XL -] 25 mg PO DAILY 02/10/17 Spironolactone 25 mg PO DAILY 02/10/17 Ursodiol [Actigal -] 300 mg PO TID 02/10/17 Lactulose (Oral Use) [Cephulac -] 20 gm PO TID #1 bottle 04/23/17 Family Disease History - Family Disease History Family Disease History: Heart Disease: Father ( 87 of [place]), Brother ( [place]) , Other: Mother ( 22 unknown reasons) Physical Exam-Neuro Vital Signs: Vital Signs Temperature 97.4 F L 07/04/17 06:40 Pulse Rate 80 07/04/17 06:40 Respiratory Rate 20 07/04/17 06:40 Blood Pressure 117/70 07/04/17 06:40 O2 Sat by Pulse Oximetry (%) 98 07/03/17 21:00 Constitutional: Yes: No Distress Neck: Yes: Supple Labs: CBC,CMP WBC 3.5 K/mm3 (4.0-10.0) L 07/03/17 06:30 RBC 3.85 M/mm3 (3.60-5.2) 07/03/17 06:30 Hgb 12.6 GM/dL (10.7-15.3) 07/03/17 06:30 Hct 37.2 % (32.4-45.2) 07/03/17 06:30 MCV 96.7 fl (80-96) H 07/03/17 06:30 MCH 32.7 pg (25.7-33.7) 07/03/17 06:30 MCHC 33.8 g/dl (32.0-36.0) 07/03/17 06:30 RDW 14.8 % (11.6-15.6) 07/03/17 06:30 Plt Count 86 K/MM3 (134-434) L 07/03/17 06:30 MPV 8.7 fl (7.5-11.1) 07/03/17 06:30 Neutrophils % 61.9 % (42.8-82.8) 07/03/17 06:30 Lymphocytes % 27.9 % (8-40) 07/03/17 06:30 Monocytes % 6.5 % (3.8-10.2) 07/03/17 06:30 Eosinophils % 2.7 % (0-4.5) 07/03/17 06:30 Basophils % 1.0 % (0-2.0) 07/03/17 06:30 ESR 27 mm/hr (0-30) 06/30/17 06:20 Sodium 144 mmol/L (136-145) 07/03/17 06:30 Potassium 3.8 mmol/L (3.5-5.1) 07/03/17 06:30 Chloride 109 mmol/L (98-107) H 07/03/17 06:30 Carbon Dioxide 28 mmol/L (21-32) 07/03/17 06:30 Anion Gap 7 (8-16) L 07/03/17 06:30 BUN 14 mg/dL (7-18) 07/03/17 06:30 Creatinine 0.4 mg/dL (0.55-1.02) L 07/03/17 06:30 Creat Clearance w eGFR > 60 (>60) 07/02/17 07:00 Random Glucose 119 mg/dL (74-106) H 07/03/17 06:30 Calcium 8.5 mg/dL (8.5-10.1) 07/03/17 06:30 Total Bilirubin 2.8 mg/dL (0.2-1.0) H 07/04/17 06:30 Direct Bilirubin 2.1 mg/dL (0.0-0.2) H 07/04/17 06:30 AST 71 U/L (15-37) H 07/04/17 06:30 ALT 40 U/L (12-78) 07/04/17 06:30 Alkaline Phosphatase 323 U/L (45-117) H 07/04/17 06:30 Ammonia 38.6 umol/L (11-32) H 07/04/17 06:30 Creatine Kinase 76 IU/L (26-192) 07/04/17 13:10 C-Reactive Protein 1.4 MG/DL (0.00-0.3) H D 07/02/17 07:00 Total Protein 6.7 g/dl (6.4-8.2) 07/04/17 06:30 Albumin 2.1 g/dl (3.4-5.0) L 07/04/17 06:30 Tumor Marker AFP 5.2 ng/ml (0.0-8.3) 07/03/17 06:30 CA 19-9 Antigen 22 U/mL (0-35) 07/03/17 06:30 TSH 5.29 uIU/ml (0.358-3.74) H D 06/30/17 06:20 - Neuro Exam Level Of Consciousness: Yes: Alert, Oriented to Person (hypomimic fascies, slow to respond , bradykinetic, slow saccades, EOMI, slow tongue movementsm and occ fasciculation in tongue noted, motor 4./5 weakness R hemiplegia, long tract, no tremor or cogwheeling, no exe fasiculations noted, TR 3+, Patellar 1+, achilles (-), R plantar up ) NIH Stroke Scale - Total Score NIH Stroke Scale Score: 0 Imaging - Results Cat Scan: Report Reviewed, Image Reviewed Problem List - Problems (1) Dysphagia Code(s): R13.10 - DYSPHAGIA, UNSPECIFIED Qualifiers: Dysphagia type: unspecified Qualified Code(s): R13.10 - Dysphagia, unspecified (2) Hemiplegia affecting dominant side Code(s): G81.90 - HEMIPLEGIA, UNSPECIFIED AFFECTING UNSPECIFIED SIDE Assessment/Plan progressive dysphagia and r sided hemiplegia , ? onset , though appears to be subacute over weeks to months-- MRI BRAIN (-), EMG c/w motor neuroin disease, will speak to daughter later in day, suggest rehab placement then [facility]U [facility] social work FU Dr Montalvo Problem List - Problems (1) Dysphagia Code(s): R13.10 - DYSPHAGIA, UNSPECIFIED Qualifiers: Dysphagia type: unspecified Qualified Code(s): R13.10 - Dysphagia, unspecified (2) Hemiplegia affecting dominant side Code(s): G81.90 - HEMIPLEGIA, UNSPECIFIED AFFECTING UNSPECIFIED SIDE
--- NOTE | 2017-07-05 09:27 | CONS ---
DATE OF CONSULTATION: 07/04/2017 DATE OF ELECTRODIAGNOSTIC STUDIES: 07/04/2017 PHYSICAL MEDICINE REHABILITATION CONSULTATION REFERRING PHYSICIAN: Tomas Montalvo D.O. HISTORY OF PRESENT ILLNESS: The patient is a 76-year-old woman with a past medical history of liver cirrhosis, bovine aortic valve replacement who was admitted on 06/28/2017 with weakness and shortness of breath. On admission, patient had a chest x-ray which showed increased left base changes with atelectasis or infiltrate at the left base. Per the patient, she had developed weakness in the last few weeks, but apparently has been declining for a longer period, perhaps at least 6 weeks. She did have a fall and injure her left wrist. Per the patient she awoke recently with right sided weakness. She underwent a CT of the head on admission June 28 which showed no acute intracranial pathology. This was repeated on July 03, and again no acute intracranial pathology. An MRI of the brain has been ordered. Patient's blood work shows normal WBC on admission 4.1, currently slightly low at 3.5, stable hemoglobin yesterday at 12.6 and platelet count low at 86,000 but fairly stable. INR on admission 1.33. Last chemistry, she had some stable liver enzymes but elevated AST 71, normal ALT of 40, elevated total bilirubin 2.8 and alkaline phosphatase 323 fairly stable, low albumin 2.1. Last Chem-7 was done yesterday: sodium 144, potassium 3.8, chloride elevated 109, slightly elevated random glucose 119, normal BUN 14, creatinine low at 0.4. The patient again was evaluated by Dr. Edward from neurology and referred for electrodiagnostic evaluation to include tongue muscles, trapezius and other musculature to assess for motor neuron disease. Per the patient she has right upper and right lower extremity weakness of 2 weeks, and again difficulty speaking and swallowing. Patient was seen by Margaret Soto from speech pathology and underwent modified barium swallow. We recommended dysphagia pureed diet with thin liquids. Patient is also seen by physical therapy and able to ambulate 60 feet with a rolling walker contact guard of 1. Review of past medical and surgical history, as above. History of liver cirrhosis, bovine aortic valve replacement, hypertension, atherosclerotic heart disease, and she also states she suffered fractures of the left wrist after a fall. Hepatic encephalopathy is also noted. History of gastritis, GI bleed and thrombocytopenia. History of hysterectomy. SOCIAL HISTORY: Per the patient, lived alone, but premorbidly she states she was functionally ambulatory and living by herself in a multifamily home. She does have a lot of stairs at home. REVIEW OF SYSTEMS: No lightheadedness or dizziness. No blurry vision or double vision. Again, she has difficulty speaking due to slurred speech and difficulty swallowing. No chest pain, shortness of breath currently, but she has weakness throughout her right upper and right lower extremity. No numbness, tingling. No real joint arthralgias. No fever or chills. No bowel, bladder complaints. PHYSICAL EXAMINATION: General: Patient is an elderly woman who is seen both sitting, standing, and taking a few steps to transfer from a wheelchair to a mat, in no acute distress but clearly upset regarding her condition. She is awake and cooperative. Her speech is slurred and masked facies. HEENT: Extraocular muscles intact. Neck: Supple. Extremities: +1 edema on the right more than the left lower extremity. Skin: Without any rash or breakdown. Neuromuscular: She is awake, cooperative. Oriented to person, place and time. Her extraocular muscles are intact. She has some tongue fasciculation. She has weakness of the right upper and right lower extremity with some atrophy noted in the intrinsics bilaterally. She has brisk biceps and tricepes reflexes but only 1 to 2 plus patellar reflex, unable to elicit ankle jerk reflexes, upgoing toe on the right and equivalent on the left. She has normal sensation to cold temperature, pinprick, and vibration. She is able to stand and take a few steps with assistance. Results of EMG nerve conduction studies, please refer to report for details. OVERALL IMPRESSION: 1. Diffuse muscle membrane instability (denervation) with fasciculations and normal sensory nerve conduction, low amplitude motor conduction studies, including some denervation in the tongue and midthoracic paraspinal trapezius musculature consistent with motor neuron disease/amyotrophic lateral sclerosis . 2. No myopathic motor units, demyelinating polyneuropathy or sensory involvement. 3. Gait disorder. 4. Dysphagia and dysarthria. 5. History of bovine aortic valve replacement. 6. Atherosclerotic heart disease. 7. Thrombocytopenia. 8. Liver cirrhosis. PLAN AND SUGGESTION: 1. Neurologic followup with Dr. Montalvo. 2. Continue physical therapy. 3. Out of bed to chair. 4. Supportive care. 5. Consider DVT prophylaxis unless thrombocytopenia makes it contraindicated. 6. Skin precaution. 7. Follow up with Margaret Soto. 8. Continue modified dysphagia diet, monitor for aspiration. 9. Monitor for constipation. 10. Recommend evaluation for Acute inpatient rehabilitation in facility where she could get physical, occupational and speech therapies. She should go to a rehabilitation facility, if possible, that offers augmentative communication devices such as [facility]. Per Margaret Soto [facility] does not have this service. if insurance allows. Thank you for this referral. ART WILSON M.D. [id number] MTDD
--- NOTE | 2017-07-05 10:34 | PN ---
Progress Note, PERSONAL ASSISTANT - Note Progress Note: Selected Entries 07/04/17 07/04/17 07/04/17 06:40 10:00 11:24 Breakfast 50% Lunch Supper Temperature 97.4 F L 97.4 F L 07/04/17 07/04/17 07/04/17 15:08 17:14 18:05 Breakfast Lunch 50% Supper 75% Temperature 98.4 F 98.5 F 07/04/17 07/05/17 22:00 06:00 Breakfast Lunch Supper Temperature 97.5 F L 97.4 F L Laboratory Tests 07/03/17 06:30 WBC 3.5 L Diet upgraded to dys chopped and thin liquid trials. Doing well. Pt would like cold cereal. Educated pt on allowing cold cereal to moisten and absorb milk to improve po tolerance. MRI/EMG results noted c/w Motor Neuron Disease. I recommend transfer to [facility] for acute rehabilitation, specifically for Augmentative communication device. 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 Insurance generally covers this in the house, but NOT when admitted to a detention.Ideally, this should be obtained soon. Pt is a full code. Pt may benefit from a palliative care consult as well. Case reviewed with staff/MD.
[2017-07-05] MEDS: RIFAXIMIN 550 MG TABLET (UD) PO SCH ×2 (10:42→22:02)
[2017-07-05] MEDS: METOPROLOL SUCCINATE 25 MG TAB.SR.24H (FP) PO SCH (10:42)
--- NOTE | 2017-07-05 15:11 | PN ---
GI Progress Note Subjective: GI Note: Dr Pollard's note is appreciated. EMG suggest motor neuron disease. Karie is tolerating a chopped dypshagia diet and tells me that her dysphagia is improved. The diarrhea is overwhelming her so will decrease lactulose. - Objective Vital Signs: Vital Signs Temperature 97.4 F L 07/05/17 06:00 Pulse Rate 73 07/05/17 09:24 Respiratory Rate 20 07/05/17 06:00 Blood Pressure 117/67 07/05/17 06:00 O2 Sat by Pulse Oximetry (%) 97 07/05/17 09:24 Laboratory Tests 07/03/17 06:30 Tumor Marker AFP 5.2 CA 19-9 Antigen 22 Constitutional: Calm Gastrointestinal Inspection: Yes: Distention ...Auscultate: Yes: Normoactive Bowel Sounds ...Palpate: Yes: Soft, Other (nontender) Labs: CBC, BMP 07/03/17 06:30 07/03/17 06:30 INR, PTT INR 1.33 (0.82-1.09) H 06/28/17 20:04 Assessment/Plan Improved hepatic encephalopathy. Her dysphagia and dysarthria reflects another process, her motor neuron disease. has E coli UTI. Will switch to po antibiotic. Dr. Whittaker will be covering this weekend.
--- NOTE | 2017-07-05 16:41 | PN ---
Progress Note (short form) - Note Progress Note: cover for Dr Hunter Current Medications Acetaminophen (Tylenol -) 325 mg PO Q4H PRN PRN Reason: FEVER OR PAIN Last Admin: 07/01/17 21:41 Dose: 325 mg Lactulose (Cephulac (Oral Use)) 20 gm PO BID [facility] Levofloxacin (Levaquin -) 250 mg PO DAILY [facility] Metoprolol Succinate (Toprol Xl -) 12.5 mg PO DAILY [facility] Last Admin: 07/05/17 10:42 Dose: 12.5 mg Rifaximin (Xifaxan -) 550 mg PO BID [facility] Last Admin: 07/05/17 10:42 Dose: 550 mg Ursodiol (Actigal -) 300 mg PO TID [facility] Last Admin: 07/05/17 16:16 Dose: 300 mg Vital Signs Temperature 97.8 F 07/05/17 15:30 Pulse Rate 74 07/05/17 15:30 Respiratory Rate 20 07/05/17 06:00 Blood Pressure 105/69 07/05/17 15:30 O2 Sat by Pulse Oximetry (%) 97 07/05/17 09:24 CC; rt sided weakness ```````````````````` eyes--midline; eomi face--no droop heart--RR lungs--distant abd--soft ext--no gross edema neuro--Rt sided weakness (arm & legs) speech slow but clear & coherent; follows commands `````````````````````````````` Summ > hep enceph--2nd PBC; see GI notes; clinically improved; cont current agents > Dysphagia--on dysph diet > Mild Rt HP--clinically suggestive of CVA /TIA; but repeat head CT and MRI does not speak for this. The EMG done does however, suggest the presence of ALS , which could explain her weakness as well (see Neuro notes). PLAN; would be for her to engage in PT post d/c(rehab). 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
[2017-07-06] MEDS: URSODIOL 300 MG CAPSULE PO SCH ×3 (06:58→21:01)
[2017-07-06 08:02] LABS: EOSINOPHIL 2.5 % (0-4.5); MCH 32.8 pg (25.7-33.7); MCHC 33.8 g/dl (32.0-36.0); MEAN CELL VOLUME 97.1 fl (80-96); MEAN PLT VOLUME 8.6 fl (7.5-11.1); NEUTROPHILS 58.9 % (42.8-82.8); PLATELET COUNT 66 K/MM3 (134-434); RDW 14.6 % (11.6-15.6); WHITE BLOOD COUNT 2.7 K/mm3 (4.0-10.0)
[2017-07-06 08:21] LABS: ALBUMIN 2.3 g/dl (3.4-5.0); ANION GAP 9 (8-16); BILIRUBIN,TOTAL 2.6 mg/dL (0.2-1.0); CALCIUM 8.2 mg/dL (8.5-10.1); CO2 25 mmol/L (21-32); GLUCOSE,RANDOM 121 mg/dL (74-106); SGOT/AST 70 U/L (15-37); SGPT/ALT 34 U/L (12-78); TOT PROT 6.8 g/dl (6.4-8.2)
[2017-07-06 08:59] LABS: ALK PHOS 324 U/L (45-117); C-REACTIVE PROTEIN 0.7 MG/DL (0.00-0.3); CREATININE 0.4 mg/dL (0.55-1.02)
[2017-07-06] MEDS: METOPROLOL SUCCINATE 25 MG TAB.SR.24H (FP) PO SCH (09:53)
[2017-07-06] MEDS: RIFAXIMIN 550 MG TABLET (UD) PO SCH ×2 (09:53→21:01)
[2017-07-06] MEDS: LEVOFLOXACIN 250 MG TABLET (FP) PO SCH (09:53)
[2017-07-06] MEDS: LACTULOSE 20 GM/30 ML UDC (FOR ORAL USE ONLY) PO SCH ×2 (09:53→21:01)
--- NOTE | 2017-07-06 11:58 | PN ---
Progress Note (short form) - Note Progress Note: &&&&&&&&&&&&& cover for Dr Hunter Current Medications Acetaminophen (Tylenol -) 325 mg PO Q4H PRN PRN Reason: FEVER OR PAIN Last Admin: 07/01/17 21:41 Dose: 325 mg Lactulose (Cephulac (Oral Use)) 20 gm PO BID [facility] Last Admin: 07/06/17 09:53 Dose: Not Given Levofloxacin (Levaquin -) 250 mg PO DAILY [facility] Last Admin: 07/06/17 09:53 Dose: 250 mg Metoprolol Succinate (Toprol Xl -) 12.5 mg PO DAILY [facility] Last Admin: 07/06/17 09:53 Dose: 12.5 mg Rifaximin (Xifaxan -) 550 mg PO BID [facility] Last Admin: 07/06/17 09:53 Dose: 550 mg Ursodiol (Actigal -) 300 mg PO TID [facility] Last Admin: 07/06/17 06:58 Dose: 300 mg Laboratory Results - last 24 hr 07/06/17 07/06/17 07/06/17 07:40 07:40 07:40 WBC 2.7 L RBC 3.81 Hgb 12.5 Hct 36.9 MCV 97.1 H MCH 32.8 MCHC 33.8 RDW 14.6 Plt Count 66 L D MPV 8.6 Neutrophils % 58.9 Lymphocytes % 28.8 Monocytes % 8.8 Eosinophils % 2.5 Basophils % 1.0 Sodium 142 Potassium 3.7 Chloride 108 H Carbon Dioxide 25 Anion Gap 9 BUN 13 Creatinine 0.4 L Random Glucose 121 H Calcium 8.2 L Total Bilirubin 2.6 H Direct Bilirubin 2.0 H AST 70 H ALT 34 Alkaline Phosphatase 324 H Ammonia 32.67 H C-Reactive Protein 0.7 H D Total Protein 6.8 Albumin 2.3 L Vital Signs Temperature 97.7 F 07/06/17 06:00 Pulse Rate 71 07/06/17 06:00 Respiratory Rate 18 07/06/17 06:00 Blood Pressure 122/70 07/06/17 06:00 O2 Sat by Pulse Oximetry (%) 98 07/05/17 21:00 CC; rt sided weakness ```````````````````` eyes--midline; eomi face--no droop heart--RR lungs--distant abd--soft ext--no gross edema neuro--Rt sided weakness (arm & legs) speech slow but clear & coherent; follows commands `````````````````````````````` Summ > neutropenia/thrombocytopenia--but no anemia, is somewhat more pronounced; 2nd Liver dz; will check daily counts > hep enceph--2nd PBC; see GI notes; clinically improved; cont current agents > loose BM--2nd lactulose; chem is okay > Dysphagia--on dysph diet; will get [employer] f/u > Mild Rt HP--clinically suggestive of CVA /TIA; but repeat head CT and MRI does not speak for this. The EMG done does however, suggest the presence of ALS , which could explain her general weakness as well (see Neuro notes). PLAN; would be for her to engage in PT post d/c(rehab). 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
[2017-07-07] MEDS: URSODIOL 300 MG CAPSULE PO SCH ×3 (05:57→21:50)
[2017-07-07 07:32] LABS: MCH 32.7 pg (25.7-33.7); MCHC 33.7 g/dl (32.0-36.0); PLATELET COUNT 91 K/MM3 (134-434); RDW 14.9 % (11.6-15.6); WHITE BLOOD COUNT 4.4 K/mm3 (4.0-10.0)
[2017-07-07 08:20] LABS: ALBUMIN 2.4 g/dl (3.4-5.0); ALK PHOS 324 U/L (45-117); ANION GAP 6 (8-16); BILIRUBIN,TOTAL 2.8 mg/dL (0.2-1.0); CALCIUM 8.9 mg/dL (8.5-10.1); CO2 26 mmol/L (21-32); CREATININE 0.5 mg/dL (0.55-1.02); GLUCOSE,RANDOM 114 mg/dL (74-106); SGOT/AST 75 U/L (15-37); SGPT/ALT 37 U/L (12-78); TOT PROT 7.1 g/dl (6.4-8.2)
--- NOTE | 2017-07-07 08:38 | PN ---
Progress Note (short form) - Note Progress Note: rogressive dysphagia and r sided hemiplegia , ? onset , though appears to be subacute over weeks to months-- possibility of cerebellar/brainstem stroke, though concern for bulbar motor neuron disease as well will get MRI BRAIN, EMG ( please EMG tongue muscles, trap, sample msuculature) , CPK, ESR, ALEJANDRO, lyme, TAYLOR, Achetylcholine receptor AB (Myasthenia less likely) Today patient reports improved dysphagia. MRI Brain- with atrophy only, no other brain abn. LFTs remain elevated. 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 Montalvo obtaining EMGs?? as outpt. Fox Oglesby MD
[2017-07-07] MEDS: METOPROLOL SUCCINATE 25 MG TAB.SR.24H (FP) PO SCH (10:02)
[2017-07-07] MEDS: LACTULOSE 20 GM/30 ML UDC (FOR ORAL USE ONLY) PO SCH ×2 (10:02→21:50)
[2017-07-07] MEDS: RIFAXIMIN 550 MG TABLET (UD) PO SCH ×3 (10:02→21:51)
[2017-07-07] MEDS: LEVOFLOXACIN 250 MG TABLET (FP) PO SCH (10:02)
--- NOTE | 2017-07-07 20:14 | PN ---
Progress Note, Physician History of Present Illness: Feels better and able to swallow much better. Appetite has improved. Speech is very slow and weakness of right side extremities - Current Medication List Current Medications: Active Medications Acetaminophen (Tylenol -) 325 mg PO Q4H PRN PRN Reason: FEVER OR PAIN Last Admin: 07/01/17 21:41 Dose: 325 mg Lactulose (Cephulac (Oral Use)) 20 gm PO BID [facility] Last Admin: 07/07/17 10:02 Dose: Not Given Levofloxacin (Levaquin -) 250 mg PO DAILY [facility] Last Admin: 07/07/17 10:02 Dose: 250 mg Metoprolol Succinate (Toprol Xl -) 12.5 mg PO DAILY [facility] Last Admin: 07/07/17 10:02 Dose: 12.5 mg Rifaximin (Xifaxan -) 550 mg PO BID [facility] Last Admin: 07/07/17 10:02 Dose: 550 mg Ursodiol (Actigal -) 300 mg PO TID [facility] Last Admin: 07/07/17 15:27 Dose: 300 mg - Objective Vital Signs: Vital Signs Temperature 97.7 F 07/07/17 16:25 Pulse Rate 64 07/07/17 16:25 Respiratory Rate 18 07/07/17 16:25 Blood Pressure 109/65 07/07/17 16:25 O2 Sat by Pulse Oximetry (%) 99 07/07/17 09:00 Constitutional: Yes: Well Nourished, Calm Eyes: Yes: Conjunctiva Clear, EOM Intact HENT: Yes: WNL Neck: Yes: Supple Cardiovascular: Yes: Regular Rate and Rhythm, S1, S2 Respiratory: Yes: Regular, CTA Bilaterally Gastrointestinal: Yes: Normal Bowel Sounds, Soft Genitourinary: Yes: WNL Extremities: Yes: WNL Edema: No Peripheral Pulses WNL: Yes Neurological: Yes: Alert, Oriented, Cran Nerves II-XII Intact, Dysarthria ...Motor Strength: RUE (power in flexors and extensors is 4/5) Psychiatric: Yes: Alert, Oriented Labs: CBC, BMP 07/07/17 06:10 07/07/17 06:10 INR, PTT INR 1.33 (0.82-1.09) H 06/28/17 20:04 Problem List - Problems (1) Dysphagia Assessment/Plan: Has improved Code(s): R13.10 - DYSPHAGIA, UNSPECIFIED Qualifiers: Dysphagia type: unspecified Qualified Code(s): R13.10 - Dysphagia, unspecified (2) Hepatic encephalopathy Assessment/Plan: Ammonia level has been coming down Code(s): K72.90 - HEPATIC FAILURE, UNSPECIFIED WITHOUT COMA (3) Depression Code(s): F32.9 - MAJOR DEPRESSIVE DISORDER, SINGLE EPISODE, UNSPECIFIED Qualifiers: Depression Type: other depression Qualified Code(s): F32.89 - Other specified depressive episodes (4) Hiatal hernia with GERD Code(s): K21.9 - GASTRO-ESOPHAGEAL REFLUX DISEASE WITHOUT ESOPHAGITIS K44.9 - DIAPHRAGMATIC HERNIA WITHOUT OBSTRUCTION OR GANGRENE (5) Primary biliary cirrhosis Code(s): K74.3 - PRIMARY BILIARY CIRRHOSIS (6) Hemiplegia affecting dominant side Code(s): G81.90 - HEMIPLEGIA, UNSPECIFIED AFFECTING UNSPECIFIED SIDE Assessment/Plan Hepatic encephalopathy, Right hemiplegia Plan :Will require placement for PT.
[2017-07-08] MEDS: URSODIOL 300 MG CAPSULE PO SCH ×3 (06:26→22:09)
[2017-07-08] MEDS: METOPROLOL SUCCINATE 25 MG TAB.SR.24H (FP) PO SCH (10:14)
[2017-07-08] MEDS: LEVOFLOXACIN 250 MG TABLET (FP) PO SCH (10:15)
[2017-07-08] MEDS: LACTULOSE 20 GM/30 ML UDC (FOR ORAL USE ONLY) PO SCH ×2 (10:15→22:09)
[2017-07-08] MEDS: RIFAXIMIN 550 MG TABLET (UD) PO SCH ×2 (10:15→22:10)
--- NOTE | 2017-07-08 13:59 | DS ---
Physical Examination Vital Signs: Vital Signs Temperature 97.8 F 07/08/17 10:00 Pulse Rate 75 07/08/17 10:00 Respiratory Rate 20 07/08/17 10:00 Blood Pressure 106/75 07/08/17 10:00 O2 Sat by Pulse Oximetry (%) 98 07/08/17 12:17 Constitutional: Yes: No Distress, Calm Eyes: Yes: EOM Intact Cardiovascular: Yes: Regular Rate and Rhythm Respiratory: Yes: Regular Gastrointestinal: Yes: Soft Extremities: Yes: WNL Edema: Yes Edema: LLE: Trace, RLE: Trace Integumentary: Yes: WNL Neurological: Yes: Dysarthria, Pre-Existing Deficit (Rt hemiplegia; dysphagia) ...Motor Strength: RUE (Rt hemiplegia) Psychiatric: Yes: Oriented Labs: CBC, BMP 07/07/17 06:10 07/07/17 06:10 Discharge Summary Reason For Visit: HEPATIC ENCEPHALOPATHY Current Active Problems primary biliary cirrhosis Dysphagia (Acute) Hemiplegia affecting dominant side (Acute) Hepatic encephalopathy (Acute) UTI motor neuron disease history of falls hypertension neutropenia thrombocytopenia Hospital Course: admitted 2nd confusion 2nd encephalopathy due to hepatic failure; seen by GI tx aggressively with lactulose and Rifamixin; also c/o weakness on Rt side but head CT and MRI did not show a new CVA; she was instead dx with motor neuron Dz as per neuro. She was found to have a UTI and tx with levaquin Condition: Improved - Instructions Diet, Activity, Other Instructions: soft diet; dysphagia avoid excess fluids; unless dehydrated PT eval; speech eval check CBC; Chemistry and Ammonia levels periodically avoid constipation weigh weekly Referrals: Ector Hunter MD [Primary Care Provider] - Disposition: VNS/HOME HEALTH CARE - Home Medications Comprehensive Discharge Medication List: Ambulatory Orders Iron,Carbonyl/Vit C/Vit B12/FA [Iron 100 Plus Tablet] 1 each PO DAILY 02/10/17 Spironolactone 25 mg PO DAILY 02/10/17 Acetaminophen [Tylenol .Regular Strength -] 325 mg PO Q4H PRN #0 tablet Lactulose (Oral Use) [Cephulac -] 20 gm PO BID #500 ml 07/08/17 Levofloxacin [Levaquin -] 250 mg PO DAILY #10 tablet MDD 1 07/08/17 Metoprolol Succinate [Toprol XL -] 12.5 mg PO DAILY #30 tab 07/08/17 Rifaximin [Xifaxan -] 550 mg PO BID #60 tablet MDD 2 07/08/17 Ursodiol [Actigal -] 300 mg PO TID #90 cap 07/08/17
--- NOTE | 2017-07-08 15:03 | PN ---
Progress Note, SAFETY ADMINISTRATOR - Note Progress Note: Diet upgraded to soft regular by Dr. Hunter . Doing well. Pt reports doing well.Monitor PO tolerance. MRI/EMG results noted c/w Motor Neuron Disease. I recommended transfer to [facility] for acute rehabilitation, specifically for Augmentative communication device. 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 Insurance generally covers this in the house, but NOT when admitted to a group home.Ideally, this should be obtained soon. Pt is a full code. Pt may benefit from a palliative care consult as well. Selected Entries 07/07/17 07/07/17 07/07/17 05:00 10:25 15:14 Breakfast 25% Lunch 50% Supper Temperature 97.7 F 99.2 F 07/07/17 07/07/17 07/08/17 16:25 18:30 06:00 Breakfast Lunch Supper 75% Temperature 97.7 F 98.2 F 07/08/17 07/08/17 07/08/17 10:00 10:35 14:46 Breakfast 75% Lunch 75% Supper Temperature 97.8 F 97.7 F Laboratory Tests 07/07/17 06:10 WBC 4.4 D Pt does not want to go to and does not feel she needs a computer. I provided some basic counseling on ALS and progression of the disease. She seemed unaware , or in denial, stating "I'm getting better." Consider referral to an ALS center for education and monitoring, with future needs for nutritional and communicative support. f/u by Neurology. Tongue coated. r/o thrush
[2017-07-09] MEDS: URSODIOL 300 MG CAPSULE PO SCH ×3 (06:22→21:36)
--- NOTE | 2017-07-09 09:34 | PN ---
Progress Note (short form) - Note Progress Note: 76 yo F with h/o ASHD. 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 Daughter reports that mother has been slowly deteriorating since recent fall ( 05/23) despite negative head CT , and evaluation. Reports mother experiencing frequent Way and increased confusion over the past week. called for right sided weakness -- ?onset, few weeks. spoke to daughter ,DIMITRY, issues with her speech x 3months, but worse over last few weeks. she admits swallowing issue. feels right sided weaker, denies sensory c/o. 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 ([place] palsy and hepatic encephalopathy) Cardio/Vascular: Yes: Aortic Stenosis (led to bioprosthetic AoVR), CHF, HTN, Murmur Pulmonary: Yes: Previously Intubated Gastrointestinal: Yes: Ascites, Gastritis, GI Bleed Hepatobiliary: Yes: Cirrhosis, Cholelithiasis ...: No ENT: Yes: Other (diff swallowing) - Past Surgical History Past Surgical History: Yes: CABG, Colonoscopy, Hysterectomy, Valve Replacement ( aortic valve) - Alcohol/Substance Use Hx Alcohol Use: No History of Substance Use: reports: None - Smoking History Smoking history: Never smoked Have you smoked in the past 12 months: No Aproximately how many cigarettes per day: 0 - Social History Usual Living Arrangement: Alone ADL: Support Services History of Recent Travel: No Home Medications - Allergies Allergies/Adverse Reactions: Allergies Allergy/AdvReac Type Severity Reaction Status Date / Time No Known Drug Allergies Allergy Verified 06/28/17 20:56 - Home Medications Home Medications: Ambulatory Orders Ascorbic Acid [Vitamin C] 100 mg PO DAILY 02/10/17 Iron,Carbonyl/Vit C/Vit B12/FA [Iron 100 Plus Tablet] 1 each PO DAILY 02/10/17 Metoprolol Succinate [Toprol XL -] 25 mg PO DAILY 02/10/17 Spironolactone 25 mg PO DAILY 02/10/17 Ursodiol [Actigal -] 300 mg PO TID 02/10/17 Lactulose (Oral Use) [Cephulac -] 20 gm PO TID #1 bottle 04/23/17 Family Disease History - Family Disease History Family Disease History: Heart Disease: Father ( 87 of [place]), Brother ( [place]) , Other: Mother ( 22 unknown reasons) Physical Exam-Neuro Vital Signs: Vital Signs Temperature 98.0 F 07/09/17 09:04 Pulse Rate 73 07/09/17 09:04 Respiratory Rate 18 07/09/17 09:04 Blood Pressure 109/71 07/09/17 09:04 O2 Sat by Pulse Oximetry (%) 98 07/08/17 21:00 Constitutional: Yes: No Distress Neck: Yes: Supple Labs: CBC, BMP 07/03/17 06:30 07/03/17 06:30 INR, PTT INR 1.33 (0.82-1.09) H 06/28/17 20:04 - Neuro Exam Level Of Consciousness: Yes: Alert, Oriented to Person (hypomimic fascies, slow to respond , bradykinetic, slow saccades, EOMI, slow tongue movementsm and occ fasciculation in tongue noted, motor 4./5 weakness R hemiplegia, long tract, no tremor or cogwheeling, no exe fasiculations noted, TR 3+, Patellar 1+, achilles (-), R plantar up ) NIH Stroke Scale - Total Score NIH Stroke Scale Score: 0 Imaging - Results Cat Scan: Report Reviewed, Image Reviewed Problem List - Problems (1) Dysphagia Code(s): R13.10 - DYSPHAGIA, UNSPECIFIED Qualifiers: Dysphagia type: unspecified Qualified Code(s): R13.10 - Dysphagia, unspecified (2) Hemiplegia affecting dominant side Code(s): G81.90 - HEMIPLEGIA, UNSPECIFIED AFFECTING UNSPECIFIED SIDE Assessment/Plan progressive dysphagia and r sided hemiplegia , signs and symptoms along with EMG findings c/w Amytrophic Lateral Sclerosis, bulbar symptomatology agree with placement at [facility] Problem List - Problems (1) Dysphagia Code(s): R13.10 - DYSPHAGIA, UNSPECIFIED Qualifiers: Dysphagia type: unspecified Qualified Code(s): R13.10 - Dysphagia, unspecified (2) Hemiplegia affecting dominant side Code(s): G81.90 - HEMIPLEGIA, UNSPECIFIED AFFECTING UNSPECIFIED SIDE
[2017-07-09] MEDS: LACTULOSE 20 GM/30 ML UDC (FOR ORAL USE ONLY) PO SCH ×2 (10:24→21:37)
[2017-07-09] MEDS: LEVOFLOXACIN 250 MG TABLET (FP) PO SCH (10:24)
[2017-07-09] MEDS: METOPROLOL SUCCINATE 25 MG TAB.SR.24H (FP) PO SCH (10:24)
[2017-07-09] MEDS: RIFAXIMIN 550 MG TABLET (UD) PO SCH ×2 (10:27→21:35)
--- NOTE | 2017-07-09 12:33 | PN ---
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 Plan in [place] on [address] , per [facility]. F/U by speech pathology upon d/c to maintain means of communication and maximize safety of tolerance of PO intake. Ideally, evaluation for augmentative communication system. ETRAN board for future use. Supplements b/n meals, as indicated.
--- NOTE | 2017-07-09 19:21 | PN ---
Progress Note, Physician History of Present Illness: Continues to have weakness in the right upper and lower extremities. Feels her swallowing has improved. - Current Medication List Current Medications: Active Medications Acetaminophen (Tylenol -) 325 mg PO Q4H PRN PRN Reason: FEVER OR PAIN Last Admin: 07/01/17 21:41 Dose: 325 mg Lactulose (Cephulac (Oral Use)) 20 gm PO BID ON LICENSE OF [facility] Last Admin: 07/09/17 10:24 Dose: 20 gm Levofloxacin (Levaquin -) 250 mg PO DAILY ON [facility] OF [facility] Last Admin: 07/09/17 10:24 Dose: 250 mg Metoprolol Succinate (Toprol Xl -) 12.5 mg PO DAILY ON [facility] OF [facility] Last Admin: 07/09/17 10:24 Dose: 12.5 mg Rifaximin (Xifaxan -) 550 mg PO BID ON LICENSE OF [facility] Last Admin: 07/09/17 10:27 Dose: Not Given Ursodiol (Actigal -) 300 mg PO TID ON LICENSE OF [facility] Last Admin: 07/09/17 14:51 Dose: 300 mg - Objective Vital Signs: Vital Signs Temperature 98.5 F 07/09/17 18:00 Pulse Rate 74 07/09/17 18:00 Respiratory Rate 16 07/09/17 18:00 Blood Pressure 114/65 07/09/17 18:00 O2 Sat by Pulse Oximetry (%) 98 07/08/17 21:00 Constitutional: Yes: No Distress, Calm Eyes: Yes: Conjunctiva Clear, EOM Intact HENT: Yes: WNL Neck: Yes: Supple Cardiovascular: Yes: Regular Rate and Rhythm, S1, S2 Respiratory: Yes: Regular, CTA Bilaterally Gastrointestinal: Yes: Normal Bowel Sounds, Soft Genitourinary: Yes: WNL Musculoskeletal: Yes: WNL Extremities: Yes: WNL Edema: No Peripheral Pulses WNL: Yes Integumentary: Yes: WNL Neurological: Yes: Alert, Oriented, Dysarthria ...Motor Strength: RUE (power of flexors and extensors 4/5), RLE (power of flexors and extensors 4/5) Psychiatric: Yes: Alert, Oriented Labs: CBC, BMP 07/07/17 06:10 07/07/17 06:10 INR, PTT INR 1.33 (0.82-1.09) H 06/28/17 20:04 Problem List - Problems (1) Dysphagia Assessment/Plan: Dysphagia is improving Code(s): R13.10 - DYSPHAGIA, UNSPECIFIED Qualifiers: Dysphagia type: unspecified Qualified Code(s): R13.10 - Dysphagia, unspecified (2) Hepatic encephalopathy Assessment/Plan: Ammonia level has improved with lactulose, she is oriented times three Code(s): K72.90 - HEPATIC FAILURE, UNSPECIFIED WITHOUT COMA (3) Depression Code(s): F32.9 - MAJOR DEPRESSIVE DISORDER, SINGLE EPISODE, UNSPECIFIED Qualifiers: Depression Type: other depression Qualified Code(s): F32.89 - Other specified depressive episodes (4) Hiatal hernia with GERD Code(s): K21.9 - GASTRO-ESOPHAGEAL REFLUX DISEASE WITHOUT ESOPHAGITIS K44.9 - DIAPHRAGMATIC HERNIA WITHOUT OBSTRUCTION OR GANGRENE (5) Primary biliary cirrhosis Code(s): K74.3 - PRIMARY BILIARY CIRRHOSIS (6) Hemiplegia affecting dominant side Assessment/Plan: 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 With persistent administration of lactulose she is more aklert and the ammona level has improved. Will transferred to SNF for Rehab when bed is available.
[2017-07-10] MEDS: URSODIOL 300 MG CAPSULE PO SCH ×3 (06:11→22:00)
--- NOTE | 2017-07-10 09:33 | PN ---
Progress Note (short form) - Note Progress Note: 76 yo F with h/o ASHD. 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 Daughter reports that mother has been slowly deteriorating since recent fall ( 05/23) despite negative head CT , and evaluation. Reports mother experiencing frequent Way and increased confusion over the past week. called for right sided weakness -- ?onset, few weeks. spoke to daughter ,DIMITRY, issues with her speech x 3months, but worse over last few weeks. she admits swallowing issue. feels right sided weaker, denies sensory c/o. 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 ([place] palsy and hepatic encephalopathy) Cardio/Vascular: Yes: Aortic Stenosis (led to bioprosthetic AoVR), CHF, HTN, Murmur Pulmonary: Yes: Previously Intubated Gastrointestinal: Yes: Ascites, Gastritis, GI Bleed Hepatobiliary: Yes: Cirrhosis, Cholelithiasis ...: No ENT: Yes: Other (diff swallowing) - Past Surgical History Past Surgical History: Yes: CABG, Colonoscopy, Hysterectomy, Valve Replacement ( aortic valve) - Alcohol/Substance Use Hx Alcohol Use: No History of Substance Use: reports: None - Smoking History Smoking history: Never smoked Have you smoked in the past 12 months: No Aproximately how many cigarettes per day: 0 - Social History Usual Living Arrangement: Alone ADL: Support Services History of Recent Travel: No Home Medications - Allergies Allergies/Adverse Reactions: Allergies Allergy/AdvReac Type Severity Reaction Status Date / Time No Known Drug Allergies Allergy Verified 06/28/17 20:56 - Home Medications Home Medications: Ambulatory Orders Ascorbic Acid [Vitamin C] 100 mg PO DAILY 02/10/17 Iron,Carbonyl/Vit C/Vit B12/FA [Iron 100 Plus Tablet] 1 each PO DAILY 02/10/17 Metoprolol Succinate [Toprol XL -] 25 mg PO DAILY 02/10/17 Spironolactone 25 mg PO DAILY 02/10/17 Ursodiol [Actigal -] 300 mg PO TID 02/10/17 Lactulose (Oral Use) [Cephulac -] 20 gm PO TID #1 bottle 04/23/17 Family Disease History - Family Disease History Family Disease History: Heart Disease: Father ( 87 of [place]), Brother ( [place]) , Other: Mother ( 22 unknown reasons) Physical Exam-Neuro Vital Signs: Vital Signs Vital Signs Temperature 97.3 F L 07/10/17 06:00 Pulse Rate 66 07/10/17 06:00 Respiratory Rate 18 07/10/17 06:00 Blood Pressure 127/75 07/10/17 06:00 O2 Sat by Pulse Oximetry (%) 98 07/08/17 21:00 Constitutional: Yes: No Distress Neck: Yes: Supple Labs: CBCD WBC 4.4 K/mm3 (4.0-10.0) D 07/07/17 06:10 RBC 4.09 M/mm3 (3.60-5.2) 07/07/17 06:10 Hgb 13.4 GM/dL (10.7-15.3) 07/07/17 06:10 Hct 39.7 % (32.4-45.2) 07/07/17 06:10 MCV 97.0 fl (80-96) H 07/07/17 06:10 MCHC 33.7 g/dl (32.0-36.0) 07/07/17 06:10 RDW 14.9 % (11.6-15.6) 07/07/17 06:10 Plt Count 91 K/MM3 (134-434) L D 07/07/17 06:10 MPV 9.0 fl (7.5-11.1) 07/07/17 06:10 CMP Sodium 140 mmol/L (136-145) 07/07/17 06:10 Potassium 4.1 mmol/L (3.5-5.1) 07/07/17 06:10 Chloride 108 mmol/L (98-107) H 07/07/17 06:10 Carbon Dioxide 26 mmol/L (21-32) 07/07/17 06:10 Anion Gap 6 (8-16) L 07/07/17 06:10 BUN 13 mg/dL (7-18) 07/07/17 06:10 Creatinine 0.5 mg/dL (0.55-1.02) L D 07/07/17 06:10 Creat Clearance w eGFR > 60 (>60) 07/07/17 06:10 Calcium 8.9 mg/dL (8.5-10.1) 07/07/17 06:10 Total Bilirubin 2.8 mg/dL (0.2-1.0) H 07/07/17 06:10 AST 75 U/L (15-37) H 07/07/17 06:10 ALT 37 U/L (12-78) 07/07/17 06:10 Alkaline Phosphatase 324 U/L (45-117) H 07/07/17 06:10 Total Protein 7.1 g/dl (6.4-8.2) 07/07/17 06:10 Albumin 2.4 g/dl (3.4-5.0) L 07/07/17 06:10 - Neuro Exam Level Of Consciousness: Yes: Alert, Oriented to Person (hypomimic fascies, slow to respond , bradykinetic, slow saccades, EOMI, slow tongue movementsm and occ fasciculation in tongue noted, motor 4./5 weakness R hemiplegia, long tract, no tremor or cogwheeling, no exe fasiculations noted, TR 3+, Patellar 1+, achilles (-), R plantar up ) NIH Stroke Scale - Total Score NIH Stroke Scale Score: 0 Imaging - Results Cat Scan: Report Reviewed, Image Reviewed Problem List - Problems (1) Dysphagia Code(s): R13.10 - DYSPHAGIA, UNSPECIFIED Qualifiers: Dysphagia type: unspecified Qualified Code(s): R13.10 - Dysphagia, unspecified (2) Hemiplegia affecting dominant side Code(s): G81.90 - HEMIPLEGIA, UNSPECIFIED AFFECTING UNSPECIFIED SIDE (3) MND Assessment/Plan progressive dysphagia and r sided hemiplegia , signs and symptoms along with EMG findings c/w Amytrophic Lateral Sclerosis, bulbar symptomatology , needs placement, daughter aware Dr [facility] Problem List - Problems (1) Dysphagia Code(s): R13.10 - DYSPHAGIA, UNSPECIFIED Qualifiers: Dysphagia type: unspecified Qualified Code(s): R13.10 - Dysphagia, unspecified (2) Hemiplegia affecting dominant side Code(s): G81.90 - HEMIPLEGIA, UNSPECIFIED AFFECTING UNSPECIFIED SIDE
[2017-07-10] MEDS ORDERED: PT OWN MED DRAWER 7, Y5N ONE (09:45)
[2017-07-10] MEDS: LEVOFLOXACIN 250 MG TABLET (FP) PO SCH (09:47)
[2017-07-10] MEDS: LACTULOSE 20 GM/30 ML UDC (FOR ORAL USE ONLY) PO SCH ×2 (09:47→22:00)
[2017-07-10] MEDS: RIFAXIMIN 550 MG TABLET (UD) PO SCH ×2 (09:48→22:00)
[2017-07-10] MEDS: METOPROLOL SUCCINATE 25 MG TAB.SR.24H (FP) PO SCH (09:48)
--- NOTE | 2017-07-10 14:41 | PN ---
Progress Note (short form) - Note Progress Note: ^^^^^^^^^ covering note for dr Hunter Current Medications Acetaminophen (Tylenol -) 325 mg PO Q4H PRN PRN Reason: FEVER OR PAIN Last Admin: 07/01/17 21:41 Dose: 325 mg Lactulose (Cephulac (Oral Use)) 20 gm PO BID [facility] Last Admin: 07/10/17 09:47 Dose: 20 gm Levofloxacin (Levaquin -) 250 mg PO DAILY [facility] Last Admin: 07/10/17 09:47 Dose: 250 mg Metoprolol Succinate (Toprol Xl -) 12.5 mg PO DAILY [facility] Last Admin: 07/10/17 09:48 Dose: 12.5 mg Rifaximin (Xifaxan -) 550 mg PO BID [facility] Last Admin: 07/10/17 09:48 Dose: 550 mg Ursodiol (Actigal -) 300 mg PO TID [facility] Last Admin: 07/10/17 13:29 Dose: 300 mg Vital Signs Temperature 97 F L 07/10/17 08:20 Pulse Rate 67 07/10/17 08:20 Respiratory Rate 20 07/10/17 08:20 Blood Pressure 119/73 07/10/17 08:20 O2 Sat by Pulse Oximetry (%) 98 07/08/17 21:00 CC; no new complaints ````````````````````` skin--good color no new lesions heart--RR abd--soft ext--1+ edema neuro--dysarthria; Rt HP; coherent ````````````````````````````````` Summ (please refer to d/c summary) > Rt HP--w/ dysarthria & dysphagia; 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, prognosis guarded; will need placement > Htn--BP & Hr okay >Cirrhosis--2nd PBC; encephalopathy appears to have resolved or diminished w/ current tx > Uti--sensitive to levaquin ~~~~~~~~~~~ Dr Hoffmann for Dr Hunter Problem List - Problems (1) Hepatic encephalopathy Code(s): K72.90 - HEPATIC FAILURE, UNSPECIFIED WITHOUT COMA (2) Liver cirrhosis Code(s): K74.60 - UNSPECIFIED CIRRHOSIS OF LIVER Qualifiers: 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
[2017-07-11] MEDS: URSODIOL 300 MG CAPSULE PO SCH ×3 (07:11→21:35)
[2017-07-11] MEDS: LEVOFLOXACIN 250 MG TABLET (FP) PO SCH (10:50)
[2017-07-11] MEDS: RIFAXIMIN 550 MG TABLET (UD) PO SCH ×2 (10:50→21:34)
[2017-07-11] MEDS: METOPROLOL SUCCINATE 25 MG TAB.SR.24H (FP) PO SCH (10:50)
[2017-07-11] MEDS: LACTULOSE 20 GM/30 ML UDC (FOR ORAL USE ONLY) PO SCH ×2 (10:51→21:34)
--- NOTE | 2017-07-11 11:16 | PN ---
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 Tongue coated. Pt refusing transfer to and not accepted at [facility]. Plan in [place] on [address] , per [facility]. F/U by speech pathology upon d/c to maintain means of communication and maximize safety of tolerance of PO intake. Ideally, evaluation for augmentative communication system. ETRAN board for future use. Supplements b/n meals, as indicated. Rec: mouth care. R/o thrush
[2017-07-11 16:30] LABS: ACETYL BLOCKING ABS 4 % (0-25)
--- NOTE | 2017-07-11 20:25 | PN ---
Progress Note, Physician History of Present Illness: Able to swallow better. Right upper extremity feels that getting stronger Feels weakness in the right LE, and needs help walking - Current Medication List Current Medications: Active Medications Acetaminophen (Tylenol -) 325 mg PO Q4H PRN PRN Reason: FEVER OR PAIN Last Admin: 07/01/17 21:41 Dose: 325 mg Lactulose (Cephulac (Oral Use)) 20 gm PO BID [facility] Last Admin: 07/11/17 10:51 Dose: Not Given Levofloxacin (Levaquin -) 250 mg PO DAILY [facility] Last Admin: 07/11/17 10:50 Dose: 250 mg Metoprolol Succinate (Toprol Xl -) 12.5 mg PO DAILY [facility] Last Admin: 07/11/17 10:50 Dose: 12.5 mg Rifaximin (Xifaxan -) 550 mg PO BID [facility] Last Admin: 07/11/17 10:50 Dose: 550 mg Ursodiol (Actigal -) 300 mg PO TID [facility] Last Admin: 07/11/17 15:02 Dose: 300 mg - Objective Vital Signs: Vital Signs Temperature 98.2 F 07/11/17 18:00 Pulse Rate 71 07/11/17 18:00 Respiratory Rate 18 07/11/17 18:00 Blood Pressure 112/62 07/11/17 18:00 O2 Sat by Pulse Oximetry (%) 95 07/11/17 15:05 Constitutional: Yes: Well Nourished, No Distress, Calm Eyes: Yes: WNL HENT: Yes: WNL Neck: Yes: Supple Respiratory: Yes: Regular, CTA Bilaterally Gastrointestinal: Yes: WNL, Normal Bowel Sounds, Soft Genitourinary: Yes: WNL Musculoskeletal: Yes: WNL Extremities: Yes: WNL Edema: No Peripheral Pulses WNL: Yes Integumentary: Yes: WNL Neurological: Yes: Alert, Oriented, Dysarthria ...Motor Strength: RUE (power is 4/5), RLE (RLE power is 3/5 in flexors and extensors) Labs: CBC, BMP 07/07/17 06:10 07/07/17 06:10 INR, PTT INR 1.33 (0.82-1.09) H 06/28/17 20:04 Problem List - Problems (1) Dysphagia Code(s): R13.10 - DYSPHAGIA, UNSPECIFIED Qualifiers: Dysphagia type: unspecified Qualified Code(s): R13.10 - Dysphagia, unspecified (2) Hepatic encephalopathy Code(s): K72.90 - HEPATIC FAILURE, UNSPECIFIED WITHOUT COMA (3) Depression Code(s): F32.9 - MAJOR DEPRESSIVE DISORDER, SINGLE EPISODE, UNSPECIFIED Qualifiers: Depression Type: other depression Qualified Code(s): F32.89 - Other specified depressive episodes (4) Hiatal hernia with GERD Code(s): K21.9 - GASTRO-ESOPHAGEAL REFLUX DISEASE WITHOUT ESOPHAGITIS K44.9 - DIAPHRAGMATIC HERNIA WITHOUT OBSTRUCTION OR GANGRENE (5) Primary biliary cirrhosis Code(s): K74.3 - PRIMARY BILIARY CIRRHOSIS (6) Hemiplegia affecting dominant side Code(s): G81.90 - HEMIPLEGIA, UNSPECIFIED AFFECTING UNSPECIFIED SIDE Assessment/Plan Hepatic encephalopathy: With consistent intake of Lactulose she has been alert and oriented. Right Hemiplegia :weakness continues qwithout any worsening Will have to continue PT at SNF. Cirrhosis : LFTs are stable Plan: Await placement at SNF
[2017-07-12] MEDS: URSODIOL 300 MG CAPSULE PO SCH (06:34)
[2017-07-12 06:38] VITALS: BP 131/77; PULSE 77; TEMP 97.4
[2017-07-12 08:39] LABS: BASOPHIL 1.2 % (0-2.0); EOSINOPHIL 2.6 % (0-4.5); MCH 32.5 pg (25.7-33.7); MCHC 33.4 g/dl (32.0-36.0); MEAN CELL VOLUME 97.3 fl (80-96); MEAN PLT VOLUME 9.3 fl (7.5-11.1); NEUTROPHILS 59.6 % (42.8-82.8); PLATELET COUNT 64 K/MM3 (134-434); RDW 14.8 % (11.6-15.6); WHITE BLOOD COUNT 3.5 K/mm3 (4.0-10.0)
[2017-07-12 08:55] LABS: ANION GAP 7 (8-16); CALCIUM 8.1 mg/dL (8.5-10.1); CO2 28 mmol/L (21-32); GLUCOSE,RANDOM 110 mg/dL (74-106)
[2017-07-12 08:58] LABS: ALK PHOS 290 U/L (45-117); BILIRUBIN,TOTAL 2.3 mg/dL (0.2-1.0); CREATININE 0.3 mg/dL (0.55-1.02); SGOT/AST 72 U/L (15-37); SGPT/ALT 37 U/L (12-78); TOT PROT 6.3 g/dl (6.4-8.2)
[2017-07-12] MEDS: LACTULOSE 20 GM/30 ML UDC (FOR ORAL USE ONLY) PO SCH (10:27)
[2017-07-12] MEDS: RIFAXIMIN 550 MG TABLET (UD) PO SCH (10:28)
[2017-07-12] MEDS: METOPROLOL SUCCINATE 25 MG TAB.SR.24H (FP) PO SCH (10:28)
[2017-07-12] MEDS: LEVOFLOXACIN 250 MG TABLET (FP) PO SCH (10:41)
[2017-07-18 10:12] LABS: ACETYL.MODULATING AB <12 % (0-20); ACETYLCHOL RECEP BIND < 0.03 nmol/L (0.00-0.24)
== END 2017-07-12 11:25 | DRG 57 ==
LOC: JER 19:10 → INTOOBSV 22:33 → JERBED 22:33 → UNDOADMIN 23:02 → J8W 06-29 00:38 → OBSVTOIN 07-02 09:08
PROVIDERS: ADMIT Internal Medicine Hematology & Oncology; ATTEND Internal Medicine Hematology & Oncology
DX: G12.20 Motor neuron disease, unspecified (principal); N39.0 Urinary tract infection, site not specified; I50.32 Chronic diastolic (congestive) heart failure; I85.10 Secondary esophageal varices without bleeding; K76.6 Portal hypertension; K72.90 Hepatic failure, unspecified without coma; G81.91 Hemiplegia, unspecified affecting right dominant side; R13.10 Dysphagia, unspecified; Z91.81 History of falling; I10 Essential (primary) hypertension; D70.9 Neutropenia, unspecified; D69.6 Thrombocytopenia, unspecified; K74.3 Primary biliary cirrhosis; Z95.4 Presence of other heart-valve replacement; R62.7 Adult failure to thrive; F32.9 Major depressive disorder, single episode, unspecified; K44.9 Diaphragmatic hernia without obstruction or gangrene; K21.9 Gastro-esophageal reflux disease without esophagitis; S09.8XXA Other specified injuries of head, initial encounter; W01.198A Fall on same level from slipping, tripping and stumbling with subsequent striking against other object, initial encounter; Y93.89 Activity, other specified; Y92.230 Patient room in hospital as the place of occurrence of the external cause; Y99.8 Other external cause status; R47.1 Dysarthria and anarthria; B96.29 Other Escherichia coli [E. coli] as the cause of diseases classified elsewhere
CPT/HCPCS: 36415; 70450-TC; 70551-TC; 71010-TC; 74176-TC; 74230-TC; 80048; 80053; 80076; 81003; 81015; 82105; 82140; 82248; 83519; 84443; 85025; 85027; 85610; 85651; 86038; 86140; 86301; 86618; 87040; 87086; 87186; 92611-GN; 93005; 93010; 95860-TC; 97116-GP; 97162-GP; 99283-25; G0378